=== PATIENT | male | born 1945 | race Caucasian/White ===

== ENCOUNTER 2020-05-24 18:06 | Inpatient (IN) | payer MEDICARE, OTHER, SELFPAY ==
[2020-05-24 18:07] VITALS: BP 126/83; PULSE 82; RESP 17; TEMP 35.8; O2SAT 94; BMI 31.1
[2020-05-24 18:14] VITALS: BP 131/89; PULSE 83; RESP 22
--- NOTE | 2020-05-24 18:21 | EKG12_ITS ---
Test Reason : CHEST PAIN Blood Pressure : / mmHG Vent. Rate : 074 BPM Atrial Rate : 074 BPM P-R Int : 192 ms QRS Dur : 110 ms QT Int : 426 ms P-R-T Axes : 036 008 083 degrees QTc Int : 472 ms Normal sinus rhythm ST & T wave abnormality, consider anterolateral ischemia Prolonged QT Abnormal ECG Confirmed by BLANCA HAYDEN, KENNEDI ([id number]), video effects editor NATALIIA CR ([id number]) on 05/27/2020 12:16:33 PM Referred By: LISA Confirmed By:KENNEDI RIOS MD
--- NOTE | 2020-05-24 18:29 | ED.RN ---
NO OLD EKGS IN MUES
[2020-05-24] MEDS: Aspirin 81 MG TAB.CHEW 324 MG PO (18:33)
--- NOTE | 2020-05-24 18:35 | RAD_ITS ---
STUDY: X-RAY CHEST REASON FOR EXAM: Male, 74 years old. chest pain TECHNIQUE: 1 view COMPARISON: None. FINDINGS: The lungs are clear and expanded. Mild elevation right diaphragm. Normal size heart. Normal mediastinum and yamel. Normal visualized pulmonary arteries. Normal visualized aortic arch and descending thoracic aorta. Normal visualized thoracic spine. Normal visualized ribs, clavicles, and shoulders. There is no demonstrated abnormality of the visualized soft tissue structures of the upper abdomen. RAD/Chest 1 View (Portable) IMPRESSION: Mild elevation right diaphragm. No acute cardiopulmonary findings. Electronically Signed: Courtney Thomas MD at 18:51 EST , Service support ,
[2020-05-24 18:40] LABS: Absolute Lymphocyte Count 4.43 X10^3/uL (0.83-4.51); Absolute Neutrophil Count 8.3 X10^3/uL (2.0-7.7); Basophil# 0.09 X10^3/uL; Basophil% 0.6 % (0-1); Eosinophil# 0.11 X10^3/uL; Eosinophils% 0.8 % (0-5); Hematocrit 45.8 % (40-54); Hemoglobin 15.2 g/dL (13.0-16.5); Lymphocyte # 4.43 X10^3/ul (4.0); Lymphocyte % 30.7 % (19-41); Mean Corp Hgb Conc 33.2 g/dL (32-36); Mean Corpuscular Hgb 29.6 pg (27.0-32.0); Mean Corpuscular Volume 89.1 fL (80-94); Mean Platelet Vol. 11.3 fl (6.2-12.0); Monocyte# 1.39 X10^3/uL; Monocyte% 9.6 % (0-10); NRBC Flagged by Analyzer 0 % (0-5); Neutrophil # 8.34 X10^3/uL (2.7-7.7); Neutrophil % 57.9 % (47-70); Platelet Count 236 K/mm3 (150-450); RBC Distribution Width CV 13.3 % (11.6-14.6); RBC Distribution Width SD 43.5 fl (35.1-43.9); Red Blood Count 5.14 M/mm3 (4.6-6.2); White Blood Count 14.4 K/mm3 (4.4-11.0)
[2020-05-24 19:07] LABS: Anion Gap 10 (5-15); BUN 15 mg/dL (7-18); BUN/Creat Ratio 9.4 RATIO (10-20); Calcium,Total 9.3 mg/dL (8.5-10.1); Chloride 100 mmol/L (98-107); Creatinine, Serum 1.59 mg/dL (0.70-1.30); EST Glomerular Filtration Rate 46 mL/min (>60); Est Glom Filt Rate - Afr Amer 55 mL/min (>60); Estimated Creatinine Clearance 48.11 ml/min; Glucose 150 mg/dL (74-106); Potassium 4.2 mmol/L (3.5-5.1); Sodium Level 136 mmol/L (136-145)
[2020-05-24 19:21] VITALS: BP 115/75; PULSE 67; RESP 22; O2SAT 94
--- NOTE | 2020-05-24 19:30 | ED.VISSUMM ---
- ER Visit Summary Date of Service: 05/24/20 Chief Complaint: Chest pain History of Present Illness: The patient is a 74 M who presents with chest pain that began yesterday afternoon. Patient states the pain has been waxing and waning. Patient states the pain is over the substernal area. Patient states the pain is worse with breathing. Patient admits to some shortness of breath and cough. Patient also admits to some diaphoresis. Patient states he does feel lightheaded at times. Patient states he had a brief episode of acid reflux yesterday. Patient denies any nausea or vomiting. Cardiac risk factors include hypertension, diabetes, hypercholesterolemia, and a family history of apparent with coronary artery disease at an early age. Patient denies any PE risk factors. Physical Examination: Vital signs are stable. Patient is afebrile. Patient is in no acute distress. Oral mucosa is pink and moist. Neck is supple. Trachea is midline. There is no JVD noted. Heart was regular rate and rhythm. Lungs are clear and equal bilaterally. Abdomen is soft. Bowel sounds are normal. There is no tenderness. There is no rebound or guarding noted. Skin is warm dry. Cranial nerves II through XII are intact. There are no focal motor or sensory deficits noted. Extremities are intact. There is no calf tenderness or edema. Test Results: EKG was obtained. On my interpretation, there is a normal sinus rhythm with a rate of 74. There are nonspecific ST-T wave changes in the lateral leads, 1, aVL, V3 through V6. There are no prior EKGs available for comparison. Portable 1 view chest x-ray was obtained. On my interpretation, lung jean are clear. There is normal cardiac silhouette. Bony thorax is normal. There is no acute process noted. Radiologist also interpreted the x-ray and agrees. CBC shows a mild leukocytosis of 14.4. Creatinine is 1.59. Glucose was 150. Troponin was indeterminate at 0.521. COVID-19 rapid antigen was obtained and is pending. Emergency Department Course and Treatment: Patient was given aspirin and nitroglycerin here. Patient feels better on reevaluation. Patient has a HEART score of 6. I recommended admission to the hospital. Patient states he has not had a stress test in many years. He is actually unsure if he ever had a stress test. Case was discussed with the hospitalist. She will admit the patient to her service. Patient understood and was agreeable with the plan. All questions were answered. Disposition: Admit to hospital Impression: 1. Chest pain 2. Elevated troponin This note was generated with [employer] dictation software. It may contain incorrect words, spelling, and punctuation that were not noted in review of the chart prior to signing ED Disposition - Plan for ED Patient: Disposition: Acute Care Hospital [facility] Diagnosis: Chest pain, Elevated troponin
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
[2020-05-24 19:59] VITALS: BP 134/78; PULSE 65; RESP 20; TEMP 36.7; O2SAT 94
--- NOTE | 2020-05-24 20:30 | EKG12_ITS ---
Test Reason : Blood Pressure : / mmHG Vent. Rate : 058 BPM Atrial Rate : 058 BPM P-R Int : 188 ms QRS Dur : 104 ms QT Int : 514 ms P-R-T Axes : 041 014 023 degrees QTc Int : [address] & T wave abnormality, consider anterolateral ischemia Prolonged QT Abnormal ECG When compared with ECG of 26-MAY-2020 04:41, MANUAL COMPARISON REQUIRED, DATA IS UNCONFIRMED Confirmed by JOHNNY HAYDEN, CALVIN ([id number]), editor producer NATALIIA CR ([id number]) on 05/28/2020 1:06:30 PM Referred By: BARBARA Confirmed By:CALVIN TURNER MD
[2020-05-24] MEDS: Enoxaparin 120 MG/0.8 ML Syringe 110 MG SC (20:31)
[2020-05-24 20:49] VITALS: BMI 30.3
--- NOTE | 2020-05-24 21:03 | ECHOCS_ITS ---
Reason For Study: CAD/ASHD Procedure This was a 2D Doppler, Color Flow transthoracic echocardiogram. The study was technically difficult. Contrast injection was performed. Exam performed portable in patient room. Left Ventricle Normal LV size. D shaped septum in systole and diastole. Segmental dysfunction with preserved ejection fraction (see wall motion). The estimated ejection fraction is 55 %. Diastolic function is indeterminate. Basal inferoseptal: Hypokinetic. Basal anteroseptal: Hypokinetic. Mid-Anterior : Hypokinetic. Mid-Lateral : Hypokinetic. Mid-inferoseptal : Hypokinetic. Mid-anteroseptal : Hypokinetic. Right Ventricle Mildly dilated right ventricle. A moderator band is seen in the right ventricle. Mild global right ventricular systolic dysfunction. Atria Normal left atrium. The right atrium is moderately enlarged. No doppler evidence for ASD. Mitral Valve There is no mitral annular calcification. Normal mitral valve. Trivial mitral valve insufficiency. Tricuspid Valve Normal tricuspid valve. Mild to moderate (1-2+) eccentric tricuspid valve insufficiency. Right ventricular systolic pressure estimated to be 59 mmHg. Aortic Valve Trisinus/trileaflet aortic valve. Normal aortic valve. Pulmonic Valve The pulmonic valve is not well visualized. Trivial pulmonic valve insufficiency. Great Vessels Borderline to mildly dilated aortic root. Pericardium/Pleural No pericardial effusion. Medication Diluted definity 2ml given slow IV push to enhance endocardial definition. MMode/2D Measurements & Calculations LVIDd: 4.3 cm IVSd: 1.2 cm Ao root diam: 3.9 cm LVIDs: 2.5 cm LVPWd: 1.2 cm RVDd: 5.5 cm FS: 42.0 % LAV(MOD-bp): 48.0 ml LVAd ap4: 31.5 cm2 SV(MOD-sp4): 63.2 ml LAV(MOD-bp) Indexed: 20.3 ml/m2 EDV(MOD-sp4): 103.9 ml LAV(MOD-sp2): 48.7 ml EDV(sp4-el): 105.6 ml LAV(MOD-sp4): 39.2 ml LVAs ap4: 17.7 cm2 ESV(MOD-sp4): 40.7 ml ESV(sp4-el): 40.3 ml EF(MOD-sp4): 60.8 % EF(sp4-el): 61.8 % SV(sp4-el): 65.3 ml LA A4 area: 16.9 cm2 LA dimension(2D): 3.0 cm RA A4 area: 23.5 cm2 Doppler Measurements & Calculations MV E max brown: 52.5 cm/sec Lat Peak E' Brown: 7.0 cm/sec Med Peak E' Brown: 4.3 cm/sec MV A max brown: 76.6 cm/sec E/E' lat: 7.5 E/E' med: 12.1 MV E/A: 0.68 Ao V2 max: 118.1 cm/sec LV V1 max: 106.8 cm/sec PA V2 max: 47.9 cm/sec Ao max P.6 mmHg LV V1 max P.6 mmHg Ao V2 mean: 77.1 cm/sec Ao mean P.7 mmHg Ao V2 VTI: 23.8 cm TR max brown: 372.6 cm/sec TR max P.5 mmHg Interpretation Summary The study was technically difficult. Contrast injection was performed. Segmental dysfunction with preserved ejection fraction (see wall motion). The estimated ejection fraction is 55 %. D shaped septum in systole and diastole. Mildly dilated right ventricle. Mild global right ventricular systolic dysfunction. A moderator band is seen in the right ventricle. The right atrium is moderately enlarged. Trivial mitral valve insufficiency. Mild to moderate (1-2+) eccentric tricuspid valve insufficiency. Trivial pulmonic valve insufficiency. Borderline to mildly dilated aortic root. Right ventricular systolic pressure estimated to be 59 mmHg c/w pulmonary hypertension. Diastolic function is indeterminate. Ordering Physician: Amie Cabrera Referring Physician: Abdullahi Mason Performed By: Kayce Vogel RDCS, RVT
[2020-05-24 21:11] VITALS: BP 145/98; PULSE 73; RESP 16; TEMP 36.4; O2SAT 94
[2020-05-24 21:17] VITALS: BMI 30.3
[2020-05-24] MEDS: 0.9% Normal Saline 1,000 ML 100 ML IV (21:51)
[2020-05-24] MEDS: Insulin Lispro 100 UNIT/ML INSULN.PEN SC (21:55)
[2020-05-24 22:01] LABS: Bedside Glucose 171 mg/dL (70-110)
[2020-05-24 22:23] VITALS: PULSE 66
[2020-05-24 22:25] LABS: Magnesium 1.9 mg/dL (1.6-2.6)
[2020-05-25] VITALS (31 sets, daily range): BP systolic 133–164; BP diastolic 71–92; PULSE 54–71; RESP 15–27; TEMP 36.4–36.7; O2SAT 92–97
[2020-05-25] MEDS: TICAGRELOR 90 MG TABLET 180 MG PO (02:48)
[2020-05-25] MEDS: 0.9% Normal Saline 1,000 ML 75 ML IV (02:49)
[2020-05-25] MEDS: 0.9% Saline Lock 10 ML Syringe IV ×2 (03:01→10:28)
--- NOTE | 2020-05-25 05:55 | EKG12_ITS ---
Test Reason : Blood Pressure : / mmHG Vent. Rate : 060 BPM Atrial Rate : 060 BPM P-R Int : 184 ms QRS Dur : 112 ms QT Int : 496 ms P-R-T Axes : 013 013 102 degrees QTc Int : 496 ms Normal sinus rhythm ST & T wave abnormality, consider anterolateral ischemia Prolonged QT Abnormal ECG When compared with ECG of 24-MAY-2020 21:09, MANUAL COMPARISON REQUIRED, DATA IS UNCONFIRMED Confirmed by JOHNNY HAYDEN, CALVIN ([id number]), content editor NATALIIA CR ([id number]) on 05/28/2020 1:09:56 PM Referred By: SANDRA Confirmed By:CALVIN TURNER MD
[2020-05-25] MEDS: Levothyroxine 175 MCG Tablet PO (06:14)
[2020-05-25] MEDS: Aspirin E.C. 81 MG Tablet PO (06:14)
[2020-05-25] MEDS: Losartan Potassium 100 MG Tablet PO (06:14)
[2020-05-25] MEDS: amLODIPine 10 MG Tablet PO (06:14)
[2020-05-25] MEDS: Atenolol 50 MG Tablet PO (06:14)
[2020-05-25 06:45] LABS: Bedside Glucose 139 mg/dL (70-110)
[2020-05-25 06:56] LABS: Absolute Lymphocyte Count 2.35 X10^3/uL (0.83-4.51); Absolute Neutrophil Count 8.3 X10^3/uL (2.0-7.7); Basophil# 0.06 X10^3/uL; Basophil% 0.5 % (0-1); Eosinophil# 0.12 X10^3/uL; Hematocrit 43.1 % (40-54); Hemoglobin 14.2 g/dL (13.0-16.5); Lymphocyte # 2.35 X10^3/ul (4.0); Lymphocyte % 19.6 % (19-41); Mean Corp Hgb Conc 32.9 g/dL (32-36); Mean Corpuscular Hgb 29.3 pg (27.0-32.0); Mean Corpuscular Volume 88.9 fL (80-94); Mean Platelet Vol. 10.9 fl (6.2-12.0); Monocyte# 1.07 X10^3/uL; Monocyte% 8.9 % (0-10); NRBC Flagged by Analyzer 0 % (0-5); Neutrophil # 8.31 X10^3/uL (2.7-7.7); Neutrophil % 69.5 % (47-70); Platelet Count 219 K/mm3 (150-450); RBC Distribution Width CV 13.4 % (11.6-14.6); RBC Distribution Width SD 43.7 fl (35.1-43.9); Red Blood Count 4.85 M/mm3 (4.6-6.2)
[2020-05-25 07:13] LABS: International Normalized Ratio 1.1; Prothrombin Time (Protime)PT. 13.8 SECONDS (11.7-14.9)
[2020-05-25 07:14] LABS: Partial Thromboplast Time 31.1 Seconds (24.1-36.2)
[2020-05-25 07:49] LABS: AST(SGOT) 22 U/L (15-37); Alanine Aminotransfer ALT/SGPT 21 U/L (16-61); Albumin, Serum 3.6 g/dL (3.2-5.0); Alkaline Phosphatase 93 U/L (45-117); Anion Gap 10 (5-15); BUN 14 mg/dL (7-18); Calcium,Total 8.8 mg/dL (8.5-10.1); Chloride 104 mmol/L (98-107); Cholesterol 124 mg/dL (200); Creatinine, Serum 1.17 mg/dL (0.70-1.30); EST Glomerular Filtration Rate 65 mL/min (>60); Est Glom Filt Rate - Afr Amer 78 mL/min (>60); Estimated Creatinine Clearance 65.38 ml/min; Globulin 3.7 g/dL (2.2-4.2); Glucose 137 mg/dL (74-106); High Density Lipoprotein 34 mg/dL; Potassium 3.1 mmol/L (3.5-5.1); Protein, Total 7.3 g/dL (6.4-8.2); Sodium Level 137 mmol/L (136-145); Triglycerides 207 mg/dL; Very Low Density Lipoprotein 41 mg/dL (5-40)
[2020-05-25 09:12] LABS: Hemoglobin A1c 6.8 % (3.8-5.6)
[2020-05-25] MEDS: Potassium Chloride 10mEq/100mL 10 MEQ/100 ML IV.SOLN. 100 MEQ IV BOLUS ×4 (09:20→12:32)
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
[2020-05-25] MEDS: TICAGRELOR 90 MG TABLET PO ×2 (10:39→22:01)
[2020-05-25] MEDS: Insulin Lispro 100 UNIT/ML INSULN.PEN SC (11:51)
--- NOTE | 2020-05-25 11:58 | PN_ITS ---
<Bernie Shannon ETHICS MANAGER - Last Filed: 05/25/20 12:02> Patient Problems: Active and Suspected Problems Chest pain (Acute) Elevated troponin (Acute) NSTEMI (non-ST elevated myocardial infarction) (Acute) Unstable angina (Acute) Subjective: Patient seen and examined. Denies active chest pain. Plan for heart cath later today per cardiology. Patient reports ongoing dyspnea with exertion. - Physical Exam Vitals/I&O's: Vital Signs Temp Pulse Resp BP Pulse Ox 98 F 57 L 16 136/91 H 96 05/25/20 11:50 05/25/20 11:50 05/25/20 11:50 05/25/20 11:50 05/25/20 11:50 Oxygen Delivery Method Room Air Weight: 235 lb 7.259 oz Body Mass Index (BMI) 30.3 Intake and Output for Last 24 Hours 05/23/20 05/24/20 05/25/20 23:59 23:59 23:59 Intake Total 306.67 / 306.67 730.42 / 730.42 Balance 306.67 / 306.67 730.42 / 730.42 General: Alert, Oriented x3, Cooperative HEENT: Atraumatic, PERRLA, EOMI, Normocephalic Neck: Supple, No JVD, Negative Carotid Bruits Lungs: Clear to auscultation, Normal air movement Cardiovascular: Regular rate, No murmurs Abdomen: Bowel Sounds Present, Soft, Non Tender, Non-Distended Extremities: No clubbing, No cyanosis, No edema, Capillary Refill Less than 3 Seconds Skin: No rashes, No breakdown Musculoskeletal: No Tenderness to Palpation of Joints or Extremities Neurological: Cranial nerves II-XII grossly intact, Neuro grossly intact Psych/Mental Status: Normal Affect, Appropriate Microbiology Past 72 Hours 05/24/20 18:50 Mucosa - Nasopharyngeal SARS-CoV-2 Antigen (Rapid) - Final Laboratory Results 05/24/20 18:30: WBC 14.4 H, RBC 5.14, Hgb 15.2, Hct 45.8, MCV 89.1, MCH 29.6, MCHC 33.2, RDW Std Deviation 43.5, RDW Coeff of Oliverio 13.3, Plt Count 236, MPV 11.3, Immature Gran % (Auto) 0.400, Neut % (Auto) 57.9, Lymph % (Auto) 30.7, [place] % (Auto) 9.6, Eos % (Auto) 0.8, Baso % (Auto) 0.6, Absolute Neuts (auto) 8.3 H, Absolute Lymphs (auto) 4.43, Nucleated RBC % 0 05/24/20 18:30: Sodium 136, Potassium 4.2, Chloride 100, Carbon Dioxide 26.0, Anion Gap 10, BUN 15, Creatinine 1.59 H, Estim Creat Clear Calc 48.11, Est GFR (MDRD) Af Amer 55 L, Est GFR (MDRD) Non-Af 46 L, BUN/Creatinine Ratio 9.4 L, Glucose 150 H, Calcium 9.3, Troponin I 0.521 H 05/24/20 21:44: Magnesium 1.9, Troponin I 0.593 H 05/24/20 21:50: POC Glucose 171 H 05/25/20 00:20: Troponin I 0.561 H 05/25/20 06:10: WBC 12.0 H, RBC 4.85, Hgb 14.2, Hct 43.1, MCV 88.9, MCH 29.3, MCHC 32.9, RDW Std Deviation 43.7, RDW Coeff of Oliverio 13.4, Plt Count 219, MPV 10.9, Immature Gran % (Auto) 0.500, Neut % (Auto) 69.5, Lymph % (Auto) 19.6, [place] % (Auto) 8.9, Eos % (Auto) 1.0, Baso % (Auto) 0.5, Absolute Neuts (auto) 8.3 H, Absolute Lymphs (auto) 2.35, Nucleated RBC % 0 05/25/20 06:10: PT 13.8, INR 1.1, APTT 31.1 05/25/20 06:10: Sodium 137, Potassium 3.1 L, Chloride 104, Carbon Dioxide 23.0, Anion Gap 10, BUN 14, Creatinine 1.17, Estim Creat Clear Calc 65.38, Est GFR (MDRD) Af Amer 78, Est GFR (MDRD) Non-Af 65, BUN/Creatinine Ratio 12.0, Glucose 137 H, Calcium 8.8, Total Bilirubin 1.20 H, AST 22, ALT 21, Alkaline Phosphatase 93, Total Protein 7.3, Albumin 3.6, Globulin 3.7, Albumin/Globulin Ratio 1.0, Triglycerides 207 H, Cholesterol 124, LDL Cholesterol 49, VLDL Cholesterol 41 H, HDL Cholesterol 34 L 05/25/20 06:10: Hemoglobin A1c 6.8 H 05/25/20 06:32: POC Glucose 139 H Current Medications Acetaminophen (Acetaminophen 325 Mg Tablet) 650 mg PO Q6H PRN PRN PRN Reason: Pain Score 1-10/Temp > 100.7 F Al Hydroxide/Mg Hydroxide (Mag Hydrox/Al Hydrox/Simeth 30 Ml Udc) 30 ml PO Q6H PRN PRN PRN Reason: Gastric Burning Amlodipine Besylate (Amlodipine 10 Mg Tablet) 10 mg PO DAILY [facility] Last Admin: 05/25/20 06:14 Dose: 10 mg Documented by: Aspirin (Aspirin E.C. 81 Mg Tablet) 81 mg PO DAILY@0800 [facility] Last Admin: 05/25/20 06:14 Dose: 81 mg Documented by: Atenolol (Atenolol 50 Mg Tablet) 50 mg PO DAILY [facility] Last Admin: 05/25/20 06:14 Dose: 50 mg Documented by: Atorvastatin Calcium (Atorvastatin Calcium 40 Mg Tablet) 40 mg PO QHS [facility] Enoxaparin Sodium (Enoxaparin 120 Mg/0.8 Ml Syringe) 110 mg SC Q12@0600,1800 [facility] Last Admin: 05/25/20 06:14 Dose: Not Given Documented by: Guaifenesin (Guaifenesin 10 Ml Udc (200mg/10ml)) 20 ml PO Q4H PRN PRN PRN Reason: COUGH Hydralazine HCl (Hydralazine 20 Mg/Ml Vial) 10 mg IV Q4H PRN PRN PRN Reason: SBP > 160 Hydrochlorothiazide (Hydrochlorothiazide 12.5mg) 12.5 mg PO DAILY [facility] Sodium Chloride () 250 mls @ 15 mls/hr IV .[id number] PRN PRN Reason: Saline Flush Sodium Chloride () 250 mls @ 15 mls/hr IV .[id number] PRN PRN Reason: Additional IVPB Infusion Sodium Chloride () 1,000 mls @ 75 mls/hr IV .[id number] [facility] Last Infusion: 05/25/20 06:00 Dose: 75 mls/hr Documented by: Potassium Chloride () 10 meq in 100 mls @ 100 mls/hr IV BOLUS Q1H [facility] Stop: 05/25/20 12:59 Last Admin: 05/25/20 11:32 Dose: 100 mls/hr Documented by: Sodium Chloride () 1,000 mls @ 15 mls/hr IV .Q48H [facility] Insulin Human Lispro (Insulin Lispro 100 Unit/Ml Insuln.Pen) 0 unit SC ACHS [facility]; Protocol Last Admin: 05/25/20 11:51 Dose: 1 u Documented by: Levothyroxine Sodium (Levothyroxine 175 Mcg Tablet) 175 mcg PO DAILY@0600 [facility] Last Admin: 05/25/20 06:14 Dose: 175 mcg Documented by: Losartan Potassium (Losartan Potassium 100 Mg Tablet) 100 mg PO DAILY [facility] Last Admin: 05/25/20 06:14 Dose: 100 mg Documented by: Magnesium Hydroxide (Magnesium Hydroxide 30 Ml Udc) 30 ml PO DAILY PRN PRN PRN Reason: Constipation Melatonin (Melatonin 3 Mg Tablet) 3 mg PO QHS PRN PRN PRN Reason: INSOMNIA Morphine Sulfate (Morphine 2 Mg/Ml Syringe) 2 mg IV Q3H PRN PRN PRN Reason: Pain Score 6-10 Ondansetron HCl (Ondansetron 4 Mg/2 Ml Vial) 4 mg IV Q8H PRN PRN PRN Reason: NAUSEA/VOMITING Oxycodone HCl (Oxycodone 5 Mg Tablet) 5 mg PO Q4H PRN PRN PRN Reason: Pain Score 4-5 Pantoprazole Sodium (Pantoprazole Sodium 40 Mg Tablet) 40 mg PO DAILY [facility] Prochlorperazine Edisylate (Prochlorperazine 10 Mg/2 Ml Vial) 5 mg IV Q4H PRN PRN PRN Reason: Breakthrough Nausea/Vomiting Psyllium Hydrophilic Mucilloid (Psyllium 1 Packet) 1 packet PO DAILY PRN PRN PRN Reason: Constipation Senna/Docusate Sodium (Senna/Docusate Sodium 1 Tablet) 2 tablet PO BID PRN PRN PRN Reason: Constipation Sodium Chloride (0.9% Saline Lock 10 Ml Syringe) 10 - 40 ml IV UD PRN PRN Reason: SALINE FLUSH Last Admin: 05/25/20 10:28 Dose: 10 ml Documented by: Throat Lozenges (Benzocaine/Menthol 1 Lozenge) 1 lozenge MUCOUS MEM Q2H PRN PRN PRN Reason: SORE THROAT Ticagrelor (Ticagrelor 90 Mg Tablet) 90 mg PO BID [facility] Last Admin: 05/25/20 10:39 Dose: 90 mg Documented by: Medical Necessity - Tobacco Use Smoking Status: Former smoker - Patient smoked starting in the service approximately 1 pack lasting him 1 week quitting approximately 50 years prior to current presentation. Tobacco Use: Non-smoker Assessment/Plan All Active Problems Chest pain (Acute) Elevated troponin (Acute) NSTEMI (non-ST elevated myocardial infarction) (Acute) Unstable angina (Acute) 1. NSTEMI-cardiology consulted. Plan for heart cath. Echocardiogram ordered. On therapeutic Lovenox. Continue aspirin, statin, beta-juan antonio. 2. Hypokalemia-replaced per protocol, trend BMP. 3. Hypertension-stable, continue amlodipine, atenolol, HCTZ, losartan. 4. Hyperlipidemia-continue statin. 5. Hypothyroidism-continue Synthroid regimen. 6. Suspected acute kidney injury on chronic kidney disease stage III-acute kidney injury resolved with IV fluids. Unclear baseline. Trend BMP. 7. Type 2 diabetes mellitus-oral regimen on hold. Accu-Cheks with sliding scale insulin. 8. Obesity-diet lifestyle modifications encouraged. DVT prophylaxis-Lovenox This patient was seen by FLIP Cha under the supervision of Dr. Mchugh. <Nasra Mchugh - Last Filed: 05/25/20 15:44> - Physical Exam Vitals/I&O's: Vital Signs Temp Pulse Resp BP Pulse Ox 98 F 57 L 16 136/91 H 96 05/25/20 11:50 05/25/20 11:50 05/25/20 11:50 05/25/20 11:50 05/25/20 11:50 Oxygen Delivery Method Room Air Weight: 235 lb 7.259 oz Body Mass Index (BMI) 30.3 Intake and Output for Last 24 Hours 05/23/20 05/24/20 05/25/20 23:59 23:59 23:59 Intake Total 306.67 / 306.67 830.42 / 830.42 Balance 306.67 / 306.67 830.42 / 830.42 Microbiology Past 72 Hours 05/24/20 18:50 Mucosa - Nasopharyngeal SARS-CoV-2 Antigen (Rapid) - Final Laboratory Results 05/24/20 18:30: WBC 14.4 H, RBC 5.14, Hgb 15.2, Hct 45.8, MCV 89.1, MCH 29.6, MCHC 33.2, RDW Std Deviation 43.5, RDW Coeff of Oliverio 13.3, Plt Count 236, MPV 11.3, Immature Gran % (Auto) 0.400, Neut % (Auto) 57.9, Lymph % (Auto) 30.7, [place] % (Auto) 9.6, Eos % (Auto) 0.8, Baso % (Auto) 0.6, Absolute Neuts (auto) 8.3 H, Absolute Lymphs (auto) 4.43, Nucleated RBC % 0 05/24/20 18:30: Sodium 136, Potassium 4.2, Chloride 100, Carbon Dioxide 26.0, Anion Gap 10, BUN 15, Creatinine 1.59 H, Estim Creat Clear Calc 48.11, Est GFR (MDRD) Af Amer 55 L, Est GFR (MDRD) Non-Af 46 L, BUN/Creatinine Ratio 9.4 L, Glucose 150 H, Calcium 9.3, Troponin I 0.521 H 05/24/20 21:44: Magnesium 1.9, Troponin I 0.593 H 05/24/20 21:50: POC Glucose 171 H 05/25/20 00:20: Troponin I 0.561 H 05/25/20 06:10: WBC 12.0 H, RBC 4.85, Hgb 14.2, Hct 43.1, MCV 88.9, MCH 29.3, MCHC 32.9, RDW Std Deviation 43.7, RDW Coeff of Oliverio 13.4, Plt Count 219, MPV 10.9, Immature Gran % (Auto) 0.500, Neut % (Auto) 69.5, Lymph % (Auto) 19.6, [place] % (Auto) 8.9, Eos % (Auto) 1.0, Baso % (Auto) 0.5, Absolute Neuts (auto) 8.3 H, Absolute Lymphs (auto) 2.35, Nucleated RBC % 0 05/25/20 06:10: PT 13.8, INR 1.1, APTT 31.1 05/25/20 06:10: Sodium 137, Potassium 3.1 L, Chloride 104, Carbon Dioxide 23.0, Anion Gap 10, BUN 14, Creatinine 1.17, Estim Creat Clear Calc 65.38, Est GFR (MDRD) Af Amer 78, Est GFR (MDRD) Non-Af 65, BUN/Creatinine Ratio 12.0, Glucose 137 H, Calcium 8.8, Total Bilirubin 1.20 H, AST 22, ALT 21, Alkaline Phosphatase 93, Total Protein 7.3, Albumin 3.6, Globulin 3.7, Albumin/Globulin Ratio 1.0, Triglycerides 207 H, Cholesterol 124, LDL Cholesterol 49, VLDL Cholesterol 41 H, HDL Cholesterol 34 L 05/25/20 06:10: Hemoglobin A1c 6.8 H 05/25/20 06:32: POC Glucose 139 H 05/25/20 11:50: POC Glucose 162 H 05/25/20 14:42: Specimen Type CUAUHTEMOC, VBG pH 7.45 H, VBG pO2 37, VBG HCO3 23, VBG Total CO2 24, VBG O2 Sat (Calc) 74 H, VBG Base Excess -1, POC Mix VBG pCO2 Pt Tmp 32.7 L 05/25/20 14:42: Specimen Type CUAUHTEMOC, VBG pH 7.44 H, VBG pO2 31, VBG HCO3 26, VBG Total CO2 27, VBG O2 Sat (Calc) 63, VBG Base Excess 2, POC Mix VBG pCO2 Pt Tmp 37.6 L 05/25/20 14:47: Specimen Type CU[place]HTEMOC, VBG pH 7.44 H, VBG pO2 29, VBG HCO3 24, VBG Total CO2 25, VBG O2 Sat (Calc) 58, VBG Base Excess 0, POC Mix VBG pCO2 Pt Tmp 35.4 L 05/25/20 14:48: Specimen Type ART, pH 7.54 H, Bicarbonate Actual 22.4, Total CO2 23, Base Excess 0, O2 Saturation 97, ABG pCO2 26.5 L, ABG pO2 74 L Current Medications Acetaminophen (Acetaminophen 325 Mg Tablet) 650 mg PO Q6H PRN PRN PRN Reason: Pain Score 1-10/Temp > 100.7 F Al Hydroxide/Mg Hydroxide (Mag Hydrox/Al Hydrox/Simeth 30 Ml Udc) 30 ml PO Q6H PRN PRN PRN Reason: Gastric Burning Amlodipine Besylate (Amlodipine 10 Mg Tablet) 10 mg PO DAILY [facility] Last Admin: 05/25/20 06:14 Dose: 10 mg Documented by: Aspirin (Aspirin E.C. 81 Mg Tablet) 81 mg PO DAILY@0800 [facility] Last Admin: 05/25/20 06:14 Dose: 81 mg Documented by: Atenolol (Atenolol 50 Mg Tablet) 50 mg PO DAILY [facility] Last Admin: 05/25/20 06:14 Dose: 50 mg Documented by: Atorvastatin Calcium (Atorvastatin Calcium 40 Mg Tablet) 40 mg PO QHS [facility] Enoxaparin Sodium (Enoxaparin 120 Mg/0.8 Ml Syringe) 110 mg SC Q12@0600,1800 [facility] Last Admin: 05/25/20 06:14 Dose: Not Given Documented by: Guaifenesin (Guaifenesin 10 Ml Udc (200mg/10ml)) 20 ml PO Q4H PRN PRN PRN Reason: COUGH Hydralazine HCl (Hydralazine 20 Mg/Ml Vial) 10 mg IV Q4H PRN PRN PRN Reason: SBP > 160 Hydrochlorothiazide (Hydrochlorothiazide 12.5mg) 12.5 mg PO DAILY [facility] Sodium Chloride () 250 mls @ 15 mls/hr IV .[id number] PRN PRN Reason: Saline Flush Sodium Chloride () 250 mls @ 15 mls/hr IV .[id number] PRN PRN Reason: Additional IVPB Infusion Sodium Chloride () 1,000 mls @ 75 mls/hr IV .[id number] [facility] Last Infusion: 05/25/20 06:00 Dose: 75 mls/hr Documented by: Sodium Chloride () 1,000 mls @ 15 mls/hr IV .Q48H [facility] Insulin Human Lispro (Insulin Lispro 100 Unit/Ml Insuln.Pen) 0 unit SC ACHS [facility]; Protocol Last Admin: 05/25/20 11:51 Dose: 1 u Documented by: Levothyroxine Sodium (Levothyroxine 175 Mcg Tablet) 175 mcg PO DAILY@0600 [facility] Last Admin: 05/25/20 06:14 Dose: 175 mcg Documented by: Losartan Potassium (Losartan Potassium 100 Mg Tablet) 100 mg PO DAILY [facility] Last Admin: 05/25/20 06:14 Dose: 100 mg Documented by: Magnesium Hydroxide (Magnesium Hydroxide 30 Ml Udc) 30 ml PO DAILY PRN PRN PRN Reason: Constipation Melatonin (Melatonin 3 Mg Tablet) 3 mg PO QHS PRN PRN PRN Reason: INSOMNIA Morphine Sulfate (Morphine 2 Mg/Ml Syringe) 2 mg IV Q3H PRN PRN PRN Reason: Pain Score 6-10 Ondansetron HCl (Ondansetron 4 Mg/2 Ml Vial) 4 mg IV Q8H PRN PRN PRN Reason: NAUSEA/VOMITING Oxycodone HCl (Oxycodone 5 Mg Tablet) 5 mg PO Q4H PRN PRN PRN Reason: Pain Score 4-5 Pantoprazole Sodium (Pantoprazole Sodium 40 Mg Tablet) 40 mg PO DAILY [facility] Prochlorperazine Edisylate (Prochlorperazine 10 Mg/2 Ml Vial) 5 mg IV Q4H PRN PRN PRN Reason: Breakthrough Nausea/Vomiting Psyllium Hydrophilic Mucilloid (Psyllium 1 Packet) 1 packet PO DAILY PRN PRN PRN Reason: Constipation Senna/Docusate Sodium (Senna/Docusate Sodium 1 Tablet) 2 tablet PO BID PRN PRN PRN Reason: Constipation Sodium Chloride (0.9% Saline Lock 10 Ml Syringe) 10 - 40 ml IV UD PRN PRN Reason: SALINE FLUSH Last Admin: 05/25/20 10:28 Dose: 10 ml Documented by: Throat Lozenges (Benzocaine/Menthol 1 Lozenge) 1 lozenge MUCOUS MEM Q2H PRN PRN PRN Reason: SORE THROAT Ticagrelor (Ticagrelor 90 Mg Tablet) 90 mg PO BID [facility] Last Admin: 05/25/20 10:39 Dose: 90 mg Documented by: Assessment/Plan Patient seen by Bernie Shannon NP-Nedra under my supervision Patient seen and examined. He was admitted with a complaint of chest pain and found to have non-STEMI. Cardiology was consulted. Patient still complains of some mild chest pressure today. He denies any lightheadedness or dizziness or palpitations. Review systems otherwise negative. He has never had stents before. He has remained hemodynamically stable. O/E: Vital Signs Temp Pulse Resp BP Pulse Ox 98 F 57 L 16 136/91 H 96 05/25/20 11:50 05/25/20 11:50 05/25/20 11:50 05/25/20 11:50 05/25/20 11:50 General: Alert, Oriented x3, Cooperative HEENT: Atraumatic, PERRLA, EOMI, Normocephalic Neck: Supple, No JVD, Negative Carotid Bruits Lungs: Clear to auscultation, Normal air movement Cardiovascular: Regular rate, No murmurs Abdomen: Bowel Sounds Present, Soft, Non Tender, Non-Distended Extremities: No clubbing, No cyanosis, No edema, Capillary Refill Less than 3 Seconds Skin: No rashes, No breakdown Musculoskeletal: No Tenderness to Palpation of Joints or Extremities Neurological: Cranial nerves II-XII grossly intact, Neuro grossly intact Psych/Mental Status: Normal Affect, Appropriate Plan is for cardiac cath today. 2D echo also ordered. To continue with aspirin and statin. Diabetes medications on hold. Insulin sliding scale. Accuchecks ACHS. Cardiology on board. Patient being hydrated with IV fluids for SAGRARIO on CKD stage III. 2D echo showed EF of 55% with indeterminate diastolic function and hypokinetic left ventricle. Rest as per FLIP Cha's notes which I have reviewed and endorsed. Inpatient E&M: 73656 Subs Hosp L2
[2020-05-25 12:06] LABS: Bedside Glucose 162 mg/dL (70-110)
--- NOTE | 2020-05-25 12:30 | CM.UR ---
RN CM Assessment Met face to face with patient at 11:12am. Introduced role of RN CM to patient.? Patient is alert, oriented and able?to participate in RN CM Assessment. ?Care providers, pharmacy, and demographics verified. No family/visitors at bedside. Presentation: chest pain Admit Dx: NSTEMI Re-Admit: No Barriers/Issues: none. PCP: Dr hussein Specialists: Dr. Wood, podiatry Preferred Pharmacy[facility] and [facility]. No co-pays via [facility]. Insurance: [employer] and [employer] supplement. Rx Benefit:? Via aarp supplement. LNOK: Daughter, Silva LW/HPOA: States he isn't sure. His spectrographic analyst has all his paperwork. He states he needs to update them because it has been 10 years. Living Arrangements:? Lives along in a 1 story house. states had walk-in shower put in. ADL?s: independent. States only had trouble getting in and out of tub. States some trouble cooking as well. Transportation: Drives self. DME: Grab bars, cane, walker. No preference for DME company. HHC: None SNF: None Goal: Home, denies any needs. DC PLAN: Home, No needs anticipated. Alerted patient that case management will remain available should any needs arise. Verb understanding. Eugene Parry RN, CCM.
[2020-05-25 14:46] LABS: Blood Gas Specimen Type VEN; VBG BASE EXCESS -1 mmol/L (-1.0-3.5); VBG BASE EXCESS 2 mmol/L (-1.0-3.5); VBG Bicarbonate 23 mmol/L (22-26); VBG Bicarbonate 26 mmol/L (22-26); VBG PO2 31 mmHg (25-40); VBG PO2 37 mmHg (25-40); VBG SO2 63 % (50-70); VBG SO2 74 % (50-70); VBG TCO2 24 mmol/L (23-33); VBG TCO2 27 mmol/L (23-33); VBG pCO2 32.7 mmHg (41-51); VBG pCO2 37.6 mmHg (41-51); VBG pH 7.44 (7.32-7.42); VBG pH 7.45 (7.32-7.42)
[2020-05-25 14:51] LABS: Blood Gas Specimen Type VEN; VBG BASE EXCESS 0 mmol/L (-1.0-3.5); VBG Bicarbonate 24 mmol/L (22-26); VBG PO2 29 mmHg (25-40); VBG SO2 58 % (50-70); VBG TCO2 25 mmol/L (23-33); VBG pCO2 35.4 mmHg (41-51); VBG pH 7.44 (7.32-7.42)
[2020-05-25 14:56] LABS: Base Excess 0 mmol/L (-2 to +2); Bicarbonate 22.4 mmol/L (22-26); Blood Gas Specimen Type ART; PO2 74 mmHG (75-100); SO2 97 % (95-99); Total Carbon Dioxide 23 mmol/L; pCO2 26.5 mmHg (35-45); pH 7.54 (7.35-7.45)
--- NOTE | 2020-05-25 15:44 | CL.D_ITS ---
Patient Name: NEETU CERDA Study Date: 05/25/2020 Performing: Michel Hernandez MD Ht: 74.01 inches 188 cm : 1945 Wt: 235.89 lbs 107 kg Age: 74 Gender: male BSA: 2.33 PROCEDURE(S) PERFORMED [id number]/LHC/COR/LV IN48-QDM W OR WO PTCA, SINGLE CORONARY ARTERY CLINICAL PROFILE AND INDICATIONS Indications: ACS <= 24 hrs, Suspected CAD Heart Failure: None Stress/Imaging Stress/Image Study Performed: No Angina Classification Anginal Classification w/in 2 Weeks: CCS III CAD Presentations: Non-STEMI. CONCLUSIONS Right heart pressures - moderately elevated The patient has pulmonary hypertension which is moderate. Intracardiac shunting: None Normal Left Ventricular End Diastolic Pressure Segmented LV systolic dysfunction- Mild LVEF: by LV gram 60 % [place] Multivessel CAD RECOMMENDATIONS Risk factor modification Medical therapy Referred for immediate PCI DESCRIPTION OF PROCEDURE The patient arrived to the procedure lab. The risks and benefits of the procedure as well as a full d escription of our services here and current unavailability of surgical backup were fully explained to the patient and/or their significant other prior to the catheterization. The Timeout was completed, verifying the correct patient and procedure. The patient's procedural site was prepped and draped in the usual fashion. Local anesthetic was given subcutaneously to right groin region with Lidocaine 2%. Using a modified Seldinger technique, arterial access was obtained via the right femoral artery, a 4 Fr sheath was inserted Venous access was obtained via the right femoral vein, a 7Fr sheath was insert ed. A 7Fr thermal dilution catheter was inserted and right heart pressures were recorded, it was then advanced to PA position for cardiac outputs. O2 saturations were then obtained. Thermal dilution car diac outputs were then recorded. Left Ventriculography was performed in SWARTZ projection using a 4 Fr. Pigtail catheter. LV to AO pullback pressures were then recorded. Simultaneous pressure s were then recorded. The Thermal dilution catheter was then removed. Left Coronary Artery selective angiography was performed in multiple views using a 4 Fr. JL5 catheter. Right Coronary Artery selecti ve angiography was then performed in multiple views using a 4 Fr. 3DRC catheter.Contrast was injected through the sheath and the Right Iliac and Femoral artery were assessed for possible closure device. The arterial sheath was sutured in place and capped. The venous sheath was then sutured inplace and c apped CORONARY ANGIOGRAPHY DOMINANCE: Right Dominant LEFT HEART ASSESSMENT Left Ventricular Ejection Fraction: by LV Gram 60 % Anterior Hypokinesis - Mild. Apical Hypokinesis - Mild Normal Left Ventricular End Diastolic Pressure LVEDP: 7 mmHg RIGHT HEART ASSESSMENT Thermal CO: 5.8 Thermal CI: 2.49 Trae CO: 7.29 Trae CI: 3.13 PW: 11 10 PA: 47/10 22 RV: 43/-3 3 RA: 3/2 0 PVR: 166 Aortic Valve Area: >3.50 Aortic Valve Index: 1.5 Aortic Valve Mean Gradient: 16.3 Mitral Valve Area: >3.50 Mitral Valve index: 1.5 Mitral Valve Mean Gradient: 7.6 Right Heart pressures - elevated Pulmonary Hypertension Moderate Intracardiac shunting: None (calculated Qp/Qs of 0.81: considered nonhemodynamically significant) LEFT MAIN: Angiographically normal LEFT ANTERIOR DESCENDING ARTERY: PROX LAD: diffuse: somewhat hazy: 50 - 75 % Stenosis MID LAD: 90 % Stenosis DIAGONAL 1: Ostial - 25 % Stenosis CIRCUMFLEX ARTERY: Mild luminal irregularities RIGHT CORONARY ARTERY: Mild luminal irregularities COMPLICATIONS No Complications PROCEDURE MEDICATIONS Versed 1 mg IV Oxygen: 2 L/min via nasal cannula Heparin 7000 unit(s) IV 05/25/2020 15:09:04 SUMMARY OF HEMODYNAMIC DATA Time AIR REST ECG 14:13:06 RA 3/2 (0) 14:42:12 RV 43/-3, 3 14:42:44 PA 47/10 (22) PA 14:44:02 PW 12/02 (10) PV 14:45:10 LV 144/-8, 9 14:50:36 PW 7/8 (6) 14:50:36 LV 140/-9, 7 14:50:42 PW 8/7 (4) 14:50:42 LV 149/-5, 11 14:52:48 PW 11/5 (5) 14:52:48 LV 150/-6, 9 14:52:54 PW 6/4 (5) 14:52:54 LV 158/-4, 11 14:53:11 LVp 156/-4, 7 14:53:16 AOp 134/66 (92) 14:53:21 PA 51/12 (24) 14:54:02 RV 51/0, 9 14:54:21 RA 7/4 (3) 14:54:33 AO 139/88 (107) SA 14:58:27 Valve Area (c P-P/ms Time AIR REST Mitral 3.50 7.6 mn/100 ms 14:52:48 Aortic 3.50 16.3 mn/122 ms22.0 pk/122 ms 14:53:16 Type SV CO (l/m) CI (l/m/ HR Time AIR REST Thermal 89.20 5.80 2.49 65 14:13:06 Trae 112.20 7.29 3.13 65 14:13:06 Label % O2 Pres/Loc Time AIR REST AO 96 PV 14:51:09 IVC 74 SV 14:51:14 SVC 63 14:51:21 PA 58 PA 14:51:24 Signed By Michel Hernandez MD On 05/25/2020 15:43:13 Michel Hernandez MD
--- NOTE | 2020-05-25 15:45 | EKG12_ITS ---
Test Reason : CP ADMIN Blood Pressure : / mmHG Vent. Rate : 067 BPM Atrial Rate : 067 BPM P-R Int : 198 ms QRS Dur : 112 ms QT Int : 472 ms P-R-T Axes : 040 015 066 degrees QTc Int : 498 ms Normal sinus rhythm ST & T wave abnormality, consider anterolateral ischemia Prolonged QT Abnormal ECG No previous ECGs available Confirmed by JOHNNY HAYDEN, CALVIN ([id number]), manuscript editor NATALIIA CR ([id number]) on 05/28/2020 1:10:54 PM Referred By: SANDRA Confirmed By:CALVIN TURNER MD
--- NOTE | 2020-05-25 15:51 | CL.I_ITS ---
Patient Name: NEETU CERDA Study Date: 05/25/2020 Performing: Joi Shah MD Ht: 74.01 inches 188 cm : 1945 Wt: 235.89 lbs 107 kg Age: 74 Gender: male BSA: 2.33 PROCEDURE(S) PERFORMED [id number] W OR WO PTCA, SINGLE CORONARY ARTERY CLINICAL PROFILE AND CO-MORBIDITIES Indications: ACS <= 24 hrs, Suspected CAD Heart Failure: None Stress/Imaging Stress/Image Study Performed: No Angina Classification Anginal Classification w/in 2 Weeks: CCS III CAD Presentations: Non-STEMI. CONCLUSIONS Successful JAQUAN to mid and distal LAD RECOMMENDATIONS DESCRIPTION OF PROCEDURE The patient arrived to the procedure lab. The risks and benefits of the procedure as well as a full d escription of our services here and current unavailability of surgical backup were fully explained to the patient and/or their significant other prior to the catheterization. The Timeout was completed, verifying the correct patient and procedure. The patient's procedural site was prepped and draped in the usual fashion. Local anesthetic was given subcutaneously to right groin region with Lidocaine 2% Using a modified Seldinger technique,arterial access was obtained via the right femoral artery, a 4Fr sheath was insertedVenous access was obtained via the right femoral vein, a 7Fr sheath was inserted. A 7Fr thermal dilution catheter was inserted and right heart pressures were recorded, it was then ad vanced to PA position for cardiac outputs. O2 saturations were then obtained. Thermal dilution cardia c outputs were then recorded. Left Ventriculography was performed in SWARTZ projection using a 4 Fr. Pigtail catheter. LV to AO pullback pressures were then recorded. Simultaneous pressures were then recorded. The Thermal dilution catheter was then removed. Left Coronary Artery selective angiog elizabeth was performed in multiple views using a 4 Fr. JL5 catheter. Right Coronary Artery selective ang iography was then performed in multiple views using a 4 Fr. 3DRC catheter.The images were reviewed an d options discussed. A decision was then made to proceed with an Intervention, IVUS or other adjunct procedure. Arterial sheath was exchanged for a 6 Fr Sheath. XB 4.0 Guide catheter was inserted and engaged i nto the LCA. BMW Guide wire was advanced to the LAD. 2.25 x 8 Synergy Drug Eluting stent was inserted . Drug Eluting stent was advanced across the lesion in the LAD, distal. Angiogram performed pre stent deployment. Angiogram performed post stent deployment. 2.25 x 8 NC Emerge Balloon catheter was inser joceline post stent. Angiogram performed post balloon dilatation. 3.0 x 12 Synergy Drug Eluting stent was inserted. Drug Eluting stent was advanced across the lesion in the LAD, mid. Angiogram performed post stent deployment. Contrast was injected through the sheath and the Right Iliac and Femoral artery we re assessed for possible closure device. The arterial sheath was sutured in place and capped. The ve nous sheath was then sutured inplace and capped INTERVENTION INFORMATION LESION SITE: LAD (Distal) Lesion Complexity: High/C, chronic total occlusion: No, lesion at bifurcation: No, thrombus present: No, lesion length: 7 mm, culprit lesion: Yes, Previously treated lesion: No Pre Stenosis: 90 % Pre intervention SUJATHA flow: 3 PROCEDURE: Drug Eluting Stent with post dilatation Post Stenosis: 0 % Post intervention SUJATHA flow: 3 Lesion Devices: Han .014 BMW [place] Straight 190cm Cardinal 6 Fr XB4.0 100cm Guide Catheter Shaan Sci Synergy MR JAQUAN 2.25x08 Shaan Sci NC EMERGE MR 2.25x08 BALLOON LESION SITE: LAD (Mid) Lesion Complexity: High/C, chronic total occlusion: No, lesion at bifurcation: No, thrombus present: No, lesion length: 11 mm, culprit lesion: Yes, Previously treated lesion: No Pre Stenosis: 70 % Pre intervention SUJATHA flow: 3 PROCEDURE: Drug Eluting Stent Post Stenosis: 0 % Post intervention SUJATHA flow: 3 Lesion Devices: Han .014 [employer] [place] Straight 190cm Cardinal 6 Fr XB4.0 100cm Guide Catheter Shaan Sci Synergy MR JAQUAN 3.00x12 COMPLICATIONS No Complications PROCEDURE MEDICATIONS Versed 1 mg IV Oxygen: 2 L/min via nasal cannula Heparin 7000 unit(s) IV 05/25/2020 15:09:04 SUMMARY OF HEMODYNAMIC DATA Time AIR REST ECG 14:13:06 RA 3/2 (0) 14:42:12 RV 43/-3, 3 14:42:44 PA 47/10 (22) PA 14:44:02 PW 17/11 (10) PV 14:45:10 LV 144/-8, 9 14:50:36 PW 7/8 (6) 14:50:36 LV 140/-9, 7 14:50:42 PW 8/7 (4) 14:50:42 LV 149/-5, 11 14:52:48 PW 11/5 (5) 14:52:48 LV 150/-6, 9 14:52:54 PW 6/4 (5) 14:52:54 LV 158/-4, 11 14:53:11 LVp 156/-4, 7 14:53:16 AOp 134/66 (92) 14:53:21 PA 51/12 (24) 14:54:02 RV 51/0, 9 14:54:21 RA 7/4 (3) 14:54:33 AO 139/88 (107) SA 14:58:27 Valve Area (c P-P/ms Time AIR REST Mitral 3.50 7.6 mn/100 ms 14:52:48 Aortic 3.50 16.3 mn/122 ms22.0 pk/122 ms 14:53:16 Type SV CO (l/m) CI (l/m/ HR Time AIR REST Thermal 89.20 5.80 2.49 65 14:13:06 Trae 112.20 7.29 3.13 65 14:13:06 Label % O2 Pres/Loc Time AIR REST AO 96 PV 14:51:09 IVC 74 SV 14:51:14 SVC 63 14:51:21 PA 58 PA 14:51:24 Signed By Joi Shah MD On 05/25/2020 15:49:59 Joi Shah MD
[2020-05-25] MEDS: 0.9% Normal Saline 1,000 ML 100 ML IV (18:00)
[2020-05-25 21:01] LABS: ACT Activated Clotting Time 131 sec (74-137)
[2020-05-25] MEDS: Atorvastatin Calcium 40 MG Tablet PO (22:00)
--- NOTE | 2020-05-25 23:58 | NURSING ---
Spoke with Pharmacist about patient's lovenox scheduling. Per Dr. Shah he wanted patient to receive Lovenox 4hr after the sheath was pulled and hemostatis was met. Patient's morning dose was held due to his cardiac cath procedure today. Pharmacist stated that as long as we give the dose at 0000 then just delay morning dose until 0800 and then continue normal schedule that is ordered.
[2020-05-26] VITALS (17 sets, daily range): BP systolic 119–168; BP diastolic 59–99; PULSE 54–69; RESP 14–24; TEMP 36.3–36.8; O2SAT 93–98
[2020-05-26] MEDS: Enoxaparin 120 MG/0.8 ML Syringe 110 MG SC (00:13)
[2020-05-26 00:46] LABS: Bedside Glucose 111 mg/dL (70-110)
[2020-05-26 03:16] LABS: Hematocrit 41.7 % (40-54); Hemoglobin 13.9 g/dL (13.0-16.5); Mean Corp Hgb Conc 33.3 g/dL (32-36); Mean Corpuscular Hgb 29.1 pg (27.0-32.0); Mean Corpuscular Volume 87.2 fL (80-94); Mean Platelet Vol. 10.6 fl (6.2-12.0); Platelet Count 246 K/mm3 (150-450); RBC Distribution Width CV 13.3 % (11.6-14.6); RBC Distribution Width SD 42.9 fl (35.1-43.9); Red Blood Count 4.78 M/mm3 (4.6-6.2); White Blood Count 13.1 K/mm3 (4.4-11.0)
[2020-05-26 03:48] LABS: AST(SGOT) 20 U/L (15-37); Alanine Aminotransfer ALT/SGPT 20 U/L (16-61); Albumin, Serum 3.5 g/dL (3.2-5.0); Alkaline Phosphatase 96 U/L (45-117); Anion Gap 11 (5-15); BUN 14 mg/dL (7-18); BUN/Creat Ratio 10.9 RATIO (10-20); Calcium,Total 8.5 mg/dL (8.5-10.1); Chloride 105 mmol/L (98-107); Creatinine, Serum 1.29 mg/dL (0.70-1.30); EST Glomerular Filtration Rate 58 mL/min (>60); Est Glom Filt Rate - Afr Amer 70 mL/min (>60); Globulin 3.4 g/dL (2.2-4.2); Glucose 222 mg/dL (74-106); Potassium 3.1 mmol/L (3.5-5.1); Protein, Total 6.9 g/dL (6.4-8.2); Sodium Level 139 mmol/L (136-145)
--- NOTE | 2020-05-26 04:00 | CT_ITS ---
STUDY: CTA CHEST REASON FOR EXAM: Male, 74 years old. Pulmonary HTN; R/O PE -- Do after PCI sheath out / cath site stable RADIATION DOSAGE (If Supplied By Facility): CTDIvol = ( 14.92 ) mGy, DLP = ( 560.65 ) mGycm TECHNIQUE: The examination was performed with the intravenous administration of IV 100mL Isovue-370. Post-processing of the angiographic images was performed, with multiplanar reformation, but without 3D reconstruction. Individualized dose optimization techniques were used for this CT. COMPARISON: None. FINDINGS: Normal enhancement of the main pulmonary artery and right and left pulmonary arteries. Normal enhancement of the bilateral peripheral pulmonary arteries. There is a saddle embolus in the main pulmonary artery extending into upper and lower lobe pulmonary arterial branches bilaterally. Additional separate pulmonary emboli are seen in the right middle lobe as well as more peripherally in the right lower lobe. There is dilatation of the right ventricle, consistent with right ventricular strain.. There is mild atherosclerotic calcification of the thoracic aorta and visualized great vessels. There is mild aneurysmal dilatation of the ascending thoracic aorta with diameter 4.2 cm. There is no demonstrated aortic dissection. Normal heart and pericardium. Normal mediastinum. Normal hilar regions. Normal visualized trachea and bronchi. The lungs are well expanded. As seen on series 2, axial image 167, there are 1.3 cm and 7 mm groundglass nodules in the right upper lobe. There are minimal fibrotic changes in the lungs. There are no demonstrated dense pulmonary consolidations. Normal pleura. Normal chest wall structures. There are bridging osteophytes at multiple contiguous levels of the spine, consistent with DISH (diffuse idiopathic skeletal hyperostosis). There is a calcified gallstone. There are calcified granulomas in the liver. CT/CTA Chest W/WO Contrast IMPRESSION: Saddle pulmonary embolus, with embolic involvement of bilateral upper, lower, and right middle lobes. There is associated right ventricular strain. Mild aneurysmal dilatation of the ascending thoracic aorta with diameter of 4.2 cm. No evidence for aortic dissection. 1.3 cm and 7 mm groundglass nodules in the right upper lobe. Suggest follow-up low-dose CT scan of the chest in one year to assess stability/Evolution. Gallstone. N.B. : The above information has been verbally conveyed by Dickson Chou MD to Ashley Le RN, on 05/26/2020 05:53:49 (ET). Electronically Signed: Dickson Chou MD at 5:58 EST , Service support ,
[2020-05-26] MEDS: 0.9% Normal Saline 1,000 ML 100 ML IV (04:05)
[2020-05-26] MEDS: Levothyroxine 175 MCG Tablet PO (06:39)
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
[2020-05-26 08:45] LABS: Bedside Glucose 143 mg/dL (70-110)
--- NOTE | 2020-05-26 10:00 | EKG12_ITS ---
Test Reason : S/P PCI Blood Pressure : / mmHG Vent. Rate : 057 BPM Atrial Rate : 057 BPM P-R Int : 190 ms QRS Dur : 110 ms QT Int : 538 ms P-R-T Axes : 015 003 070 degrees QTc Int : [address] & T wave abnormality, consider anterolateral ischemia Prolonged QT Abnormal ECG Confirmed by BLANCA HAYDEN, KENNEDI ([id number]), editor at large DONNELL GUERRERO ([id number]) on 05/30/2020 1:18:10 PM Referred By: TAWANNA RENEE Confirmed By:KENNEDI RIOS MD
--- NOTE | 2020-05-26 10:00 | PCM.PN.CARD ---
Subjectve: The patient is awake and alert. He appears to be resting comfortably at this time in no acute distress. Objective: Vital Signs Temp Pulse Resp BP Pulse Ox 98.3 F 62 17 130/76 H 95 05/26/20 04:00 05/26/20 07:00 05/26/20 07:00 05/26/20 07:00 05/26/20 07:49 Oxygen Delivery Method Room Air Weight: 233 lb 0.458 oz Body Mass Index (BMI) 30.3 Intake and Output for Last 24 Hours 05/24/20 05/25/20 05/26/20 23:59 23:59 23:59 Intake Total 306.67 / 306.67 1691.67 / 1811.67 1120 / 1120 Output Total 350 / 500 300 / 300 Balance 306.67 / 306.67 1341.67 / 1311.67 820 / 820 General: Awake, Alert, Oriented x 3, Cooperative, No Acute Distress HEENT: Atraumatic, Normocephalic, PERRL, EOMI, Sclera Non Icteric Neck: Supple, Good ROM, No JVD Lungs: Clear to auscultation Cardiovascular: Regular Rhythm, Normal S1, Normal S2 Vascular: Normal Femoral Pulses Abdomen: Bowel Sounds Present, Soft Extremities: No edema Neurological: No Focal Motor or Sensory Deficit Psych/Mental Status: Appropriate 05/25/20 14:42: VBG pH 7.45 H, VBG pO2 37, VBG HCO3 23, VBG O2 Sat (Calc) 74 H, VBG Base Excess -1 05/25/20 14:42: VBG pH 7.44 H, VBG pO2 31, VBG HCO3 26, VBG O2 Sat (Calc) 63, VBG Base Excess 2 05/25/20 14:47: VBG pH 7.44 H, VBG pO2 29, VBG HCO3 24, VBG O2 Sat (Calc) 58, VBG Base Excess 0 05/25/20 14:48: pH 7.54 H, Bicarbonate Actual 22.4, Base Excess 0, O2 Saturation 97, ABG pCO2 26.5 L, ABG pO2 74 L 05/26/20 03:00: WBC 13.1 H, RBC 4.78, Hgb 13.9, Hct 41.7, MCV 87.2, MCH 29.1, MCHC 33.3, Plt Count 246, MPV 10.6 05/26/20 03:00: Sodium 139, Potassium 3.1 L, Chloride 105, Carbon Dioxide 23.0, Anion Gap 11, BUN 14, Creatinine 1.29, Est GFR (MDRD) Af Amer 70, Est GFR (MDRD) Non-Af 58 L, BUN/Creatinine Ratio 10.9, Glucose 222 H, Calcium 8.5, Total Bilirubin 1.30 H Rhythm: Sinus rhythm EKG: Sinus rhythm; T wave abnormality: Consider myocardial ischemia-anterolateral ECHO: Interpretation Summary The study was technically difficult. Contrast injection was performed. Segmental dysfunction with preserved ejection fraction (see wall motion). The estimated ejection fraction is 55 %. D shaped septum in systole and diastole. Mildly dilated right ventricle. Mild global right ventricular systolic dysfunction. A moderator band is seen in the right ventricle. The right atrium is moderately enlarged. Trivial mitral valve insufficiency. Mild to moderate (1-2+) eccentric tricuspid valve insufficiency. Trivial pulmonic valve insufficiency. Borderline to mildly dilated aortic root. Right ventricular systolic pressure estimated to be 59 mmHg c/w pulmonary hypertension. Diastolic function is indeterminate. Cardiac Cath: CONCLUSIONS Right heart pressures - moderately elevated The patient has pulmonary hypertension which is moderate. Intracardiac shunting: None Normal Left Ventricular End Diastolic Pressure Segmented LV systolic dysfunction- Mild LVEF: by LV gram 60 % [place] Multivessel CAD RECOMMENDATIONS Risk factor modification Medical therapy Referred for immediate PCI DESCRIPTION OF PROCEDURE The patient arrived to the procedure lab. The risks and benefits of the procedure as well as a full description of our services here and current unavailability of surgical backup were fully explained to the patient and/or their significant other prior to the catheterization. The Timeout was completed, verifying the correct patient and procedure. The patient's procedural site was prepped and draped in the usual fashion. Local anesthetic was given subcutaneously to right groin region with Lidocaine 2%. Using a modified Seldinger technique, arterial access was obtained via the right femoral artery, a 4Fr sheath was inserted Venous access was obtained via the right femoral vein, a 7Fr sheath was inserted. A 7Fr thermal dilution catheter was inserted and right heart pressures were recorded, it was then advanced to PA position for cardiac outputs. O2 saturations were then obtained. Thermal dilution cardiac outputs were then recorded. Left Ventriculography was performed in SWARTZ projection using a 4 Fr. Pigtail catheter. LV to AO pullback pressures were then recorded. Simultaneous pressures were then recorded. The Thermal dilution catheter was then removed. Left Coronary Artery selective angiography was performed in multiple views using a 4 Fr. JL5 catheter. Right Coronary Artery selective angiography was then performed in multiple views using a 4 Fr. 3DRC catheter.Contrast was injected through the sheath and the Right Iliac and Femoral artery were assessed for possible closure device.The arterial sheath was sutured in place and capped. The venous sheath was then sutured inplace and capped CORONARY ANGIOGRAPHY DOMINANCE: Right Dominant LEFT HEART ASSESSMENT Left Ventricular Ejection Fraction: by LV Gram 60 % Anterior Hypokinesis - Mild. Apical Hypokinesis - Mild Normal Left Ventricular End Diastolic Pressure LVEDP: 7 mmHg RIGHT HEART ASSESSMENT Thermal CO: 5.8 Thermal CI: 2.49 Trae CO: 7.29 Trae CI: 3.13 PW: 17/11 10 PA: 47/10 22 RV: 43/-3 3 RA: 3/2 0 PVR: 166 Aortic Valve Area: >3.50 Aortic Valve Index: 1.5 Aortic Valve Mean Gradient: 16.3 Mitral Valve Area: >3.50 Mitral Valve index: 1.5 Mitral Valve Mean Gradient: 7.6 Right Heart pressures - elevated Pulmonary Hypertension Moderate Intracardiac shunting: None (calculated Qp/Qs of 0.81: considered nonhemodynamically significant) LEFT MAIN: Angiographically normal LEFT ANTERIOR DESCENDING ARTERY: PROX LAD: diffuse: somewhat hazy: 50 - 75 % Stenosis MID LAD: 90 % Stenosis DIAGONAL 1: Ostial - 25 % Stenosis CIRCUMFLEX ARTERY: Mild luminal irregularities RIGHT CORONARY ARTERY: Mild luminal irregularities PCI: CONCLUSIONS Successful JAQUAN to mid and distal LAD Chest CT Scan: FINDINGS: Normal enhancement of the main pulmonary artery and right and left pulmonary arteries. Normal enhancement of the bilateral peripheral pulmonary arteries. There is a saddle embolus in the main pulmonary artery extending into upper and lower lobe pulmonary arterial branches bilaterally. Additional separate pulmonary emboli are seen in the right middle lobe as well as more peripherally in the right lower lobe. There is dilatation of the right ventricle, consistent with right ventricular strain.. There is mild atherosclerotic calcification of the thoracic aorta and visualized great vessels. There is mild aneurysmal dilatation of the ascending thoracic aorta with diameter 4.2 cm. There is no demonstrated aortic dissection. Normal heart and pericardium. Normal mediastinum. Normal hilar regions. Normal visualized trachea and bronchi. The lungs are well expanded. As seen on series 2, axial image 167, there are 1.3 cm and 7 mm groundglass nodules in the right upper lobe. There are minimal fibrotic changes in the lungs. There are no demonstrated dense pulmonary consolidations. Normal pleura. Normal chest wall structures. There are bridging osteophytes at multiple contiguous levels of the spine, consistent with DISH (diffuse idiopathic skeletal hyperostosis). There is a calcified gallstone. There are calcified granulomas in the liver. 05/26/20 0558 Date cc: Dr. Abdullahi Mason III, MD; Dr. Michel Hernandez MD ~* Signed ADDENDUM by Dr. Dickson Chou MD on 05/26/[address]/CTA Chest W/WO Contrast IMPRESSION: Saddle pulmonary embolus, with embolic involvement of bilateral upper, lower, and right middle lobes. There is associated right ventricular strain. Mild aneurysmal dilatation of the ascending thoracic aorta with diameter of 4.2 cm. No evidence for aortic dissection. 1.3 cm and 7 mm groundglass nodules in the right upper lobe. Suggest follow-up low-dose CT scan of the chest in one year to assess stability/Evolution. Gallstone. N.B. : The above information has been verbally conveyed by Dickson Chou MD to Ashley Le RN, on 05/26/2020 05:53:49 (ET). Electronically Signed: Dickson Chou MD at 5:58 EST Medical Necessity - Tobacco Use Smoking Status: Former smoker - Patient smoked starting in the service approximately 1 pack lasting him 1 week quitting approximately 50 years prior to current presentation. Tobacco Use: Non-smoker Assessment/Plan 1. Non-ST segment elevation NC The patient presents with findings compatible with a non-ST segment elevation NC. The patient has undergone noninvasive and invasive evaluation. His invasive evaluation led to the diagnosis of underlying CAD with angiographically significant appearing disease in the LAD distribution. He subsequently underwent LAD PCI/JAQUAN. From a cardiac standpoint he will continue medical management. He will need continued outpatient cardiovascular follow-up. 2. Unstable angina pectoris The patient does present with symptoms compatible with unstable angina pectoris occurring recently. He has the additional cardiovascular objective findings as noted. He is continuing to being monitored. He has undergone evaluation with diagnostic cardiac catheterization as noted. He was found to have CAD. He was treated with LAD PCI/JAQUAN. Will continue medical therapy. 3. CAD Again he was found to have angiographically significant CAD in the LAD distribution. He underwent PCI/JAQUAN to the LAD in 2 different segments. He had what appeared to be good angiographic results. He will continue medical management and follow-up. 4. Hyperlipidemia He will continue lipid-lowering therapy. 5. Hypertension His blood pressure will be followed and his medicines will be adjusted accordingly. 6. Hypothyroidism He will continue evaluation care per his PCP. 7. Diabetes mellitus He will continue evaluation care per internal medicine. 8. Chronic renal sufficiency His renal function appears stable at this time. He will be followed as needed. 8. PE/pulmonary hypertension Based upon the patient's transthoracic echocardiogram there are concerns of elevated right ventricular systolic pressure compatible pulmonary hypertension as well as dilatation of the right atrium and right ventricle. Thus he has undergone cardiovascular evaluation. He was found to have, based upon his chest CT scan, saddle pulmonary emboli and pulmonary emboli in the upper lobes / lower lobes and right middle lobe - please see official report). He is being monitored. He is continuing medical therapy with anticoagulant therapy. He has been evaluated by Dr. Herrear of pulmonology and his input has been most appreciated. Comment: The patient's case has been discussed and reviewed with the patient and previously with Dr. Mchugh of the [facility] hospitalist team as well as Dr. Herrera pulmonary/critical care medicine. This note was generated using a voice recognition system and there may be incorrect words, spelling or punctuation that were not noted when reviewing the office note prior to saving.
--- NOTE | 2020-05-26 10:30 | PN_ITS ---
Patient Problems: Active and Suspected Problems Chest pain (Acute) Elevated troponin (Acute) NSTEMI (non-ST elevated myocardial infarction) (Acute) Unstable angina (Acute) Subjective: Patient seen and examined. He had no complaints this morning. Review of symptoms otherwise negative. Patient had cardiac cath yesterday with PCI and JAQUAN to the mid and distal LAD. The cath, he was noted to have elevated right sided heart pressures. CT of the chest was therefore ordered and showed a saddle embolus. He is now on aspirin, Plavix and therapeutic Lovenox. He has remained hemodynamically stable. Vitals/I&O's: Vital Signs Temp Pulse Resp BP Pulse Ox 98.3 F 62 17 130/76 H 95 05/26/20 04:00 05/26/20 07:00 05/26/20 07:00 05/26/20 07:00 05/26/20 07:49 Oxygen Delivery Method Room Air Weight: 233 lb 0.458 oz Body Mass Index (BMI) 30.3 Intake and Output for Last 24 Hours 05/24/20 05/25/20 05/26/20 23:59 23:59 23:59 Intake Total 306.67 / 306.67 1691.67 / 1811.67 1120 / 1120 Output Total 350 / 500 300 / 300 Balance 306.67 / 306.67 1341.67 / 1311.67 820 / 820 General: Alert, Oriented x3, Cooperative HEENT: Atraumatic, PERRLA, EOMI, Normocephalic Neck: Supple, No JVD, Negative Carotid Bruits Lungs: Clear to auscultation, Normal air movement Cardiovascular: Regular rate, No murmurs Abdomen: Bowel Sounds Present, Soft, Non Tender, Non-Distended Extremities: No clubbing, No cyanosis, No edema, Capillary Refill Less than 3 Seconds Skin: No rashes, No breakdown Musculoskeletal: No Tenderness to Palpation of Joints or Extremities Neurological: Cranial nerves II-XII grossly intact, Neuro grossly intact Psych/Mental Status: Normal Affect, Appropriate Microbiology Past 72 Hours 05/24/20 18:50 Mucosa - Nasopharyngeal SARS-CoV-2 Antigen (Rapid) - Final Laboratory Results 05/25/20 11:50: POC Glucose 162 H 05/25/20 14:42: Specimen Type CUAUHTEMOC, VBG pH 7.45 H, VBG pO2 37, VBG HCO3 23, VBG Total CO2 24, VBG O2 Sat (Calc) 74 H, VBG Base Excess -1, POC Mix VBG pCO2 Pt Tmp 32.7 L 05/25/20 14:42: Specimen Type CUAUHTEMOC, VBG pH 7.44 H, VBG pO2 31, VBG HCO3 26, VBG Total CO2 27, VBG O2 Sat (Calc) 63, VBG Base Excess 2, POC Mix VBG pCO2 Pt Tmp 37.6 L 05/25/20 14:47: Specimen Type CUAUHTEMOC, VBG pH 7.44 H, VBG pO2 29, VBG HCO3 24, VBG Total CO2 25, VBG O2 Sat (Calc) 58, VBG Base Excess 0, POC Mix VBG pCO2 Pt Tmp 35.4 L 05/25/20 14:48: Specimen Type ART, pH 7.54 H, Bicarbonate Actual 22.4, Total CO2 23, Base Excess 0, O2 Saturation 97, ABG pCO2 26.5 L, ABG pO2 74 L 05/25/20 18:25: Activated Clotting Time 131 05/25/20 21:56: POC Glucose 111 H 05/26/20 03:00: WBC 13.1 H, RBC 4.78, Hgb 13.9, Hct 41.7, MCV 87.2, MCH 29.1, MCHC 33.3, RDW Std Deviation 42.9, RDW Coeff of Oliverio 13.3, Plt Count 246, MPV 10.6 05/26/20 03:00: Sodium 139, Potassium 3.1 L, Chloride 105, Carbon Dioxide 23.0, Anion Gap 11, BUN 14, Creatinine 1.29, Estim Creat Clear Calc 59.30, Est GFR (MDRD) Af Amer 70, Est GFR (MDRD) Non-Af 58 L, BUN/Creatinine Ratio 10.9, Glucose 222 H, Calcium 8.5, Total Bilirubin 1.30 H, AST 20, ALT 20, Alkaline Phosphatase 96, Total Protein 6.9, Albumin 3.5, Globulin 3.4, Albumin/Globulin Ratio 1.0 05/26/20 08:39: POC Glucose 143 H Current Medications Acetaminophen (Acetaminophen 325 Mg Tablet) 650 mg PO Q6H PRN PRN PRN Reason: Pain Score 1-10/Temp > 100.7 F Al Hydroxide/Mg Hydroxide (Mag Hydrox/Al Hydrox/Simeth 30 Ml Udc) 30 ml PO Q6H PRN PRN PRN Reason: Gastric Burning Amlodipine Besylate (Amlodipine 10 Mg Tablet) 10 mg PO DAILY [facility] Last Admin: 05/25/20 06:14 Dose: 10 mg Documented by: Apixaban (Apixaban 5 Mg Tablet) 10 mg PO BID [facility] Aspirin (Aspirin E.C. 81 Mg Tablet) 81 mg PO DAILY@0800 [facility] Last Admin: 05/25/20 06:14 Dose: 81 mg Documented by: Atenolol (Atenolol 50 Mg Tablet) 50 mg PO DAILY [facility] Last Admin: 05/25/20 06:14 Dose: 50 mg Documented by: Atorvastatin Calcium (Atorvastatin Calcium 40 Mg Tablet) 40 mg PO QHS [facility] Last Admin: 05/25/20 22:00 Dose: 40 mg Documented by: Atropine Sulfate (Atropine Sulfate 1 Mg/10 Ml Syringe) 0.5 mg IV UD PRN PRN Reason: HR <50 bpm Guaifenesin (Guaifenesin 10 Ml Udc (200mg/10ml)) 20 ml PO Q4H PRN PRN PRN Reason: COUGH Heparin Sodium (Beef Lung) (Heparin Lock 500 Unit/5 Ml In 10 Ml Syringe) 500 unit IV UD PRN PRN Reason: HEPARIN FLUSH Hydralazine HCl (Hydralazine 20 Mg/Ml Vial) 10 mg IV Q4H PRN PRN PRN Reason: SBP > 160 Hydrochlorothiazide (Hydrochlorothiazide 12.5mg) 12.5 mg PO DAILY [facility] Last Admin: 05/25/20 17:05 Dose: Not Given Documented by: Sodium Chloride () 250 mls @ 15 mls/hr IV .[id number] PRN PRN Reason: Additional IVPB Infusion Insulin Human Lispro (Insulin Lispro 100 Unit/Ml Insuln.Pen) 0 unit SC ACHS [facility]; Protocol Last Admin: 05/25/20 22:01 Dose: Not Given Documented by: Labetalol HCl (Labetalol (Prefilled) 20 Mg/4 Ml) 5 mg IV X1 PRN PRN Reason: SBP >160 when pulling sheath Stop: 05/27/20 15:41 Levothyroxine Sodium (Levothyroxine 175 Mcg Tablet) 175 mcg PO DAILY@0600 [facility] Last Admin: 05/26/20 06:39 Dose: 175 mcg Documented by: Losartan Potassium (Losartan Potassium 100 Mg Tablet) 100 mg PO DAILY [facility] Last Admin: 05/25/20 06:14 Dose: 100 mg Documented by: Magnesium Hydroxide (Magnesium Hydroxide 30 Ml Udc) 30 ml PO DAILY PRN PRN PRN Reason: Constipation Melatonin (Melatonin 3 Mg Tablet) 3 mg PO QHS PRN PRN PRN Reason: INSOMNIA Morphine Sulfate (Morphine 2 Mg/Ml Syringe) 2 mg IV Q3H PRN PRN PRN Reason: Pain Score 6-10 Ondansetron HCl (Ondansetron 4 Mg/2 Ml Vial) 4 mg IV Q8H PRN PRN PRN Reason: NAUSEA/VOMITING Oxycodone HCl (Oxycodone 5 Mg Tablet) 5 mg PO Q4H PRN PRN PRN Reason: Pain Score 4-5 Pantoprazole Sodium (Pantoprazole Sodium 40 Mg Tablet) 40 mg PO DAILY [facility] Last Admin: 05/25/20 20:27 Dose: Not Given Documented by: Prochlorperazine Edisylate (Prochlorperazine 10 Mg/2 Ml Vial) 5 mg IV Q4H PRN PRN PRN Reason: Breakthrough Nausea/Vomiting Psyllium Hydrophilic Mucilloid (Psyllium 1 Packet) 1 packet PO DAILY PRN PRN PRN Reason: Constipation Senna/Docusate Sodium (Senna/Docusate Sodium 1 Tablet) 2 tablet PO BID PRN PRN PRN Reason: Constipation Sodium Chloride (0.9% Saline Lock 10 Ml Syringe) 10 - 40 ml IV UD PRN PRN Reason: SALINE FLUSH Last Admin: 05/25/20 10:28 Dose: 10 ml Documented by: Sodium Chloride (0.9% Normal Saline 500 Ml Iv.Soln.) 500 ml IV BOLUS PRN PRN Reason: VASO-VAGAL PROTOCOL Throat Lozenges (Benzocaine/Menthol 1 Lozenge) 1 lozenge MUCOUS MEM Q2H PRN PRN PRN Reason: SORE THROAT Ticagrelor (Ticagrelor 90 Mg Tablet) 90 mg PO BID [facility] Last Admin: 05/25/20 22:01 Dose: 90 mg Documented by: STROKE Vital Signs/Narrative: Vital Signs Pulse Resp BP Pulse Ox 05/26/20 07:49 95 05/26/20 07:00 62 17 130/76 H 97 Medical Necessity - Tobacco Use Smoking Status: Former smoker - Patient smoked starting in the service approximately 1 pack lasting him 1 week quitting approximately 50 years prior to current presentation. Tobacco Use: Non-smoker Assessment/Plan All Active Problems Chest pain (Acute) Elevated troponin (Acute) NSTEMI (non-ST elevated myocardial infarction) (Acute) Unstable angina (Acute) #Nonstemi * It is post cardiac cath with drug-eluting stent placement to the proximal and mid LAD. * On aspirin and Plavix as well as high intensity statin. * cardiology on board * 2D echo: normal LV size, with D shaped septum, and EF of 55%, with no ventricular hypokinesis. Diastolic function is indeterminate. Mildly dilated right ventricle with mild global right ventricular systolic function and moderately enlarged right atrium. RVSP was 59 mmHg and had mild to moderate eccentric tricuspid valve insufficiency. * Also on atenolol and losartan #Submassive bilateral PE with saddle embolus and RV strain * Account of the elevated right ventricular pressures, a CTA of the chest was ordered which showed bilateral PE with saddle embolus. * Patient was on therapeutic Lovenox and this will be switched to Eliquis 10 mg twice daily today. * Pulmonology on board. It is not clear whether etiology of this PE is. * He had a colonoscopy last year with removal of 3 polyps and he is not having any more colonoscopies. He also denies any prostatic symptoms. Will check PSA * On the CTA of the chest, there were 1.3 cm and 7 mm groundglass nodules in the right upper lobe. Pulmonology on board; Recommends follow up CT in 3 months time as patient is considered low risk. * to have repeat 2d echo in 3 months time * currently on room air. Will need ambulatory pulse ox prior to disharge * #Hypokalemia: Potassium is 3.1 today. Will replace per protocol. #Hypertension: On amlodipine, atenolol, hydrochlorothiazide and losartan #Hyperlipidemia: On statin #Hypothyroidism: On Synthroid #TIA: Creatinine was 1.59 but this is trended down to 1.29 with hydration. #Type 2 diabetes mellitus: * Continue insulin sliding scale. * Accuchecks AC at bedtime. * Will resume oral meds tomorrow as he will be 48 hours after he had a cardiac cath with dye administration. * #DVT prophylaxis: now on therapeutic eliquis for treatment of PE Disposition: transfer out of ICU today. For likely DC tomorrow. Inpatient E&M: [id number] Subs Hosp L2
[2020-05-26] MEDS: Aspirin E.C. 81 MG Tablet PO (10:54)
[2020-05-26] MEDS: Losartan Potassium 100 MG Tablet PO (10:55)
[2020-05-26] MEDS: APIXABAN 5 MG TABLET 10 MG PO ×2 (10:55→21:34)
[2020-05-26] MEDS: Pantoprazole Sodium 40 MG Tablet PO (10:55)
[2020-05-26] MEDS: 0.9% Saline Lock 10 ML Syringe IV (10:55)
[2020-05-26] MEDS: Atenolol 50 MG Tablet PO (10:55)
[2020-05-26] MEDS: hydroCHLOROthiazide 12.5mg 12.5 MG PO (10:55)
[2020-05-26] MEDS: amLODIPine 10 MG Tablet PO (10:55)
[2020-05-26] MEDS: TICAGRELOR 90 MG TABLET PO ×2 (10:55→21:35)
[2020-05-26] MEDS: Potassium Chloride Oral Tablet 20 MEQ 60 MEQ PO (11:08)
[2020-05-26 12:05] LABS: Bedside Glucose 253 mg/dL (70-110)
[2020-05-26] MEDS: Insulin Lispro 100 UNIT/ML INSULN.PEN SC ×3 (12:33→21:35)
--- NOTE | 2020-05-26 15:45 | EKG12_ITS ---
Test Reason : AM EKG Blood Pressure : / mmHG Vent. Rate : 061 BPM Atrial Rate : 061 BPM P-R Int : 182 ms QRS Dur : 110 ms QT Int : 504 ms P-R-T Axes : 011 005 118 degrees QTc Int : 507 ms Normal sinus rhythm ST & T wave abnormality, consider anterolateral ischemia Prolonged QT Abnormal ECG Confirmed by BLANCA HAYDEN, KENNEDI ([id number]), editor managing director DONNELL GUERRERO ([id number]) on 05/30/2020 1:16:20 PM Referred By: SANDRA Confirmed By:KENNEDI RIOS MD
[2020-05-26 16:41] LABS: Bedside Glucose 152 mg/dL (70-110)
[2020-05-26] MEDS: Atorvastatin Calcium 40 MG Tablet PO (21:35)
[2020-05-26 22:10] LABS: Bedside Glucose 221 mg/dL (70-110)
[2020-05-27 02:59] VITALS: PULSE 48
[2020-05-27 03:30] VITALS: BP 141/69; PULSE 92; RESP 18; TEMP 36.6; O2SAT 96
[2020-05-27 05:25] LABS: Absolute Lymphocyte Count 2.68 X10^3/uL (0.83-4.51); Absolute Neutrophil Count 6.5 X10^3/uL (2.0-7.7); Basophil% 0.9 % (0-1); Eosinophils% 2.8 % (0-5); Hematocrit 39.5 % (40-54); Hemoglobin 12.9 g/dL (13.0-16.5); Lymphocyte # 2.68 X10^3/ul (4.0); Mean Corp Hgb Conc 32.7 g/dL (32-36); Mean Corpuscular Hgb 29.2 pg (27.0-32.0); Mean Corpuscular Volume 89.4 fL (80-94); Mean Platelet Vol. 10.8 fl (6.2-12.0); Monocyte# 1.14 X10^3/uL; Monocyte% 10.6 % (0-10); NRBC Flagged by Analyzer 0 % (0-5); Neutrophil # 6.47 X10^3/uL (2.7-7.7); Neutrophil % 60.2 % (47-70); Platelet Count 208 K/mm3 (150-450); RBC Distribution Width CV 13.4 % (11.6-14.6); RBC Distribution Width SD 44.5 fl (35.1-43.9); Red Blood Count 4.42 M/mm3 (4.6-6.2); White Blood Count 10.7 K/mm3 (4.4-11.0)
[2020-05-27 05:43] LABS: Anion Gap 8 (5-15); BUN 19 mg/dL (7-18); BUN/Creat Ratio 14.3 RATIO (10-20); Calcium,Total 8.3 mg/dL (8.5-10.1); Chloride 108 mmol/L (98-107); Creatinine, Serum 1.33 mg/dL (0.70-1.30); EST Glomerular Filtration Rate 56 mL/min (>60); Est Glom Filt Rate - Afr Amer 68 mL/min (>60); Estimated Creatinine Clearance 57.51 ml/min; Glucose 136 mg/dL (74-106); Potassium 3.2 mmol/L (3.5-5.1); Sodium Level 138 mmol/L (136-145)
--- NOTE | 2020-05-27 05:55 | EKG12_ITS ---
Test Reason : AM EKG Blood Pressure : / mmHG Vent. Rate : 053 BPM Atrial Rate : 053 BPM P-R Int : 188 ms QRS Dur : 106 ms QT Int : 526 ms P-R-T Axes : 006 009 052 degrees QTc Int : [address] & T wave abnormality, consider anterolateral ischemia Prolonged QT Abnormal ECG When compared with ECG of 26-MAY-2020 15:27, MANUAL COMPARISON REQUIRED, DATA IS UNCONFIRMED Confirmed by JOHNNY HAYDEN, CALVIN ([id number]), editor map NATALIIA CR ([id number]) on 05/28/2020 1:04:30 PM Referred By: DR GONZALEZ Confirmed By:CALVIN TURNER MD
[2020-05-27] MEDS: Levothyroxine 175 MCG Tablet PO (06:29)
[2020-05-27] MEDS: Insulin Lispro 100 UNIT/ML INSULN.PEN SC ×2 (06:29→11:34)
[2020-05-27 06:40] LABS: Bedside Glucose 152 mg/dL (70-110)
[2020-05-27 06:55] VITALS: PULSE 54
[2020-05-27 07:20] VITALS: O2SAT 95
[2020-05-27] MEDS: Potassium Chloride Oral Tablet 20 MEQ 60 MEQ PO (08:39)
[2020-05-27] MEDS: hydroCHLOROthiazide 12.5mg 12.5 MG PO (08:40)
[2020-05-27] MEDS: Aspirin E.C. 81 MG Tablet PO (08:40)
[2020-05-27] MEDS: Losartan Potassium 100 MG Tablet PO (08:40)
[2020-05-27] MEDS: Pantoprazole Sodium 40 MG Tablet PO (08:41)
[2020-05-27] MEDS: Atenolol 50 MG Tablet PO (08:41)
[2020-05-27] MEDS: APIXABAN 5 MG TABLET 10 MG PO (08:41)
[2020-05-27] MEDS: amLODIPine 10 MG Tablet PO (08:41)
[2020-05-27] MEDS: TICAGRELOR 90 MG TABLET PO (08:42)
--- NOTE | 2020-05-27 09:05 | CRPHASE1_ITS ---
Patient Communication PHII Cardiac Rehab Discussed with Patient:: Yes Guide to Cardiac Rehab Given to Patient:: Yes Cardiac Rehab Facility Choice List Given to Patient:: Yes - pt chooses [facility] Choice Program [facility] CR PHII:: Communication Given to CR, Refer to [facility] Civil Engineering Intern:: Román Shah Refer Phase II Cardiac Rehab:: Yes Sessions:: 36 sessions - 3 days/wk, 12 weeks Cardiac Rehabilitation Info Cardiac Rehabilitation Program Information: Cardiac Rehabilitation is important for patients like you who are recovering from a heart problem. Cardiac rehabilitation programs are recognized as integral to the continued care of the patient with coronary heart disease. The cardiac rehabilitation program is designed to optimize a patient's physical, psychological, and social functioning. Health child care development specialist work in cardiac rehabilitation programs and assist you with getting the treatments you need to get stronger and healthier - like exercise, healthy eating habits, and medications. Cardiac rehabilitation has been show to help people with heart problems live longer and have better life enjoyment than people who do not go to cardiac rehabilitation. Please contact the Cardiac Rehabilitation Program at [facility] at in two weeks if you have not heard from them.
--- NOTE | 2020-05-27 09:06 | CRPH1.INSTRU ---
General Education CAD and cardiac anatomy and function:: Patient communicates acknowledgment Explanation of diagnoses and procedures:: Patient communicates acknowledgment Sign/Symptoms of CA:: Patient communicates acknowledgment Antiplatelet therapy: Patient communicates acknowledgment Proper use of NTG-SL: Not instructed Emergency procedures and activation of EMS: Patient communicates acknowledgment Compliance of all prescribed medications: Patient communicates acknowledgment Smoking Patient Nicotine/Smoking Risk Factors Are:: Non-smoker - reformed smoker Overweight/Obesity Patient Overweight/Obesity Risk Factors Are:: Obesity - > or = 30 Recommendations Include:: Weight loss of 5-10%, Reduced calorie diet, Exercise 5-7 times/week Overweight/Obesity:: Patient communicates acknowledgment Hypertension Hypertension:: Patient communicates acknowledgment Heart Disease Heart Disease Response Code:: Patient communicates acknowledgment Diabetes Patient Diabetes Risk Factors Are:: Elevated blood sugars Recommendations Include:: Maintain fasting blood sugars 70-110 md/dL, Maintain HgbA1c of 6% or less, Monitor blood sugar as prescribed, Diabetic dietary guidelines, Decrease/maintain body weight Diabetes:: Patient communicates acknowledgment Metabolic Syndrome Metabolic Syndrome Response Code:: Patient communicates acknowledgment Sedentary Sedentary Response Code:: Patient communicates acknowledgment Stress Stress Response Code:: Patient communicates acknowledgment
--- NOTE | 2020-05-27 09:08 | PCM.PN.CARD ---
Subjectve: The patient is awake and alert. He remains on room air. He has been up and ambulating. He states he is still short of breath with ambulation but not as much as he was upon arrival at the hospital. Objective: Vital Signs Temp Pulse Resp BP Pulse Ox 97.8 F 54 L 18 141/69 H 95 05/27/20 03:30 05/27/20 06:55 05/27/20 03:30 05/27/20 03:30 05/27/20 07:20 Oxygen Delivery Method Room Air Weight: 236 lb 1.841 oz Body Mass Index (BMI) 30.3 Intake and Output for Last 24 Hours 05/25/20 05/26/20 05/27/20 23:59 23:59 23:59 Intake Total 1691.67 / 1811.67 / Output Total 350 / 500 300 / 300 Balance 1341.67 / 1311.67 1681.67 / 168.67 General: Awake, Alert, Oriented x 3, Cooperative, No Acute Distress HEENT: Atraumatic, Normocephalic, PERRL, EOMI, Sclera Non Icteric Neck: Supple, Good ROM, No JVD Lungs: Clear to auscultation Cardiovascular: Regular Rhythm, Normal S1, Normal S2 Abdomen: Bowel Sounds Present, Soft Extremities: No edema Neurological: No Focal Motor or Sensory Deficit Psych/Mental Status: Appropriate 05/27/20 05:14: WBC 10.7, RBC 4.42 L, Hgb 12.9 L, Hct 39.5 L, MCV 89.4, MCH 29.2, MCHC 32.7, Plt Count 208, MPV 10.8, Immature Gran % (Auto) 0.500, Neut % (Auto) 60.2, Lymph % (Auto) 25.0, Bledsoe % (Auto) 10.6 H, Eos % (Auto) 2.8, Baso % (Auto) 0.9, Absolute Neuts (auto) 6.5, Nucleated RBC % 0 05/27/20 05:14: Sodium 138, Potassium 3.2 L, Chloride 108 H, Carbon Dioxide 22.0, Anion Gap 8, BUN 19 H, Creatinine 1.33 H, Est GFR (MDRD) Af Amer 68, Est GFR (MDRD) Non-Af 56 L, BUN/Creatinine Ratio 14.3, Glucose 136 H, Calcium 8.3 L Rhythm: EKG: ECHO: Stress Test: Cardiac Cath: PCI: CT Surgery: Holter monitor: EPS: PPM: CXR: Chest CT Scan: Medical Necessity - Tobacco Use Smoking Status: Former smoker - Patient smoked starting in the service approximately 1 pack lasting him 1 week quitting approximately 50 years prior to current presentation. Tobacco Use: Non-smoker Assessment/Plan 1. Non-ST segment elevation MO The patient presents with findings compatible with a non-ST segment elevation MO. The patient has undergone noninvasive and invasive evaluation. His invasive evaluation led to the diagnosis of underlying CAD with angiographically significant appearing disease in the LAD distribution. He subsequently underwent LAD PCI/JAQUAN. From a cardiac standpoint he will continue medical management. This includes his aspirin and antiplatelet therapy, nitrates as needed, beta-blockers, afterload reducing agents, and his lipid-lowering agents. He will need continued outpatient cardiovascular follow-up. 2. Unstable angina pectoris The patient does present with symptoms compatible with unstable angina pectoris occurring recently. He has the additional cardiovascular objective findings as noted. He is continuing to being monitored. He has undergone evaluation with diagnostic cardiac catheterization as noted. He was found to have CAD. He was treated with LAD PCI/JAQUAN. He will continue medical therapy. 3. CAD Again he was found to have angiographically significant CAD in the LAD distribution. He underwent PCI/JAQUAN to the LAD in 2 different segments. He had what appeared to be good angiographic results. He will continue medical management and follow-up. 4. Hyperlipidemia He will continue lipid-lowering therapy. 5. Hypertension His blood pressure will be followed and his medicines will be adjusted accordingly. 6. Hypothyroidism He will continue evaluation care per his PCP. 7. Diabetes mellitus He will continue evaluation care per internal medicine. 8. Chronic renal sufficiency His renal function appears stable at this time. He will be followed as needed. 8. PE/pulmonary hypertension Based upon the patient's transthoracic echocardiogram there are concerns of elevated right ventricular systolic pressure compatible pulmonary hypertension as well as dilatation of the right atrium and right ventricle. Thus he has undergone cardiovascular evaluation. He was found to have, based upon his chest CT scan, saddle pulmonary emboli and pulmonary emboli in the upper lobes / lower lobes and right middle lobe - please see official report). He is being monitored. He is continuing medical therapy with anticoagulant therapy. He has been evaluated by Dr. Herrera of pulmonology and his input has been most appreciated. Of note he has had issues with hypokalemia. At the moment it would be reasonable to discontinue his HCTZ therapy, supplement his potassium as deemed appropriate, and consider alternative medical management such as spironolactone or Aldactone, and monitor his BMP. Comment: The patient's case has been discussed and reviewed with the patient and previously with Dr. Swanson. This note was generated using a voice recognition system and there may be incorrect words, spelling or punctuation that were not noted when reviewing the office note prior to saving.
[2020-05-27 09:30] VITALS: BP 113/64; PULSE 57; RESP 16; TEMP 36.9; O2SAT 97
[2020-05-27] MEDS: Spironolactone 25 MG Tablet 12.5 MG PO (11:34)
[2020-05-27 11:43] VITALS: O2SAT 95; O2SAT 97
--- NOTE | 2020-05-27 11:45 | DCINST_ITS ---
- Discharge Diagnoses Current Active Problems: Current Active and Chronic Problems (Last Updated 05/27/20 @ 08:51 by Lanie Soriano) Chest pain (Acute) Elevated troponin (Acute) NSTEMI (non-ST elevated myocardial infarction) (Acute) Hypertension (Chronic) Hyperlipidemia (Chronic) Hypothyroidism (Chronic) Chronic kidney disease, stage III (moderate) (Chronic) Obesity (Chronic) Diabetes mellitus, type II (Chronic) Unstable angina (Acute) You will use the following diet at home:: Calorie/Carbohydrate Controlled (sp ecify 1200, 1400, etc) - 1800 chrissy., Cardiac Your food should be the consistency of: Regular Discharge Activity: Return to Normal Activity Weight Bearing Status: Weight bearing as tolerated Call your doctor if you observe: Fever of 101 or Higher, Shortness of breath, Dizziness, Fainting spells, Chest pain, Increased palpitations (irregular heartbeat), Uncontrolled pain Instructions: Pulmonary Embolism, Coronary Stents Allergies/Adverse Reactions: Allergies fosinopril Allergy (Verified 05/24/20 21:08) NEEDS FOLLOW-UP pt unaware of reaction Medications to take at Discharge Amlodipine [Norvasc] 10 mg PO DAILY 05/24/20 Atenolol [Tenormin] 50 mg PO DAILY 05/24/20 Atorvastatin Calcium [Lipitor] 40 mg PO DAILY 05/24/20 Glimepiride [Amaryl] 4 mg PO DAILY 05/24/20 Levothyroxine [Synthroid] 175 mcg PO DAILY 05/24/20 Losartan Potassium [Cozaar] 100 mg PO DAILY 05/24/20 Metformin HCl [Metformin HCl ER] 1,000 mg PO BID 05/24/20 Omeprazole 40 mg PO DAILY 05/24/20 Apixaban [Eliquis] 10 mg PO BID #90 tab 05/27/20 Aspirin E.C. [Ecotrin] 81 mg PO DAILY@0800 #90 tab 05/27/20 Spironolactone [Aldactone] 12.5 mg PO DAILY #30 tab 05/27/20 Ticagrelor [Brilinta] 90 mg PO BID #90 tab 05/27/20 The following prescriptions were given: Spironolactone [Aldactone] 12.5 mg PO DAILY #30 tab Transmission Status: Pending to [id number] Ticagrelor [Brilinta] 90 mg PO BID #90 tab Transmission Status: Pending to [id number] Aspirin E.C. [Ecotrin] 81 mg PO DAILY@0800 #90 tab Transmission Status: Pending to [facility]/pharmacy #[id number] Apixaban [Eliquis] 10 mg PO BID #90 tab Transmission Status: Pending to [facility]/pharmacy #[id number] Orders to be completed after discharge: Phase II, Outpatient Cardiac Rehab Location: None Selected Primary Care Physician: Abdullahi Mason III, MD [Primary Care Provider] - Please follow up with your Primary Care Physician in: 1 week. Test Results: Test results from this visit will be discussed in further detail at your follow- up appointment, if applicable. Please Follow Up With: Michel Hernandez MD When: 2-3 weeks.
--- NOTE | 2020-05-27 12:01 | DS.PCM_ITS ---
Discharge Date and Diagnosis - Problem List Patient Problems: Active and Suspected Problems (Last Updated 05/27/20 @ 08:51 by Lanie Soriano) NSTEMI (non-ST elevated myocardial infarction) (Acute) Date of Admission: 05/24/20 Date of Discharge: 05/27/20 - Primary Discharge Diagnosis Acute Problems: Active Problems (Last Updated 05/27/20 @ 08:51 by Lanie Soriano) #1 acute non-ST elevation NV, status post JAQUAN to mid and distal LAD x2. #2 bilateral upper, lower and right middle lobes pulmonary emboli/saddle pulmonary embolus. #3 hypokalemia. - Secondary Discharge Diagnosis Chronic Problems: Chronic Problems (Last Updated 05/27/20 @ 08:51 by Lanie Soriano) Presence of stent in coronary artery (Chronic ~05/25/20) Successful JAQUAN to mid and distal LAD per cardiac cath 05/25/20 Atherosclerotic heart disease of [place] coronary artery without angina pectoris (Chronic) Hypertension (Chronic) Hyperlipidemia (Chronic) Hypothyroidism (Chronic) Chronic kidney disease, stage III (moderate) (Chronic) Obesity (Chronic) Diabetes mellitus, type II (Chronic) Hospital Course and Treatment Imaging Results: Clinical Impression(s) from Imaging Studies Chest X-Ray 05/24/20 18:35 IMPRESSION: Mild elevation right diaphragm. No acute cardiopulmonary findings. Electronically Signed: Courtney Thomas MD at 18:51 EST , Service support , Chest CTA 05/26/20 04:00 IMPRESSION: Saddle pulmonary embolus, with embolic involvement of bilateral upper, lower, and right middle lobes. There is associated right ventricular strain. Mild aneurysmal dilatation of the ascending thoracic aorta with diameter of 4.2 cm. No evidence for aortic dissection. 1.3 cm and 7 mm groundglass nodules in the right upper lobe. Suggest follow-up low-dose CT scan of the chest in one year to assess stability/Evolution. Gallstone. N.B. : The above information has been verbally conveyed by Dickson Chou MD to Ashley Le RN, on 05/26/2020 05:53:49 (ET). Electronically Signed: Dickson Chou MD at 5:58 EST , Service support , ADDENDUM: 05/26/20 0605 IMPRESSION: Saddle pulmonary embolus, with embolic involvement of bilateral upper, lower, and right middle lobes. There is associated right ventricular strain. Mild aneurysmal dilatation of the ascending thoracic aorta with diameter of 4.2 cm. No evidence for aortic dissection. 1.3 cm and 7 mm groundglass nodules in the right upper lobe. Suggest follow-up low-dose CT scan of the chest in one year to assess stability/Evolution. Gallstone. N.B. : The above information has been verbally conveyed by Dickson Chou MD to Ashley Le RN, on 05/26/2020 05:53:49 (ET). Electronically Signed: Dickson Chou MD at 5:58 EST , Service support , Dr. Hernandez, cardiology. Dr. Herrera, pulmonology. Procedures: 2-D Echocardiogram, Cardiac catheterization, EKG Summary of Care Provided: Patient seen and examined on the day of discharge and appeared to be stable to be discharged home. He has no complaints. Ambulatory pulse ox was done and his pulse ox remained above 95% on room air with ambulation. Other vital signs were stable. The patient is a 74 year old M presented to the emergency room because of chest pain, found to have acute non-ST elevation NV. His EKG revealed no evidence of acute ischemic changes but troponin was borderline elevated. 2D echocardiogram done and showed ejection fraction of 55%, mildly dilated right ventricle, mild global right ventricular systolic dysfunction and RVSP of 59 consistent with pulmonary hypertension. Patient was started on aspirin, statins, beta-blockers and losartan. Cardiology consulted and patient underwent cardiac cat heterization, found to have mid and distal LAD lesions with successful JAQUAN. Patient was started on Brilinta. On cardiac catheterization, right ventricular systolic pressure was elevated which was confirmed with the 2D echocardiogram. CTA chest done and revealed saddle pulmonary embolus and bilateral upper and lower as well as right middle lobe multiple PEs. Patient was started on Lovenox therapeutic dose and then switched to Eliquis. Patient did very well afterwards. He had no more complaints of chest pain and he denied shortness of breath. His respiratory status remained stable and remained on room air. Ambulatory pulse ox was done and his pulse ox remained around 95% on room air with ambulation. He did not require home oxygen. After discussion with cardiology and pulmonology, decision was made to discharge patient home today. Patient discharged home in a stable condition, discharged on Eliquis 10 mg p.o. twice daily for 6 days more and then instructed to take 5 mg p.o. twice a day, discharged on aspirin, atenolol, Lipitor, Brilinta, losartan, HCTZ discontinued and started on Aldactone as per cardiology, continued on other home medications without changes, plan to follow-up with cardiology in 2 weeks, recommended follow-up with PCP in 1 week. Patient Problems: Active and Suspected Problems (Last Updated 05/27/20 @ 08:51 by Lanie Soriano) NSTEMI (non-ST elevated myocardial infarction) (Acute) - Physical Exam Vitals/I&O's: Vital Signs Temp Pulse Resp BP Pulse Ox 98.4 F 57 L 16 113/64 97 05/27/20 09:30 05/27/20 09:30 05/27/20 09:30 05/27/20 09:30 05/27/20 11:43 Oxygen Delivery Method Room Air Weight: 236 lb 1.841 oz Body Mass Index (BMI) 30.3 Intake and Output for Last 24 Hours 05/25/20 05/26/20 05/27/20 23:59 23:59 23:59 Intake Total 1691.67 / 1811.67 / Output Total 350 / 500 300 / 300 Balance 1341.67 / 1311.67 1681.67 / 1681.67 General: Alert, Oriented x3, Cooperative, No apparent distress HEENT: Atraumatic, PERRLA, EOMI, Normocephalic Oral: Moist Mucosa, No Gingival or Mucosal Lesions/ Ulcerations Neck: Supple, No JVD, Negative Carotid Bruits, Trachea Midline, Thyroid Normal Size and Texture Lungs: Clear to auscultation, No rhonchi, No wheeze, No rales, Diminished Cardiovascular: Regular rate, Regular Rhythm, Normal S1, Normal S2, PMI Normal Abdomen: Bowel Sounds Present, Soft, Non Tender, Non-Distended, No Hepato- splenomegaly Extremities: No clubbing, No cyanosis, No edema Skin: No rashes, No breakdown Lymphatic: No Cervical, Supraclavicular, or Inguinal Adenopathy Neurological: Cranial nerves II-XII grossly intact, Neuro grossly intact Psych/Mental Status: Normal Affect, Appropriate Microbiology Past 72 Hours 05/24/20 18:50 Mucosa - Nasopharyngeal SARS-CoV-2 Antigen (Rapid) - Final Laboratory Results 05/26/20 11:58: POC Glucose 253 H 05/26/20 16:03: POC Glucose 152 H 05/26/20 21:31: POC Glucose 221 H 05/27/20 05:14: WBC 10.7, RBC 4.42 L, Hgb 12.9 L, Hct 39.5 L, MCV 89.4, MCH 29.2, MCHC 32.7, RDW Std Deviation 44.5 H, RDW Coeff of Oliverio 13.4, Plt Count 208, MPV 10.8, Immature Gran % (Auto) 0.500, Neut % (Auto) 60.2, Lymph % (Auto) 25.0, Stanton % (Auto) 10.6 H, Eos % (Auto) 2.8, Baso % (Auto) 0.9, Absolute Neuts (auto) 6.5, Absolute Lymphs (auto) 2.68, Nucleated RBC % 0 05/27/20 05:14: Sodium 138, Potassium 3.2 L, Chloride 108 H, Carbon Dioxide 22.0, Anion Gap 8, BUN 19 H, Creatinine 1.33 H, Estim Creat Clear Calc 57.51, Est GFR (MDRD) Af Amer 68, Est GFR (MDRD) Non-Af 56 L, BUN/Creatinine Ratio 14.3, Glucose 136 H, Calcium 8.3 L 05/27/20 06:28: POC Glucose 152 H Current Medications Acetaminophen (Acetaminophen 325 Mg Tablet) 650 mg PO Q6H PRN PRN PRN Reason: Pain Score 1-10/Temp > 100.7 F Al Hydroxide/Mg Hydroxide (Mag Hydrox/Al Hydrox/Simeth 30 Ml Udc) 30 ml PO Q6H PRN PRN PRN Reason: Gastric Burning Amlodipine Besylate (Amlodipine 10 Mg Tablet) 10 mg PO DAILY DENNIS Last Admin: 05/27/20 08:41 Dose: 10 mg Documented by: Apixaban (Apixaban 5 Mg Tablet) 10 mg PO BID [facility] Last Admin: 05/27/20 08:41 Dose: 10 mg Documented by: Aspirin (Aspirin E.C. 81 Mg Tablet) 81 mg PO DAILY@0800 [facility] Last Admin: 05/27/20 08:40 Dose: 81 mg Documented by: Atenolol (Atenolol 50 Mg Tablet) 50 mg PO DAILY [facility] Last Admin: 05/27/20 08:41 Dose: 50 mg Documented by: Atorvastatin Calcium (Atorvastatin Calcium 40 Mg Tablet) 40 mg PO QHS [facility] Last Admin: 05/26/20 21:35 Dose: 40 mg Documented by: Atropine Sulfate (Atropine Sulfate 1 Mg/10 Ml Syringe) 0.5 mg IV UD PRN PRN Reason: HR <50 bpm Guaifenesin (Guaifenesin 10 Ml Udc (200mg/10ml)) 20 ml PO Q4H PRN PRN PRN Reason: COUGH Heparin Sodium (Beef Lung) (Heparin Lock 500 Unit/5 Ml In 10 Ml Syringe) 500 unit IV UD PRN PRN Reason: HEPARIN FLUSH Hydralazine HCl (Hydralazine 20 Mg/Ml Vial) 10 mg IV Q4H PRN PRN PRN Reason: SBP > 160 Sodium Chloride () 250 mls @ 15 mls/hr IV .[id number] PRN PRN Reason: Additional IVPB Infusion Insulin Human Lispro (Insulin Lispro 100 Unit/Ml Insuln.Pen) 0 unit SC ACHS [facility]; Protocol Last Admin: 05/27/20 11:34 Dose: 3 u Documented by: Labetalol HCl (Labetalol (Prefilled) 20 Mg/4 Ml) 5 mg IV X1 PRN PRN Reason: SBP >160 when pulling sheath Stop: 05/27/20 15:41 Levothyroxine Sodium (Levothyroxine 175 Mcg Tablet) 175 mcg PO DAILY@0600 [facility] Last Admin: 05/27/20 06:29 Dose: 175 mcg Documented by: Losartan Potassium (Losartan Potassium 100 Mg Tablet) 100 mg PO DAILY [facility] Last Admin: 05/27/20 08:40 Dose: 100 mg Documented by: Magnesium Hydroxide (Magnesium Hydroxide 30 Ml Udc) 30 ml PO DAILY PRN PRN PRN Reason: Constipation Melatonin (Melatonin 3 Mg Tablet) 3 mg PO QHS PRN PRN PRN Reason: INSOMNIA Morphine Sulfate (Morphine 2 Mg/Ml Syringe) 2 mg IV Q3H PRN PRN PRN Reason: Pain Score 6-10 Ondansetron HCl (Ondansetron 4 Mg/2 Ml Vial) 4 mg IV Q8H PRN PRN PRN Reason: NAUSEA/VOMITING Oxycodone HCl (Oxycodone 5 Mg Tablet) 5 mg PO Q4H PRN PRN PRN Reason: Pain Score 4-5 Pantoprazole Sodium (Pantoprazole Sodium 40 Mg Tablet) 40 mg PO DAILY [facility] Last Admin: 05/27/20 08:41 Dose: 40 mg Documented by: Prochlorperazine Edisylate (Prochlorperazine 10 Mg/2 Ml Vial) 5 mg IV Q4H PRN PRN PRN Reason: Breakthrough Nausea/Vomiting Psyllium Hydrophilic Mucilloid (Psyllium 1 Packet) 1 packet PO DAILY PRN PRN PRN Reason: Constipation Senna/Docusate Sodium (Senna/Docusate Sodium 1 Tablet) 2 tablet PO BID PRN PRN PRN Reason: Constipation Sodium Chloride (0.9% Saline Lock 10 Ml Syringe) 10 - 40 ml IV UD PRN PRN Reason: SALINE FLUSH Last Admin: 05/26/20 10:55 Dose: 10 ml Documented by: Sodium Chloride (0.9% Normal Saline 500 Ml Iv.Soln.) 500 ml IV BOLUS PRN PRN Reason: VASO-VAGAL PROTOCOL Spironolactone (Spironolactone 25 Mg Tablet) 12.5 mg PO DAILY [facility] Last Admin: 05/27/20 11:34 Dose: 12.5 mg Documented by: Throat Lozenges (Benzocaine/Menthol 1 Lozenge) 1 lozenge MUCOUS MEM Q2H PRN PRN PRN Reason: SORE THROAT Ticagrelor (Ticagrelor 90 Mg Tablet) 90 mg PO BID [facility] Last Admin: 05/27/20 08:42 Dose: 90 mg Documented by: Discharge Activity: Return to Normal Activity Weight Bearing Status: Weight bearing as tolerated Call your doctor if you observe: Fever of 101 or Higher, Shortness of breath, Dizziness, Fainting spells, Chest pain, Increased palpitations (irregular heartbeat), Uncontrolled pain Home Medications: Medications to take at Discharge Amlodipine [Norvasc] 10 mg PO DAILY 05/24/20 Atenolol [Tenormin] 50 mg PO DAILY 05/24/20 Atorvastatin Calcium [Lipitor] 40 mg PO DAILY 05/24/20 Glimepiride [Amaryl] 4 mg PO DAILY 05/24/20 Levothyroxine [Synthroid] 175 mcg PO DAILY 05/24/20 Losartan Potassium [Cozaar] 100 mg PO DAILY 05/24/20 Metformin HCl [Metformin HCl ER] 1,000 mg PO BID 05/24/20 Omeprazole 40 mg PO DAILY 05/24/20 Apixaban [Eliquis] 10 mg PO BID #90 tab 05/27/20 Aspirin E.C. [Ecotrin] 81 mg PO DAILY@0800 #90 tab 05/27/20 Spironolactone [Aldactone] 12.5 mg PO DAILY #30 tab 05/27/20 Ticagrelor [Brilinta] 90 mg PO BID #90 tab 05/27/20 Following Prescriptions Were Given to Patient: Spironolactone [Aldactone] 12.5 mg PO DAILY #30 tab Transmission Status: Received by [facility]/pharmacy #[id number] Ticagrelor [Brilinta] 90 mg PO BID #90 tab Transmission Status: Received by [facility]/pharmacy #[id number] Aspirin E.C. [Ecotrin] 81 mg PO DAILY@0800 #90 tab Transmission Status: Re[facility] by [id number] Apixaban [Eliquis] 10 mg PO BID #90 tab Transmission Status: Received by [facility]/pharmacy #[id number] Other Amb Orders: Phase II, Outpatient Cardiac Rehab Location: None Selected Primary Care Physician: Abdullahi Mason III, MD [Primary Care Provider] - Please follow up with your Primary Care Physician in: 1 week. Please Follow Up With: Michel Hernandez MD When: 2-3 weeks. Patient Instructions: Pulmonary Embolism, Coronary Stents Disposition: Home Minutes spent on discharge:: 33 Patient Condition:: Stable Medical Necessity - Tobacco Use Smoking Status: Former smoker - Patient smoked starting in the service approximately 1 pack lasting him 1 week quitting approximately 50 years prior to current presentation. Tobacco Use: Non-smoker Meaningful Use Info Meaningful Use Diagnoses (Choose all that apply): AMI - AMI/Post PCI/Angioplasty Aspirin given w/in 24hrs of arrival?: Yes ASA at discharge?: Yes Antiplatelet Therapy at Discharge:: Yes Statins at discharge?: Yes Kuldeep/ARB at discharge?: Yes Beta Cong at discharge?: Yes Done w/ Acute NV measure.: Yes Documented LVEF (%): 55 Inpatient E&M: 85251 Disch Hosp
[2020-05-27 12:36] LABS: Bedside Glucose 231 mg/dL (70-110)
--- NOTE | 2020-05-27 12:49 | CASEMGMT ---
Pt to be sent home on Brilinta and Eliquis and meds e-scribed previously to [facility]. Call to [facility] to obtain coverage/co-pay at this time and per tech, Brilinta co-pay is $47 and Eliquis is $94 for 45 days worth. This JANESSA SAMPSON to room with Brilinta and Eliquis 30 day free trial cards at this time, explanation done to pt/family, voice understanding. Pt/family voice no further questions/concerns/needs. Pt ready for d/c. Moise RIDDLE CM
--- NOTE | 2020-05-27 14:46 | PHA.DC.MC ---
Pharmacy Service has performed discharge medication reconciliation and counseling for this patient. The patient was counseled on the following discharge medications and changes in medications for homegoing were reviewed. 1. ALDACTONE 2. ELIQUIS 3. BRILINTA 4. ALDACTONE The Reason for Use, instructions for use, and potential side effects were reviewed for all new medications. The patient's questions regarding all of their medications were answered. The patient was able to verbally demonstrate an understanding of their discharge medications. Home Medications Amlodipine [Norvasc] 10 mg PO DAILY 05/24/20 Atenolol [Tenormin] 50 mg PO DAILY 05/24/20 Atorvastatin Calcium [Lipitor] 40 mg PO DAILY 05/24/20 Glimepiride [Amaryl] 4 mg PO DAILY 05/24/20 Levothyroxine [Synthroid] 175 mcg PO DAILY 05/24/20 Losartan Potassium [Cozaar] 100 mg PO DAILY 05/24/20 Metformin HCl [Metformin HCl ER] 1,000 mg PO BID 05/24/20 Omeprazole 40 mg PO DAILY 05/24/20 Apixaban [Eliquis] 10 mg PO BID #90 tab 05/27/20 Aspirin E.C. [Ecotrin] 81 mg PO DAILY@0800 #90 tab 05/27/20 Spironolactone [Aldactone] 12.5 mg PO DAILY #30 tab 05/27/20 Ticagrelor [Brilinta] 90 mg PO BID #90 tab 05/27/20 The patient's discharge medication list was reviewed for discrepancies and discrepancies were resolved.
== END 2020-05-27 13:19 | disposition home or self-care (01) | DRG 246 ==
LOC: ED 19:41 → PCU 20:29 → ICU 05-25 16:25 → PCU 05-26 12:47
PROVIDERS: Internal Medicine Cardiovascular Disease; Nurse Practitioner Family; Student in an Organized Health Care Education/Training Program; Admitting Provider Family Medicine; Emergency Provider Emergency Medicine; PCP Family Medicine; Visit Provider Hospitalist
DX: I21.4 Non-ST elevation (NSTEMI) myocardial infarction (principal); I26.92 Saddle embolus of pulmonary artery without acute cor pulmonale; I25.110 Atherosclerotic heart disease of native coronary artery with unstable angina pectoris; E87.6 Hypokalemia; Z20.822 Contact with and (suspected) exposure to COVID-19; E11.22 Type 2 diabetes mellitus with diabetic chronic kidney disease; I12.9 Hypertensive chronic kidney disease with stage 1 through stage 4 chronic kidney disease, or unspecified chronic kidney disease; N18.30 Chronic kidney disease, stage 3 unspecified; I27.20 Pulmonary hypertension, unspecified; E03.9 Hypothyroidism, unspecified; E78.5 Hyperlipidemia, unspecified; K21.9 Gastro-esophageal reflux disease without esophagitis; E66.09 Other obesity due to excess calories; Z68.30 Body mass index [BMI] 30.0-30.9, adult; Z79.4 Long term (current) use of insulin; Z79.890 Hormone replacement therapy; Z79.899 Other long term (current) drug therapy; Z87.891 Personal history of nicotine dependence
CPT/HCPCS: 36415; 71045; 71275; 80048; 80053; 80061; 82803; 82962; 83036; 83735; 84484; 85025; 85027; 85347; 85610; 85730; 87426; 92928; 93005; 93306; 93460; 99152; 99153; 99251; 99285; J7030; Q9957; Q9967; A4216; C1725; C1769; C1874; C1887; C1894; C8929; C9600; G0463

== ENCOUNTER → 2020-06-07 08:23 | Outpatient (CLI) | payer MEDICARE, OTHER, SELFPAY ==
[2020-05-24 20:49] VITALS: BMI 30.3
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
--- NOTE | 2020-06-07 08:33 | PCM.CR.ITP ---
Diagnosis - General Information Admitting Diagnosis: Z95.5 PCI with stent Personal Learning Style:: Audio/Visual Barriers to Learning: Vision Impairment Stage of change r/t lifestyle modifications:: Contemplation Gave educational material for:: Treating Heart Disease, Emotions & Heart Disease, Stress Management & Relaxation, Sleep Disorders & Heart Disease, How The Heart Works, What it means to have Heart Disease, How Coronary Artery Disease is Diagnosed, Heart Procedures, What Heart Medications Do, Risk Factors & Modifications, Living an Active Life, Nutrition - Education/Goals Cardiac Rehabilitation Goals: 1. Maintain the individual as the primary focus of care. 2. To improve the patient's quality of life. 3. Identification of cardiac risk factors and provide cardiac risk factor management. 4. Enhance the psychosocial status of the patient. 5. Reconditioning enough to allow the patient to resume customary activities. 6. Control symptoms of cardiac disease Personal Goals: Initial Assessment: Get back to work, or to resume activities faster, Improve knowledge of cardiac disease Scale for measuring improvement of personal goals: Enter appropriate number in Comments. 2 = Unchanged. 3 = Slightly Better. 4 = Moderate Improvement. 5 = Met my Goal - Diagnosis & Disease Process Outcomes/Goals: Pt IDs own risk factors & lifestyle modifications by Session 10, Verbalizes symptoms of angina & response by session 3., Pt independently manages, Other Additional Outcomes/Goals: Plan/Interventions: Assist Pt to ID & engage in lifestyle modification to reduce CVD risk, Instruct on individual risk factors, Review symptoms of angina & emergency actions, Review secondary diagnosis & identify educational needs., Other see comment 30 day Reassessments:: Not Met 30 day Reassessments:: Not Met 30 day Reassessments:: Not Met 30 day Reassessments:: Not Met Final Reassessments:: Not Met - Safety Referral to Physical Therapy: No Referral to [facility] Case Management: No Fall Risk Assessed:: Yes Assistive Devices:: None Exercise - Initial Assessment - Visit Date of Eval: 06/07/20 - initial eval Mets: Pre-: >5 METS for 30 minutes by discharge - Physician Prescribed Exercise Modalities: Treadmill, Biodyne, Rower, Airdyne, NuStep, SciFit Frequency: 3x/week for 12 weeks [36 sessions] Intensity: 60-80% of age predicted maximum heart rate reserve Current METSs:: 3 Target Heart Rate:: 96-124 Resting Blood Pressure: 130/62 EKG Type: Sinus luz with ST and T wave abnormality - Outcomes & Goals Goals:: Verbalizes understanding of THR, RPE & goal METS by session 6, Documents in home exercise log/reports 30 min aerobic 5 day/wk by DC, Demonstrates accurate pulse taking by DC, Other additional outcome/goals: see below - Intervention & Plan Exercise Program Goals: Instruct on personal THR & RPE, Instruct on MET level & personal MET goal, Show patient to take own pulse /validate performance until accurate, Instruct on home exercise, Other additional plan/int - Physical Activity Home Exercise Physical Activity - Home Exercise: Safe Exercise, Warm-up, Self-monitoring, Cool-Down, Home Exercise > 30 min Daily, Sitting Time <3 hours/daily - Outcomes & Goals Outcomes/Goals: Demonstrates correct Warm-up/exercise Cool-Down (S3) if = 2.5 METs, Verbalizes symptoms of exercise intolerance by Session 3 (S3), Demonstrate safe equipment use (S3) & follows exercise prescrition (6), Other: See below - Intervention & Plan Plan/Intervention: Instruct warm-up & cool-down if exercising at > 2 METs, Instruct on symptoms of exercise intolerance & actions to take, Instruct & monitor on saf, Assess intial functional capacity & safety risk, Other See below Nutrition - Initial Assessment - Program Goals Nutrition Program Goals: LDL <100 optimal. 100 - 129 Near optimal. 130 - 159 Borderline High. 160 - 189 High. Total Cholesterol <200 desirable. 200 - 239 Borderline High. >/= 240 High. HDL < 40 Low >/=60 High. Triglycerides <150 desirable. <199 optimal. VlDL 5 - 40. HgbA1C <7%. BMI <25 Patient has diagnosis of Hyperlipidemia (ICD E78)?: Yes - Visit Date of Assessment:: 06/07/20 - initial eval - Cholesterol/Lipids Outcomes/Goals: Pt IDs own risk factors & lifestyle modifications by Session 10, Verbalizes symptoms of angina & response by session 3., Pt independently manages, Other Additional Outcomes/Goals: Intervention/Plan: Advocate for lipid panel cholesterol medication if applicable, Instruct on personal lipid levels & lipid goals/NCEP guidelines, Instruct on cholesterol, Other additional plan/int - Diabetes (Other Core Measures) Diabetes Type: Diagnosis Type II ICD-10 E11 Insulin dependent injection/pump?: Yes Non-Insulin Dependent?: Yes Referral to Diabetic Clinic:: No Outcomes/Goals:: Able to state symptoms of, Able to state, Able to state, Other additional Intervention/Plan:: Instruct on, Refer to, Instruct on, Other - Weight Mgt (Other Care) Height: 6 ft 2 in Weight:: 107.048 kg BMI: 30.2 Outcomes/Goals: Pt sets, maintains & shows weight loss goal & trend during rehab, Other additional outcomes/goals Intervention/Plan: Instruct on ideal BMI & set weight loss goal w/patient, Assist pt to ID & incorporate diet changes for weight loss by S9, Refer to Structured Weight Loss program as appropriate, Encourage goal of using 250-300dcal per session for weight loss, Other additional plan/interventions - Healthy Eating Habits Will attend diet classes:: Yes Outcomes/Goals:: Consume diet rich in vegs,fruits,whole grain/high fiber,fish,lean meat, Limit sat/trans fats,cholesterol & added salts & sugars, Other additional outcome/goals: Intervention/Plan:: Assess current eating habits, Other Additional plan/interventions - Education Gave educational materials for:: Signs & symptoms of hypoglycemia, Signs & symptoms of hyperglycemia, Relate diabetes to coronary artery disease, Healthy eating Medical - Initial Assessment - Visit Date of Eval: 06/07/20 - initial eval - Medication Compliance Preventative Medication(s):: Aspirin, Statin/lipid, Beta juan antonio, Eliquis H/O mental health issues: depression, anxiety, or addiction?: No Doesn?t believe in the benefits of treatment?: No Believes medications are unnecessary or harmful?: No Has a concern about medication side effects?: No Expresses concern over the cost of medications?: No Outcomes/Goals: Verbalizes medications,desired effect & common side effects @ DC, Pt self-reports following medication regimen, Keeps card in wallet w/medications listed by DC, Other additional outcome/goals: Interventions/plans: Instruct on medication effects & side effects, Review medication list w/patient every two weeks, Instruct importance of taking meds as ordered & assist problem solving, Other additional - Tobacco Use Tobacco Use: Non-smoker - Hypertension Hypertension Diagnosis:: Hypertension ICD-10 I10 [employer] Hypertension Guidelines: [place] [employer] Hypertension Guidelines. Normal BP Less than 120/80. Elevated BP 120/80. Hypertension Stage 1: BP 130-139/80-89. Hypertesnion Stage 2: BP 140 or higher/90 or higher. Hypertension Crisis: BP higher than 180/120 Outcomes/Goals: Able to verbalize/achieve optimal blood pressure <130/80, Incorporates diet changes & exercise for blood pressure control by DC, Other additional outcomes/goals Interventions/plan: Instruct on optimal blood pressure, hypertension & medications, Instruct on effects of sodium, alcohol, stress, exercise &hypertension, Other additional plan/interventions - Tobacco Cessation Referral Smoking Cessation Referral:: No Individual Education/Counseling:: No Education Schedule Given:: Yes Psychosocial - Initial Assess - VIsit Date of Eval: 06/07/20 - initial eval History of previous Mental disease:: No - Target Goals Target Goals: Assess presence or absence of depression. Using a valid screening tool, maximizes coping skills. Positive support system - Psychosocial Test phq-9 Severity: Severity. 1-4 Minimal Depression. 5-9 Mild Depression. 10-14 Moderate Depression. 15-19 Moderately Sever Depression. 20-27 Severe Depression. Rule: - Outcomes/Goals: See list Psychosocial Outcomes/Goals:: ID's personal stressors & 2 strategies to manage stress by discharge, Other Additional outcome/goals: - Intervention/Plan: See List Interventions/Plan:: Assess stressors,coping strategies & signs of derpression on admission, Instruct/assist pt to develop coping & personal stress Mgt strategies, Refer to Behavioral Health if appropriate, Refer to Physician if appropriate, Instruct patient to recognize signs & symptoms of depression, Instruct patient to recog, Other additional plan/intervention Patient Health Questionnaire Initial Assessment 1. Little interest or pleasure in doing things: Several days 2. Feeling down, depressed, or hopeless: Not at all 3. Trouble falling or staying asleep, or sleeping too much: More than half the days 4. Feeling tired or having little energy: Nearly every day 5. Poor appetite or overeating: Not at all 6. Feeling bad about yourself -- or that you are a failure or have let yourself or your family down: Not at all 7. Trouble concentrating on things, such as reading the newspaper or watching television: Not at all 8. Moving or speaking so slowly that other people could have noticed. Or the opposite - being so fidgety or restless that you have been moving around a lot more than usual: Not at all 9. Thoughts that you would be better off , or of hurting yourself in some way: Not at all How difficult have these problems made it for you to do your work, take care of things at home, or get along with other people?: Not difficult at all Total Score: 6 LEO-Q SV Test - Statements CAD is a disease of the arteries in the heart: False Examples of risk factors for heart disease: I Don't Know Angina is chest pain or discomfort: True The benefits of resistance training include: True Eating more meat and dairy products: I Don't Know Anti-platelet medications such as aspirin are important: True The only effective way to manage stress: False An exercise warm-up slowly increases heart rate: True Prepared, processed foods usually have high sodium: True Depression is common after a heart attack: I Don't Know The statin medications lower cholesterol: I Don't Know To control blood pressure, lower the amount of sodium: True If someone gets chest discomfort during walking: False Transfats are partially hydrogenated vegetable oils: True Sleep apnea that is not treated increases the risk: I Don't Know To control cholesterol, one should become a vegetarian: False Someone knows if he/she is exercising at the right level: I Don't Know Diabetes cannot be prevented with exercise & health eating: False Stress is a large risk for heart attack: True A diet that can help lower blood pressure is rich in: True - Total Score Total Correct Responses: 14 Self-Efficacy Initial Assessment We would like to know how confident you are in doing certain activities. Please select your confidence level for:: Select your confidence level for the following using the scale 1-10 where 1 is not at all confident and 10 is totally confident. Your score is the average of all 6 responses. Fatigue: How confident are you that you can keep the fatigue caused by your disease from interfering with the things you want to do? Select Number: 5 Physical Discomfort or Pain: How confident are you that you can keep the physical discomfort or pain of your disease from interfering with the things you want to do? Select Number: 1 Emotional Distress: How confident are you that you can keep the emotional distress caused by your disease from interfering with the things you want to do? Select Number: 1 Other Symptoms or Health Problems: How confident are you that you can keep other symptoms or health problems from interfering with the things you want to do? Select Number: 1 Different Tasks and Activities: How confident are you that you can do the different tasks and activities needed to manage your health condition so as to reduce your need to see a doctor? Select Number: 1 Medication: How confident are you that you can do things other than just taking medication to reduce how much your illness affects your everyday life? Select Number: 1 Total Score:: 1 Nutrition Survey - Nutrition Survey Instructions Scoring Instructions: Scoring is as follows: Yes = 1 points. No = 0 point. Patient score that is >/=12 is considered to be at potential nutritional risk and could benefit from a referral to a registered dietitian. - Nutrition Survey Initial Have you lost >10 lbs over the past 2 months without trying?: No Are you following a special diet at home for diabetes, low fat, or low salt?: No Are you interested in meeting with a dietitian for help understanding your diet?: No Do you eat less than 3 meals a day?: Yes Do you eat fatty meats (mcdonnell, sausage, ribs, etc), fried foods, desserts, large amounts of salad dressings, margarine, butter, or cheese most days?: No Do you have food allergies? [Enter types in comment field]: No Do you eat in restaurants more than 3 times a week?: No Do you season food with salt, seasoning salt, or garlic salt?: No Do you used canned, boxed, frozen meals, or soups, seasoning packets?: Yes Total Score:: 2
[2020-06-07 09:44] VITALS: BP 130/62; BMI 30.2
[2020-06-07 09:45] VITALS: BP 130/62; PULSE 64; O2SAT 97; BMI 30.2
== END ==
PROVIDERS: PCP Family Medicine; Visit Provider Internal Medicine Cardiovascular Disease
DX: I25.10 Atherosclerotic heart disease of native coronary artery without angina pectoris (principal); Z95.5 Presence of coronary angioplasty implant and graft

== ENCOUNTER 2020-06-26 11:30 | Outpatient (RCR) | payer MEDICARE, OTHER, SELFPAY ==
[2020-06-07 09:44] VITALS: BMI 30.2
[2020-06-07 09:45] VITALS: BMI 30.2
== END 2020-06-26 23:59 ==
LOC: CR 11:30
PROVIDERS: PCP Family Medicine; Visit Provider Internal Medicine Cardiovascular Disease
DX: I25.10 Atherosclerotic heart disease of native coronary artery without angina pectoris (principal); Z95.5 Presence of coronary angioplasty implant and graft; E78.5 Hyperlipidemia, unspecified
CPT/HCPCS: 93798

== ENCOUNTER 2020-07-26 11:30 | Outpatient (RCR) | payer MEDICARE, OTHER, SELFPAY ==
[2020-06-07 09:44] VITALS: BMI 30.2
[2020-06-11 09:26] VITALS: BMI 30.4
--- NOTE | 2020-07-08 06:49 | PCM.CR.ITP ---
Exercise - 30-day Assessment - Visit Date of Eval: 07/08/20 Session #:: 12 - Physician Prescribed Exercise Modalities: Treadmill, Airdyne, NuStep Frequency: 3x/week for 12 weeks [36 sessions] Intensity: 60-80% of age predicted maximum heart rate reserve Target Heart Rate:: 4.5 increase from 3.0 Target RPE 12-16:: 96-124 Current RPE:: 11-13 Maximum Excercise HR:: 116 Resting Blood Pressure: 130/72 Maximum Exercise Blood Pressure: 140/70 EKG Type: NSR to sinus tach w/rare PACs and PVCs. - Outcomes & Goals Goals:: Verbalizes understanding of THR, RPE & goal METS by session 6, Documents in home exercise log/reports 30 min aerobic 5 day/wk by DC, Demonstrates accurate pulse taking by DC - Intervention & Plan Exercise Program Goals: Instruct on personal THR & RPE, Instruct on MET level & personal MET goal, Show patient to take own pulse /validate performance until accurate, Instruct on home exercise - 30-day Reassessments 30 day Reassessments:: Progressing - Physical Activity Home Exercise Physical Activity - Home Exercise: Safe Exercise, Warm-up, Self-monitoring, Cool-Down, Home Exercise > 30 min Daily, Sitting Time <3 hours/daily - Outcomes & Goals Outcomes/Goals: Demonstrates correct Warm-up/exercise Cool-Down (S3) if = 2.5 METs, Verbalizes symptoms of exercise intolerance by Session 3 (S3), Demonstrate safe equipment use (S3) & follows exercise prescrition (6) - Intervention & Plan Plan/Intervention: Instruct warm-up & cool-down if exercising at > 2 METs, Instruct on symptoms of exercise intolerance & actions to take, Instruct & monitor on saf, Assess intial functional capacity & safety risk - 30-day Reassessments 30 day Reassessments:: Progressing Nutrition - 30-Day Assessment - Program Goals Nutrition Program Goals: LDL <100 optimal. 100 - 129 Near optimal. 130 - 159 Borderline High. 160 - 189 High. Total Cholesterol <200 desirable. 200 - 239 Borderline High. >/= 240 High. HDL < 40 Low >/=60 High. Triglycerides <150 desirable. <199 optimal. VlDL 5 - 40. HgbA1C <7%. BMI <25 Patient has diagnosis of Hyperlipidemia (ICD E78)?: Yes - Visit Date of Assessment:: 07/08/20 Session #:: 12 - Cholesterol/Lipids Triglycerides (mg/dL): 207 - 05/25/20 Total Cholesterol (mg/dL): 124 LDL Cholesterol (mg/dL): 49 HDL Cholesterol (mg/dL): 34 Determine presence & major risk factors that modify LDL goal: Hypertension or hypertensive medication, Low HDL cholesterol <40 mg/dL*, Family history of premature CHD in Male < 55 years: female <65 yearsFa, Age men > 45 years; women >/= 55 years Outcomes/Goals: Pt IDs own risk factors & lifestyle modifications by Session 10, Verbalizes symptoms of angina & response by session 3., Pt independently manages Intervention/Plan: Instruct on personal lipid levels & lipid goals/NCEP guidelines, Instruct on cholesterol Referral to dietitian:: Yes - Medical Nutrition Therapy - Diabetes (Other Core Measures) Diabetes Type: Diagnosis Type II ICD-10 E11 Fasting blood glucose:: 136 - 05/27/2020 Hgb A1C (4.2 -6.3): 6.8 Insulin dependent injection/pump?: No Non-Insulin Dependent?: Yes Do you monitor your blood sugar at home?: No Referral to Diabetic Clinic:: Yes Outcomes/Goals:: Able to state symptoms of, Able to state, Able to state Intervention/Plan:: Instruct on, Refer to, Instruct on 30-day Reassessments:: Progressing - Weight Mgt (Other Care) Not Applicable: No Height: 6 ft 2 in Weight:: 239 lb 8 oz BMI: 30.7 Diagnosis Overweight/Obesity BMI> 30% ICD-10 E66: Yes Diagnosis High BMI/Morbid Obesity BMI> 35% ICD-10 Z68: No Outcomes/Goals: Pt sets, maintains & shows weight loss goal & trend during rehab Intervention/Plan: Instruct on ideal BMI & set weight loss goal w/patient, Assist pt to ID & incorporate diet changes for weight loss by S9, Refer to Structured Weight Loss program as appropriate, Encourage goal of using 250-300dcal per session for weight loss 30 day Reassessments:: Progressing - Healthy Eating Habits Will attend diet classes:: Yes Outcomes/Goals:: Consume diet rich in vegs,fruits,whole grain/high fiber,fish,lean meat, Limit sat/trans fats,cholesterol & added salts & sugars Intervention/Plan:: Assess current eating habits 30-day Reassessments:: Progressing - Education Gave educational materials for:: Signs & symptoms of hypoglycemia, Signs & symptoms of hyperglycemia, Relate diabetes to coronary artery disease, Healthy eating Medical- 30-Day Assessment - Visit Date of Eval: 07/08/20 Session #:: 12 - Medication Compliance Preventative Medication(s):: Aspirin, Ticagrelor/P2Y12 inhibitor, Statin/lipid, Beta juan antonio, Eliquis H/O mental health issues: depression, anxiety, or addiction?: No Doesn?t believe in the benefits of treatment?: No Believes medications are unnecessary or harmful?: No Has a concern about medication side effects?: No Expresses concern over the cost of medications?: No Outcomes/Goals: Verbalizes medications,desired effect & common side effects @ DC, Pt self-reports following medication regimen, Keeps card in wallet w/medications listed by DC Interventions/plans: Instruct on medication effects & side effects, Review medication list w/patient every two weeks, Instruct importance of taking meds as ordered & assist problem solving 30-day Reassessments:: Progressing - Tobacco Use Tobacco Use: Non-smoker - Hypertension Hypertension Diagnosis:: Hypertension ICD-10 I10 Resting Blood Pressure:: 130/72 - Still elevated on medication [place] [employer] Hypertension Guidelines: [place] [employer] Hypertension Guidelines. Normal BP Less than 120/80. Elevated BP 120/80. Hypertension Stage 1: BP 130-139/80-89. Hypertesnion Stage 2: BP 140 or higher/90 or higher. Hypertension Crisis: BP higher than 180/120 Peak Exercise Blood Pressure:: 140/70 Outcomes/Goals: Able to verbalize/achieve optimal blood pressure <130/80, Incorporates diet changes & exercise for blood pressure control by DC Interventions/plan: Instruct on optimal blood pressure, hypertension & medications, Instruct on effects of sodium, alcohol, stress, exercise &hypertension 30 day Reassessments:: Progressing - Tobacco Cessation Referral Smoking Cessation Referral:: No Individual Education/Counseling:: No Education Schedule Given:: Yes Psychosocial - 30-Day Assess - VIsit Date of Eval: 07/08/20 Session #:: 12 Not Applicable: Yes History of previous Mental disease:: No - Target Goals Target Goals: Assess presence or absence of depression. Using a valid screening tool, maximizes coping skills. Positive support system - Psychosocial Test Tool Used:: PHQ-9 Questionnaire phq-9 Severity: Severity. 1-4 Minimal Depression. 5-9 Mild Depression. 10-14 Moderate Depression. 15-19 Moderately Sever Depression. 20-27 Severe Depression. Rule: - Referral to Behavioral Health PS - Interventions: Yes Attend Stress Management Classes, No Referral to Behavioral Health if PHQ-9 score >9:, No Referral to [facility], No Referral to Physician if PHQ-9 if score is 5-9: - Outcomes/Goals: See list Psychosocial Outcomes/Goals:: ID's personal stressors & 2 strategies to manage stress by discharge - Intervention/Plan: See List Interventions/Plan:: Assess stressors,coping strategies & signs of derpression on admission, Instruct/assist pt to develop coping & personal stress Mgt strategies, Instruct patient to recognize signs & symptoms of depression, Instruct patient to recog - 30-day Reassessments: 30 day Reassessments:: Progressing Patient Health Questionnaire 30-Day Re-eval Assessment 1. Little interest or pleasure in doing things: Several days 2. Feeling down, depressed, or hopeless: Not at all 3. Trouble falling or staying asleep, or sleeping too much: More than half the days 4. Feeling tired or having little energy: More than half the days 5. Poor appetite or overeating: Not at all 6. Feeling bad about yourself -- or that you are a failure or have let yourself or your family down: Not at all 7. Trouble concentrating on things, such as reading the newspaper or watching television: Not at all 8. Moving or speaking so slowly that other people could have noticed. Or the opposite - being so fidgety or restless that you have been moving around a lot more than usual: Not at all 9. Thoughts that you would be better off , or of hurting yourself in some way: Not at all How difficult have these problems made it for you to do your work, take care of things at home, or get along with other people?: Not difficult at all Total Score: 5 Self-Efficacy 30-Day Re-eval Assessment We would like to know how confident you are in doing certain activities. Please select your confidence level for:: Select your confidence level for the following using the scale 1-10 where 1 is not at all confident and 10 is totally confident. Your score is the average of all 6 responses. Fatigue: How confident are you that you can keep the fatigue caused by your disease from interfering with the things you want to do? Select Number: 7 Physical Discomfort or Pain: How confident are you that you can keep the physical discomfort or pain of your disease from interfering with the things you want to do? Select Number: 5 Emotional Distress: How confident are you that you can keep the emotional distress caused by your disease from interfering with the things you want to do? Select Number: 5 Other Symptoms or Health Problems: How confident are you that you can keep other symptoms or health problems from interfering with the things you want to do? Select Number: 5 Different Tasks and Activities: How confident are you that you can do the different tasks and activities needed to manage your health condition so as to reduce your need to see a doctor? Select Number: 5 Medication: How confident are you that you can do things other than just taking medication to reduce how much your illness affects your everyday life? Select Number: 5 Total Score:: 5
[2020-07-08 06:57] VITALS: BP 130/72; BP 140/70; BMI 30.7
== END 2020-07-26 23:59 ==
LOC: CR 11:30
PROVIDERS: PCP Family Medicine; Visit Provider Internal Medicine Cardiovascular Disease
DX: I25.10 Atherosclerotic heart disease of native coronary artery without angina pectoris (principal); E78.5 Hyperlipidemia, unspecified; Z95.5 Presence of coronary angioplasty implant and graft
CPT/HCPCS: 93798

== ENCOUNTER 2020-08-23 11:30 | Outpatient (RCR) | payer MEDICARE, OTHER, SELFPAY ==
[2020-06-11 09:26] VITALS: BMI 30.4
[2020-07-08 06:57] VITALS: BMI 30.7
[2020-07-27 00:48] VITALS: BP 130/72; BP 140/70
--- NOTE | 2020-08-06 07:07 | CR.ITP_ITS ---
Diagnosis Exercise - 90-day Assessment - Visit Date of Eval: 08/06/20 Session #:: 25 - Physician Prescribed Exercise Modalities: Treadmill, NuStep Frequency: 3x/week for 12 weeks [36 sessions] Intensity: 60-80% of age predicted maximum heart rate reserve Current METSs:: 4.5 unchanged Target Heart Rate:: 96-124 Current RPE:: 11-13 Maximum Excercise HR:: 91 Resting Blood Pressure: 112/52 Maximum Exercise Blood Pressure: 136/64 EKG Type: NSR to sinus tach wrare PVCs and PACs - Outcomes & Goals Goals:: Verbalizes understanding of THR, RPE & goal METS by session 6, Documents in home exercise log/reports 30 min aerobic 5 day/wk by DC, Demonstrates accurate pulse taking by DC - Intervention & Plan Exercise Program Goals: Instruct on personal THR & RPE, Instruct on MET level & personal MET goal, Show patient to take own pulse /validate performance until accurate, Instruct on home exercise - 30-day Reassessments 30 day Reassessments:: Progressing - Physical Activity Home Exercise Physical Activity - Home Exercise: Safe Exercise, Warm-up, Self-monitoring, Cool-Down, Home Exercise > 30 min Daily, Sitting Time <3 hours/daily - Outcomes & Goals Outcomes/Goals: Demonstrates correct Warm-up/exercise Cool-Down (S3) if = 2.5 METs, Verbalizes symptoms of exercise intolerance by Session 3 (S3), Demonstrate safe equipment use (S3) & follows exercise prescrition (6) - Intervention & Plan Plan/Intervention: Instruct warm-up & cool-down if exercising at > 2 METs, Instruct on symptoms of exercise intolerance & actions to take, Instruct & monitor on saf, Assess intial functional capacity & safety risk - 30-day Reassessments 30 day Reassessments:: Progressing Nutrition - Initial Assessment Nutrition - 30-Day Assessment Nutrition - 60-Day Assessment Nutrition - 90-Day Assessment - Program Goals Nutrition Program Goals: LDL <100 optimal. 100 - 129 Near optimal. 130 - 159 Borderline High. 160 - 189 High. Total Cholesterol <200 desirable. 200 - 239 Borderline High. >/= 240 High. HDL < 40 Low >/=60 High. Triglycerides <150 desirable. <199 optimal. VlDL 5 - 40. HgbA1C <7%. BMI <25 Patient has diagnosis of Hyperlipidemia (ICD E78)?: Yes - Visit Date of Assessment:: 08/06/20 Session #:: 25 - Cholesterol/Lipids Triglycerides (mg/dL): 207 Total Cholesterol (mg/dL): 124 LDL Cholesterol (mg/dL): 49 HDL Cholesterol (mg/dL): 34 Determine presence & major risk factors that modify LDL goal: Hypertension or hypertensive medication, Low HDL cholesterol <40 mg/dL*, Family history of premature CHD in Male < 55 years: female <65 yearsFa, Age men > 45 years; women >/= 55 years Outcomes/Goals: Pt IDs own risk factors & lifestyle modifications by Session 10, Verbalizes symptoms of angina & response by session 3., Pt independently manages Intervention/Plan: Instruct on personal lipid levels & lipid goals/NCEP guidelines, Instruct on cholesterol Referral to dietitian:: Yes 30-day Reassessments:: Progressing - Diabetes (Other Core Measures) Diabetes Type: Diagnosis Type II ICD-10 E11 Fasting blood glucose:: 136 Hgb A1C (4.2 - 6.3): 6.8 Insulin dependent injection/pump?: Yes Non-Insulin Dependent?: Yes Do you monitor your blood sugar at home?: Yes Referral to Diabetic Clinic:: Yes Outcomes/Goals:: Able to state symptoms of, Able to state, Able to state Intervention/Plan:: Instruct on, Refer to, Instruct on 30-day Reassessments:: Progressing - Weight Mgt (Other Care) Not Applicable: No Height: 6 ft 2 in Weight:: 240 lb 8 oz BMI: 30.9 Diagnosis Overweight/Obesity BMI> 30% ICD-10 E66: Yes Diagnosis High BMI/Morbid Obesity BMI> 35% ICD-10 Z68: No Outcomes/Goals: Pt sets, maintains & shows weight loss goal & trend during rehab Intervention/Plan: Instruct on ideal BMI & set weight loss goal w/patient, Assist pt to ID & incorporate diet changes for weight loss by S9, Refer to Structured Weight Loss program as appropriate, Encourage goal of using 250- 300dcal per session for weight loss 30 day Reassessments:: Progressing - Healthy Eating Habits Will attend diet classes:: Yes Outcomes/Goals:: Consume diet rich in vegs,fruits,whole grain/high fiber,fish,lean meat, Limit sat/trans fats,cholesterol & added salts & sugars Intervention/Plan:: Assess current eating habits 30-day Reassessments:: Progressing - Education Gave educational materials for:: Signs & symptoms of hypoglycemia, Signs & symptoms of hyperglycemia, Relate diabetes to coronary artery disease, Healthy eating Nutrition - Final Assessment Medical - Initial Assessment Medical- 30-Day Assessment Medical- 60-Day Assessment Medical- 90-Day Assessment - Visit Date of Eval: 08/06/20 Session #:: 25 - Medication Compliance Preventative Medication(s):: Aspirin, Ticagrelor/P2Y12 inhibitor, Statin/lipid, Beta juan antonio, Eliquis H/O mental health issues: depression, anxiety, or addiction?: No Doesn?t believe in the benefits of treatment?: No Believes medications are unnecessary or harmful?: No Has a concern about medication side effects?: No Expresses concern over the cost of medications?: No Outcomes/Goals: Verbalizes medications,desired effect & common side effects @ DC, Pt self-reports following medication regimen, Keeps card in wallet w/medications listed by DC Interventions/plans: Instruct on medication effects & side effects, Review medication list w/patient every two weeks, Instruct importance of taking meds as ordered & assist problem solving 30-day Reassessments:: Progressing - Tobacco Use Tobacco Use: Non-smoker - Hypertension Hypertension Diagnosis:: Hypertension ICD-10 I10 Resting Blood Pressure:: 120/64 [place] [employer] Hypertension Guidelines: [place] [employer] Hypertension Guidelines. Normal BP Less than 120/80. Elevated BP 120/80. Hypertension Stage 1: BP 130-139/80-89. Hypertesnion Stage 2: BP 140 or higher/90 or higher. Hypertension Crisis: BP higher than 180/120 Peak Exercise Blood Pressure:: 132/64 Outcomes/Goals: Able to verbalize/achieve optimal blood pressure <130/80, Incorporates diet changes & exercise for blood pressure control by DC Interventions/plan: Instruct on optimal blood pressure, hypertension & medications, Instruct on effects of sodium, alcohol, stress, exercise &hypertension 30 day Reassessments:: Progressing - Tobacco Cessation Referral Smoking Cessation Referral:: No Individual Education/Counseling:: No Education Schedule Given:: Yes Medical - Final Assessment Psychosocial - Initial Assess Psychosocial - 30-Day Assess Psychosocial - 60-Day Assess Psychosocial - 90-Day Assess - VIsit Date of Eval: 08/06/20 Session #:: 25 Not Applicable: Yes History of previous Mental disease:: No - Psychosocial Test Tool Used:: PHQ-9 Questionnaire phq-9 Severity: Severity. 1-4 Minimal Depression. 5-9 Mild Depression. 10-14 Moderate Depression. 15-19 Moderately Sever Depression. 20-27 Severe Depression. Rule: - Referral to Behavioral Health PS - Interventions: Yes Attend Stress Management Classes, No Referral to [facility] if PHQ-9 score >9:, No Referral to [facility] Community [facility], No Referral to Physician if PHQ-9 if score is 5-9: - Outcomes/Goals: See list Psychosocial Outcomes/Goals:: ID's personal stressors & 2 strategies to manage stress by discharge - Intervention/Plan: See List Interventions/Plan:: Assess stressors,coping strategies & signs of derpression on admission, Instruct/assist pt to develop coping & personal stress Mgt strategies, Instruct patient to recognize signs & symptoms of depression, Instruct patient to recog - 30-day Reassessments: 30 day Reassessments:: Progressing Psychosocial - Final Assessmen Patient Health Questionnaire 90-Day Re-eval Assessment 1. Little interest or pleasure in doing things: Several days 2. Feeling down, depressed, or hopeless: Not at all 3. Trouble falling or staying asleep, or sleeping too much: Several days 4. Feeling tired or having little energy: Several days 5. Poor appetite or overeating: Not at all 6. Feeling bad about yourself -- or that you are a failure or have let yourself or your family down: Not at all 7. Trouble concentrating on things, such as reading the newspaper or watching television: Not at all 8. Moving or speaking so slowly that other people could have noticed. Or the opposite - being so fidgety or restless that you have been moving around a lot more than usual: Not at all 9. Thoughts that you would be better off , or of hurting yourself in some way: Not at all How difficult have these problems made it for you to do your work, take care of things at home, or get along with other people?: Not difficult at all Total Score: 3 Self-Efficacy 90-Day Re-eval Assessment We would like to know how confident you are in doing certain activities. Please select your confidence level for:: Select your confidence level for the following using the scale 1-10 where 1 is not at all confident and 10 is totally confident. Your score is the average of all 6 responses. Fatigue: How confident are you that you can keep the fatigue caused by your disease from interfering with the things you want to do? Select Number: 7 Physical Discomfort or Pain: How confident are you that you can keep the physical discomfort or pain of your disease from interfering with the things you want to do? Select Number: 8 Emotional Distress: How confident are you that you can keep the emotional distress caused by your disease from interfering with the things you want to do? Select Number: 9 Other Symptoms or Health Problems: How confident are you that you can keep other symptoms or health problems from interfering with the things you want to do? Select Number: 8 Different Tasks and Activities: How confident are you that you can do the different tasks and activities needed to manage your health condition so as to reduce your need to see a doctor? Select Number: 8 Medication: How confident are you that you can do things other than just taking medication to reduce how much your illness affects your everyday life? Select Number: 9 Total Score:: 8 Nutrition Survey
[2020-08-06 07:14] VITALS: BP 112/52; BP 120/64; BP 132/64; BMI 30.9
== END 2020-08-26 23:59 ==
LOC: CR 11:30
PROVIDERS: PCP Family Medicine; Visit Provider Internal Medicine Cardiovascular Disease
DX: I25.10 Atherosclerotic heart disease of native coronary artery without angina pectoris (principal); E78.5 Hyperlipidemia, unspecified; Z95.5 Presence of coronary angioplasty implant and graft; E03.9 Hypothyroidism, unspecified; E66.9 Obesity, unspecified; I12.9 Hypertensive chronic kidney disease with stage 1 through stage 4 chronic kidney disease, or unspecified chronic kidney disease; E11.22 Type 2 diabetes mellitus with diabetic chronic kidney disease; N18.30 Chronic kidney disease, stage 3 unspecified
CPT/HCPCS: 93798

== ENCOUNTER 2020-09-02 11:30 | Outpatient (RCR) | payer MEDICARE, OTHER, SELFPAY ==
[2020-06-11 09:26] VITALS: BMI 30.4
[2020-08-06 07:14] VITALS: BMI 30.9
[2020-08-27 00:31] VITALS: BP 112/52; BP 120/64; BP 132/64
== END 2020-09-25 23:59 ==
LOC: CR 11:30
PROVIDERS: PCP Family Medicine; Visit Provider Internal Medicine Cardiovascular Disease
DX: I25.10 Atherosclerotic heart disease of native coronary artery without angina pectoris (principal); E78.5 Hyperlipidemia, unspecified; Z95.5 Presence of coronary angioplasty implant and graft
CPT/HCPCS: 93798

== ENCOUNTER → 2020-10-24 08:16 | Outpatient (CLI) | payer MEDICARE, OTHER, SELFPAY ==
[2020-08-06 07:14] VITALS: BMI 30.9
[2020-09-20 13:34] VITALS: BMI 31.1
--- NOTE | 2020-10-24 08:18 | CT_ITS ---
STUDY: CT CHEST WITHOUT CONTRAST REASON FOR EXAM: Male, 75 years old. Follow-up for history of groundglass appearance in both lungs. RADIATION DOSAGE (If Supplied By Facility): CTDIvol = ( 17.01 ) mGy, DLP = ( 679.93 ) mGycm TECHNIQUE: Transaxial imaging was performed without the administration of intravenous contrast material. Multiplanar coronal and sagittal images were reformatted. Individualized dose optimization techniques were used for this CT. COMPARISON: Comparison is made with prior study dated 05/26/2020. FINDINGS: Stable small benign appearing bilateral axillary lymph nodes. The lungs are normal. There is no demonstrated pleural abnormality. There are calcifications of the coronary arteries. There are multiple small lymph nodes within the mediastinum, which are normal in size and morphology most compatible with reactive lymph hyperplasia. Normal hilar regions. Normal unenhanced pulmonary arteries. There is atherosclerotic calcification of the aortic arch with tortuosity and elongation of the aortic arch and descending thoracic aorta. Once again, there is aneurysmal dilatation of the root of the ascending thoracic aorta with a transverse dimension of 4.2 cm. There are multi-level degenerative changes of the thoracic spine. Scattered calcified hepatic granulomas. Gallstones. CT/Chest without Contrast IMPRESSION: The lungs are clear. Stable dilatation of the root of the ascending thoracic aorta with a transverse dimension of 4.2 cm. Electronically Signed: Jose C Raygoza MD at 10:15 EDT , Service support ,
== END ==
PROVIDERS: PCP Family Medicine; Referring Provider Nurse Practitioner Acute Care; Visit Provider Nurse Practitioner Acute Care
DX: I26.92 Saddle embolus of pulmonary artery without acute cor pulmonale (principal)
CPT/HCPCS: 71250; 93308; Q9957; C8924; J3490

== ENCOUNTER 2021-01-26 11:20 | Inpatient (IN) | payer MEDICARE, OTHER, SELFPAY ==
[2020-08-06 07:14] VITALS: BMI 30.9
[2021-01-26] VITALS (7 sets, daily range): BP systolic 117–147; BP diastolic 61–88; PULSE 71–101; RESP 16–20; TEMP 36.1–36.7; O2SAT 92–96; BMI 31.6; BMI 31.0
--- NOTE | 2021-01-26 11:42 | EKG12_ITS ---
Test Reason : Blood Pressure : / mmHG Vent. Rate : 064 BPM Atrial Rate : 064 BPM P-R Int : 196 ms QRS Dur : 096 ms QT Int : 424 ms P-R-T Axes : 043 000 084 degrees QTc Int : 437 ms Normal sinus rhythm Nonspecific T wave abnormality Abnormal ECG Confirmed by BLANCA HAYDEN, KENNEDI ([id number]), rewrite editor NATALIIA CR ([id number]) on 01/28/2021 9:42:01 AM Referred By: FANTASMA Confirmed By:KENNEDI RIOS MD
--- NOTE | 2021-01-26 11:42 | CT_ITS ---
ACR Level 3 findings have been noted. An addendum which confirms receipt of the report will follow. STUDY: CT ABDOMEN AND PELVIS WITH CONTRAST REASON FOR EXAM: Male, 75 years old. Abdominal pain RADIATION DOSAGE (If Supplied By Facility): CTDIvol = ( 16.74 ) mGy, DLP = ( 1154.18 ) mGycm TECHNIQUE: CT images were obtained from the dome of the diaphragm to the symphysis pubis without oral contrast. IV 100mL Isovue-370 was administered. Sagittal and coronal images were reconstructed. Individualized dose optimization techniques were used for this CT. COMPARISON: None. FINDINGS: The visualized lung bases are unremarkable. The visualized portions of the heart are within normal limits. Normal liver. Gallbladder contains large calcified stones.. Normal spleen. There is a 1 cm hypodense lesion in the mid body of the pancreas. There is a second more exophytic 6 mm hypodense lesion in the mid body. Pancreas is atrophic. Normal bilateral adrenal glands. Normal right kidney. Normal left kidney. There are small bilateral renal cysts not requiring further evaluation. There is prior midline ventral laparotomy. Stomach and proximal small bowel is distended with a transition point in the distal jejunum. Ileum is decompressed. There is small amount of residual gas and stool in the colon. Normal abdominal aorta. Normal inferior vena cava. Normal retroperitoneum. Normal urinary bladder. Normal abdominal wall. Normal osseous structures. Thecal sac is at least moderately stenotic due to disc endplate osteophyte at L2-L3. Foramina are stenotic at multiple levels. CT/Abdomen/Pelvis W IV Cont ONLY IMPRESSION: 1. Small bowel obstruction, transition point between the jejunum and ileum. Immediate surgical referral advised. 2. Small low risk pancreatic lesions. These can be reevaluated with follow-up pancreatic imaging in one year. Outpatient general surgery consultation advised. 3. L2-L3 moderate spondylotic thecal sac stenosis. Outpatient elective neurosurgical consultation advised. Electronically Signed: Alize Tran MD at 13:32 EDT Tel , Service support ,
--- NOTE | 2021-01-26 11:44 | ED.VIS.GI ---
HPI HPI - GI History of Present Illness Chief Complaint: Nausea/Vomiting Narrative Narrative: 75-year-old male presenting with abdominal distention. Patient states that he has had this chronically but worse since Wednesday. He admits to nausea and vomiting. He denies diarrhea. He states he has not had a bowel movement since Wednesday. He does admit to a history of bowel obstruction in the past. He is not had a fever, cough. He does feel short of breath sometimes but it is worse when he is lying down. He states he does have body aches but specifically he states the area behind his right shoulder hurts. He denies any injury that he knows of. Patient concerned this could be cardiac in nature as he has a history of [place]. 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 [facility] Medical History (Updated 01/26/21 @ 12:10 by Debi Rueda) Atherosclerotic heart disease of unga coronary artery without angina pectoris History of non-ST elevation myocardial infarction (NSTEMI) HLD (hyperlipidemia) HTN (hypertension) Hypothyroidism Presence of stent in coronary artery (~05/25/20) Home Medications amlodipine 10 mg PO DAILY 05/24/20 [History Last Taken 05/24/20] atenolol 50 mg PO DAILY 05/24/20 [History Last Taken 05/24/20] glimepiride 4 mg PO DAILY 05/24/20 [History Last Taken 05/24/20] levothyroxine 175 mcg PO DAILY 05/24/20 [History Last Taken 05/24/20] losartan 100 mg PO DAILY 05/24/20 [History Last Taken 05/24/20] metformin 1,000 mg PO BID 05/24/20 [History Last Taken 05/24/20] omeprazole 40 mg PO DAILY 05/24/20 [History Last Taken 05/23/20] apixaban 5 mg tablet 5 mg PO BID #180 tab 06/11/20 [Rx Last Taken Unknown] atorvastatin 40 mg tablet 20 mg PO DAILY tab 06/11/20 [History Last Taken Unknown] spironolactone 25 mg tablet 12.5 mg PO DAILY #45 tab 06/11/20 [Rx Last Taken Unknown] ticagrelor 90 mg tablet 90 mg PO BID #180 tab 06/11/20 [Rx Last Taken Unknown] Allergy/AdvReac Type Severity Reaction Status Date / Time fosinopril Allergy NEEDS Verified 01/26/21 11:23 FOLLOW-UP Surgical History Presence of coronary angioplasty implant and graft (~05/25/20) Social History Smoking Status: Never smoker ROS ROS ED Constitutional Constitutional ED: Reports other Details: Body aches ; Denies fever(s) ENT ENT ED: Denies rhinorrhea or sore throat Cardiovascular Cardiovascular: Denies chest pain or palpitations Respiratory/Chest Respiratory/Chest: Reports dyspnea; Denies cough or sputum Gastrointestinal Gastrointestinal: Reports abdominal pain, constipation, nausea and vomiting Genitourinary Genitourinary ED: Denies dysuria or hematuria Musculoskeletal Musculoskeletal: Reports other Details: Right posterior shoulder pain ; Denies arthralgias, back pain or neck pain Integumentary Denies abscess or rash Neurologic Neurologic: Denies headache(s) or paresthesias EXAM Physical Exam Const Vital Signs: 01/26/21 11:21 01/26/21 13:49 Temperature 96.9 F L Temperature Source Temporal Pulse Rate 71 87 Respiratory Rate 16 16 Blood Pressure 133/78 H 132/76 H Blood Pressure Mean 96 94 Pulse Ox 96 96 Oxygen Delivery Method Room Air Room Air Positive well nourished General Appearance ED: NAD; Negative for pallor HEENT Reports moist mucous membranes normocephalic and atraumatic Eyes PERRL and EOMs intact bilaterally Resp normal respiratory effort and clear to auscultation bilaterally Cardio regular rate and regular rhythm GI Inspection: abdominal distention Palpation: tender other (Diffusely) Extremity full ROM General Extremety ED: Negative for edema or tenderness General Extremity: Negative for edema Neuro Sensorium / Orientation: alert, oriented to person, oriented to place and oriented to time Skin General Skin Exam: Negative for jaundice or pallor Lesions: no lesions Rashes: no rashes MDM MDM MDM Narrative Medical decision making narrative: Patient presented with abdominal distention and nausea and vomiting over the last couple of days. He does also report he has some atypical right-sided posterior rib pain which is focal and reproducible. He is concerned because he has a cardiac history. He states that he is a little short of breath but this also may be due to his distended abdomen. Because of the concern I did obtain an EKG which shows a normal sinus rhythm ventricular rate of 64 bpm without sign of ischemic change. Chest x-ray on my interpretation shows no acute cardiopulmonary process. Patient does have a slight leukocytosis of 14.5 which is likely due to to his vomiting episodes, and his hemoglobin and hematocrit are stable. Platelets are normal. Creatinine is slightly elevated 1.71 and he was given IV fluids.Previous creatinine was 1.33 p in April. Troponin is negative at 17 I do not believe needs a second troponin. I did obtain a CT of the abdomen pelvis with IV contrast which does show a small bowel obstruction with a transition point between the jejunum and the ileum. I discussed the case with Dr. Rivas who recommended an NG tube and she admitted under her service. Patient's pain was controlled with morphine. He had no further nausea or vomiting. KUB was ordered and shows good placement of the NG tube. [facility] is [facility] condition. Impression: 1. Small bowel obstruction 2. Nausea/vomiting 3. Right posterior rib pain Lab Data Labs: Laboratory Results - last 24 hr 01/26/21 01/26/21 11:55 11:55 WBC 14.5 H RBC 4.58 L Hgb 13.8 Hct 40.6 MCV 88.6 MCH 30.1 MCHC 34.0 RDW Std Deviation 43.9 RDW Coeff of Oliverio 13.6 Plt Count 285 MPV 10.5 Immature Gran % (Auto) 0.300 Neut % (Auto) 78.3 H Lymph % (Auto) 10.9 L [place] % (Auto) 10.2 H Eos % (Auto) 0.1 Baso % (Auto) 0.2 Absolute Neuts (auto) 11.3 H Absolute Lymphs (auto) 1.57 Nucleated RBC % 0 Sodium 131 L Potassium 4.1 Chloride 95 L Carbon Dioxide 25.0 Anion Gap 11 BUN 26 H Creatinine 1.71 H Estim Creat Clear Calc 44.06 Est GFR (MDRD) Af Amer 51 L Est GFR (MDRD) Non-Af 42 L BUN/Creatinine Ratio 15.2 Glucose 176 H Calcium 9.0 Total Bilirubin 1.50 H AST 13 L ALT 21 Alkaline Phosphatase 82 Troponin I High Sens 17 Total Protein 7.6 Albumin 3.6 Globulin 4.0 Albumin/Globulin Ratio 0.9 Lipase 38 L Radiography Diagnostic Testing: Clinical Impression(s) from Imaging Studies Abdomen/Pelvis CT 01/26/21 11:42 IMPRESSION: 1. Small bowel obstruction, transition point between the jejunum and ileum. Immediate surgical referral advised. 2. Small low risk pancreatic lesions. These can be reevaluated with follow-up pancreatic imaging in one year. Outpatient general surgery consultation advised. 3. L2-L3 moderate spondylotic thecal sac stenosis. Outpatient elective neurosurgical consultation advised. Electronically Signed: Alize Tran MD at 13:32 EDT Tel , Service support , ADDENDUM: 01/26/21 1428 IMPRESSION: 1. Small bowel obstruction, transition point between the jejunum and ileum. Immediate surgical referral advised. 2. Small low risk pancreatic lesions. These can be reevaluated with follow-up pancreatic imaging in one year. Outpatient general surgery consultation advised. 3. L2-L3 moderate spondylotic thecal sac stenosis. Outpatient elective neurosurgical consultation advised. N.B. : Dr. Jorgensen [phone], , confirmed on 01/26/2021 14:21:16 (ET) that the healthcare facility has received the radiology report. Electronically Signed: Alize Tran MD at 13:32 EDT Tel , Service support , Chest X-Ray 01/26/21 12:27 IMPRESSION: No active pulmonary disease. Electronically Signed: Leo Toblert MD at 12:45 EDT Tel , Service support , Discharge Plan Disposition Disposition: Acute Care Hospital [facility] Discharge Date/Time: 01/26/21 15:10
[2021-01-26] MEDS: Ondansetron 4 MG/2 ML Vial IV (11:57)
[2021-01-26] MEDS: Morphine 4 MG/ML Syringe IV ×2 (11:57→12:39)
[2021-01-26 12:01] LABS: Absolute Lymphocyte Count 1.57 X10^3/uL (0.83-4.51); Absolute Neutrophil Count 11.3 X10^3/uL (2.0-7.7); Basophil# 0.03 X10^3/uL; Basophil% 0.2 % (0-1); Eosinophil# 0.01 X10^3/uL; Eosinophils% 0.1 % (0-5); Hematocrit 40.6 % (40-54); Hemoglobin 13.8 g/dL (13.0-16.5); Lymphocyte # 1.57 X10^3/ul (0.83-4.51); Lymphocyte % 10.9 % (19-41); Mean Corpuscular Hgb 30.1 pg (27.0-32.0); Mean Corpuscular Volume 88.6 fL (80-94); Mean Platelet Vol. 10.5 fl (6.2-12.0); Monocyte# 1.47 X10^3/uL; Monocyte% 10.2 % (0-10); NRBC Flagged by Analyzer 0 % (0-5); Neutrophil # 11.34 X10^3/uL (2.7-7.7); Neutrophil % 78.3 % (47-70); Platelet Count 285 K/mm3 (150-450); RBC Distribution Width CV 13.6 % (11.6-14.6); RBC Distribution Width SD 43.9 fl (35.1-43.9); Red Blood Count 4.58 M/mm3 (4.6-6.2); White Blood Count 14.5 K/mm3 (4.4-11.0)
[2021-01-26 12:19] LABS: ALB/GLOB Ratio 0.9 RATIO (0.9-2.4); AST(SGOT) 13 U/L (15-37); Alanine Aminotransfer ALT/SGPT 21 U/L (16-61); Albumin, Serum 3.6 g/dL (3.2-5.0); Alkaline Phosphatase 82 U/L (45-117); Anion Gap 11 (5-15); BUN 26 mg/dL (7-18); BUN/Creat Ratio 15.2 RATIO (10-20); Chloride 95 mmol/L (98-107); Creatinine, Serum 1.71 mg/dL (0.70-1.30); EST Glomerular Filtration Rate 42 mL/min (>60); Est Glom Filt Rate - Afr Amer 51 mL/min (>60); Estimated Creatinine Clearance 44.06 ml/min; Glucose 176 mg/dL (74-106); Lipase 38 U/L (73-393); Potassium 4.1 mmol/L (3.5-5.1); Protein, Total 7.6 g/dL (6.4-8.2); Sodium Level 131 mmol/L (136-145); Troponin-I HS 17 pg/mL (3.0-78.0)
--- NOTE | 2021-01-26 12:27 | RAD_ITS ---
STUDY: X-RAY CHEST REASON FOR EXAM: Male, 75 years old. Dyspnea TECHNIQUE: Single AP portable view of the chest. COMPARISON: 05/24/2020. FINDINGS: Mild elevation of the right hemidiaphragm. No focal infiltrate is seen. There is no demonstrated pleural abnormality. Normal size heart. Normal mediastinum and yamel. Normal visualized pulmonary arteries. There is atherosclerotic tortuosity of the aortic arch and descending thoracic aorta. Stable osseous structures. There is no demonstrated abnormality of the visualized soft tissue structures of the upper abdomen. RAD/Chest 1 View (Portable) IMPRESSION: No active pulmonary disease. Electronically Signed: Leo Tolbert MD at 12:45 EDT Tel , Service support ,
[2021-01-26] MEDS: 0.9% Normal Saline 1,000 ML 999 ML IV (12:32)
--- NOTE | 2021-01-26 14:01 | NURSING ---
MED SURG [facility]
[2021-01-26] MEDS: Oxymetazoline 0.05% 1 SPRAY SPRAY.BTL 2 SPRAY NASAL (14:43)
[2021-01-26] MEDS: Lidocaine 4% 5 ML Ampul 2 ML INHALATION (14:43)
--- NOTE | 2021-01-26 14:55 | RAD_ITS ---
EXAM: XR ABDOMEN, 1 VIEW : 1945 CLINICAL INDICATION: SBO -- KUB with both diaphragms for NG/OG Verification TECHNIQUE: Frontal supine view of the abdomen/pelvis. This report was created using [employer] report generation technology. COMPARISON: None. FINDINGS: LOWER THORAX: No acute pathology. GASTROINTESTINAL TRACT: Unremarkable. Non-obstructive. No bowel or stomach distention. ORGANS: Unremarkable as visualized. No organomegaly. No abnormal calcifications. BONES/JOINTS: No acute pathology. SOFT TISSUES: No acute pathology. TUBES, LINES AND DEVICES: Nasogastric tube is in place with the distal tip in the stomach. RAD/Abdomen Single View (Portable) IMPRESSION: Nasogastric tube with the distal tip in the proximal stomach. at 1537 Reported and signed by: Anmol Fernandez MD Electronically Signed: Anmol Fernandez MD at 15:36 EDT Tel , Service support ,
[2021-01-26 15:15] LABS: Magnesium 2.1 mg/dL (1.6-2.6)
[2021-01-26] MEDS: Lactated Ringers 1,000 ML 125 ML IV (15:23)
--- NOTE | 2021-01-26 15:49 | PN.HOSP_ITS ---
Documented by User: Shady PARR 01/26/21 16:47 Subjective Subjective Patient is a 75-year-old male lying in bed, alert and orient x3. Patient sitting in bed with NG tube placed today, is tremulous and reports to chest discomfort. Patient attributes this to being cold, however his daughter reports that he has never acted like this when cold before. Objective Data Objective Data Vital Signs: Vital Signs Temp Pulse Resp BP Pulse Ox 97.7 F L 101 H 20 H 147/88 H 92 01/26/21 15:35 01/26/21 15:35 01/26/21 15:35 01/26/21 15:35 01/26/21 15:35 Oxygen Flow Rate (L/min) 4 Oxygen Delivery Method Nasal Cannula Weight: 242 lb 1.081 oz Body Mass Index (BMI) 31.0 Intake & Output: Intake and Output for Last 24 Hours 01/24/21 01/25/21 01/26/21 23:59 23:59 23:59 Output Total 900 / 900 Balance -900 / -900 Lab / Micro Data Result Diagrams: 01/26/21 11:55 01/26/21 11:55 Labs: Laboratory Results - last 24 hr 01/26/21 11:55: Sodium 131 L, Potassium 4.1, Chloride 95 L, Carbon Dioxide 25.0, Anion Gap 11, BUN 26 H, Creatinine 1.71 H, Estim Creat Clear Calc 44.06, Est GFR (MDRD) Af Amer 51 L, Est GFR (MDRD) Non-Af 42 L, BUN/Creatinine Ratio 15.2, Glucose 176 H, Calcium 9.0, Total Bilirubin 1.50 H, AST 13 L, ALT 21, Alkaline Phosphatase 82, Troponin I High Sens 17, Total Protein 7.6, Albumin 3.6, Globulin 4.0, Albumin/Globulin Ratio 0.9, Lipase 38 L 01/26/21 11:55: WBC 14.5 H, RBC 4.58 L, Hgb 13.8, Hct 40.6, MCV 88.6, MCH 30.1, MCHC 34.0, RDW Std Deviation 43.9, RDW Coeff of Oliverio 13.6, Plt Count 285, MPV 10.5, Immature Gran % (Auto) 0.300, Neut % (Auto) 78.3 H, Lymph % (Auto) 10.9 L, [place] % (Auto) 10.2 H, Eos % (Auto) 0.1, Baso % (Auto) 0.2, Absolute Neuts (auto) 11.3 H, Absolute Lymphs (auto) 1.57, Nucleated RBC % 0 01/26/21 11:55: Magnesium 2.1 Radiography Diagnostic Testing: Radiology Impression Abdomen/Pelvis CT 01/26/21 11:42 IMPRESSION: 1. Small bowel obstruction, transition point between the jejunum and ileum. Immediate surgical referral advised. 2. Small low risk pancreatic lesions. These can be reevaluated with follow-up pancreatic imaging in one year. Outpatient general surgery consultation advised. 3. L2-L3 moderate spondylotic thecal sac stenosis. Outpatient elective neurosurgical consultation advised. Electronically Signed: Alize Tran MD at 13:32 EDT Tel , Service support , ADDENDUM: 01/26/21 1428 IMPRESSION: 1. Small bowel obstruction, transition point between the jejunum and ileum. Immediate surgical referral advised. 2. Small low risk pancreatic lesions. These can be reevaluated with follow-up pancreatic imaging in one year. Outpatient general surgery consultation advised. 3. L2-L3 moderate spondylotic thecal sac stenosis. Outpatient elective neurosurgical consultation advised. N.B. : Dr. Jorgensen [phone], , confirmed on 01/26/2021 14:21:16 (ET) that the healthcare facility has received the radiology report. Electronically Signed: Alize Tran MD at 13:32 EDT Tel , Service support , Chest X-Ray 01/26/21 12:27 IMPRESSION: No active pulmonary disease. Electronically Signed: Leo Tolbert MD at 12:45 EDT Tel , Service support , KUB X-Ray 01/26/21 14:55 IMPRESSION: Nasogastric tube with the distal tip in the proximal stomach. at 1537 Reported and signed by: Anmol Fernandez MD Electronically Signed: Anmol Fernandez MD at 15:36 EDT Tel , Service support , Physical Exam Const alert and oriented x3 General Appearance: anxious HEENT head/scalp atraumatic and moist oral mucous membranes Head and Scalp: normocephalic Eyes PERRL, EOMs intact bilaterally and conjunctivae normal Neck no lymphadenopathy, supple and no JVD Resp normal respiratory effort, no retractions, no use of accessory muscles and clear to auscultation bilaterally Cardio regular rate, regular rhythm, no murmurs and no JVD GI normal to inspection, nondistended, normoactive bowel sounds, soft to palpation and non-tender Extremity normal to inspection, full ROM and no clubbing, cyanosis or edema Peripheral Pulses: Yes pulses 2+ throughout Skin no rashes or lesions noted, no wounds, skin turgor normal and no jaundice Neuro CN's II-XII intact bilaterally Psych affect normal Assessment & Plan Assessment/Plan (1) Hypertension: QUALIFIERS: Hypertension type: essential hypertension Qualified Code(s): I10 - Essential (primary) hypertension (2) Hyperlipidemia: QUALIFIERS: Hyperlipidemia type: unspecified Qualified Code(s): E78.5 - Hyperlipidemia, unspecified (3) Hypothyroidism: QUALIFIERS: Hypothyroidism type: unspecified Qualified Code(s): E03.9 - Hypothyroidism, unspecified (4) Small bowel obstruction: PLAN: Patient is a 75-year-old male who presents to the hospital medicine service on consult from general surgery, as he has been treated for small bowel obstruction. 1) shortness of breath Patient continues to complain of shortness of breath, and is currently satting 92% on 4 L via nasal cannula. Patient does not use oxygen at home. Given placement of NG tube, there is a concern for aspiration pneumonia. Empiric Zosyn initiated, repeat chest x-rays obtained, trend CBC in a.m. 2) HTN Home BP regimen on hold as patient is n.p.o., as needed hydralazine ordered. 3) DM2 Home diabetic regimen on hold as patient is n.p.o., Accu-Cheks with sliding scale insulin ordered. 4) CAD status post stent Successful stent placement to the mid and distal LAD in April 2020. Home medication regimen includes aspirin, atenolol, statin and ticagrelor. On my exam patient was tremulous and did report of some chest pain in the ED, which he voiced felt similar to prior RI. Show high-sensitivity opponent not elevated, continue to cycle troponins. 5) SBO Status post NG tube placement, management per Dr. Bryant. DVT prophylaxis - Lovenox, home Eliquis on hold due to n.p.o. status. Patient seen by Shady Nelson PA-C, under the supervision of Dr. Browne. Documented by User: Dr. Ginger Browne MD 01/26/21 21:45 Objective Data Lab / Micro Data Result Diagrams: 01/26/21 11:55 01/26/21 11:55 Charges/Coding Addendum Addendum: This patient was seen in conjunction with KESHAV Keller. I have independently interviewed and examined the patient and reviewed pertinent historical, laboratory, and other data. Please refer to KESHAV Keller's note for his patient's presentation, findings, and recommendations. I have reviewed and his note and concur with his documentation 75 y/o male with PMHx of CAD s/p stents, Hypertension, Type 2 DM, h/o of PE/DVT on Eliquis comes in with concern for abdominal cramps, nausea and vomiting ongoing for 3 days. Patient was brought to the ED and found to have small bowel obstruction. We are consulted for medical management. Patient has h/o abdominal surgery 50 years ago. He has never had a colonoscopy before. At the time of being seen, patient feels stable. He is on 4L of oxygen. No on oxygen at home. He is s/p NG tube that showed brown, probably feculent matter. Physical Exam: Gen: Looks in some discomfort, NG tube in situ, not pale, not jaundiced, obese CVS:HS I +II, regular, no murmurs RESP: Diminished at lung bases GI: BS present and normal, soft, nontender, no palpable organs EXT:No edema ASSESSMENT: 1. Acute small bowel obstruction 2. Hypoxia secondary to probable aspiration pneumonia 3. Type 2 DM 4. Hypertension 5. H/o PE 6. CAD s/p stents Plan: Continue with NPO status, NG tube per general surgery Hold Lisinopril, metformin and glimepiride IVF, repeat renal function in am Chest X-ray stat IV Zosyn empirically for probable aspiration pneumonia Hold Eliquis; switch to Lovenox SC BID Blood glucose checks with insulin sliding scale Check HGba1c, Mag level Visit Charges Inpatient E&M: 45299 Subs Hosp L3
[2021-01-26 15:59] LABS: Hemoglobin A1c 6.9 % (3.8-5.6)
[2021-01-26 16:20] LABS: Troponin-I HS 17 pg/mL (3.0-78.0)
--- NOTE | 2021-01-26 16:34 | RAD_ITS ---
EXAM: XR CHEST, 1 VIEW : 1945 CLINICAL INDICATION: Shortness of breath TECHNIQUE: Frontal view of the chest. This report was created using [employer] report generation technology. COMPARISON: 01/26/2021 at 1217 hrs. FINDINGS: LUNGS AND PLEURAL SPACES: There is bibasilar airspace disease which has increased from the reference exam. No pneumothorax. No effusion. HEART: Unremarkable. Cardiac silhouette not enlarged. MEDIASTINUM: Central airways and mediastinal contour are unremarkable. BONES/JOINTS: Unremarkable. SOFT TISSUES: Unremarkable. TUBES, LINES AND DEVICES: Nasogastric tube is been placed with the distal tip below the diaphragm. RAD/Chest 1 View (Portable) IMPRESSION: Interval development of bibasilar airspace disease which may represent bilateral lower lobe pneumonia. Nasogastric tube in good position. at 1803 Reported and signed by: Anmol Fernandez MD Electronically Signed: Anmol Fernandez MD at 18:02 EDT Tel , Service support ,
[2021-01-26] MEDS: 0.9% Saline Lock 10 ML Syringe IV (16:59)
[2021-01-26] MEDS: Famotidine 200 MG/20 ML MDV 20 MG in 0.9% Normal Saline (Pres. free 8 ML 300 MG IV ×2 (16:59→22:22)
[2021-01-26] MEDS: Enoxaparin 40 MG/0.4 ML Syringe SC (17:41)
[2021-01-26 17:56] LABS: Bedside Glucose 190 mg/dL (70-110)
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
[2021-01-27] VITALS (7 sets, daily range): BP systolic 91–120; BP diastolic 52–65; PULSE 60–74; RESP 16–20; TEMP 36.3–37; O2SAT 92–96
[2021-01-27] MEDS: Lactated Ringers 1,000 ML 125 ML IV ×3 (00:46→18:03)
[2021-01-27] MEDS: Morphine 4 MG/ML Syringe IV (00:50)
[2021-01-27 01:01] LABS: Bedside Glucose 213 mg/dL (70-110)
[2021-01-27 03:53] LABS: Mucous, Urine 0 SEEN /hpf (<or=2+); Squamous Epithelial Cells - UA 0 SEEN /hpf (0-5)
[2021-01-27 03:57] LABS: Color, Urine Yellow (Yellow); Glucose, Dipstick Normal (Normal); Ketone-Dipstick 5 mg/dl (Negative); Leukocyte Esterase-Dipstick 25 /ul (Negative); Nitrite-Dipstick Negative (Negative); Occult Blood-Urine 25 /ul (Negative); Protein-Dipstick 30 mg/dl (Negative); Urine Clarity Clear (Clear); Urine Urobilinogen 1 mg/dl (Normal)
[2021-01-27 04:07] LABS: Urine Bilirubin Dipstick 1 mg/dL (Negative)
--- NOTE | 2021-01-27 05:49 | PCM.PN.BLA ---
Progress Note Nurse reported that patient had a blood tinge sputum from NG tube. Review of records shows that earlier this year patient had a saddle PE and is on home Eliquis and then transitioned to Lovenox. Nurse will await H&H and if H&H is not significantly reduced okay to give Lovenox. Patient is on Pepcid every 12 hours. Check gastric occult blood.
--- NOTE | 2021-01-27 05:49 | NURSING ---
PT NG OUTPUT LOOKS LIKE BLOODY OUTPUT, DR AKBAR NOTIFIED AND WE WILL WAIT FOR THE RESULTS OF THE MORNING LABS BEFORE GIVING THE LOVENOX THIS AM.
[2021-01-27 06:45] LABS: Red Blood Cells-Urine 0-5 SEEN /hpf (0-5); White Blood Cells 0-5 SEEN /hpf (0-5)
[2021-01-27 06:46] LABS: Bacteria 3+ /hpf (None Seen); Hyaline Cast 0-5 SEEN /lpf (0-5)
[2021-01-27 06:48] LABS: Absolute Lymphocyte Count 1.85 X10^3/uL (0.83-4.51); Absolute Neutrophil Count 6.4 X10^3/uL (2.0-7.7); Basophil# 0.05 X10^3/uL; Basophil% 0.5 % (0-1); Eosinophil# 0.02 X10^3/uL; Eosinophils% 0.2 % (0-5); Hematocrit 37.6 % (40-54); Hemoglobin 12.6 g/dL (13.0-16.5); Lymphocyte # 1.85 X10^3/ul (0.83-4.51); Mean Corp Hgb Conc 33.5 g/dL (32-36); Mean Corpuscular Hgb 29.9 pg (27.0-32.0); Mean Corpuscular Volume 89.3 fL (80-94); Monocyte% 14.4 % (0-10); NRBC Flagged by Analyzer 0 % (0-5); Neutrophil % 65.6 % (47-70); POSITIVE MORPHOLOGY YES; Platelet Count 240 K/mm3 (150-450); RBC Distribution Width CV 14.1 % (11.6-14.6); RBC Distribution Width SD 45.8 fl (35.1-43.9); Red Blood Count 4.21 M/mm3 (4.6-6.2); White Blood Count 9.8 K/mm3 (4.4-11.0)
[2021-01-27 06:55] LABS: Bedside Glucose 173 mg/dL (70-110)
[2021-01-27 06:58] LABS: Anion Gap 7 (5-15); BUN 41 mg/dL (7-18); BUN/Creat Ratio 16.8 RATIO (10-20); Calcium,Total 8.5 mg/dL (8.5-10.1); Chloride 98 mmol/L (98-107); Creatinine, Serum 2.44 mg/dL (0.70-1.30); EST Glomerular Filtration Rate 28 mL/min (>60); Est Glom Filt Rate - Afr Amer 34 mL/min (>60); Estimated Creatinine Clearance 30.88 ml/min; Glucose 178 mg/dL (74-106); Potassium 4.2 mmol/L (3.5-5.1); Sodium Level 131 mmol/L (136-145)
--- NOTE | 2021-01-27 07:12 | PN.SURG_ITS ---
Subjective Subjective Patient complaint of increased abdominal pain, presently 7 out of 10, and I believe that he has a high pain tolerance Denies passing flatus Objective Data Objective Data Vital Signs: Vital Signs Temp Pulse Resp BP Pulse Ox 97.7 F L 68 16 107/62 94 01/27/21 01:01 01/27/21 01:01 01/27/21 01:01 01/27/21 01:01 01/27/21 01:01 Oxygen Flow Rate (L/min) 6 Oxygen Delivery Method Nasal Cannula Weight: 109.8 kg Body Mass Index (BMI) 31.0 Intake & Output: Intake and Output for Last 24 Hours 01/25/21 01/26/21 01/27/21 23:59 23:59 23:59 Intake Total 2069 / 2069 Output Total 1699 / 1999 800 / 800 Balance 370 / 70 -800 / -800 Lab / Micro Data Result Diagrams: 01/27/21 06:13 01/27/21 06:13 Labs: Laboratory Results - last 24 hr 01/26/21 11:55: Sodium 131 L, Potassium 4.1, Chloride 95 L, Carbon Dioxide 25.0, Anion Gap 11, BUN 26 H, Creatinine 1.71 H, Estim Creat Clear Calc 44.06, Est GFR (MDRD) Af Amer 51 L, Est GFR (MDRD) Non-Af 42 L, BUN/Creatinine Ratio 15.2, Glucose 176 H, Calcium 9.0, Total Bilirubin 1.50 H, AST 13 L, ALT 21, Alkaline Phosphatase 82, Troponin I High Sens 17, Total Protein 7.6, Albumin 3.6, Globulin 4.0, Albumin/Globulin Ratio 0.9, Lipase 38 L 01/26/21 11:55: WBC 14.5 H, RBC 4.58 L, Hgb 13.8, Hct 40.6, MCV 88.6, MCH 30.1, MCHC 34.0, RDW Std Deviation 43.9, RDW Coeff of Oliverio 13.6, Plt Count 285, MPV 10.5, Immature Gran % (Auto) 0.300, Neut % (Auto) 78.3 H, Lymph % (Auto) 10.9 L, [place] % (Auto) 10.2 H, Eos % (Auto) 0.1, Baso % (Auto) 0.2, Absolute Neuts (auto) 11.3 H, Absolute Lymphs (auto) 1.57, Nucleated RBC % 0 01/26/21 11:55: Magnesium 2.1 01/26/21 11:55: Hemoglobin A1c 6.9 H 01/26/21 15:54: Troponin I High Sens 17 01/26/21 17:50: POC Glucose 190 H 01/27/21 00:39: POC Glucose 213 H 01/27/21 03:43: Urine Color Yellow, Urine Clarity Clear, Urine pH 5.0, Ur Spe cific [place] 1.020, Urine Protein 30 H, Urine Glucose (UA) Normal, Urine Ketones 5 H, Urine Occult Blood 25 H, Urine Nitrite Negative, Urine Bilirubin 1 H, Urine Urobilinogen 1 H, Ur Leukocyte Esterase 25 H, Urine RBC 0-5 SEEN, Urine WBC 0-5 SEEN, Ur Squamous Epith Cells 0 SEEN, Urine Bacteria 3+, Hyaline Casts 0-5 SEEN, Urine Mucus 0 SEEN 01/27/21 06:13: Sodium 131 L, Potassium 4.2, Chloride 98, Carbon Dioxide 26.0, Anion Gap 7, BUN 41 H, Creatinine 2.44 H, Estim Creat Clear Calc 30.88, Est GFR (MDRD) Af Amer 34 L, Est GFR (MDRD) Non-Af 28 L, BUN/Creatinine Ratio 16.8, Glucose 178 H, Calcium 8.5 01/27/21 06:51: POC Glucose 173 H Micro: Microbiology 01/27/21 05:50 Gastric Fluid/Contents Gastric Occult Blood - Final Occult Blood Positive Radiography Diagnostic Testing: Radiology Impression Abdomen/Pelvis CT 01/26/21 11:42 IMPRESSION: 1. Small bowel obstruction, transition point between the jejunum and ileum. Immediate surgical referral advised. 2. Small low risk pancreatic lesions. These can be reevaluated with follow-up pancreatic imaging in one year. Outpatient general surgery consultation advised. 3. L2-L3 moderate spondylotic thecal sac stenosis. Outpatient elective neurosurgical consultation advised. Electronically Signed: Alize Tran MD at 13:32 EDT Tel , Service support , ADDENDUM: 01/26/21 2683 IMPRESSION: 1. Small bowel obstruction, transition point between the jejunum and ileum. Immediate surgical referral advised. 2. Small low risk pancreatic lesions. These can be reevaluated with follow-up pancreatic imaging in one year. Outpatient general surgery consultation advised. 3. L2-L3 moderate spondylotic thecal sac stenosis. Outpatient elective neurosurgical consultation advised. N.B. : Dr. Jorgensen [phone], , confirmed on 01/26/2021 14:21:16 (ET) that the healthcare facility has received the radiology report. Electronically Signed: Alize Tran MD at 13:32 EDT Tel , Service support , Chest X-Ray 01/26/21 12:27 IMPRESSION: No active pulmonary disease. Electronically Signed: Leo Tolbert MD at 12:45 EDT Tel , Service support , KUB X-Ray 01/26/21 14:55 IMPRESSION: Nasogastric tube with the distal tip in the proximal stomach. at 1537 Reported and signed by: Anmol Fernandez MD Electronically Signed: Anmol Fernandez MD at 15:36 EDT Tel , Service support , Chest X-Ray 01/26/21 16:34 IMPRESSION: Interval development of bibasilar airspace disease which may represent bilateral lower lobe pneumonia. Nasogastric tube in good position. at 1803 Reported and signed by: Anmol Fernandez MD Electronically Signed: Anmol Fernandez MD at 18:02 EDT Tel , Service support , Physical Exam Narrative abdomen is soft but with generalized tenderness NG output appears more fecalized and malodorous Assessment & Plan Assessment/Plan (1) Small bowel obstruction: PLAN: I believe that patient is not improving and requires surgery Moreover I am concerned about his rising serum creatinine, he is also anticoagulated due to recent PE and has cardiac stents in place Given all of the above, I have contacted Dr. Gipson at [facility] who has agree to accept patient in transfer Discussed with patient and his daughter, Silva Robin
[2021-01-27 07:15] LABS: Differential Indicated SCAN CRITERIA MET
[2021-01-27 07:40] LABS: Atypical Lymphocyte 1+ %
--- NOTE | 2021-01-27 08:36 | PCS.PANDOC ---
PANDEMIC DOCUMENTATION INITIATED: Date: 11/11/2020 Time: 190
[2021-01-27] MEDS: Famotidine 200 MG/20 ML MDV 20 MG in 0.9% Normal Saline (Pres. free 8 ML 300 MG IV ×2 (11:39→21:18)
[2021-01-27] MEDS: 0.9% Saline Lock 10 ML Syringe IV (11:41)
[2021-01-27 11:50] LABS: Bedside Glucose 147 mg/dL (70-110)
--- NOTE | 2021-01-27 12:09 | PCM.PN.HOSP ---
Documented by User: Shady PARR 01/27/21 12:15 Subjective Subjective Patient is a 75-year-old male who is comfortably resting in bed, alert and orient x3. Patient's tremors and anxiety have resolved from yesterday, and patient reports only having continued abdominal pain secondary to small bowel obstruction. Patient denies development of any new symptoms overnight. Patient does not appear to be in acute distress. Objective Data Objective Data Vital Signs: Vital Signs Temp Pulse Resp BP Pulse Ox 97.4 F L 62 16 94/65 95 01/27/21 08:25 01/27/21 08:25 01/27/21 08:25 01/27/21 08:25 01/27/21 09:47 Oxygen Flow Rate (L/min) 2 Oxygen Delivery Method Nasal Cannula Weight: 242 lb 1.081 oz Body Mass Index (BMI) 31.0 Intake & Output: Intake and Output for Last 24 Hours 01/25/21 01/26/21 01/27/21 23:59 23:59 23:59 Intake Total 2070 / 2070 1060 / 1060 Output Total 1700 / 2000 950 / 950 Balance 370 / 70 110 / 110 Lab / Micro Data Result Diagrams: 01/27/21 06:13 01/27/21 06:13 Labs: Laboratory Results - last 24 hr 01/26/21 11:55: Sodium 131 L, Potassium 4.1, Chloride 95 L, Carbon Dioxide 25.0, Anion Gap 11, BUN 26 H, Creatinine 1.71 H, Estim Creat Clear Calc 44.06, Est GFR (MDRD) Af Amer 51 L, Est GFR (MDRD) Non-Af 42 L, BUN/Creatinine Ratio 15.2, Glucose 176 H, Calcium 9.0, Total Bilirubin 1.50 H, AST 13 L, ALT 21, Alkaline Phosphatase 82, Troponin I High Sens 17, Total Protein 7.6, Albumin 3.6, Globulin 4.0, Albumin/Globulin Ratio 0.9, Lipase 38 L 01/26/21 11:55: Magnesium 2.1 01/26/21 11:55: Hemoglobin A1c 6.9 H 01/26/21 15:54: Troponin I High Sens 17 01/26/21 17:50: POC Glucose 190 H 01/27/21 00:39: POC Glucose 213 H 01/27/21 03:43: Urine Color Yellow, Urine Clarity Clear, Urine pH 5.0, Ur Specific [place] 1.020, Urine Protein 30 H, Urine Glucose (UA) Normal, Urine Ketones 5 H, Urine Occult Blood 25 H, Urine Nitrite Negative, Urine Bilirubin 1 H, Urine Urobilinogen 1 H, Ur Leukocyte Esterase 25 H, Urine RBC 0-5 SEEN, Urine WBC 0-5 SEEN, Ur Squamous Epith Cells 0 SEEN, Urine Bacteria 3+, Hyaline Casts 0-5 SEEN, Urine Mucus 0 SEEN 01/27/21 06:13: WBC 9.8, RBC 4.21 L, Hgb 12.6 L, Hct 37.6 L, MCV 89.3, MCH 29.9, MCHC 33.5, RDW Std Deviation 45.8 H, RDW Coeff of Oliverio 14.1, Plt Count 240, MPV 11.0, Immature Gran % (Auto) 0.300, Neut % (Auto) 65.6, Lymph % (Auto) 19.0, [place] % (Auto) 14.4 H, Eos % (Auto) 0.2, Baso % (Auto) 0.5, Absolute Neuts (auto) 6.4, Absolute Lymphs (auto) 1.85, Nucleated RBC % 0, Atypical Lymphocytes 1+ 01/27/21 06:13: Sodium 131 L, Potassium 4.2, Chloride 98, Carbon Dioxide 26.0, Anion Gap 7, BUN 41 H, Creatinine 2.44 H, Estim Creat Clear Calc 30.88, Est GFR (MDRD) Af Amer 34 L, Est GFR (MDRD) Non-Af 28 L, BUN/Creatinine Ratio 16.8, Glucose 178 H, Calcium 8.5 01/27/21 06:51: POC Glucose 173 H 01/27/21 11:38: POC Glucose 147 H Micro: Microbiology 01/27/21 05:50 Gastric Fluid/Contents Gastric Occult Blood - Final Occult Blood Positive Radiography Diagnostic Testing: Radiology Impression Abdomen/Pelvis CT 01/26/21 11:42 IMPRESSION: 1. Small bowel obstruction, transition point between the jejunum and ileum. Immediate surgical referral advised. 2. Small low risk pancreatic lesions. These can be reevaluated with follow-up pancreatic imaging in one year. Outpatient general surgery consultation advised. 3. L2-L3 moderate spondylotic thecal sac stenosis. Outpatient elective neurosurgical consultation advised. Electronically Signed: Alize Tran MD at 13:32 EDT Tel , Service support , ADDENDUM: 01/26/21 1428 IMPRESSION: 1. Small bowel obstruction, transition point between the jejunum and ileum. Immediate surgical referral advised. 2. Small low risk pancreatic lesions. These can be reevaluated with follow-up pancreatic imaging in one year. Outpatient general surgery consultation advised. 3. L2-L3 moderate spondylotic thecal sac stenosis. Outpatient elective neurosurgical consultation advised. N.B. : Dr. Jorgensen [phone], , confirmed on 01/26/2021 14:21:16 (ET) that the healthcare facility has received the radiology report. Electronically Signed: Alize Tran MD at 13:32 EDT Tel , Service support , Chest X-Ray 01/26/21 12:27 IMPRESSION: No active pulmonary disease. Electronically Signed: Leo Tolbert MD at 12:45 EDT Tel , Service support , KUB X-Ray 01/26/21 14:55 IMPRESSION: Nasogastric tube with the distal tip in the proximal stomach. at 1537 Reported and signed by: Anmol Fernandez MD Electronically Signed: Anmol Fernandez MD at 15:36 EDT Tel , Service support , Chest X-Ray 01/26/21 16:34 IMPRESSION: Interval development of bibasilar airspace disease which may represent bilateral lower lobe pneumonia. Nasogastric tube in good position. at 1803 Reported and signed by: Anmol Fernandez MD Electronically Signed: Anmol Fernandez MD at 18:02 EDT Tel , Service support , Physical Exam Const alert, oriented x3 and no apparent distress HEENT head/scalp atraumatic, moist oral mucous membranes and oropharynx normal Head and Scalp: normocephalic Eyes PERRL, EOMs intact bilaterally and conjunctivae normal Neck no lymphadenopathy, supple and no JVD Resp normal respiratory effort, no retractions and no use of accessory muscles Auscultation: diminished lung sounds Cardio regular rate, regular rhythm, no murmurs and no JVD GI normal to inspection, nondistended, normoactive bowel sounds, soft to palpation and non-tender Extremity normal to inspection, full ROM and no clubbing, cyanosis or edema Peripheral Pulses: Yes pulses 2+ throughout Skin no rashes or lesions noted, no wounds, skin turgor normal and no jaundice Neuro CN's II-XII intact bilaterally Psych affect normal Assessment & Plan Assessment/Plan (1) Small bowel obstruction: PLAN: Patient is a 75-year-old male who presents to the hospital medicine service on consult from general surgery, as he has being treated for small bowel obstruction. Patient is currently awaiting transfer to [facility] for tertiary level of care. 1) shortness of breath Shortness of breath appears stable at this time, patient is satting at 94% on 2 L via nasal cannula. Patient's white count from yesterday has resolved, WBC is currently 9.8. Patient does not use oxygen at home. Given placement of NG tube, there is a concern for aspiration pneumonia. Empiric Zosyn initiated, repeat chest x-rays obtained, trend CBC in a.m. 2) HTN Home BP regimen on hold as patient is n.p.o., as needed hydralazine ordered. 3) DM2 Home diabetic regimen on hold as patient is n.p.o., Accu-Cheks with sliding scale insulin ordered. 4) CAD status post stent Successful stent placement to the mid and distal LAD in April 2020. Home medication regimen includes aspirin, atenolol, statin and ticagrelor. On my exam patient was tremulous and did report of some chest pain in the ED, which he voiced felt similar to prior GA. Show high-sensitivity opponent not elevated, continue to cycle troponins. 5) SBO Status post NG tube placement, management per Dr. Bryant. Awaiting transfer to [facility] as above. DVT prophylaxis - Lovenox, home Eliquis on hold due to n.p.o. status. Patient seen by Shady Nelson PA-C, under the supervision of Dr. Mchugh. Documented by User: Dr. Nasra Mchugh MD 01/27/21 15:30 Objective Data Lab / Micro Data Result Diagrams: 01/27/21 06:13 01/27/21 06:13 Charges/Coding Addendum Addendum: Patient seen by Shady Nelson PA-C under my supervision Patient seen and examined. He still did complain of some abdominal pain. He had no other complaints and review of systems otherwise negative. He has remained hemodynamically stable. O/E: Const alert, oriented x3 and no apparent distress HEENT head/scalp atraumatic, moist oral mucous membranes and oropharynx normal Head and Scalp: normocephalic Eyes PERRL, EOMs intact bilaterally and conjunctivae normal Neck no lymphadenopathy, supple and no JVD Resp normal respiratory effort, no retractions and no use of accessory muscles Auscultation: diminished lung sounds Cardio regular rate, regular rhythm, no murmurs and no JVD GI NG tube in situ, abdomen soft, minimal bowel tenderness, no guarding or rebound tenderness normal to inspection, full ROM and no clubbing, cyanosis or edema Peripheral Pulses: Yes pulses 2+ throughout Skin no rashes or lesions noted, no wounds, skin turgor normal and no jaundice Neuro CN's II-XII intact bilaterally Psych affect normal Patient is being managed for small bowel obstruction. Primary service General surgery has elected to transfer patient to [facility] for further evaluation. He saturated at 94% on 2 L of oxygen. WBC has trended down to 9.8. On IV Zosyn as treatment for aspiration pneumonia. Continue insulin sliding scale. Accu-Cheks every 6 hourly as patient is currently n.p.o. On aspirin, Brilinta and atenolol as well as statin. Plan is to transfer to [facility] today. Rest as per Shady Nelson PA-C's note which I reviewed and endorsed. Visit Charges Inpatient E&M: 81479 Subs Hosp L2
--- NOTE | 2021-01-27 14:55 | NURSING ---
This RN reviewed all SN charting
[2021-01-27 17:40] LABS: Bedside Glucose 90 mg/dL (70-110)
--- NOTE | 2021-01-27 19:23 | NURSING ---
0645 Called report to JANESSA Lee at [facility].
[2021-01-27 22:41] LABS: Bedside Glucose 81 mg/dL (70-110)
--- NOTE | 2021-01-27 23:19 | NURSING ---
Gave report to yasmin who was here to [facility] pt for transport to [facility].
== END 2021-01-27 23:30 | disposition short-term general hospital (02) | DRG 388 ==
LOC: ED 14:01 → PCU 14:05
PROVIDERS: Internal Medicine; Physician Assistant; Admitting Provider Surgery; Emergency Provider Student in an Organized Health Care Education/Training Program; PCP Family Medicine; Visit Provider Student in an Organized Health Care Education/Training Program
DX: K56.609 Unspecified intestinal obstruction, unspecified as to partial versus complete obstruction (principal); J69.0 Pneumonitis due to inhalation of food and vomit; R04.2 Hemoptysis; N17.9 Acute kidney failure, unspecified; I12.9 Hypertensive chronic kidney disease with stage 1 through stage 4 chronic kidney disease, or unspecified chronic kidney disease; E11.22 Type 2 diabetes mellitus with diabetic chronic kidney disease; N18.32 Chronic kidney disease, stage 3b; R09.02 Hypoxemia; I25.10 Atherosclerotic heart disease of native coronary artery without angina pectoris; E78.5 Hyperlipidemia, unspecified; E03.9 Hypothyroidism, unspecified; Z79.01 Long term (current) use of anticoagulants; Z79.02 Long term (current) use of antithrombotics/antiplatelets; Z79.84 Long term (current) use of oral hypoglycemic drugs; Z79.82 Long term (current) use of aspirin; Z79.899 Other long term (current) drug therapy; I25.2 Old myocardial infarction; Z86.711 Personal history of pulmonary embolism; Z95.5 Presence of coronary angioplasty implant and graft
CPT/HCPCS: 36415; 71045; 74018; 74177; 80048; 80053; 81001; 82271; 82962; 83036; 83690; 83735; 84484; 85025; 93005; 94640; 97802; 99285; J7030; J7120; Q9967; A4216; J2405; J3490

== ENCOUNTER 2021-05-06 09:50 | Outpatient (CLI) | payer MEDICARE, OTHER, SELFPAY ==
[2020-08-06 07:14] VITALS: BMI 30.9
--- NOTE | 2021-05-06 09:58 | ECHOCS_ITS ---
Reason For Study: cad/ashd Procedure This was a 2D Doppler, Color Flow transthoracic echocardiogram. The study was technically difficult. Due to body habitus. Contrast injection was performed. Exam performed in department. Left Ventricle Based upon the 2D echocardiographic and contrast images obtained there appears to be grossly normal left ventricular size, wall motion, and systolic function. The estimated ejection fraction is 55 %. No evidence for diastolic dysfunction. Right Ventricle Mildly dilated right ventricle. Normal systolic function. Atria Normal left atrium. Normal right atrium. No doppler evidence for ASD. Mitral Valve There is no mitral annular calcification. Normal mitral valve. Trivial mitral valve insufficiency. Tricuspid Valve Normal tricuspid valve. Trivial tricuspid valve insufficiency. Right ventricular systolic pressure estimated to be 29 mmHg. Aortic Valve The aortic valve is not well visualized. Pulmonic Valve The pulmonic valve is not well visualized. Great Vessels Borderline to mildly enlarged aortic root. Pericardium/Pleural No pericardial effusion. Medication 22 gauge I.V. with prn adaptor inserted into right arm. Diluted definity 2.0ml given slow IV push to enhance endocardial definition. MMode/2D Measurements & Calculations LVIDd: 5.5 cm IVSd: 1.0 cm Ao root diam: 3.9 cm LVIDs: 3.5 cm LVPWd: 1.00 cm RVDd: 3.5 cm FS: 36.4 % LAV(MOD-bp): 62.3 ml LVAd ap4: 34.9 cm2 LVAd ap2: 30.4 cm2 LAV(MOD-bp) Indexed: 26.7 ml/m2 LVLd ap4: 8.6 cm LVLd ap2: 8.0 cm LAV(MOD-sp2): 57.1 ml EDV(MOD-sp4): 117.3 ml EDV(MOD-sp2): 96.2 ml LAV(MOD-sp4): 57.1 ml EDV(sp4-el): 119.7 ml EDV(sp2-el): 98.4 ml LVAs ap4: 20.5 cm2 LVAs ap2: 18.4 cm2 LVLs ap4: 8.2 cm LVLs ap2: 7.4 cm ESV(MOD-sp4): 42.9 ml ESV(MOD-sp2): 38.0 ml ESV(sp4-el): 43.8 ml ESV(sp2-el): 38.8 ml EF(MOD-sp4): 63.4 % EF(MOD-sp2): 60.5 % EF(sp4-el): 63.4 % SV(MOD-sp4): 74.4 ml SV(MOD-sp2): 58.3 ml SV(sp4-el): 76.0 ml LA A4 area: 18.9 cm2 LA dimension(2D): 3.9 cm RA A4 area: 10.9 cm2 Time Measurements MV dec time: 0.27 sec Doppler Measurements & Calculations MV E max brown: 69.0 cm/sec Lat Peak E' Brown: 7.9 cm/sec Med Peak E' Brown: 6.3 cm/sec MV A max brown: 78.4 cm/sec E/E' lat: 8.8 E/E' med: 10.9 MV E/A: 0.88 Ao V2 max: 104.7 cm/sec LV V1 max: 85.4 cm/sec PA V2 max: 108.6 cm/sec Ao max P.4 mmHg LV V1 max P.9 mmHg TR max brown: 253.9 cm/sec TR max P.8 mmHg ECHO/Echo Complete W/ Contrast Interpretation Summary The study was technically difficult. Contrast injection was performed. Based upon the 2D echocardiographic and contrast images obtained there appears to be grossly normal left ventricular size, wall motion, and systolic function. The estimated ejection fraction is 55 %. Mildly dilated right ventricle. Trivial mitral valve insufficiency. Trivial tricuspid valve insufficiency. Borderline to mildly enlarged aortic root. Right ventricular systolic pressure estimated to be 29 mmHg. No evidence for diastolic dysfunction. Ordering Physician: Michel Hernandez Referring Physician: oMiz Choudhury Performed By: Natacha Smalls, RDCS, RVT
== END 2021-05-06 23:59 | disposition home or self-care (01) ==
PROVIDERS: PCP Family Medicine; Referring Provider Internal Medicine Cardiovascular Disease; Visit Provider Internal Medicine Cardiovascular Disease
DX: I25.10 Atherosclerotic heart disease of native coronary artery without angina pectoris (principal); I71.2 Thoracic aortic aneurysm, without rupture
CPT/HCPCS: 93306; Q9957; A4216; C8929

== ENCOUNTER → 2021-10-10 | Outpatient (CLI) | payer MEDICARE, OTHER, SELFPAY ==
[2020-08-06 07:14] VITALS: BMI 30.9
--- NOTE | 2021-10-10 07:57 | CT_ITS ---
STUDY: CTA CHEST REASON FOR EXAM: Male, 76 years old. Ascending aortic aneurysm follow-up. RADIATION DOSAGE (If Supplied By Facility): CTDIvol = ( 16.98 ) mGy, DLP = ( 853.89 ) mGycm TECHNIQUE: The examination was performed with the intravenous administration of IV 100mL Isovue-370. Post-processing of the angiographic images was performed, with multiplanar reformation and 3D reconstruction. Individualized dose optimization techniques were used for this CT. COMPARISON: Comparison is made with prior study dated 05/26/2020. FINDINGS: Stable small benign-appearing bilateral axillary lymph nodes. Normal enhancement of the main pulmonary artery and right and left pulmonary arteries. Normal enhancement of the bilateral peripheral pulmonary arteries. There is no demonstrated pulmonary embolism. There is aneurysmal dilatation of the ascending aorta. The transverse diameter of the ascending aorta measures 42 mm''s. This is unchanged. There is no demonstrated aortic dissection. There are calcifications of the coronary arteries. Mild cardiomegaly. There are visualized mediastinal lymph nodes, which are within normal size limits, and with normal morphology. Normal hilar regions. Normal visualized trachea and bronchi. The lungs are well expanded. Mild degree of increased linear markings at the lung bases suggestive ofscarring. Normal pleura. Normal chest wall structures. There are degenerative changes of thoracic spine. Multiple gallstones are seen within the gallbladder lumen. CT/CTA Chest W/WO Contrast IMPRESSION: Stable dilatation of the ascending thoracic aorta. Electronically Signed: Jose C Raygoza MD at 9:22 EDT ,
== END | disposition home or self-care (01) ==
LOC: CT 07:56
PROVIDERS: PCP Family Medicine; Referring Provider Nurse Practitioner Gerontology; Visit Provider Nurse Practitioner Gerontology
DX: I71.2 Thoracic aortic aneurysm, without rupture (principal)
CPT/HCPCS: 71275; Q9967

== ENCOUNTER 2022-03-10 07:07 | Emergency (ER) | payer MEDICARE, OTHER, SELFPAY ==
[2020-08-06 07:14] VITALS: BMI 30.9
[2022-03-10 07:08] VITALS: BP 168/84; PULSE 75; RESP 14; TEMP 36.4; O2SAT 98; BMI 33.3
--- NOTE | 2022-03-10 07:19 | CT_ITS ---
STUDY: CT ABDOMEN AND PELVIS WITHOUT CONTRAST REASON FOR EXAM: Male, 76 years old. Hematuria. Left lower quadrant pain. RADIATION DOSAGE (If Supplied By Facility): CTDIvol = ( 17.82 ) mGy, DLP = ( 1019.54 ) mGycm TECHNIQUE: Transaxial images were obtained from the dome of the diaphragm to the symphysis pubis without oral contrast, and without intravenous contrast. Sagittal and coronal images were reconstructed. Individualized dose optimization techniques were used for this CT. COMPARISON: Comparison is made with prior examination 01/26/2021. FINDINGS: Minimal linear atelectasis at the right lung base. Mild coronary artery calcification. Calcified hepatic granulomas. There are multiple gallstones. There are multiple benign calcified granulomata of the spleen. There is diffuse atrophy of the pancreas. Stable 1 cm hypodensity in the head of the pancreas. Normal bilateral adrenal glands. Normal right kidney. There is a 2.9 cm x 3.1 cm cyst in the posterior midportion of the left kidney. Normal visualized stomach. Normal small intestine. Normal colon. The appendix is visualized and appears normal. There is scattered atherosclerotic calcification of the abdominal aorta, without a demonstrated aneurysm. Normal inferior vena cava. There is borderline retroperitoneal lymphadenopathy with enlarged nodes no greater than 10mm in the short axis diameter. Mild degree of diffuse bladder wall thickening. There is enlargement of the prostate gland. The prostate measures 4.4 cm x 5.5 cm. Small bilateral inguinal hernias containing fat. There are diffuse degenerative changes of the visualized lumbar spine. CT/Abdomen/Pelvis without Cont IMPRESSION: Calcified hepatic and splenic granulomas. Gallstones. Pancreatic atrophy. Prostatic enlargement. Electronically Signed: Jose C Raygoza MD at 8:33 EST ,
--- NOTE | 2022-03-10 07:20 | EDS_ITS ---
HPI History of Present Illness Chief Complaint: Complaint Narrative Narrative: 76-year-old male past medical history of diabetes, coronary artery disease, on Eliquis as a blood thinner presents with hematuria that began early this morning. He states last evening before he went to bed he urinated and it was very yellow in color. He denies any dysuria or burning with urination. He urinated this morning at 4:00, approximately 3-1/2 hours ago, and stated it was bright red blood. He complains of some soreness in his left lower quadrant of his abdomen. No problems with diarrhea. He may have felt feverish this morning but no rigors. He urinated before he came to the emergency department and said that it was clear. No prior history of kidney stones. He presents for evaluation of his gross hematuria that happened this morning. He relates history of having renal insufficiency for metformin but states his numbers are back to normal. [facility] Medical History Ascending aortic aneurysm Atherosclerotic heart disease of [place] coronary artery without angina pectoris Essential hypertension History of non-ST elevation myocardial infarction (NSTEMI) HLD (hyperlipidemia) HTN (hypertension) Hypothyroidism Presence of stent in coronary artery (~05/25/20) Home Medications amlodipine 10 mg tablet 10 mg PO DAILY bp 05/24/20 [History Last Taken 05/24/20] atenolol 50 mg tablet 50 mg PO DAILY heart 05/24/20 [History Last Taken 05/24/20] levothyroxine 175 mcg tablet 175 mcg PO DAILY thyroid 05/24/20 [History Last Taken 05/24/20] losartan 100 mg tablet 100 mg PO DAILY bp 05/24/20 [History Last Taken 05/24/20] omeprazole 40 mg capsule,delayed release 40 mg PO DAILY gerd 05/24/20 [History Last Taken 05/23/20] aspirin 81 mg tablet,delayed release 81 mg PO DAILY heart 01/26/21 [History Last Taken Unknown] spironolactone 25 mg tablet 12.5 mg PO DAILY water pill 01/26/21 [History Last Taken Unknown] atorvastatin 40 mg tablet 40 mg PO DAILY cholesterol 09/30/21 [History Last Taken Unknown] apixaban 5 mg tablet (Eliquis) See Rx Instructions .Route .COMPLEX #180 TABLETS 08/18/22 [Rx Last Taken Unknown] pioglitazone 45 mg tablet 45 mg PO DAILY 11/13/21 [History Last Taken Unknown] Allergy/AdvReac Type Severity Reaction Status Date / Time fosinopril [From Monopril] AdvReac Unknown Unknown Verified 03/10/22 07:09 Surgical History Presence of coronary angioplasty implant and graft (~05/25/20) Social History Smoking Status: Never smoker ROS ROS ED ROS Narrative Constitutional: Subjective fever, no shaking rigors. HEENT: No sore throat. No neck pain. No loss of vision. No rhinorrhea. Cardiovascular: No chest pain. No palpitations. No pedal edema. Respiratory: No cough, no shortness of breath. Abdominal: Soreness in the left lower quadrant of abdominal pain. No nausea. No vomiting. No diarrhea. Genitourinary: No dysuria. 1 episode of gross hematuria. No testicular pain. Musculoskeletal: No myalgias. No arthralgias. Neurologic: No headaches. No dizziness. No lightheadedness. Skin: No rash. No change in color. Psychiatric: No depression. No anxiety. EXAM Physical Exam Narrative Exam Narrative: Afebrile. Vital signs noted. HEENT: Normocephalic. Atraumatic. PERRL, EOMI. Neck soft and supple. No point tenderness or step off. Cardiovascular: Regular rate and rhythm. No murmurs, rubs, or gallops appreciated. Respiratory: No tachypnea. Lungs clear to auscultation bilaterally. Gastrointestinal: Abdomen soft, minimal tenderness in left lower quadrant area with normoactive bowel sounds. No rebound or guarding. Neurological: Awake. Alert. Nonfocal, nonlateralizing. Skin: No rash. Normal color. No pallor. Musculoskeletal: No pedal edema. Full range of motion extremities. Const Vital Signs: 03/10/22 07:08 Temperature 97.6 F L Temperature Source Temporal Pulse Rate 75 Respiratory Rate 14 Blood Pressure 168/84 H Blood Pressure Mean 112 Pulse Ox 98 Oxygen Delivery Method Room Air MDM MDM MDM Narrative Medical decision making narrative: Kidney stone work-up was pursued. CBC, BMP, and urinalysis were obtained along with CT imaging. His bolus normal saline 1 L intravenously. CBC is grossly normal with a normal white count of 10.8, hemoglobin normal at 13.3 with hematocrit 42.5. Normal platelet count of 220. BMP shows chloride slightly elevated at 108. BUN elevated at 24 and a creatinine of 1.6, consistent with his chronic kidney disease. Urinalysis is negative for infection with 0 WBCs but there are greater than 100 RBCs. I do not feel antibiotics are indicated. CT of the flank shows a left renal cyst but no evidence of bladder mass, no reason for his left flank pain and reported gross hematuria. At this point in time, I feel he can be discharged safely home with follow-up to urology. I am unsure as to the cause of his reported gross hematuria, but may have been a broken blood vessel and the fact that he is on Eliquis, and additionally he does have that left renal cyst. Return instructions to the emergency department were reviewed. Disposition is discharged home in stable condition. Lab Data Attestation: I reviewed the patient's lab results. Labs: Laboratory Results - last 24 hr 03/10/22 03/10/22 03/10/22 07:29 07:30 07:30 WBC 10.8 RBC 4.66 Hgb 13.3 Hct 42.5 MCV 91.2 MCH 28.5 MCHC 31.3 L RDW Std Deviation 49.2 H RDW Coeff of Oliverio 14.7 H Plt Count 220 MPV 10.9 Immature Gran % (Auto) 0.300 Neut % (Auto) 61.0 Lymph % (Auto) 27.8 Riley % (Auto) 8.9 Eos % (Auto) 1.3 Baso % (Auto) 0.7 Absolute Neuts (auto) 6.6 Absolute Lymphs (auto) 3.01 Nucleated RBC % 0 Sodium 139 Potassium 4.0 Chloride 108 H Carbon Dioxide 24.0 Anion Gap 7 BUN 24 H Creatinine 1.63 H Estim Creat Clear Calc 45.53 Est GFR (MDRD) Af Amer 53 L Est GFR (MDRD) Non-Af 44 L BUN/Creatinine Ratio 14.7 Glucose 135 H Calcium 9.3 Urine Color Yellow Urine Clarity Sl. Cloudy Urine pH 6.0 Ur Specific [place] 1.010 Urine Protein Negative Urine Glucose (UA) Normal Urine Ketones Negative Urine Occult Blood 250 H Urine Nitrite Negative Urine Bilirubin Negative Urine Urobilinogen Normal Ur Leukocyte Esterase Negative Urine RBC > 100 SEEN Urine WBC 0 SEEN Ur Squamous Epith Cells 0-5 SEEN Urine Bacteria 0 SEEN Urine Mucus 0 SEEN Radiography Diagnostic Testing: Clinical Impression(s) from Imaging Studies Abdomen/Pelvis CT 03/10/22 07:19 IMPRESSION: Calcified hepatic and splenic granulomas. Gallstones. Pancreatic atrophy. Prostatic enlargement. Electronically Signed: Jose C Raygoza MD at 8:33 EST , Discharge Plan Triage Chief Complaint: Complaint ED Provider: Paul Johnson Dx/Rx/DC Orders Clinical Impression: Hematuria, Left flank pain Instructions: ED Flank Pain, Uncertain Cause, ED Hematuria Prescriptions: No Action atorvastatin 40 mg tablet 40 mg PO DAILY pioglitazone 45 mg tablet 45 mg PO DAILY Eliquis 5 mg tablet See Rx Instructions .ROUTE .COMPLEX Qty: 180 3RF Dose Instruction: TAKE 1 TABLET BY MOUTH TWICE DAILY Rx Instructions: TAKE 1 TABLET BY MOUTH TWICE DAILY levothyroxine 175 MCG tablet 175 mcg PO DAILY omeprazole 40 MG capsule,delayed release(DR/EC) 40 mg PO DAILY amlodipine 10 MG tablet 10 mg PO DAILY losartan 100 MG tablet 100 mg PO DAILY atenolol 50 MG tablet 50 mg PO DAILY aspirin [Aspir-81] 81 mg Tablet,Delayed Release (Dr/Ec) 81 mg PO DAILY spironolactone 25 mg tablet 12.5 mg PO DAILY Primary Care Provider: Salty Choudhury Referrals: Salty Choudhury MD [Primary Care Provider] - Rush Mora MD [Med Staff - Active Staff] - 1 Week Disposition Disposition: Home, Self Care
[2022-03-10 07:38] LABS: Absolute Lymphocyte Count 3.01 X10^3/uL (0.83-4.51); Absolute Neutrophil Count 6.6 X10^3/uL (2.0-7.7); Basophil# 0.08 X10^3/uL; Basophil% 0.7 % (0-1); Eosinophil# 0.14 X10^3/uL; Eosinophils% 1.3 % (0-5); Hematocrit 42.5 % (40-54); Hemoglobin 13.3 g/dL (13.0-16.5); Lymphocyte # 3.01 X10^3/ul (0.83-4.51); Lymphocyte % 27.8 % (19-41); Mean Corp Hgb Conc 31.3 g/dL (32-36); Mean Corpuscular Hgb 28.5 pg (27.0-32.0); Mean Corpuscular Volume 91.2 fL (80-94); Mean Platelet Vol. 10.9 fl (6.2-12.0); Monocyte# 0.97 X10^3/uL; Monocyte% 8.9 % (0-10); NRBC Flagged by Analyzer 0 % (0-5); Neutrophil # 6.61 X10^3/uL (2.7-7.7); Platelet Count 220 K/mm3 (150-450); RBC Distribution Width CV 14.7 % (11.6-14.6); RBC Distribution Width SD 49.2 fl (35.1-43.9); Red Blood Count 4.66 M/mm3 (4.6-6.2); White Blood Count 10.8 K/mm3 (4.4-11.0)
[2022-03-10] MEDS: 0.9% Normal Saline 1,000 ML 999 ML IV (07:39)
[2022-03-10 07:51] LABS: Anion Gap 7 (5-15); BUN 24 mg/dL (7-18); BUN/Creat Ratio 14.7 RATIO (10-20); Calcium,Total 9.3 mg/dL (8.5-10.1); Chloride 108 mmol/L (98-107); Creatinine, Serum 1.63 mg/dL (0.70-1.30); EST Glomerular Filtration Rate 44 mL/min (>60); Est Glom Filt Rate - Afr Amer 53 mL/min (>60); Estimated Creatinine Clearance 45.53 ml/min; Glucose 135 mg/dL (74-106); Sodium Level 139 mmol/L (136-145)
[2022-03-10 07:52] LABS: Bacteria 0 SEEN /hpf (None Seen); Mucous, Urine 0 SEEN /hpf (<or=2+); White Blood Cells 0 SEEN /hpf (0-5)
[2022-03-10 07:55] LABS: Color, Urine Yellow (Yellow); Glucose, Dipstick Normal (Normal); Ketone-Dipstick Negative (Negative); Leukocyte Esterase-Dipstick Negative /ul (Negative); Nitrite-Dipstick Negative (Negative); Occult Blood-Urine 250 /ul (Negative); Protein-Dipstick Negative (Negative); Urine Bilirubin Dipstick Negative (Negative); Urine Clarity Sl. Cloudy (Clear); Urine Urobilinogen Normal (Normal)
[2022-03-10 08:01] LABS: Red Blood Cells-Urine > 100 SEEN /hpf (0-5); Squamous Epithelial Cells - UA 0-5 SEEN /hpf (0-5)
[2022-03-10 09:27] VITALS: BP 137/65; PULSE 59; RESP 14; O2SAT 97
== END 2022-03-10 09:28 | disposition home or self-care (01) ==
PROVIDERS: Emergency Provider Emergency Medicine; PCP Family Medicine; Visit Provider Emergency Medicine
DX: R31.9 Hematuria, unspecified (principal); E11.9 Type 2 diabetes mellitus without complications; I25.10 Atherosclerotic heart disease of native coronary artery without angina pectoris; I10 Essential (primary) hypertension; N28.1 Cyst of kidney, acquired; E78.5 Hyperlipidemia, unspecified; Z79.01 Long term (current) use of anticoagulants; Z79.84 Long term (current) use of oral hypoglycemic drugs; R10.9 Unspecified abdominal pain
CPT/HCPCS: 74176; 80048; 81001; 85025; 96360; 99283; J7030; A4216

== ENCOUNTER → 2022-03-16 | Outpatient (CLI) | payer MEDICARE, OTHER, SELFPAY ==
[2020-08-06 07:14] VITALS: BMI 30.9
--- NOTE | 2022-03-16 | CYSPIN_PTH ---
PATIENT: NEETU CERDA LOC: LAB U#:[id number] AGE/SX: 76/M ROOM: RE03/16/[address]: FLIP Chacko : 1945 BED: DIS: 03/16/2022 SPEC #: [id number] RECD: 03/17/22 09:23 STATUS: FARHEEN REVlad #: [id number] VIVEK: 03/16/22 00:[address]: Velma Doll DEPT: CYTOLOGY RECD BY: Etelvina Lundy ENTERED: 03/17/22 09:24 SP TYPE: CYSPIN FL OTHR DR: MD Dr. Rush Bernstein MD Tissues: Urine Procedures: Pap Stain (control) Special Stain Group II Cytospin Fluid HEADER OPERATION: Not noted PRE-OP DIAGNOSIS: Gross hematuria TISSUE SUBMITTED: Urine for cytology DIAGNOSIS CYTOLOGY Urine for cytology (cytospin): Negative for malignant cells. AM:serjio 03/18/2022 CYTOLOGY STUDY Slides are reviewed. CYTOLOGY GROSS Received is 1 ml of dark yellow cloudy fluid labeled with the patient's name and and designated per the requisition as urine. Submitted for cytology preparation. / serjio 03/17/2022 TC:5 CPT: 93180
[2022-03-16 15:25] LABS: PSA,Total - Annual Screen 3.87 ng/mL (0.00-4.00)
[2022-03-16 16:32] LABS: Cytology, Body Fluid / CSF SEE PATHOLOGY REPORT
== END | disposition home or self-care (01) ==
PROVIDERS: PCP Family Medicine; Referring Provider Registered Nurse; Visit Provider Registered Nurse
DX: R31.0 Gross hematuria (principal); Z12.5 Encounter for screening for malignant neoplasm of prostate
CPT/HCPCS: 36415; 84153; 88108; 88313; G0103

== ENCOUNTER → 2022-03-19 | Outpatient (CLI) | payer MEDICARE, OTHER, SELFPAY ==
[2020-08-06 07:14] VITALS: BMI 30.9
[2022-03-19 09:32] LABS: AST(SGOT) 14 U/L (15-37); Alanine Aminotransfer ALT/SGPT 21 U/L (16-61); Albumin, Serum 3.6 g/dL (3.2-5.0); Alkaline Phosphatase 81 U/L (45-117); Bilirubin, Direct 0.17 mg/dL (0.00-0.30); Cholesterol 156 mg/dL (200); Globulin 3.8 g/dL (2.2-4.2); High Density Lipoprotein 38 mg/dL; Protein, Total 7.4 g/dL (6.4-8.2); Triglycerides 168 mg/dL; Very Low Density Lipoprotein 34 mg/dL (5-40)
== END | disposition home or self-care (01) ==
LOC: LAB 08:18
PROVIDERS: PCP Family Medicine; Referring Provider Nurse Practitioner Gerontology; Visit Provider Nurse Practitioner Gerontology
DX: E78.5 Hyperlipidemia, unspecified (principal)
CPT/HCPCS: 36415; 80061; 80076

== ENCOUNTER → 2022-04-21 | Outpatient (CLI) | payer MEDICARE, OTHER, SELFPAY ==
[2020-08-06 07:14] VITALS: BMI 30.9
== END | disposition home or self-care (01) ==
LOC: MFPLAB 10:46
PROVIDERS: PCP Family Medicine; Referring Provider Family Medicine; Visit Provider Family Medicine
DX: Z00.00 Encounter for general adult medical examination without abnormal findings (principal)

== ENCOUNTER → 2022-07-20 | Outpatient (CLI) | payer MEDICARE, OTHER, SELFPAY ==
[2020-08-06 07:14] VITALS: BMI 30.9
[2022-07-20 15:36] LABS: AST(SGOT) 17 U/L (15-37); Alanine Aminotransfer ALT/SGPT 22 U/L (16-61); Albumin, Serum 3.8 g/dL (3.2-5.0); Alkaline Phosphatase 81 U/L (45-117); Anion Gap 4 (5-15); BUN 21 mg/dL (7-18); BUN/Creat Ratio 14.1 RATIO (10-20); Calcium,Total 9.4 mg/dL (8.5-10.1); Chloride 105 mmol/L (98-107); Creatinine, Serum 1.49 mg/dL (0.70-1.30); EST Glomerular Filtration Rate 49 mL/min (>60); Est Glom Filt Rate - Afr Amer 59 mL/min (>60); Globulin 3.9 g/dL (2.2-4.2); Glucose 162 mg/dL (74-106); Protein, Total 7.7 g/dL (6.4-8.2); Sodium Level 135 mmol/L (136-145)
== END | disposition home or self-care (01) ==
LOC: MFPLAB 11:42
PROVIDERS: PCP Family Medicine; Visit Provider Family Medicine
DX: R63.5 Abnormal weight gain (principal); E11.29 Type 2 diabetes mellitus with other diabetic kidney complication
CPT/HCPCS: 36415; 80053; 84443

== ENCOUNTER → 2022-08-17 | Outpatient (CLI) | payer MEDICARE, OTHER, SELFPAY ==
[2020-08-06 07:14] VITALS: BMI 30.9
[2022-08-17 10:52] LABS: Hematocrit 42.3 % (40-54); Hemoglobin 13.8 g/dL (13.0-16.5); Mean Corp Hgb Conc 32.6 g/dL (32-36); Mean Corpuscular Hgb 31.5 pg (27.0-32.0); Mean Corpuscular Volume 96.6 fL (80-94); Mean Platelet Vol. 10.9 fl (6.2-12.0); Platelet Count 195 K/mm3 (150-450); RBC Distribution Width CV 14.2 % (11.6-14.6); RBC Distribution Width SD 50.7 fl (35.1-43.9); Red Blood Count 4.38 M/mm3 (4.6-6.2); White Blood Count 9.7 K/mm3 (4.4-11.0)
[2022-08-17 11:00] LABS: Protein:Creat Ratio 166 mg/g CRE (0-200)
[2022-08-17 11:12] LABS: Albumin, Serum 3.8 g/dL (3.2-5.0); BUN 20 mg/dL (7-18); BUN/Creat Ratio 15.2 RATIO (10-20); Calcium,Total 9.3 mg/dL (8.5-10.1); Chloride 105 mmol/L (98-107); Creatinine, Serum 1.32 mg/dL (0.70-1.30); EST Glomerular Filtration Rate 56 mL/min (>60); Est Glom Filt Rate - Afr Amer 68 mL/min (>60); Glucose 147 mg/dL (74-106); Phosphorus 2.1 mg/dL (2.5-4.9); Sodium Level 139 mmol/L (136-145)
[2022-08-17 11:17] LABS: Vitamin D,25 Hydroxy 28.7 ng/mL
[2022-08-17 11:47] LABS: PTHIN 77.4 pg/mL (18.4-80.1)
== END | disposition home or self-care (01) ==
LOC: LAB 08:26
PROVIDERS: PCP Family Medicine; Referring Provider Nurse Practitioner Adult Health; Visit Provider Nurse Practitioner Adult Health
DX: N18.32 Chronic kidney disease, stage 3b (principal)
CPT/HCPCS: 36415; 80069; 82306; 82570; 83970; 84156; 85027

== ENCOUNTER → 2022-09-02 | Outpatient (CLI) | payer MEDICARE, OTHER, SELFPAY ==
[2020-08-06 07:14] VITALS: BMI 30.9
[2022-09-02 09:37] LABS: T4 Free Direct 1.94 ng/dL (0.76-1.46); Thyroid Stim Hormone (TSH) 0.33 uIU/mL (0.358-3.74)
== END | disposition home or self-care (01) ==
LOC: LAB 08:05
PROVIDERS: PCP Family Medicine; Referring Provider Family Medicine; Visit Provider Family Medicine
DX: E03.9 Hypothyroidism, unspecified (principal)
CPT/HCPCS: 36415; 84439; 84443; 84481

== ENCOUNTER → 2022-10-27 | Outpatient (CLI) | payer MEDICARE, OTHER, SELFPAY ==
[2020-08-06 07:14] VITALS: BMI 30.9
[2022-10-27 10:43] LABS: AST(SGOT) 15 U/L (15-37); Alanine Aminotransfer ALT/SGPT 23 U/L (16-61); Albumin, Serum 3.6 g/dL (3.2-5.0); Alkaline Phosphatase 93 U/L (45-117); Anion Gap 3 (5-15); BUN 24 mg/dL (7-18); BUN/Creat Ratio 15.7 RATIO (10-20); Calcium,Total 8.9 mg/dL (8.5-10.1); Chloride 105 mmol/L (98-107); Creatinine, Serum 1.53 mg/dL (0.70-1.30); EST Glomerular Filtration Rate 47 mL/min (>60); Est Glom Filt Rate - Afr Amer 57 mL/min (>60); Free T3 2.2 pg/mL (2.18-3.98); Globulin 3.7 g/dL (2.2-4.2); Glucose 144 mg/dL (74-106); Potassium 4.2 mmol/L (3.5-5.1); Protein, Total 7.3 g/dL (6.4-8.2); Sodium Level 135 mmol/L (136-145); T4 Free Direct 1.37 ng/dL (0.76-1.46); Thyroid Stim Hormone (TSH) 0.36 uIU/mL (0.358-3.74)
[2022-10-27 10:46] LABS: Cholesterol 146 mg/dL (200); High Density Lipoprotein 34 mg/dL; Triglycerides 231 mg/dL; Very Low Density Lipoprotein 46 mg/dL (5-40)
== END | disposition home or self-care (01) ==
LOC: LAB 08:23
PROVIDERS: Nurse Practitioner Gerontology; PCP Family Medicine; Referring Provider Family Medicine; Visit Provider Family Medicine
DX: E11.29 Type 2 diabetes mellitus with other diabetic kidney complication (principal); E03.9 Hypothyroidism, unspecified
CPT/HCPCS: 36415; 80053; 80061; 82248; 84439; 84443; 84481

== ENCOUNTER → 2023-06-10 | Outpatient (CLI) | payer MEDICARE, OTHER, SELFPAY ==
[2020-08-06 07:14] VITALS: BMI 30.9
[2023-06-10 08:56] LABS: Absolute Lymphocyte Count 4.34 X10^3/uL (0.83-4.51); Absolute Neutrophil Count 8.8 X10^3/uL (2.0-7.7); Basophil# 0.11 X10^3/uL; Basophil% 0.7 % (0-1); Eosinophil# 0.34 X10^3/uL; Eosinophils% 2.3 % (0-5); Hematocrit 42.1 % (40-54); Hemoglobin 13.4 g/dL (13.0-16.5); Lymphocyte # 4.34 X10^3/ul (0.83-4.51); Lymphocyte % 29.4 % (19-41); Mean Corp Hgb Conc 31.8 g/dL (32-36); Mean Corpuscular Volume 91.1 fL (80-94); Mean Platelet Vol. 10.9 fl (6.2-12.0); Monocyte# 1.19 X10^3/uL; Monocyte% 8.1 % (0-10); NRBC Flagged by Analyzer 0 % (0-5); Neutrophil # 8.75 X10^3/uL (2.7-7.7); Neutrophil % 59.2 % (47-70); Platelet Count 228 K/mm3 (150-450); RBC Distribution Width SD 47.1 fl (35.1-43.9); Red Blood Count 4.62 M/mm3 (4.6-6.2); White Blood Count 14.8 K/mm3 (4.4-11.0)
[2023-06-10 09:59] LABS: ALB/GLOB Ratio 0.9 RATIO (0.9-2.4); AST(SGOT) 22 U/L (15-37); Alanine Aminotransfer ALT/SGPT 24 U/L (16-61); Albumin, Serum 3.5 g/dL (3.2-5.0); Alkaline Phosphatase 95 U/L (45-117); Anion Gap 9 (5-15); BUN 22 mg/dL (7-18); BUN/Creat Ratio 15.8 RATIO (10-20); Calcium,Total 8.9 mg/dL (8.5-10.1); Chloride 104 mmol/L (98-107); Cholesterol 142 mg/dL (200); Creatinine, Serum 1.39 mg/dL (0.70-1.30); EST Glomerular Filtration Rate 53 mL/min (>60); Est Glom Filt Rate - Afr Amer 64 mL/min (>60); Globulin 3.7 g/dL (2.2-4.2); Glucose 169 mg/dL (74-106); High Density Lipoprotein 40 mg/dL; Potassium 4.2 mmol/L (3.5-5.1); Protein, Total 7.2 g/dL (6.4-8.2); Sodium Level 136 mmol/L (136-145); Thyroid Stim Hormone (TSH) 0.74 uIU/mL (0.358-3.74); Triglycerides 178 mg/dL; Very Low Density Lipoprotein 36 mg/dL (5-40)
[2023-06-10 11:08] LABS: Microalbumin:Creatinine Ratio 4.3 mg/g CRE (<30 mg/g CRE)
[2023-06-10 14:14] LABS: Hemoglobin A1c 7.2 % (3.8-5.6)
== END | disposition home or self-care (01) ==
LOC: LAB 08:05
PROVIDERS: PCP Family Medicine; Referring Provider Family Medicine; Visit Provider Family Medicine
DX: I25.10 Atherosclerotic heart disease of native coronary artery without angina pectoris (principal); E11.29 Type 2 diabetes mellitus with other diabetic kidney complication; E78.5 Hyperlipidemia, unspecified; E03.9 Hypothyroidism, unspecified
CPT/HCPCS: 80053; 80061; 82043; 82248; 82570; 83036; 84443; 85025

== ENCOUNTER → 2023-07-13 | Outpatient (CLI) | payer MEDICARE, OTHER, SELFPAY ==
[2020-08-06 07:14] VITALS: BMI 30.9
--- NOTE | 2023-07-13 14:56 | CT_ITS ---
STUDY: CTA CHEST REASON FOR EXAM: Male, 77 years old. Follow up Thoracic aorta dilation -- hx pulmonary emboli RADIATION DOSAGE (If Supplied By Facility): CTDIvol = ( 13.96 ) mGy, DLP = ( 703.66 ) mGycm TECHNIQUE: The examination was performed with the intravenous administration of IV 100mL Isovue-370. Post-processing of the angiographic images was performed, with multiplanar reformation and 3D reconstruction. Individualized dose optimization techniques were used for this CT. COMPARISON: Comparison is made with prior examination dated October 10, 2021. FINDINGS: Stable small benign-appearing bilateral axillary lymph nodes. Normal enhancement of the main pulmonary artery and right and left pulmonary arteries. Normal enhancement of the bilateral peripheral pulmonary arteries. There is no demonstrated pulmonary embolism. There is aneurysmal dilatation of the ascending aorta. The transverse diameter of the ascending aorta measures 43 mm''s. This is essentially unchanged. There is no demonstrated aortic dissection. There are calcifications of the coronary arteries. Mild cardiomegaly. Normal mediastinum. Normal hilar regions. Normal visualized trachea and bronchi. The lungs are well expanded. Normal pulmonary parenchyma. Normal pleura. Normal chest wall structures. There are degenerative changes of thoracic spine. Multiple gallstones. Fatty infiltration of the liver. CT/CTA Chest W/WO Contrast IMPRESSION: Stable examination. Electronically Signed: Jose C Raygoza MD at 13:23 EDT ,
[2023-07-13 15:32] LABS: EGFR FINGERSTICK > 60.0000 mL/min (>60)
== END | disposition home or self-care (01) ==
LOC: CT 14:56
PROVIDERS: PCP Family Medicine; Referring Provider Internal Medicine Cardiovascular Disease; Visit Provider Internal Medicine Cardiovascular Disease
DX: I71.21 Aneurysm of the ascending aorta, without rupture (principal)
CPT/HCPCS: 71275; Q9967

== ENCOUNTER → 2024-03-31 | Outpatient (CLI) | payer MEDICARE, OTHER, SELFPAY ==
[2020-08-06 07:14] VITALS: BMI 30.9
[2024-03-31 08:57] LABS: Absolute Lymphocyte Count 4.86 X10^3/uL (0.83-4.51); Absolute Neutrophil Count 6.5 X10^3/uL (2.0-7.7); Basophil# 0.15 X10^3/uL; Basophil% 1.2 % (0-1); Eosinophil# 0.37 X10^3/uL; Eosinophils% 2.8 % (0-5); Hematocrit 43.8 % (40-54); Hemoglobin 14.4 g/dL (13.0-16.5); Lymphocyte # 4.86 X10^3/ul (0.83-4.51); Lymphocyte % 37.4 % (19-41); Mean Corp Hgb Conc 32.9 g/dL (32-36); Mean Corpuscular Hgb 30.3 pg (27.0-32.0); Mean Corpuscular Volume 92.2 fL (80-94); Mean Platelet Vol. 10.4 fl (6.2-12.0); Monocyte# 1.06 X10^3/uL; Monocyte% 8.2 % (0-10); NRBC Flagged by Analyzer 0 % (0-5); Platelet Count 241 K/mm3 (150-450); RBC Distribution Width CV 13.4 % (11.6-14.6); RBC Distribution Width SD 45.6 fl (35.1-43.9); Red Blood Count 4.75 M/mm3 (4.6-6.2)
[2024-03-31 09:30] LABS: AST(SGOT) 23 U/L (15-37); Alanine Aminotransfer ALT/SGPT 27 U/L (16-61); Albumin, Serum 3.6 g/dL (3.2-5.0); Alkaline Phosphatase 95 U/L (45-117); Anion Gap 7 (5-15); BUN 19 mg/dL (7-18); BUN/Creat Ratio 13.4 RATIO (10-20); Calcium,Total 8.9 mg/dL (8.5-10.1); Chloride 105 mmol/L (98-107); Creatinine, Serum 1.42 mg/dL (0.70-1.30); EST Glomerular Filtration Rate 51 mL/min (>60); Est Glom Filt Rate - Afr Amer 62 mL/min (>60); Globulin 3.7 g/dL (2.2-4.2); Glucose 151 mg/dL (74-106); PSA,Total - Annual Screen 3.34 ng/mL (0.00-4.00); Potassium 4.2 mmol/L (3.5-5.1); Protein, Total 7.3 g/dL (6.4-8.2); Sodium Level 136 mmol/L (136-145)
== END | disposition home or self-care (01) ==
LOC: LAB 08:39
PROVIDERS: PCP Family Medicine; Referring Provider Family Medicine; Visit Provider Family Medicine
DX: Z12.5 Encounter for screening for malignant neoplasm of prostate (principal); E11.29 Type 2 diabetes mellitus with other diabetic kidney complication; E66.811 Obesity, class 1
CPT/HCPCS: 36415; 80053; 84153; 84443; 85025; G0103

== ENCOUNTER → 2024-09-14 | Outpatient (CLI) | payer MEDICARE, OTHER, SELFPAY ==
[2020-08-06 07:14] VITALS: BMI 30.9
[2024-09-14 08:47] LABS: Absolute Lymphocyte Count 3.19 X10^3/uL (0.83-4.51); Absolute Neutrophil Count 5.5 X10^3/uL (2.0-7.7); Basophil# 0.09 X10^3/uL; Basophil% 0.9 % (0-1); Eosinophil# 0.23 X10^3/uL; Eosinophils% 2.4 % (0-5); Hematocrit 41.9 % (40-54); Hemoglobin 13.9 g/dL (13.0-16.5); Lymphocyte # 3.19 X10^3/ul (0.83-4.51); Lymphocyte % 32.6 % (19-41); Mean Corp Hgb Conc 33.2 g/dL (32-36); Mean Corpuscular Hgb 30.3 pg (27.0-32.0); Mean Corpuscular Volume 91.5 fL (80-94); Mean Platelet Vol. 10.9 fl (6.2-12.0); Monocyte# 0.79 X10^3/uL; Monocyte% 8.1 % (0-10); NRBC Flagged by Analyzer 0 % (0-5); Neutrophil # 5.45 X10^3/uL (2.7-7.7); Neutrophil % 55.7 % (47-70); Platelet Count 206 K/mm3 (150-450); RBC Distribution Width CV 13.4 % (11.6-14.6); RBC Distribution Width SD 45.4 fl (35.1-43.9); Red Blood Count 4.58 M/mm3 (4.6-6.2); White Blood Count 9.8 K/mm3 (4.4-11.0)
[2024-09-14 09:32] LABS: Hemoglobin A1c 7.7 % (<=5.6); Microalbumin,Random Urine < 12.0 mg/L (NO RANGE EST.); Microalbumin:Creatinine Ratio UNABLE TO CALCULATE mg/g CRE; Protein, Urine (Random) 14.2 mg/dL (0.0-12.0); Protein:Creat Ratio 67 mg/g CRE (0-200)
[2024-09-14 09:33] LABS: PTHIN 83 pg/mL (11-61)
[2024-09-14 09:48] LABS: ALB/GLOB Ratio 1.6 RATIO (0.9-2.4); AST(SGOT) 19 U/L (<=37); Alanine Aminotransfer ALT/SGPT 11 U/L (<=46); Albumin, Serum 4.1 g/dL (3.4-4.8); Alkaline Phosphatase 90 U/L (40-129); Anion Gap 11 (5-15); BUN 21 mg/dL (4-19); Bilirubin, Direct 0.25 mg/dL (0.00-0.30); Calcium,Total 8.7 mg/dL (7.6-11.0); Carbon Dioxide 22.4 mmol/L (21.0-32.0); Chloride 104 mmol/L (98-108); Creatinine, Serum 1.42 mg/dL (0.70-1.20); EST Glomerular Filtration Rate 51 (>60); Globulin 2.6 g/dL (2.2-4.2); Glucose 176 mg/dL (70-99); Phosphorus 2.4 mg/dL (2.7-4.5); Potassium 4.5 mmol/L (3.3-5.1); Protein, Total 6.7 g/dL (5.9-8.4); Sodium Level 138 mmol/L (133-145); Total Bilirubin 0.63 mg/dL (0.00-1.30)
[2024-09-14 09:49] LABS: Vitamin D,25 Hydroxy 26.4 ng/mL (30-100)
[2024-09-14 10:02] LABS: Cholesterol 126 mg/dL (<=200); High Density Lipoprotein 30 mg/dL; Low Density Lipoprotein Calc. 63 mg/dL; Triglycerides 166 mg/dL; Very Low Density Lipoprotein 33 mg/dL (5-40); cholesterol:hdl ratio screen 4.16
== END | disposition home or self-care (01) ==
PROVIDERS: Internal Medicine Cardiovascular Disease; PCP Family Medicine; Referring Provider Family Medicine; Visit Provider Family Medicine
DX: E11.22 Type 2 diabetes mellitus with diabetic chronic kidney disease (principal); N18.32 Chronic kidney disease, stage 3b
CPT/HCPCS: 36415; 80053; 80061; 82043; 82248; 82306; 82570; 83036; 83970; 84100; 84156; 85025

== ENCOUNTER → 2025-01-12 | Outpatient (CLI) | payer MEDICARE, OTHER, SELFPAY ==
[2020-08-06 07:14] VITALS: BMI 30.9
[2025-01-12 09:02] LABS: Hematocrit 44.3 % (40-54); Hemoglobin 14.2 g/dL (13.0-16.5); Immature Granulocytes Count 0.030 X10^3/uL (0.0-0.0); Mean Corp Hgb Conc 32.1 g/dL (32-36); Mean Corpuscular Volume 91.5 fL (80-94); Mean Platelet Vol. 11.1 fl (6.2-12.0); NRBC Flagged by Analyzer 0 % (0-5); Platelet Count 206 K/mm3 (150-450); RBC Distribution Width CV 13.4 % (11.6-14.6); RBC Distribution Width SD 45.2 fl (35.1-43.9); Red Blood Count 4.84 M/mm3 (4.6-6.2); White Blood Count 10.9 K/mm3 (4.4-11.0)
[2025-01-12 09:46] LABS: AST(SGOT) 19 U/L (<=37); Alanine Aminotransfer ALT/SGPT 12 U/L (<=46); Albumin, Serum 4.0 g/dL (3.4-4.8); Alkaline Phosphatase 91 U/L (40-129); Anion Gap 11 (5-15); BUN 21 mg/dL (4-19); BUN/Creat Ratio 17.9 RATIO (10-20); Calcium,Total 9.0 mg/dL (7.6-11.0); Carbon Dioxide 21.6 mmol/L (21.0-32.0); Chloride 106 mmol/L (98-108); Cholesterol 126 mg/dL (<=200); Globulin 2.7 g/dL (2.2-4.2); Glucose 116 mg/dL (70-99); Low Density Lipoprotein Calc. 60 mg/dL; Potassium 4.1 mmol/L (3.3-5.1); Triglycerides 161 mg/dL; Very Low Density Lipoprotein 32 mg/dL (5-40); cholesterol:hdl ratio screen 3.77
== END | disposition home or self-care (01) ==
LOC: LAB 08:17
PROVIDERS: PCP Family Medicine; Referring Provider Family Medicine; Visit Provider Family Medicine
DX: E11.22 Type 2 diabetes mellitus with diabetic chronic kidney disease (principal); N18.32 Chronic kidney disease, stage 3b
CPT/HCPCS: 36415; 80053; 80061; 83036; 85025

== ENCOUNTER 2025-03-26 00:54 | Emergency (ER) | payer MEDICARE, OTHER, SELFPAY ==
[2020-08-06 07:14] VITALS: BMI 30.9
[2025-03-26 00:56] VITALS: PULSE 76; RESP 19; TEMP 36.4; O2SAT 97; BMI 29.7
--- NOTE | 2025-03-26 01:15 | EKG12_ITS ---
Test Reason : CP Blood Pressure : */* mmHG Vent. Rate : 78 BPM Atrial Rate : 78 BPM P-R Int : 206 ms QRS Dur : 98 ms QT Int : 390 ms P-R-T Axes : 56 -16 76 degrees QTcB Int : 444 ms Normal sinus rhythm Possible Septal infarct , age undetermined Abnormal ECG Confirmed by Doug Leonardo ([id number]), features editor NATALIIA CR ([id number]) on 03/27/2025 6:18:07 AM Referred By: TR Confirmed By: Doug Leonardo
--- NOTE | 2025-03-26 01:15 | RAD_ITS ---
PROCEDURE: CHEST PA AND LATERAL 03/26/2025 REASON FOR EXAM: CHEST PAIN TECHNIQUE: Procedure Code: RADCXR Modality: DX Procedure: CHEST PA AND LATERAL COMPARISON: 01/26/2021. FINDINGS: Mild bilateral basilar atelectatic pulmonary changes. There is no demonstrated pleural abnormality. Enlarged cardiac silhouette. Normal mediastinum and yamel. Normal visualized pulmonary arteries. Atheromatous plaques of the visualized aortic arch and descending thoracic aorta. Diffuse spondylosis of the visualized thoracic spine. Normal visualized ribs, clavicles. Degenerative joint disease. There is no demonstrated abnormality of the visualized soft tissue structures of the upper abdomen. RAD/Chest PA and Lateral IMPRESSION: Mild bilateral basilar atelectatic pulmonary changes. Reading [facility]
[2025-03-26 01:22] LABS: Hematocrit 47.3 % (40-54); Hemoglobin 15.6 g/dL (13.0-16.5); Immature Granulocytes Count 0.040 X10^3/uL (0.0-0.0); Mean Corp Hgb Conc 33.0 g/dL (32-36); Mean Corpuscular Volume 89.6 fL (80-94); Mean Platelet Vol. 10.8 fl (6.2-12.0); NRBC Flagged by Analyzer 0 % (0-5); Platelet Count 225 K/mm3 (150-450); RBC Distribution Width CV 14.1 % (11.6-14.6); RBC Distribution Width SD 46.0 fl (35.1-43.9); Red Blood Count 5.28 M/mm3 (4.6-6.2); White Blood Count 12.3 K/mm3 (4.4-11.0)
[2025-03-26 01:47] LABS: Anion Gap 11 (7-18); BUN 16 mg/dL (4-19); BUN/Creat Ratio 13.2 RATIO (10-20); Calcium,Total 9.1 mg/dL (7.6-11.0); Carbon Dioxide 23.2 mmol/L (20.0-29.0); Chloride 105 mmol/L (96-106); Estimated Creatinine Clearance 63.96 ml/min (50-250); Glucose 188 mg/dL (70-99); Magnesium 2.3 mg/dL (1.5-2.2); Potassium 3.9 mmol/L (3.5-5.1); Troponin T High Sensitivity 18 ng/L (<=22)
--- OUTSIDE RECORDS SUMMARY | 2025-03-26 02:04 | XMS RPT_ITS | CCD ---
Author Organization [facility] Care Team Providers Care Drilling Fluids Specialist Name Role Phone Moiz Choudhury MD Primary Care Provider Dr. Salty Choudhury Primary Care Provider [phone] Dr. Salty Choudhury Referring Provider Rossana MASTER CONTROL ENGINEER, MASTER CONTROL ENGINEER-C Laura Attending Provider [phone] Moiz Choudhury MD Primary Care Provider Dr. Salty Choudhury Primary Care Provider [phone] Dr. Salty Choudhury Referring Provider [phone] Brando RAMOS, MASTER CONTROL ENGINEER-C Susan Attending Provider Adin HAYDEN, Javier Rao Primary Care Provider [phone] Adin HAYDEN, Javier Rao Primary Care Provider [phone] Javier Oakley Primary Care Provider [phone] Javier Oakley Referring Provider [phone] Dr. Jose Roberto Mendoza Attending Provider [phone] Javier Oakley MD Primary Care Provider [phone] Javier Oakley MD Primary Care Provider Dr. Javier Oakley MD Referring Provider [phone] Jose Roberto Mendoza MD Attending Provider Dr. Javier Oakley MD Attending Provider [phone] Norma HAYDEN, Dr. Alexis Other Provider Reji HAYDEN, Dr. Cid Other Provider [phone] HARRY WOOD Attending Unavailable HARRY WOOD Referring Unavailable JAVIER OAKLEY Primary Care Unavailable TESTRAKE, HARRY Attending Unavailable TESTRAKE, HARRY Referring Unavailable JAVIER OAKLEY A Primary Care Unavailable TESTRAKE, HARRY Attending Unavailable TESTRAKE, HARRY Referring Unavailable OAKLEY, JAVIER A Primary Care Unavailable TESTRAKE, HARRY Attending Unavailable TESTRAKE, HARRY Referring Unavailable OAKLEY, JAVIER A Primary Care Unavailable Oakley, Javier Referring Unavailable Oakley, Javier Primary Care Unavailable Oakley, Javier Attending Unavailable Oakley, Javier Referring Unavailable Oakley, Javier Primary Care Unavailable Jose Roberto Mendoza Attending Unavailable Oakley, Javier Referring Unavailable Oakley, Javier Primary Care Unavailable Reuben Green Consulting Unavailable Oakley, Javier Attending Unavailable Jose Roberto Mendoza Consulting Unavailable Oakley, Javier Primary Care Unavailable Oakley, Javier Attending Unavailable Oakley, Javier Referring Unavailable Allergies Allergy Classification Reported Allergen(s) Allergy Type Date of Onset Reaction(s) Facility (20 sources) MONIPRIL [Other] Propensity to adverse reactions 6 [facility] (12 sources) Fosinopril; Translations: [FOSINOPRIL] Drug Allergy 2 Other: See Comments [facility] (1 source) OTHER; Translations: [OTHER] Propensity to adverse reactions (disorder) 6 [facility] (1 source) Fosinopril Drug Allergy 5 [facility] Medications Current Medications Medication Drug Class(es) Dates Sig (Normalized) Sig (Original) amLODIPine 10 mg oral tablet (20 sources) Dihydropyridine Calcium Channel Cong Start: 03-03-2022 take 1 tablet by mouth once daily amLODIPine (NORVASC) 10 mg tablet Take 1 tablet by mouth once daily. 90 tablet 3 03/03/2022 Active Start: 05-24-2020 End: 08-06-2021 take 1 tablet by mouth once daily amLODIPine (NORVASC) 10 mg tablet Take 1 tablet by mouth once daily. 90 tablet 3 03/03/2022 Active Comment on above: Take 1 tablet by galdino th once daily. aspirin 81 mg delayed release oral tablet (20 sources) Platelet Aggregation Inhibitor, Nonsteroidal Anti-inflammatory Drug Start: 05-27-2020 aspirin, enteric coated (ASPIRIN, ENTERIC COATED) 81 mg EC tablet twice daily. 0 05/27/2020 Active Start: 05-27-2020 End: 09-10-2020 take 1 tablet by mouth once daily Aspirin (Aspir-81) 81 mg Tablet,Delayed Release (Dr/Ec) Active 81 mg PO DAILY January 26, 2021 12:00am Comment on above: twice daily. once daily. atenolol 25 mg oral tablet (20 sources) beta-Adrenergic Cong Start: 03-18-2022 take 1 tablet by mouth once daily Atenolol 25 mg tablet Active 25 mg PO DAILY March 18, 2022 3:05pm Start: 05-24-2020 End: 03-18-2022 take 1 tablet by mouth once daily atenolol (TENORMIN) 50 mg tablet Take 1 tablet by mouth once daily. 90 tablet 3 03/03/2022 Active Comment on above: Take 1 tablet by galdino th once daily. atorvastatin 40 mg oral tablet (20 sources) HMG-CoA Reductase Inhibitor Start: End: take 1 tablet by mouth once daily for hyperlipidemia atorvastatin (LIPITOR) 40 mg tablet Indications: NSTEMI (non-ST elevated myocardial infarction) (HCC) , Hyperlipidemia with target LDL less than 100 Take 1 tablet by mouth once daily. For cholesterol. 90 tablet 3 03/03/2022 Active Start: 06-11-2020 End: 09-30-2021 Atorvastatin 40 mg tablet Discontinued 20 mg PO DAILY June 11, 2020 10:01am September 30, 2021 2:51pm Start: 06-11-2020 End: 09-30-2021 take 20 mg by mouth once daily Atorvastatin Discontinu ed 20 MG PO DAILY June 11, 2020 10:01am September 30, 2021 2:51pm Start: 05-24-2020 End: 06-11-2020 take 1 tablet by mouth once daily Atorvastatin 40 MG tablet Discontinued 40 mg PO DAILY May 24, 2020 1:00am June 11, 2020 10:01am Comment on above: Take 1 tablet by galdino th once daily. For cholesterol. dapagliflozin 5 mg oral tablet (10 sources) Sodium-Glucose Cotransporter 2 Inhibitor Start: take 1 tablet by mouth once daily at breakfast dapagliflozin (FARXIGA) 5 mg tablet Indications: Type 2 diabetes mellitus without complication, without long-term current use of insulin ([facility]) Take 1 tablet by mouth daily with breakfast. 30 tablet 1 12/16/2021 Active Comment on above: Take 1 tablet by galdino th daily with breakfast. empagliflozin 25 mg oral tablet (1 source) Sodium-Glucose Cotransporter 2 Inhibitor take 1 tablet by mouth once daily at dinner empagliflozin (JARDIANCE) 25 mg tablet Take 25 mg by mouth daily with dinner. Active glipiZIDE 10 mg oral tablet (9 sources) Sulfonylurea Start: 025 take 1 tablet by mouth twice daily Glipizide 10 mg tablet Active 10 mg PO TWICE A DAY August 01, 2024 12:00am take 5 mg by mouth twice daily g lipiZIDE (GLUCOTROL) 10 mg tablet Take 5 mg by mouth two times a day. Active take 1 tablet by gladino th every twelve hours as needed glipiZIDE (GLUCOTROL) 5 mg tablet Take 5 mg by mouth twice daily as needed. Active Comment on above: Take 5 mg by mouth t wice daily as needed. levothyroxine sodium 0.175 mg oral tablet (20 sources) l-Thyroxine Start: 03-03-2022 levothyroxine (SYNTHROID) 175 mcg tablet Take on tablet six days a week on an empty stomach 90 tablet 3 03/03/2022 Active Start: 08-11-2021 levothyroxine (SYNTHROID) 175 mcg tablet Take on tablet six days a week on an empty stomach 0 08/11/2021 Active Start: 05-24-2020 End: 08-11-2021 take 1 tablet by mouth once daily Levothyroxine 175 MCG tablet Active 175 ug PO DAILY May 24, 2020 1:00am Comment on above: Take 1 tablet by galdino th once daily. Take on empty stomach. For thyroid. Take on tablet six d ays a week on an empty stomach liothyronine sodium 0.005 mg oral tablet (9 sources) l-Triiodothyronine Start: take 1 tablet by mouth two times weekly Liothyronine 5 mcg tablet Active ug PO TWICE A WEEK August 01, 2024 12:00am take 1 tablet by mouth once benjie y liothyronine (CYTOMEL) 5 mcg tablet Take 5 mcg by mouth once daily. Active Comment on above: Take 5 mcg by mouth once daily. losartan potassium 100 mg oral tablet (20 sources) Angiotensin 2 Receptor Cong Start: 03-03-2022 take 1 tablet by mouth once daily losartan (COZAAR) 100 mg tablet Take 1 tablet by mouth once daily. 90 tablet 3 03/03/2022 Active Start: 05-24-2020 End: 08-06-2021 take 1 tablet by mouth once daily losartan (COZAAR) 100 mg tablet Take 1 tablet by mouth once daily. 90 tablet 3 03/03/2022 Active Comment on above: Take 1 tablet by galdino th once daily. multivit,calc,min/FA/K 1/lycop (ONE DAILY MEN'S HE[facility] ORAL) (8 sources) take 1 tablet by mouth once daily multivit,calc,min/FA /K1/lycop (ONE DAILY MEN'[facility] HE[facility] ORAL) Take 1 tablet by mouth once daily. Active take 1 tablet by galdino th once daily multivit,calc,min/FA/K1/lycop (ONE DAILY [facility] ORAL) Take 1 tablet by mouth once daily. 0 Active Comment on above: Take 1 tablet by galdino th once daily. 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 90 capsule 3 03/03/2022 Active Comment on above: Take 1 capsule by [facility] once daily. pioglitazone 45 mg oral tablet (20 sources) Peroxisome Proliferator Receptor alpha Agonist, Peroxisome Proliferator Receptor gamma Agonist, Thiazolidinedione Start: 022 End: 023 take 1 tablet by mouth once daily pioglitazone (ACTOS) 45 mg tablet Take 1 tablet by mouth once daily. 90 tablet 3 03/03/2022 Active Start: 09-08-2021 End: 12-07-2021 take 1 tablet by mouth once daily pioglitazone (ACTOS) 30 mg tablet Take 1 tablet by mouth once daily. 30 tablet 2 09/08/2021 10/09/2021 Discontinued Start: 08-11-2021 End: 09-08-2021 take 1 tablet by mouth once daily pioglitazone (ACTOS) 15 mg tablet Take 1 tablet by mouth once daily. 30 tablet 11 08/11/2021 09/08/2021 Discontinued Comment on above: Take 1 tablet by galdino th once daily. rivaroxaban 2.5 mg oral tablet (4 sources) Factor Xa Inhibitor Start: 08-01-2024 take 1 tablet by mouth once daily Rivaroxaban (Xarelto) 2.5 mg tablet Active 2.5 mg PO daily August 01, 2024 12:00am take 1 tablet by mouth twice lilia ly rivaroxaban (XARELTO) 2.5 mg tablet Take 2.5 mg by mouth two times a day. Active Selenium (1 source) Start: 06-16-2023 take 200 ug by mouth once daily Selenium Active 200 MCG PO DAILY June 16, 2023 12:00am selenium 200 mcg cap (6 sources) take 1 capsule by mouth once daily selenium 200 mcg cap Take 200 mcg by mouth once daily. Active take 1 capsule by mouth once lilia ly selenium 200 mcg cap Take 200 mcg by mouth once daily. 0 Active Comment on above: Take 200 mcg by mout h once daily. Selenium 200 mcg capsule (1 source) Start: take 1 capsule by mouth once daily Selenium 200 mcg capsule Active 200 ug PO DAILY June 16, 2023 12:00am semaglutide (OZEMPIC SUBCUTANEOUS) (3 sources) inject 1 mg by subcutaneous injection every week semaglutide (OZEMPIC SUBCUTANEOUS) Inject 1 mg subcutaneously one time a week. Active Semaglutide (Ozempic) 2 mg/dose (8 mg/3 mL) pen injector (1 source) Start: Semaglutide (Ozempic) 2 mg/dose (8 mg/3 mL) pen injector Active 2 mg SC EVERY WEEK August 01, 2024 12:00am semaglutide (OZEMPIC) 2 mg/dose (8 mg/3 mL) pen injector (1 source) inject 2 mg by subcutaneous injection every week semaglutide (OZEMPIC) 2 mg/dose (8 mg/3 mL) pen injector Inject 2 mg subcutaneously one time a week. Active spironolactone 25 mg oral tablet (20 sources) Aldosterone Antagonist Start: 022 End: 023 take 0.5 tablet by mouth once daily spironolactone (ALDACTONE) 25 mg tablet Indications: NSTEMI (non-ST elevated myocardial infarction) (HCC) , Essential hypertension, benign Take 0.5 tablets by mouth once daily. 45 tablet 3 03/03/2022 Active Start: 05-27-2020 End: 01-26-2021 Spironolactone 25 mg tablet Active 12.5 mg PO DAILY January 26, 2021 3:56pm Start: 05-27-2020 End: 01-26-2021 take 12.5 mg by mouth once daily Spironolactone Discontinued 12.5 MG PO DAILY June 11, 2020 10:04am January 26, 2021 3:56pm Comment on above: Take 0.5 tablets by mouth once daily. Completed/Discontinued Medications Medication Drug Class(es) Dates Sig (Normalized) Sig (Original) apixaban 5 mg oral tablet (20 sources) Factor Xa Inhibitor Start: 06-11-2020 End: 08-01-2024 take 1 tablet by mouth twice daily Apixaban (Eliquis) 5 mg tablet Discontinued 0 .ROUTE .COMPLEX 180 June 13, 2021 8:27am November 13, 2021 8:01am TAKE 1 TABLET BY MOUTH TWICE DAILY Start: 05-27-2020 End: 06-11-2020 take 2 tablets by mouth twice daily, then take 1 tablet by mouth twice daily Apixaban 5 MG tablet Discontinued 10 mg PO TWICE A DAY May 27, 2020 1:00am June 11, 2020 10:05am Take 10 mg twice a day for 6 days then take 5 mg twice a day. Start: 05-27-2020 End: 06-11-2020 take 10 mg by mouth twice daily, then take 5 mg by mouth twice daily Apixaban Discontinued 10 MG PO TWICE A DAY May 27, 2020 1:00am June 11, 2020 10:05am Take 10 mg twice a day for 6 days then take 5 mg twice a day. Comment on above: Take 1 tablet by galdino th twice daily. Take 5 mg by mouth t wice daily. 0.5 ml dulaglutide 1.5 mg/ml auto-injector (11 sources) GLP-1 Receptor Agonist Start: 12-24-2022 End: 08-01-2024 Dulaglutide (Trulicity) 0.75 mg/0.5 mL pen injector Discontinued 0.75 mg SC EVERY WEEK December 24, 2022 12:00am August 01, 2024 10:27am inject 1.5 mg by sub cutaneous injection every week dulaglutide (TRULICITY) 0.75 mg/0.5 mL p en injector Inject 1.5 mg subcutaneously one time a week. Active inject 0.75 mg by delgado bcutaneous injection every week dulaglutide (TRULICITY) 0.75 mg/0.5 mL p en injector Inject 0.75 mg subcutaneously one time a week. 0 Active Comment on above: Inject 0.75 mg subcu taneously one time a week. Inject 1.5 mg subcut aneously one time a week. glimepiride 4 mg oral tablet (20 sources) Sulfonylurea Start: 03-18-20 End: 08-02-19 take 1 tablet by mouth twice daily Glimepiride 4 mg tablet Discontinued 4 mg PO TWICE A DAY March 18, 2022 1:00am August 01, 2024 10:26am Start: 06-06-2021 End: 09-26-2024 take 2 tablets by mouth once daily at breakfast glimepiride (AMARYL) 4 mg tablet Indications: Type 2 diabetes mellitus without complication, without long-term current use of insulin (HCC) Take 2 tablets by mouth daily with breakfast. 180 tablet 3 03/03/2022 09/26/2024 Discontinued (Dosage adjustment) Start: 03-31-2021 End: 09-30-2021 take 6 mg by mouth once daily Glimepiride 4 mg tablet Discontinued 6 mg PO DAILY March 31, 2021 2:48pm September 30, 2021 1:01pm Start: 03-31-2021 End: 09-30-2021 take 6 mg by mouth once daily Glimepiride Discontinued 6 MG PO DAILY March 31, 2021 2:48pm September 30, 2021 1:01pm Start: 05-24-2020 End: 03-31-2021 take 1 tablet by mouth once daily Glimepiride 4 MG tablet Discontinued 4 mg PO DAILY May 24, 2020 1:00am March 31, 2021 2:49pm Comment on above: Take 2 tablets by [facility] daily with breakfast. hydroCHLOROthiazide 12.5 mg oral tablet (10 sources) Thiazide Diuretic Start: 2020 End: 2020 take 1 capsule by mouth once daily Hydrochlorothiazide 12.5 MG capsule Discontinued 12.5 mg PO DAILY May 24, 2020 1:00am May 27, 2020 12:44pm linagliptin 5 mg oral tablet (6 sources) Dipeptidyl Peptidase 4 Inhibitor Start: 2021 End: 2021 take 1 tablet by mouth once daily linaGLIPtin (TRADJENTA) 5 mg tab Indications: Type 2 diabetes mellitus without complication, without long-term current use of insulin (HCC) Take 1 tablet by mouth once daily. 30 tablet 1 06/13/2021 06/13/2021 Discontinued Comment on above: Take 1 tablet by galdino th once daily. 24 hr metFORMIN hydrochloride 500 mg extended release oral tablet (10 sources) Biguanide Start: 2020 End: 2021 Metformin 500 MG tablet extended release 24 hr Discontinued 1000 mg PO TWICE A DAY May 24, 2020 1:00am March 31, 2021 2:49pm Start: 05-24-2020 End: 03-31-2021 take 1000 mg by mouth twice daily Metformin Discontinued 1000 MG PO TWICE A DAY May 24, 2020 1:00am March 31, 2021 2:49pm [facility] (3 sources) Start: 12-24-2022 End: 06-16-2023 [facility] Discon tinued PO December 24, 2022 12:00am June 16, 2023 9:29am Start: 12-24-2022 [facility] Active PO December 24, 2022 12:00am ticagrelor 90 mg oral tablet (20 sources) Start: 05-27-2020 End: 09-30-2021 take 1 tablet by mouth twice daily Ticagrelor (Brilinta) 90 mg tablet Discontinued 0 .ROUTE .COMPLEX 180 June 13, 2021 8:26am September 30, 2021 1:01pm TAKE 1 TABLET BY MOUTH TWICE DAILY Problems Active Problems Problem Classification Problem Date Documented Da te Episodic/Chronic Abdominal pain (10 sources) Left flank pain; Translations: [Unspecified abdominal pain] 03-18-2022 Episodic Acquired foot deformities (3 sources) Acquired hallux valgus; Translations: [Hallux valgus (acquired), unspecified foot] Chronic Acute myocardial infarction (20 sources) Myocardial infarction; Translations: [Non-ST elevation (NSTEMI) myocardial infarction] Onset: 06-06-2020 06-06-2020 Chronic Aortic; peripheral; and visceral artery aneurysms (15 sources) Aneurysm of ascending aorta; Translations: [Ascending aortic aneurysm] Chronic Comment on above: The patient 2021 CTA evaluation showed thoracic aorta of 42mm Cardiac dysrhythmias (12 sources) Bradycardia; Translations: [Bradycardia, unspecified] Episodic Chronic kidney disease (14 sources) Chronic kidney disease stage 3B ; Translations: [Stage 3b chronic kidney disease (HCC)] Chronic Coronary atherosclerosis and other heart disease (14 sources) Coronary arteriosclerosis; Translations: [Atherosclerotic heart disease of [place] coronary artery without angina pectoris] Onset: 08-01-2024 Chronic Comment on above: Status post stenting of the left anterior descending mid and distal segments in 2020. The patient is on secondary risk factor modification therapy patient will maintain on aspirin 81 mg daily long-term. 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] Onset: 09-11-2019 09-11-2019 Chronic Essential hypertension (20 sources) Benign essential hypertension; Translations: [Essential (primary) hypertension] 09-14-2005 Chronic Genitourinary symptoms and ill-defined conditions (10 sources) Blood in urine; Translations: [Hematuria, unspecified] 03-18-2022 Episodic Hyperplasia of prostate (20 sources) Benign prostatic hypertrophy with outflow obstruction; Translations: [Benign prostatic hyperplasia with lower urinary tract symptoms] Onset: 09-16-2007 08-28-2015 Chronic Mycoses (10 sources) Onychomycosis; Translations: [Tinea unguium] Onset: 01-02-2025 Episodic Other connective tissue disease (9 sources) Pain of toe of left foot; Translations: [Pain in left toe(s)] Episodic Other connective tissue disease (9 sources) Pain of toe of right foot; Translations: [Pain in right toe(s)] Episodic Other connective tissue disease (1 source) Pain in left toe(s); Translations: [Pain in toe of left foot] Onset: 01-02-2025 Episodic Other connective tissue disease (1 source) Pain in right toe(s); Translations: [Pain in toe of right foot] Onset: 01-02-2025 Episodic Other ear and sense organ disorders (1 source) Impacted cerumen of bilateral ears; Translations: [Impacted cerumen, bilateral] Episodic Other lower respiratory disease (10 sources) Other nonspecific abnormal finding of lung field; Translations: [Ground glass opacity present on imaging of lung] 09-20-2020 Episodic Other nutritional; endocrine; and metabolic disorders (20 sources) Obese class I; Translations: [Obesity, unspecified] Onset: 03-16-2017 03-16-2017 Chronic Other nutritional; endocrine; and metabolic disorders (10 sources) Obesity; Translations: [Obesity, unspecified] 05-24-2020 Chronic Other skin disorders (3 sources) Keratosis; Translations: [Epidermal thickening, unspecified] Episodic Other skin disorders (1 source) Epidermal thickening, unspecified; Translations: [Hyperkeratosis] Onset: 01-02-2025 Episodic Pulmonary heart disease (11 sources) Saddle embolus of pulmonary artery; Translations: [Saddle embolus of pulmonary artery without acute cor pulmonale] Chronic Thyroid disorders (20 sources) Hypothyroidism; Translations: [Hypothyroidism, unspecified] 03-27-2015 Chronic Past or Other Problems Problem Classification Problem Date Documented Da te Episodic/Chronic Acquired foot deformities (20 sources) Acquired bilateral pes planus; Translations: [Flat foot [pes planus] (acquired), right foot] Onset: 09-13-2017 09-13-2017 Episodic Coronary atherosclerosis and other heart disease (13 sources) Stented coronary artery; Translations: [Presence of coronary angioplasty implant and graft] Onset: 04-29-2020 Episodic Comment on above: Successful JAQUAN to mi d and distal LAD per cardiac cath 05/25/20 Intestinal obstruction without hernia (20 sources) Large bowel obstruction; Translations: [Unspecified intestinal obstruction, unspecified as to partial versus complete obstruction] Onset: 01-28-2021 01-28-2021 Episodic Other and unspecified benign neoplasm (20 sources) Tubular adenoma of colon; Translations: [Benign neoplasm of colon, unspecified] Onset: 09-11-2019 09-11-2019 Episodic Other gastrointestinal disorders (20 sources) Occult blood in stools; Translations: [Other fecal abnormalities] Onset: 03-13-2019 03-13-2019 Episodic Other screening for suspected conditions (not mental disorders or infectious disease) (20 sources) Patient encounter status; Translations: [Encounter for screening for malignant neoplasm of colon] Onset: 09-16-2007 09-16-2007 Episodic Other skin disorders (20 sources) Foot callus; Translations: [Corns and callosities] Onset: 09-13-2017 09-13-2017 Episodic Pulmonary heart disease (20 sources) Pulmonary embolism; Translations: [Other pulmonary embolism without acute cor pulmonale] Onset: 06-06-2020 06-06-2020 Episodic Results Test Name Value Interpretation Reference Range Facility CBC W/Diff, Automatedon 10- Absolute Lymph 3.60 X10 3/uL Normal 0.83-4.51 [facility] Comment on above: Performed By: #### L [id number], [id number], L100.0100 #### [facility] [address] [place], [address] Absolute Neut 6.0 X10 3/uL Normal 2.0-7.7 [facility] Comment on above: Performed By: #### L [id number], [id number], [id number] #### [facility] [address] [facility], [address] Basophils/100 WBC (Bld) 0.8 % Normal 0-1 [facility] Comment on above: Performed By: #### L [id number], [id number], [id number] #### [facility] [address] [facility], [address] Eosinophils/100 WBC (Bld) 1.9 % Normal 0-5 [facility] Comment on above: Performed By: #### L [id number], [id number], [id number] #### [facility] [address] [place], [address] Erythrocyte distribution width (RBC) [Ratio] 13.4 % Normal 11.6-14.6 [facility] Comment on above: Performed By: #### L [id number], [id number], [id number] #### [facility] [address] [place], [address] Hematocrit (Bld) [Volume fraction] 44.3 % Normal 40-54 [facility] Comment on above: Performed By: #### L [id number], [id number], [id number] #### [facility] [address] [place], [address] Hemoglobin (Bld) [Mass/Vol] 14.2 g/dL Normal 13.0-16.5 [facility] Comment on above: Performed By: #### L [id number], [id number], [id number] #### [facility] [address] [place], [address] IG% 0.300 Normal 0.0-0.9 [facility] Comment on above: Result Comment: IG% - Immature Granulocytes (promyelocytes, myelocytes and metamyelocytes) > 1% indicates that a LEFT SHIFT is Present. Performed By: #### L [id number], [id number], [id number] #### [facility] [address] [place], [address] Lymphocytes/100 WBC (Bld) 33.1 % Normal 19-41 [facility] Comment on above: Performed By: #### L [id number], [id number], [id number] #### [facility] [address] [place], [place], [address] MCH (RBC) [Entitic mass] 29.3 pg Normal 27.0-32.0 [facility] Comment on above: Performed By: #### L 501.9985, L500.4050, L100.0100 #### [facility] [address] [place], [address] MCHC (RBC) [Mass/Vol] 32.1 g/dL Normal 32-36 [facility] Comment on above: Performed By: #### L 501.9985, L500.4050, L100.0100 #### [facility] [address] [place], [address] MCV (RBC) [Entitic vol] 91.5 fL Normal 80-94 [facility] Comment on above: Performed By: #### L 501.9985, L500.4050, L100.0100 #### [facility] [address] [place], [address] Monocytes/100 WBC (Bld) 8.9 % Normal 0-10 [facility] Comment on above: Performed By: #### L 501.9985, L500.4050, L100.0100 #### [facility] [address] [place], [address] Neutrophils/100 WBC (Bld) 55.0 % Normal 47-70 [facility] Comment on above: Performed By: #### L 501.9985, L500.4050, L100.0100 #### [facility] [address] [place], [address] Nucleated RBC (Bld) [#/Vol] 0 10*3/uL Normal 0-5 [facility] Comment on above: Performed By: #### L 501.9985, L500.4050, L100.0100 #### [facility] [address] [place], [address] Platelet mean volume (Bld) [Entitic vol] 11.1 fL Normal 6.2-12.0 [facility] Comment on above: Performed By: #### L 501.9985, L500.4050, L100.0100 #### [facility] [address] [place], [address] Platelets (Bld) [#/Vol] 206 10*3/uL Normal 150-450 [facility] Comment on above: Performed By: #### L 501.9985, L500.4050, L100.0100 #### [facility] [address] [place], [address] RBC (Bld) [#/Vol] 4.84 10*6/uL Normal 4.6-6.2 [facility] Comment on above: Performed By: #### L 501.9985, L500.4050, L100.0100 #### [facility] [address] [place], [address] RDW SD 45.2 fl High 35.1-43.9 [facility] Comment on above: Performed By: #### L 501.9985, L500.4050, L100.0100 #### [facility] [address] [place], [address] WBC (Bld) [#/Vol] 10.9 10*3/uL Normal 4.4-11.0 [facility] Comment on above: Performed By: #### L 501.9985, L500.4050, L100.0100 #### [facility] [address] [place], [address] Comprehensive Metabolic Prof [place] 01-12-2025 Albumin [Mass/Vol] 4.0 g/dL Normal 3.4-4.8 [facility] Comment on above: Performed By: #### L 501.9985, L500.4050, L100.0100 #### [facility] [address] [place], [address] Albumin/Globulin [Mass ratio] 1.5 {ratio} Normal 0.9-2.4 [facility] Comment on above: Performed By: #### L 501.9985, L500.4050, L100.0100 #### [facility] [address] [place], [address] ALK PHOS 91 U/L Normal 40-129 [facility] Comment on above: Performed By: #### L 501.9985, L500.4050, L100.0100 #### [facility] [address] [place], [address] ALT [Catalytic activity/Vol] 12 U/L Normal <=46 [facility] Comment on above: Performed By: #### L 501.9985, L500.4050, L100.0100 #### [facility] [address] [place], [address] AST [Catalytic activity/Vol] 19 U/L Normal <=37 [facility] Comment on above: Performed By: #### L 501.9985, L500.4050, L100.0100 #### [facility] [address] [place], [address] Bilirubin [Mass/Vol] 0.80 mg/dL Normal 0.00-1.30 [place] Comment on above: Performed By: #### L 501.9985, L500.4050, L100.0100 #### [facility] [address] [place], [address] BUN/CRE 17.9 RATIO Normal 10-20 [facility] Comment on above: Performed By: #### L 501.9985, L500.4050, L100.0100 #### [facility] [address] [place], [address] Calcium [Mass/Vol] 9.0 mg/dL Normal 7.6-11.0 [facility] Comment on above: Performed By: #### L 501.9985, L500.4050, L100.0100 #### [facility] [address] [place], [address] Chloride [Moles/Vol] 106 mmol/L Normal 98-108 [place] Comment on above: Performed By: #### L 501.9985, L500.4050, L100.0100 #### [facility] [address] [place], [address] CO2 [Moles/Vol] 21.6 mmol/L Normal 21.0-32.0 [facility] Comment on above: Performed By: #### L 501.9985, L500.4050, L100.0100 #### [facility] [address] [place], [address] Creatinine [Mass/Vol] 1.19 mg/dL Normal 0.70-1.20 [facility] Comment on above: Performed By: #### L 501.9985, L500.4050, L100.0100 #### [facility] [address] [place], [address] GAP 11 Normal 5-15 [facility] Comment on above: Performed By: #### L 501.9985, L500.4050, L100.0100 #### [facility] [address] [place], [address] GFR/1.73 sq M.predicted among non-blacks MDRD (S/P/Bld) [Vol rate/Area] 63 mL/min/{1.73_m2} Normal >60 [facility] Comment on above: Result Comment: mL/m in/1.73m2 CKD-EPI Creatinine Equation (2020) Performed By: #### L 501.9985, L500.4050, L100.0100 #### [facility] [address] [place], [address] Globulin (S) [Mass/Vol] 2.7 g/dL Normal 2.2-4.2 [facility] Comment on above: Performed By: #### L 501.9985, L500.4050, L100.0100 #### [facility] [address] [place], [address] Glucose [Mass/Vol] 116 mg/dL High 70-99 [facility] Comment on above: Performed By: #### L 501.9985, L500.4050, L100.0100 #### [facility] [address] [place], [address] Potassium [Moles/Vol] 4.1 mmol/L Normal 3.3-5.1 [facility] Comment on above: Performed By: #### L 501.9985, L500.4050, L100.0100 #### [facility] [address] [place], [address] Sodium [Moles/Vol] 138 mmol/L Normal 133-145 [facility] Comment on above: Performed By: #### L 501.9985, L500.4050, L100.0100 #### [facility] [address] [place], [address] T PROT 6.7 g/dL Normal 5.9-8.4 [facility] Comment on above: Performed By: #### L 501.9985, L500.4050, L100.0100 #### [facility] [address] [place], [address] Urea nitrogen [Mass/Vol] 21 mg/dL High 4-19 [facility] Comment on above: Performed By: #### L 501.9985, L500.4050, L100.0100 #### [facility] [address] [place], [address] Hemoglobin A1con 01-12-2025 HbA1c (Bld) [Mass fraction] 7.0 % High <=5.6 [facility] Comment on above: Result Comment: Norm al < 5.7 % Prediabetic 5.7 - 6.4 % Diabetic >or= 6.5 % Please note range changes. Performed By: #### L 501.9985, L500.4050, L100.0100 #### [facility] [address] [place], [address] Lipid Profileon 01-12-2025 CHOL:HDL 3.77 Normal [facility] Comment on above: Performed By: #### L 501.9985, L500.4050, L100.0100 #### [facility] [address] [place], [address] Cholesterol [Mass/Vol] 126 mg/dL Normal <=200 [facility] Comment on above: Result Comment: Chol esterol level, Desirable <200 mg/dL Borderline high cholesterol 200-239 mg/dL High cholesterol >=240 mg/dL Recommendations of the NCEP Adult Treatment Panel for the following risk-cutoff thresholds for the [place] population. Performed By: #### L 501.9985, L500.4050, L100.0100 #### [facility] [address] [place], [address] Cholesterol in HDL [Mass/Vol] 33 mg/dL Low [facility] Comment on above: Result Comment: Angelita onal Cholesterol Education Program (NCEP) guidelines: <40 mg/dL: Low HDL-cholesterol (major risk factor for CHD) >= 60 mg/dL: High HDL-cholesterol (negative risk factor for CHD) HDL-cholesterol is affected by a number of factors, e.g. smoking, exercise, hormones, sex and age. Performed By: #### L 501.9985, L500.4050, L100.0100 #### [facility] [address] [place], [address] Cholesterol in LDL [Mass/Vol] 60 mg/dL Normal [facility] Comment on above: Result Comment: Bord ampuuc=456-850 mg/dL Higher Qrvf=459 mg/dL or greater Friedwald Equation for LDL-C Performed By: #### L 501.9985, L500.4050, L100.0100 #### [facility] [address] [place], [address] Cholesterol in VLDL [Mass/Vol] 32 mg/dL Normal 5-40 [facility] Comment on above: Performed By: #### L 501.9985, L500.4050, L100.0100 #### [facility] [address] [place], [address] Triglyceride [Mass/Vol] 161 mg/dL Normal [facility] Comment on above: Result Comment: The drugs N-Acetylcysteine and Metamizole may falsely depress this assay. Normal range: <150 mg/dL Borderline High: 150-199 mg/dL High: 200-499 mg/dL Very High: >500 mg/dL Performed By: #### L 501.9985, L500.4050, L100.0100 #### [facility] [address] [place], [address] Microalb:Creat Ratio,Random URon 01-12-2025 MALB:CREAT Normal <30 mg/g CRE [facility] Comment on above: Result Comment: DIDN T GIVE ENOUGH Performed By: #### L 501.9985, L500.4050, L100.0100 #### [facility] [address] [place], [address] MICROALBUMIN,UR Normal <20 mg/L [facility] Comment on above: Result Comment: DIDN T GIVE ENOUGH Performed By: #### L 501.9985, L500.4050, L100.0100 #### [facility] [address] [place], [address] UR CREAT Normal 39.00-259.00 [facility] Comment on above: Result Comment: DIDN T GIVE ENOUGH Performed By: #### L 501.9985, L500.4050, L100.0100 #### [facility] [place], [address] OVon 01-02-2025 CNOV Office Visit (PODIWS) NEETU GOMEZ ([id number]) 1945 M Date Time Provider Department 01/02/25 9:30 AM HARRY WOOD PODIWS During your visit today, we recorded the following information about you: Harry Wood 01/02/2025 9:32 AM Signed Diabetes Foot Care Instructions When you have diabetes, proper foot care is very important. Poor foot care may lead to amputation of a foot or leg. As a person with diabetes, you are more vulnerable to foot problems, because diabetes can damage your nerves and reduce blood flow to your feet. Here are some diabetes foot care tips to follow: Wash and Dry Your Feet Daily Use mild soaps Use warm water Pat your skin dry; do not rub. Thoroughly dry your feet. After washing, use lotion on your feet to prevent cracking. Do not put lotion between your toes. Examine Your Feet Each Day Check the tops and bottoms of your feet. Have someone else look at your feet if you cannot see them. Check for dry, cracked skin. Look for blisters, cuts, scratches, or other sores. Check for redness, increased warmth, or tenderness when touching any area of your feet. Check for ingrown toenails, corns, and calluses. If you get a blister or sore from your shoes, do not "pop" it. Apply a bandage and wear a different pair of shoes. Take Care of Your Toenails Cut toenails after bathing, when they are soft. Cut toenails straight across and smooth with a nail file. Avoid cutting into the corners of toes. Do not cut cuticles. If you have neuropathy (or decreased sensation in your feet) a splicing supervisor should always cut your toenails. Be Careful When Exercising Walk and exercise in comfortable shoes. Do not exercise when you have open sores on your feet. Protect Your Feet With Shoes and Socks Never go barefoot. Always protect your feet by wearing shoes or hard-soled slippers or footwear. Avoid shoes with high heels and pointed toes. Avoid shoes that expose your toes or heels (such as open-toed shoes or sandals). These types of shoes increase your risk for injury and potential infections. Try on new footwear with the type of socks you usually wear. Do not wear new shoes for more than an hour at a time. Change your socks daily. Look and feel inside your shoes before putting them on to make sure there are no foreign objects or rough areas. Avoid tight socks. Wear natural-fiber socks (cotton, wool, or a cotton-wool blend). Wear special shoes if your health care provider recommends them. Wear shoes/boots that will protect your feet from various weather conditions (cold, moisture, etc.). Make sure your shoes fit properly. If you have neuropathy (nerve damage), you may not notice that your shoes are too tight. Perform the footwear test described below. Footwear Test Use this simple test to see if your shoes fit correctly: Stand on a piece of paper. (Make sure you are standing and not sitting, because your foot changes shape when you stand.) Trace the outline of your foot. Trace the outline of your shoe. Compare the tracings: Is the shoe too narrow? Is your foot crammed into the shoe? The shoe should be at least 1/2 inch longer than your longest toe and as wide as your foot. Proper Shoe Choices The following types of shoes are best for people with diabetes Closed toes and heels Leather uppers without a seam inside At least 1/2 inch extra space at the end of your longest toe Inside of shoe should be soft with no rough areas Outer sole should be made of stiff material Shoes should be at least as wide as your feet Tips for Foot Care in Diabetes Don't wait to treat a minor foot problem if you have diabetes. Follow your health care provider's guidelines and first aid guidelines. Report foot injuries and infections to your health care provider immediately. Check water temperature with your elbow, not your foot. Do not use a heating pad on your feet. Do not cross your legs. Do not self-treat your corns, calluses, or other foot problems. Go to your health care provider or splicing supervisor to treat these conditions. Harry Wood 01/02/2025 10:37 AM Signed Last saw pcp: not in chart Subjective: Patient presents to clinic c/o painful toenails. They state that the nails are especially painful with shoe gear and pressure. Patient states that nails 1-5 b/l are painful. Patient admits to being diabetic. No other pedal complaints at this time. Patient states no change in medications or medical history since last visit. Objective: Patient presents to clinic ambulating in nike Vasc: DP and PT pulses are palpable bilateral. CFT is less than 5 seconds bilateral. Skin temperature is warm to cool proximal to distal bilateral. There is mild edema or varicosities noted. Neuro: Protective sensation is absent to the foot and toes when tested with the 5.07 SWM bilateral. Vibra (more content not included)... Normal [facility] CNOVon 09-26-2024 CNOV Office Visit (PODIWS) NEETU GOMEZ ([id number]) 1945 M Date Time Provider Department 09/26/24 9:00 AM HARRY WOOD PODIWS During your visit today, we recorded the following information about you: Zaria Oakley LPN 09/26/2024 9:11 AM Signed AMB ROOMING INTAKE FLOWSHEET DATA Risk Screening Do you have concerns about personal safety or safety in the home?: No Patient presents with: Left Foot - Established Patient, Follow Up, Diabetic Foot Care Right Foot - Established Patient, Follow Up, Diabetic Foot Care PJ Arrieta Matthew 09/26/2024 9:11 AM Signed Last saw pcp: 09/02/23 Subjective: Patient presents to clinic c/o painful toenails. They state that the nails are especially painful with shoe gear and pressure. Patient states that nails 1-5 b/l are painful. Patient admits to being diabetic. No other pedal complaints at this time. Patient states no change in medications or medical history since last visit. Objective: Patient presents to clinic ambulating in [facility] Vasc: DP and PT pulses are palpable bilateral. CFT is less than 5 seconds bilateral. Skin temperature is warm to cool proximal to distal bilateral. There is no edema or varicosities noted. Neuro: Protective sensation is decreased to the foot and toes when tested with the 5.07 SWM bilateral. Vibratory sensation is decreased at the hallux IPJ bilateral. The hallux is downgoing bilateral. Derm: Nails 1-5 b/l are painful discolored-yellow, thick, crumbly, dystrophic and with subungal debris. Skin is of normal turgor, texture and hair growth is decreased bilateral. There are callus to b/l hallux and b/l 1st metatarsal Ortho: Muscle strength is 5/5 for all pedal groups tested. Ankle joint DF is decreased with the knee extended with no pain or crepitus noted. 1st MPJ ROM is decreased bilateral. Bunion deformity is noted to b/l feet. Assessment: (B35.1) Onychomycosis (primary encounter diagnosis) (M79.675) Pain in toe of left foot (M79.674) Pain in toe of right foot (E08.42) 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 ([facility]) Hallux valgus (L85.9) Hyperkeratosis Plan: Patient was seen and evaluated. Nails 1-5 bilateral were debrided in length and thickness. Callus reduced to b/l feet with dremmel. Continue with wider shoes for bunion. Discussed diabetic shoes. Patient declined. Patient was instructed on the continued importance of diabetic foot care along with proper diet and keeping their blood sugar under control to prevent complications. I stressed the importance of avoiding barefoot walking, wearing good shoes and inspection of feet. Patient is to RTC in 3-4 months. Harry Wood DPM Referring Provider: HARRY WOOD [[id number]] Allergies As of Date: 09/26/2024 Noted Allergy Reaction MONOPRIL (FOSINOPRIL) 09/26/2024 14 - Other: See Comments Date Reviewed: 09/26/2024 Reviewed by: Zaria Oakley LPN - Fully Assessed Reason for Visit: Established Patient [175] Follow Up [171] Diabetic Foot Care [916] Established Patient [175] Follow Up [171] Diabetic Foot Care [916] Primary Visit Diagnosis:Onychomyco sis [B35.1] Other Visit Diagnoses:Pain in toe of left foot [M79.675] Pain in toe of right foot [M79.674] 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 (HCC) [E08.42] Hyperkeratosis [L85.9] Prescriptions as of 09/26/2024 - empagliflozin (JARDIANCE) 25 mg tablet Take 25 mg by mouth daily with dinner. - rivaroxaban (XARELTO) 2.5 mg tablet Take 2.5 mg by mouth two times a day. - semaglutide (OZEMPIC) 2 mg/dose (8 mg/3 mL) pen injector Inject 2 mg subcutaneously one time a week. - selenium 200 mcg cap Take 200 mcg by mouth once daily. - dulaglutide (TRULICITY) 0.75 mg/0.5 mL pen injector Inject 1.5 mg subcutaneously one time a week. - apixaban (ELIQUIS) 5 mg tab(s) Take 5 mg by mouth twice daily. - multivit,calc,min/FA /K1/lycop (ONE DAILY MEN'S HEALTH ORAL) Take 1 tablet by mouth once daily. - glipiZIDE (GLUCOTROL) 10 mg tablet Take 5 mg by mouth two times a day. - liothyronine (CYTOMEL) 5 mcg tablet Take 5 mcg by mouth once daily. - losartan (COZAAR) 100 mg tablet Take 1 tablet by mouth once daily. - omeprazole (PRILOSEC) 40 mg capsule Take 1 capsule by mouth once daily. - levothyroxine (SYNTHROID) 175 mcg tablet Take on tablet six days a week on an empty stomach - atenolol (TENORMIN) 50 mg tablet Take 1 tablet by mouth once daily. - amLODIPine (NORVASC) 10 mg tablet Take 1 tablet by mouth once daily. - pioglitazone (ACTOS) 45 mg tablet Take 1 tablet by mouth once daily. - atorvastatin (LIPITOR) 40 mg tablet Take 1 tablet by mouth once daily. For cholesterol. - spironolactone (ALDACTONE) 25 mg tablet Take 0.5 tablets by mouth once daily. - dapagliflozin (FARXIGA) 5 mg tablet (more content not included)... Normal [facility] Absolute lymphocyte countOrd ered By: Javier Oakley on 09-14-2024 Lymphocytes Auto (Unsp spec) [#/Vol] 3.19 10*3/uL 0.83-4.51 [facility] Absolute neutrophil countOrd ered By: Javier Oakley on 09-14-2024 Neutrophils (Bld) [#/Vol] 5.5 10*3/uL 2.0-7.7 [facility] Anion gap in Serum or Plasma Ordered By: Javier Oakley on 09-14-2024 Anion gap [Moles/Vol] 11 mmol/L 5- [facility] Automated lymphocyte count a s percentage of total leukocytesOrdered By: Javier Oakley on 09-14-2024 Lymphocytes/100 WBC Auto (Unsp spec) 32.6 % - [facility] BUN/creatinine ratioOrdered By: Javier Oakley on 09-14-2024 Urea nitrogen/Creatinine [Mass ratio] 15.0 mg/mg 01-15 [facility] Basophil percentageOrdered B y: Javier Oakley on 09-14-2024 Basophils/100 WBC (Bld) 0.9 % 0-1 [facility] Bilirubin directOrdered By: Javier Oakley on 09-14-2024 Bilirubin.direct [Mass/Vol] 0.25 mg/dL 0.00-0.30 [facility] Bilirubin, Directon 09-15-19 25 Bilirubin.direct [Mass/Vol] 0.25 mg/dL Normal 0.00-0.30 [facility] Comment on above: Order Comment: DR.SM MORENO ORDERED CMP,CBCD,A1C,MIACRE ORDERED LIVER, LIPID ORDERED RENAL,CBC,PTH,VITD,PROCRE Performed By: #### L 501.9985, L500.4050, L100.0100 #### [facility] [address] [place], [address] Bilirubin, totalOrdered By: Javier Oakley on 09-14-2024 Bilirubin [Mass/Vol] 0.63 mg/dL 0.00-1.30 [place] CBC W/Diff, Automatedon 08-27 Absolute Lymph 3.19 X10 3/uL Normal 0.83-4.51 [facility] Comment on above: Order Comment: DR.SM MORENO ORDERED CMP,CBCD,A1C,MIACRE ORDERED LIVER, LIPID ORDERED RENAL,CBC,PTH,VITD,PROCRE Performed By: #### L 501.9985, L500.4050, L100.0100 #### [facility] [address] [place], [address] Absolute Neut 5.5 X10 3/uL Normal 2.0-7.7 [facility] Comment on above: Order Comment: DR.SM MORENO ORDERED CMP,CBCD,A1C,MIACRE ORDERED LIVER, LIPID ORDERED RENAL,CBC,PTH,VITD,PROCRE Performed By: #### L 501.9985, L500.4050, L100.0100 #### [facility] [address] [place], [address] Basophils/100 WBC (Bld) 0.9 % Normal 0-1 [facility] Comment on above: Order Comment: DR.SM MORENO ORDERED CMP,CBCD,A1C,MIACRE ORDERED LIVER, LIPID ORDERED RENAL,CBC,PTH,VITD,PROCRE Performed By: #### L 501.9985, L500.4050, L100.0100 #### [facility] [address] [facility] [place], [address] Eosinophils/100 WBC (Bld) 2.4 % Normal 0-5 [facility] Comment on above: Order Comment: DR.SM MORENO ORDERED CMP,CBCD,A1C,MIACRE ORDERED LIVER, LIPID ORDERED RENAL,CBC,PTH,VITD,PROCRE Performed By: #### L 501.9985, L500.4050, L100.0100 #### [facility] [address] [place], [address] Erythrocyte distribution width (RBC) [Ratio] 13.4 % Normal 11.6-14.6 [facility] Comment on above: Order Comment: DR.SM MORENO ORDERED CMP,CBCD,A1C,MIACRE ORDERED LIVER, LIPID ORDERED RENAL,CBC,PTH,VITD,PROCRE Performed By: #### L 501.9985, L500.4050, L100.0100 #### [facility] [address] [facility], [address] Hematocrit (Bld) [Volume fraction] 41.9 % Normal 40-54 [facility] Comment on above: Order Comment: DR.SM MORENO ORDERED CMP,CBCD,A1C,MIACRE ORDERED LIVER, LIPID ORDERED RENAL,CBC,PTH,VITD,PROCRE Performed By: #### L 501.9985, L500.4050, L100.0100 #### [facility] [address] [place], [address] Hemoglobin (Bld) [Mass/Vol] 13.9 g/dL Normal 13.0-16.5 [facility] Comment on above: Order Comment: DR.SM MORENO ORDERED CMP,CBCD,A1C,MIACRE ORDERED LIVER, LIPID ORDERED RENAL,CBC,PTH,VITD,PROCRE Performed By: #### L 501.9985, L500.4050, L100.0100 #### [facility] [address] [facility], [address] IG% 0.300 Normal 0.0-0.9 [facility] Comment on above: Order Comment: DR.SM MORENO ORDERED CMP,CBCD,A1C,MIACRE ORDERED LIVER, LIPID ORDERED RENAL,CBC,PTH,VITD,PROCRE Result Comment: IG% - Immature Granulocytes (promyelocytes, myelocytes and metamyelocytes) > 1% indicates that a LEFT SHIFT is Present. Performed By: #### L 501.9985, L500.4050, L100.0100 #### [facility] [address] [place], [address] Lymphocytes/100 WBC (Bld) 32.6 % Normal 19-41 [facility] Comment on above: Order Comment: DR.SM MORENO ORDERED CMP,CBCD,A1C,MIACRE ORDERED LIVER, LIPID ORDERED RENAL,CBC,PTH,VITD,PROCRE Performed By: #### L 501.9985, L500.4050, L100.0100 #### [facility] [address] [facility] [place], [address] MCH (RBC) [Entitic mass] 30.3 pg Normal 27.0-32.0 [facility] Comment on above: Order Comment: DR.SM MORENO ORDERED CMP,CBCD,A1C,MIACRE ORDERED LIVER, LIPID ORDERED RENAL,CBC,PTH,VITD,PROCRE Performed By: #### L 501.9985, L500.4050, L100.0100 #### [facility] [address] [facility] [place], [address] MCHC (RBC) [Mass/Vol] 33.2 g/dL Normal 32-36 [facility] Comment on above: Order Comment: DR.SM MORENO ORDERED CMP,CBCD,A1C,MIACRE ORDERED LIVER, LIPID ORDERED RENAL,CBC,PTH,VITD,PROCRE Performed By: #### L 501.9985, L500.4050, L100.0100 #### [facility] [address] [facility], [address] MCV (RBC) [Entitic vol] 91.5 fL Normal 80-94 [facility] Comment on above: Order Comment: DR.SM MORENO ORDERED CMP,CBCD,A1C,MIACRE ORDERED LIVER, LIPID ORDERED RENAL,CBC,PTH,VITD,PROCRE Performed By: #### L 501.9985, L500.4050, L100.0100 #### [facility] [address] [place], [address] Monocytes/100 WBC (Bld) 8.1 % Normal 0-10 [facility] Comment on above: Order Comment: DR.SM MORENO ORDERED CMP,CBCD,A1C,MIACRE ORDERED LIVER, LIPID ORDERED RENAL,CBC,PTH,VITD,PROCRE Performed By: #### L 501.9985, L500.4050, L100.0100 #### [facility] [address] [facility], [address] Neutrophils/100 WBC (Bld) 55.7 % Normal 47-70 [facility] Comment on above: Order Comment: DR.SM MORENO ORDERED CMP,CBCD,A1C,MIACRE ORDERED LIVER, LIPID ORDERED RENAL,CBC,PTH,VITD,PROCRE Performed By: #### L 501.9985, L500.4050, L100.0100 #### [facility] [address] [facility], [address] Nucleated RBC (Bld) [#/Vol] 0 10*3/uL Normal 0-5 [facility] Comment on above: Order Comment: DR.SM MORENO ORDERED CMP,CBCD,A1C,MIACRE ORDERED LIVER, LIPID ORDERED RENAL,CBC,PTH,VITD,PROCRE Performed By: #### L 501.9985, L500.4050, L100.0100 #### [facility] [address] [facility], [address] Platelet mean volume (Bld) [Entitic vol] 10.9 fL Normal 6.2-12.0 [facility] Comment on above: Order Comment: DR.SM MORENO ORDERED CMP,CBCD,A1C,MIACRE ORDERED LIVER, LIPID ORDERED RENAL,CBC,PTH,VITD,PROCRE Performed By: #### L 501.9985, L500.4050, L100.0100 #### [facility] [address] [place], [address] Platelets (Bld) [#/Vol] 206 10*3/uL Normal 150-450 [facility] Comment on above: Order Comment: DR.SM MORENO ORDERED CMP,CBCD,A1C,MIACRE ORDERED LIVER, LIPID ORDERED RENAL,CBC,PTH,VITD,PROCRE Performed By: #### L 501.9985, L500.4050, L100.0100 #### [facility] [address] [place], [address] RBC (Bld) [#/Vol] 4.58 10*6/uL Low 4.6-6.2 [facility] Comment on above: Order Comment: DR.SM MORENO ORDERED CMP,CBCD,A1C,MIACRE ORDERED LIVER, LIPID ORDERED RENAL,CBC,PTH,VITD,PROCRE Performed By: #### L 501.9985, L500.4050, L100.0100 #### [facility] [address] [place], [address] RDW SD 45.4 fl High 35.1-43.9 [facility] Comment on above: Order Comment: DR.SM MORENO ORDERED CMP,CBCD,A1C,MIACRE ORDERED LIVER, LIPID ORDERED RENAL,CBC,PTH,VITD,PROCRE Performed By: #### L 501.9985, L500.4050, L100.0100 #### [facility] [address] [place], [address] WBC (Bld) [#/Vol] 9.8 10*3/uL Normal 4.4-11.0 [facility] Comment on above: Order Comment: DR.SM MORENO ORDERED CMP,CBCD,A1C,MIACRE ORDERED LIVER, LIPID ORDERED RENAL,CBC,PTH,VITD,PROCRE Performed By: #### L 501.9985, L500.4050, L100.0100 #### [facility] [address] [place], [address] Calculated very low density lipoprotein (VLDL) cholesterol measurementOrdered By: Jose Roberto Mendoza on 09-14-2024 Calculated very low density lipoprotein (VLDL) cholesterol measurement 33 mg/dL 5-40 [facility] Carbon dioxide, total [Moles /volume] in Central venous bloodOrdered By: Javier Oakley on 09-14-2024 CO2 [Moles/Vol] 22.4 mmol/L 21.0-32.0 [facility] Chloride assayOrdered By: Dangelo Oakley on 09-14-2024 Chloride [Moles/Vol] 104 mmol/L 98-108 [facility] Prof ilon 09-14-2024 Albumin [Mass/Vol] 4.1 g/dL Normal 3.4-4.8 [facility] Comment on above: Order Comment: DR.SM MORENO ORDERED CMP,CBCD,A1C,MIACRE ORDERED LIVER, LIPID ORDERED RENAL,CBC,PTH,VITD,PROCRE Performed By: #### L 501.9985, L500.4050, L100.0100 #### [facility] [address] [facility], [address] Albumin/Globulin [Mass ratio] 1.6 {ratio} Normal 0.9-2.4 [facility] Comment on above: Order Comment: DR.SM MORENO ORDERED CMP,CBCD,A1C,MIACRE ORDERED LIVER, LIPID ORDERED RENAL,CBC,PTH,VITD,PROCRE Performed By: #### L 501.9985, L500.4050, L100.0100 #### [facility] [address] [place], [address] ALK PHOS 90 U/L Normal 40-129 [facility] Comment on above: Order Comment: DR.SM MORENO ORDERED CMP,CBCD,A1C,MIACRE ORDERED LIVER, LIPID ORDERED RENAL,CBC,PTH,VITD,PROCRE Performed By: #### L 501.9985, L500.4050, L100.0100 #### [facility] [address] [place], [address] ALT [Catalytic activity/Vol] 11 U/L Normal <=46 [facility] Comment on above: Order Comment: DR.SM MORENO ORDERED CMP,CBCD,A1C,MIACRE ORDERED LIVER, LIPID ORDERED RENAL,CBC,PTH,VITD,PROCRE Performed By: #### L 501.9985, L500.4050, L100.0100 #### [facility] [address] [place], [address] AST [Catalytic activity/Vol] 19 U/L Normal <=37 [facility] Comment on above: Order Comment: DR.SM MORENO ORDERED CMP,CBCD,A1C,MIACRE ORDERED LIVER, LIPID ORDERED RENAL,CBC,PTH,VITD,PROCRE Performed By: #### L 501.9985, L500.4050, L100.0100 #### [facility] [address] [place], [address] Bilirubin [Mass/Vol] 0.63 mg/dL Normal 0.00-1.30 [facility] Comment on above: Order Comment: DR.SM MORENO ORDERED CMP,CBCD,A1C,MIACRE ORDERED LIVER, LIPID ORDERED RENAL,CBC,PTH,VITD,PROCRE Performed By: #### L 501.9985, L500.4050, L100.0100 #### [facility] [address] [place], [address] BUN/CRE 15.0 RATIO Normal 10-20 [facility] Comment on above: Order Comment: DR.SM MORENO ORDERED CMP,CBCD,A1C,MIACRE ORDERED LIVER, LIPID ORDERED RENAL,CBC,PTH,VITD,PROCRE Performed By: #### L 501.9985, L500.4050, L100.0100 #### [facility] [address] [place], [address] Calcium [Mass/Vol] 8.7 mg/dL Normal 7.6-11.0 [facility] Comment on above: Order Comment: DR.SM MORENO ORDERED CMP,CBCD,A1C,MIACRE ORDERED LIVER, LIPID ORDERED RENAL,CBC,PTH,VITD,PROCRE Performed By: #### L 501.9985, L500.4050, L100.0100 #### [facility] [address] [place], [address] Chloride [Moles/Vol] 104 mmol/L Normal 98-108 [facility] Comment on above: Order Comment: DR.SM MORENO ORDERED CMP,CBCD,A1C,MIACRE ORDERED LIVER, LIPID ORDERED RENAL,CBC,PTH,VITD,PROCRE Performed By: #### L 501.9985, L500.4050, L100.0100 #### [facility] [address] [place], [address] CO2 [Moles/Vol] 22.4 mmol/L Normal 21.0-32.0 [facility] Comment on above: Order Comment: DR.SM MORENO ORDERED CMP,CBCD,A1C,MIACRE ORDERED LIVER, LIPID ORDERED RENAL,CBC,PTH,VITD,PROCRE Performed By: #### L 501.9985, L500.4050, L100.0100 #### [facility] [address] [place], [address] Creatinine [Mass/Vol] 1.42 mg/dL High 0.70-1.20 [facility] Comment on above: Order Comment: DR.SM MORENO ORDERED CMP,CBCD,A1C,MIACRE ORDERED LIVER, LIPID ORDERED RENAL,CBC,PTH,VITD,PROCRE Performed By: #### L 501.9985, L500.4050, L100.0100 #### [facility] [address] [place], [address] GAP 11 Normal 5-15 [facility] Comment on above: Order Comment: DR.SM MORENO ORDERED CMP,CBCD,A1C,MIACRE ORDERED LIVER, LIPID ORDERED RENAL,CBC,PTH,VITD,PROCRE Performed By: #### L 501.9985, L500.4050, L100.0100 #### [facility] [address] [place], [address] GFR/1.73 sq M.predicted among non-blacks MDRD (S/P/Bld) [Vol rate/Area] 51 mL/min/{1.73_m2} Low >60 [facility] Comment on above: Order Comment: DR.SM MORENO ORDERED CMP,CBCD,A1C,MIACRE ORDERED LIVER, LIPID ORDERED RENAL,CBC,PTH,VITD,PROCRE Result Comment: mL/m in/1.73m2 CKD-EPI Creatinine Equation (2020) Performed By: #### L 501.9985, L500.4050, L100.0100 #### [facility] [address] [place], [address] Globulin (S) [Mass/Vol] 2.6 g/dL Normal 2.2-4.2 [facility] Comment on above: Order Comment: DR.SM MORENO ORDERED CMP,CBCD,A1C,MIACRE ORDERED LIVER, LIPID ORDERED RENAL,CBC,PTH,VITD,PROCRE Performed By: #### L 501.9985, L500.4050, L100.0100 #### [facility] [address] [place], [address] Glucose [Mass/Vol] 176 mg/dL High 70-99 [facility] Comment on above: Order Comment: DR.SM MORENO ORDERED CMP,CBCD,A1C,MIACRE ORDERED LIVER, LIPID ORDERED RENAL,CBC,PTH,VITD,PROCRE Performed By: #### L 501.9985, L500.4050, L100.0100 #### [facility] [address] [place], [address] Potassium [Moles/Vol] 4.5 mmol/L Normal 3.3-5.1 [facility] Comment on above: Order Comment: DR.SM MORENO ORDERED CMP,CBCD,A1C,MIACRE ORDERED LIVER, LIPID ORDERED RENAL,CBC,PTH,VITD,PROCRE Performed By: #### L 501.9985, L500.4050, L100.0100 #### [facility] [address] [place], [address] Sodium [Moles/Vol] 138 mmol/L Normal 133-145 [facility] Comment on above: Order Comment: DR.SM MORENO ORDERED CMP,CBCD,A1C,MIACRE ORDERED LIVER, LIPID ORDERED RENAL,CBC,PTH,VITD,PROCRE Performed By: #### L 501.9985, L500.4050, L100.0100 #### [facility] [address] [place], [address] T PROT 6.7 g/dL Normal 5.9-8.4 [facility] Comment on above: Order Comment: DR.SM MORENO ORDERED CMP,CBCD,A1C,MIACRE ORDERED LIVER, LIPID ORDERED RENAL,CBC,PTH,VITD,PROCRE Performed By: #### L 501.9985, L500.4050, L100.0100 #### [facility] [address] [place], [address] Urea nitrogen [Mass/Vol] 21 mg/dL High 4-19 [facility] Comment on above: Order Comment: DR.SM MORENO ORDERED CMP,CBCD,A1C,MIACRE ORDERED LIVER, LIPID ORDERED RENAL,CBC,PTH,VITD,PROCRE Performed By: #### L 501.9985, L500.4050, L100.0100 #### [facility] [address] [place], [address] Eosinophil percentageOrdered By: Javier Oakley on 09-14-2024 Eosinophils/100 WBC (Bld) 2.4 % 0-5 [facility] Erythrocyte distribution wid th ratioOrdered By: Javier Oakley on 09-14-2024 Erythrocyte distribution width (RBC) [Ratio] 13.4 % 11.6-14.6 [facility] Erythrocyte distribution wid th standard deviationOrdered By: Javier Oakley on 09-14-2024 Erythrocyte distribution width (RBC) [Ratio] 45.4 fl High 35.1-43.9 [facility] Glomerular filtration rate ( GFR) estimation/1.73 sq m using serum, plasma, or whole bOrdered By: Javier Oakley on 09-14-2024 GFR/1.73 sq M.predicted among non-blacks MDRD (S/P/Bld) [Vol rate/Area] 51 mL/min/{1.73_m2} Low >60 [facility] Comment on above: mL/min/1.73m2 CKD-EP I Creatinine Equation (2020) Hematocrit Auto (Bld) [Volum e fraction]Ordered By: Javier Oakley on 09-14-2024 Hematocrit (Bld) [Volume fraction] 41.9 % 40-54 [facility] Hemoglobin A1con 09-14-2024 HbA1c (Bld) [Mass fraction] 7.7 % High <=5.6 [facility] Comment on above: Order Comment: DR.SM MORENO ORDERED CMP,CBCD,A1C,MIACRE ORDERED LIVER, LIPID ORDERED RENAL,CBC,PTH,VITD,PROCRE Result Comment: Norm al < 5.7 % Prediabetic 5.7 - 6.4 % Diabetic >or= 6.5 % Please note range changes. Performed By: #### L 501.9985, L500.4050, L100.0100 #### [facility] [address] [place], [address] Hemoglobin A1c percentageOrd ered By: Javier Oakley on 09-14-2024 HbA1c (Bld) [Mass fraction] 7.7 % High <5.7 [facility] Comment on above: Normal < 5.7 % Predi abetic 5.7 - 6.4 % Diabetic >or= 6.5 % Please note range changes. Hemoglobin measurementOrdere d By: Javier Oakley on 09-14-2024 Hemoglobin (Bld) [Mass/Vol] 13.9 g/dL 13.0-16.5 [facility] Immature granulocytes/100 WB C Auto (Bld)Ordered By: Javier Oakley on 09-14-2024 Immature granulocytes/100 WBC (Bld) 0.300 % 0.0-0.9 [facility] Comment on above: IG% - Immature Granu locytes (promyelocytes, myelocytes and metamyelocytes) > 1% indicates that a LEFT SHIFT is Present. LDL calc ser/plasOrdered By: Jose Roberto Mendoza on 09-14-2024 Cholesterol in LDL [Mass/Vol] 63 mg/dL [facility] Comment on above: Rredwojqnf=520-377 m g/dL & Higher Rktn=025 mg/dL or greater Laboratory - Chemistry and C hemistry - challengeOrdered By: Javier Oakley on 09-14-2024 AST [Catalytic activity/Vol] 19 U/L <38 [facility] Lipid Profileon 09-14-2024 CHOL:HDL 4.16 Normal [facility] Comment on above: Order Comment: DR.SM MORENO ORDERED CMP,CBCD,A1C,MIACRE ORDERED LIVER, LIPID ORDERED RENAL,CBC,PTH,VITD,PROCRE Performed By: #### L 501.9912, L500.4050, L100.0100 #### [facility] [address] [facility] [place], [place], [id number] Cholesterol [Mass/Vol] 126 mg/dL Normal <=200 [facility] Comment on above: Order Comment: DR.SM MORENO ORDERED CMP,CBCD,A1C,MIACRE ORDERED LIVER, LIPID ORDERED RENAL,CBC,PTH,VITD,PROCRE Result Comment: Chol esterol level, Desirable <200 mg/dL Borderline high cholesterol 200-239 mg/dL High cholesterol >=240 mg/dL Recommendations of the NCEP Adult Treatment Panel for the following risk-cutoff thresholds for the [place] population. Performed By: #### L 501.9985, L500.4050, L100.0100 #### [facility] [address] [place], [address] Cholesterol in HDL [Mass/Vol] 30 mg/dL Low [facility] Comment on above: Order Comment: DR.SM MORENO ORDERED CMP,CBCD,A1C,MIACRE ORDERED LIVER, LIPID ORDERED RENAL,CBC,PTH,VITD,PROCRE Result Comment: [place] onal Cholesterol Education Program (NCEP) guidelines: <40 mg/dL: Low HDL-cholesterol (major risk factor for CHD) >= 60 mg/dL: High HDL-cholesterol (negative risk factor for CHD) HDL-cholesterol is affected by a number of factors, e.g. smoking, exercise, hormones, sex and age. Performed By: #### L 501.9985, L500.4050, L100.0100 #### [facility] [address] [place], [address] Cholesterol in LDL [Mass/Vol] 63 mg/dL Normal [facility] Comment on above: Order Comment: DR.SM MORENO ORDERED CMP,CBCD,A1C,MIACRE ORDERED LIVER, LIPID ORDERED RENAL,CBC,PTH,VITD,PROCRE Result Comment: Bord wfetca=733-444 mg/dL Higher Evwt=398 mg/dL or greater Performed By: #### L 501.9985, L500.4050, L100.0100 #### [facility] [address] [place], [address] Cholesterol in VLDL [Mass/Vol] 33 mg/dL Normal 5-40 [facility] Comment on above: Order Comment: DR.SM MORENO ORDERED CMP,CBCD,A1C,MIACRE ORDERED LIVER, LIPID ORDERED RENAL,CBC,PTH,VITD,PROCRE Performed By: #### L 501.9985, L500.4050, L100.0100 #### [facility] [address] [place], [place], [address] Triglyceride [Mass/Vol] 166 mg/dL Normal [facility] Comment on above: Order Comment: DR.SM MORENO ORDERED CMP,CBCD,A1C,MIACRE ORDERED LIVER, LIPID ORDERED RENAL,CBC,PTH,VITD,PROCRE Result Comment: The drugs N-Acetylcysteine and Metamizole may falsely depress this assay. Normal range: <150 mg/dL Borderline High: 150-199 mg/dL High: 200-499 mg/dL Very High: >500 mg/dL Performed By: #### L 501.9985, L500.4050, L100.0100 #### [facility] [address] [place], [place], [id number] MCV (mean corpuscular volume ) determinationOrdered By: Javier Oakley on 09-14-2024 MCV (RBC) [Entitic vol] 91.5 fL 80-94 [facility] Mean corpuscular hemoglobin (MCH) determinationOrdered By: Javier Oakley on 09-14-2024 MCH (RBC) [Entitic mass] 30.3 pg 27.0-32.0 [facility] Mean corpuscular hemoglobin concentration (MCHC) determinationOrdered By: Javier Oakley on 09-14-2024 MCHC (RBC) [Mass/Vol] 33.2 g/dL 32-36 [facility] Mean platelet volume determi nationOrdered By: Javier Oakley on 09-14-2024 Platelet mean volume (Bld) [Entitic vol] 10.9 fL 6.2-12.0 [facility] Microalb:Creat Ratio,Random URon 09-14-2024 MALB:CREAT UNABLE TO CALCULATE Normal [facility] Comment on above: Order Comment: DR.SM MORENO ORDERED CMP,CBCD,A1C,MIACRE ORDERED LIVER, LIPID ORDERED RENAL,CBC,PTH,VITD,PROCRE Performed By: #### L 509.1000, L506.1001, L501.4700, L501.2300, L501.0900, L502.0250 #### [facility] [address] [place], [address] MICROALBUMIN,UR < 12.0 Normal NO RANGE EST. [facility] Comment on above: Order Comment: DR.SM MORENO ORDERED CMP,CBCD,A1C,MIACRE ORDERED LIVER, LIPID ORDERED RENAL,CBC,PTH,VITD,PROCRE Performed By: #### L 509.1000, L506.1001, L501.4700, L501.2300, L501.0900, L502.0250 #### [facility] [address] [place], [address] Microalbumin/creat ratio urO rdered By: Javier Oakley on 09-14-2024 Urine microalbumin/creatinine ratio measurement UNABLE TO CALCULATE mg/g CRE [facility] Monocyte percentageOrdered B y: Javier Oakley on 09-14-2024 Monocytes/100 WBC (Bld) 8.1 % 0-10 [facility] Neutrophil percentageOrdered By: Javier Oakley on 09-14-2024 Neutrophils/100 WBC (Bld) 55.7 % 47-70 [facility] Nucleated red blood cell per centageOrdered By: Javier Oakley on 09-14-2024 Nucleated RBC/100 WBC (Bld) [Ratio] 0 % 0-5 [facility] PTHINon 09-14-2024 PTH 83 pg/mL High 11-61 [facility] Comment on above: Order Comment: DR.SM MORENO ORDERED CMP,CBCD,A1C,MIACRE ORDERED LIVER, LIPID ORDERED RENAL,CBC,PTH,VITD,PROCRE Performed By: #### L 509.1000, L506.1001, L501.4700, L501.2300, L501.0900, L502.0250 #### [facility] [address] [place], [address] Phosphoruson 09-14-2024 Phosphate [Mass/Vol] 2.4 mg/dL Low 2.7-4.5 [facility] Comment on above: Order Comment: DR.SM MORENO ORDERED CMP,CBCD,A1C,MIACRE ORDERED LIVER, LIPID ORDERED RENAL,CBC,PTH,VITD,PROCRE Performed By: #### L 501.9985, L500.4050, L100.0100 #### [facility] [address] [place], [address] Platelet countOrdered By: Dangelo Oakley on 09-14-2024 Platelets (Bld) [#/Vol] 206 10*3/uL 150-450 [facility] Potassium measurement (mass/ volume)Ordered By: Javier Oakley on 09-14-2024 Potassium (Unsp spec) [Mass/Vol] 4.5 mmol/L 3.3-5.1 [facility] Protein+Creatinine Ratio,Uri neon 09-14-2024 PROT:CRE RATIO 67 mg/g CRE Normal 0-200 [facility] Comment on above: Order Comment: DR.SM MORENO ORDERED CMP,CBCD,A1C,MIACRE ORDERED LIVER, LIPID ORDERED RENAL,CBC,PTH,VITD,PROCRE Performed By: #### L 501.9985, L500.4050, L100.0100 #### [facility] [address] [place], [address] Protein (U) [Mass/Vol] 14.2 mg/dL High 0.0-12.0 [facility] Comment on above: Order Comment: DR.SM MORENO ORDERED CMP,CBCD,A1C,MIACRE ORDERED LIVER, LIPID ORDERED RENAL,CBC,PTH,VITD,PROCRE Performed By: #### L 501.9985, L500.4050, L100.0100 #### [facility] [address] [place], [address] UR CREAT 213.00 mg/dL Normal 39.00-259.00 [facility] Comment on above: Order Comment: DR.SM MORENO ORDERED CMP,CBCD,A1C,MIACRE ORDERED LIVER, LIPID ORDERED RENAL,CBC,PTH,VITD,PROCRE Performed By: #### L 501.9985, L500.4050, L100.0100 #### [facility] [address] [place], [address] RBC Auto (Bld) [#/Vol]Ordere d By: Javier Oakley on 09-14-2024 RBC (Bld) [#/Vol] 4.58 10*6/uL Low 4.6-6.2 [facility] Random urine creatinine mitch urement (mass/volume)Ordered By: Javier Oakley on 09-14-2024 Creatinine Unsp time (U) [Mass/Vol] 213.00 mg/dL 39.00-259.00 [facility] Screening total cholesterol/ high density lipoprotein (HDL) cholesterol ratioOrdered By: Jose Roberto Mendoza on 09-14-2024 Cholesterol.total/Choles terol in HDL [Mass ratio] 4.16 {ratio} [facility] Serum creatinine measurement (mass/volume)Ordered By: Javier Oakley on 09-14-2024 Creatinine [Mass/Vol] 1.42 mg/dL High 0.70-1.20 [facility] Serum globulin measurementOr dered By: Javier Oakley on 09-14-2024 Globulin (S) [Mass/Vol] 2.6 g/dL 2.2-4.2 [facility] Serum glucose measurement (m ass/volume)Ordered By: Javier Oakley on 09-14-2024 Glucose [Mass/Vol] 176 mg/dL High 70-99 [facility] Serum or plasma alanine baer otransferase (ALT) measurementOrdered By: Javier Oakley on 09-14-2024 ALT [Catalytic activity/Vol] 11 U/L <47 [facility] Serum or plasma albumin mitch urement (mass/volume)Ordered By: Javier Oakley on 09-14-2024 Albumin [Mass/Vol] 4.1 g/dL 3.4-4.8 [facility] Serum or plasma albumin/glob ulin mass ratioOrdered By: Javier Oakley on 09-14-2024 Albumin/Globulin [Mass ratio] 1.6 {ratio} 0.9-2.4 [facility] Serum or plasma alkaline ezekiel sphatase measurementOrdered By: Javier Oakley on 09-14-2024 ALP [Catalytic activity/Vol] 90 U/L 40-129 [facility] Serum or plasma calcium mitch urement (mass/volume)Ordered By: Javier Oakley on 09-14-2024 Calcium [Mass/Vol] 8.7 mg/dL 7.6-11.0 [facility] Serum or plasma cholesterol in HDL measurement (mass/volume)Ordered By: Jose Roberto Mendoza on 09-14-2024 Cholesterol in HDL [Mass/Vol] 30 mg/dL Low >40 [facility] Comment on above: National Cholesterol Education Program (NCEP) guidelines:<40 mg/dL: Low HDL-cholesterol (major risk factor for CHD)>= 60 mg/dL: High HDL-cholesterol (negative risk factor for CHD)HDL-cholesterol is affected by a number of factors, e.g. smoking, exercise, hormones, sex and age. Serum or plasma cholesterol measurement (mass/volume)Ordered By: Jose Roberto Mendoza on 09-14-2024 Cholesterol [Mass/Vol] 126 mg/dL <201 [facility] Comment on above: Cholesterol level, D esirable <200 mg/dLBorderline high cholesterol 200-239 mg/dLHigh cholesterol >=240 mg/dLRecommendations of the NCEP Adult Treatment Panel for the following risk-cutoff thresholds for the [place] population. Serum or plasma urea nitroge n measurement (mass/volume)Ordered By: Javier Oakley on 09-14-2024 Urea nitrogen [Mass/Vol] 21 mg/dL High -19 [facility] Sodium levelOrdered By: Javier Oakley on 09-14-2024 Sodium [Moles/Vol] 138 mmol/L 133-145 [facility] Total proteinOrdered By: Radha Oakley on 09-14-2024 Protein [Mass/Vol] 6.7 g/dL 5.9-8.4 [facility] Triglycerides measurementOrd ered By: Jose Roberto Mendoza on 09-14-2024 Triglyceride [Mass/Vol] 166 mg/dL <199 [facility] Comment on above: The drugs N-Acetylcy steine and Metamizole may falsely depress this assay. Normal range: <150 mg/dLBorderline High: 150-199 mg/dLHigh: 200-499 mg/dLVery High: >500 mg/dL Urine albumin measurement wi th detection limit of 20 mg/L or less (mass/volume)Ordered By: Javier Oakley on 09-14-2024 Albumin DL <= 20 mg/L (U) [Mass/Vol] < 12.0 mg/L NO RANGE EST. [facility] Urine protein measurement (m ass/volume)Ordered By: Javier Oakley on 09-14-2024 Protein (U) [Mass/Vol] 14.2 mg/dL High 0.0-12.0 [facility] Urine protein/creatinine mas s ratioOrdered By: Javier Oakley on 09-14-2024 Protein/Creatinine (U) [Mass ratio] 67 mg/g CRE 0-200 [facility] Vitamin D,25 Hydroxyon 09-14 Vitamin D 25-OH 26.4 ng/mL Low 30-100 [facility] Comment on above: Order Comment: DR.SM MORENO ORDERED CMP,CBCD,A1C,MIACRE ORDERED LIVER, LIPID ORDERED RENAL,CBC,PTH,VITD,PROCRE Result Comment: Jaylyn min D Status Deficiency: <20 ng/mL (50nmol/L) Insufficiency: 20-30 ng/mL (50-75 nmol/L) Sufficiency: 30-100 ng/mL (75-250 nmol/L) Toxicity: >100 ng/mL (>250 nmol/L) Performed By: #### L 501.9985, L500.4050, L100.0100 #### [facility] [address] [place], [address] White blood cell (WBC) count Ordered By: Javier Oakley on 09-14-2024 WBC (Bld) [#/Vol] 9.8 10*3/uL 4.4-11.0 [facility] Cardiology Visit Reporton Cardiology Visit Report [facility] [address] [place] [address] OFFICE VISIT Date of Service: 08/01/24 MR#: [id number] Acct: [id number] Name: NEETU GOMEZ Rep #: [id number] : 1945 Provider: Dr. Jose Roberto lopez MD Age/Sex: 78/M Location: [facility] Status: Signed HPI HPI History of Present Illness Details: Patient is a very pleasant 78-year-old white male that comes today for monitoring of his coronary artery disease. The patient has a history of coronary disease status post stenting back in April 2020 to the mid and distal LAD. Ejection fraction was 60% at that time. The patient denies any recurrence of his anginal symptoms which was a profound total body weakness. He actually thought he had come down with COVID. Patient's secondary risk factors are being addressed his hyperlipidemia is treated his hypertension is well-controlled he does have some mild chronic kidney disease hypothyroidism and diabetes. The patient also carries a history of a thoracic ascending aortic dilatation of 4.3 cm. This was evaluated July 13, 2023 with CTA which showed no change in the ascending aorta and no evidence of recurrent pulmonary emboli. He was switched from Eliquis to Xarelto at that time due to financial constraints. It was unknown the etiology of his pulmonary emboli which were discovered coincidentally at the time of his non-STEMI at the time of his cath in 2020. Patient reports he is doing very well in his home environment denies any change in his exercise tolerance denies any lower extremity edema or significant shortness of breath. 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 Required: No Accompanied by: Self Is patient in pain?: No Allergies fosinopril (From Monopril) Adverse Reaction (Unknown, Verified 08/01/24 10:22) Unknown Medications ???Medication ???Instructions ???Recorded ???Confirmed ???Type amlodipine 10 mg tablet 10 mg PO DAILY bp 05/24/20 5 History levothyroxine 175 mcg tablet 175 mcg PO DAILY thyroid 05/24/20 08/01/24 History losartan 100 mg tablet 100 mg PO DAILY bp 05/24/20 History omeprazole 40 mg capsule,delayed 40 mg PO DAILY gerd 05/24/2008/01 History release aspirin 81 mg tablet,delayed 81 mg PO DAILY heart 01/26/2109/20 History release spironolactone 25 mg tablet 12.5 mg PO DAILY water pill 08/01/24 History atorvastatin 40 mg tablet 40 mg PO DAILY cholesterol 2 08/01/24 History atenolol 25 mg tablet 25 mg PO DAILY heart #30 tabs 02/2708/01/24 Rx selenium 200 mcg capsule 200 mcg PO DAILY 06/16/23 08/01/24 History glipizide 10 mg tablet 10 mg PO BID 08/01/24 08/01/24 His tory liothyronine 5 mcg tablet mcg PO 2XW 08/01/24 08/01/24 Histo ry multivitamin 1 tab PO QDAY 08/01/24 08/01/24 Hi story rivaroxaban 2.5 mg tablet (Xarelto) 2.5 mg PO QDAY 08/01/24 5 History semaglutide 2 mg/dose (8 mg/3 mL) 2 mg subcut QWEEK 08/01/24 History subcutaneous pen injector (Ozempic) Ejection fraction %: 60 Have you fallen in the past year?: No PFSH Medical History Ascending aortic aneurysm Essential hypertension Hypothyroidism HLD (hyperlipidemia) HTN (hypertension) History of non-ST elevation myocardial infarction (NSTEMI) Presence of stent in coronary artery ( 05/25/20) Atherosclerotic heart disease of [place] coronary artery without angina pectoris Surgical History Presence of coronary angioplasty implant and graft ( 05/25/20) Social History Smoking Status: Never smoker ROS Const Const: Negative for fatigue or weakness ENT ENT: Positive for dizziness; Negative for balance problems Cardio Chest Pain: Yes (one episode) Palpitations: No Edema: None Muscle aches with walking: None Resp Respiratory: Negative for SOB with activity, SOB at rest or SOB orthopnea SOB lying down GI GI: Negative nausea, vomiting or heartburn Musc Musc: Negative for muscle weakness or balance problems Neuro Neuro: Positive for dizziness; Negative for lightheadedness, near syncope, syncope or weakness Endo Endo: Negative for fatigue Cardiology Exam Const Appearance: cooperative, healthy appearing, comfortable, no acute distress and well developed Head Head: normal to inspection Eyes General: appearance no (more content not included)... Normal [facility] CNOVon 06-26-2024 CNOV Office Visit (PODIWS) NEETU GOMEZ ([id number]) 1945 M Date Time Provider Department 06/26/24 9:30 AM [facility] PODIWS During your visit today, we recorded the following information about you: Zaria Oakley LPN 06/26/2024 9:48 AM Signed AMB ROOMING INTAKE FLOWSHEET DATA Pain Pain Level: 5 Pain Location: Other: See Comment (bilateral feet) Description: Burning, Tingling Frequency: Continuous Intervention/Comfort measure: Reposition, Relaxation Patient presents with: Left Foot - Established Patient, Follow Up, Diabetic Foot Care Right Foot - Established Patient, Follow Up, Diabetic Foot Care PJ Arrieta Matthew 06/26/2024 9:48 AM Signed Last saw pcp: Not in chart Subjective: Patient presents to clinic c/o painful toenails. They state that the nails are especially painful with shoe gear and pressure. Patient complains of neuropathy. Patient admits to being diabetic. No other pedal complaints at this time. Patient states no change in medications or medical history since last visit. Objective: Patient presents to clinic ambulating in nike tennis shoes Vasc: DP and PT pulses are palpable bilateral. CFT is less than 5 seconds bilateral. Skin temperature is warm to cool proximal to distal bilateral. There is mild edema or varicosities noted. Neuro: Protective sensation is decreased to the foot and toes when tested with the 5.07 SWM bilateral. Vibratory sensation is absent at the hallux IPJ bilateral. The hallux is downgoing bilateral. Derm: Nails 1-5 left and 1,3,5 right are painful, discolored-yellow, thick, crumbly, dystrophic and with subungal debris. Skin is of normal turgor, texture and hair growth is present bilateral. There are callus to b/l 1st metatarsal. No underlying ulceration. Ortho: Muscle strength is 5/5 for all pedal groups tested. Ankle joint DF is decreased with the knee extended with no pain or crepitus noted. 1st MPJ ROM is decreased bilateral. Hallux valgus deformity is present to b/l feet. Assessment: (B35.1) Onychomycosis (primary encounter diagnosis) (M79.675) Pain in toe of left foot (M79.674) Pain in toe of right foot (E11.42) Diabetic polyneuropathy associated with type 2 diabetes mellitus (HCC) Hallux valgus callus Plan: Patient was seen and evaluated. Nails 1-5 left and 1,3,5 right were debrided in length and thickness. Callus reduced with dremmel. Discussed bunions of b/l feet. Discussed how these may lead to rubbing on 2nd toe. Already using toe spacer. Discussed bunion surgery. Patient is not interested. He will continue with padding. Discussed diabetic shoes. He has elected to continue with current shoes Patient was instructed on the continued importance of diabetic foot care along with proper diet and keeping their blood sugar under control to prevent complications. I stressed the importance of avoiding barefoot walking, wearing good shoes and inspection of feet. I discussed how this patient suffers from neuropathy and that it is important that she monitor for any open wounds. If she develops any issues, she is to contact our office immediately and we will have them seen. Patient is to RTC in 3-4 months. CHANTELLE Santacruz Matthew 06/26/2024 9:32 AM Signed Diabetes Foot Care Instructions When you have diabetes, proper foot care is very important. Poor foot care may lead to amputation of a foot or leg. As a person with diabetes, you are more vulnerable to foot problems, because diabetes can damage your nerves and reduce blood flow to your feet. Here are some diabetes foot care tips to follow: Wash and Dry Your Feet Daily Use mild soaps Use warm water Pat your skin dry; do not rub. Thoroughly dry your feet. After washing, use lotion on your feet to prevent cracking. Do not put lotion between your toes. Examine Your Feet Each Day Check the tops and bottoms of your feet. Have someone else look at your feet if you cannot see them. Check for dry, cracked skin. Look for blisters, cuts, scratches, or other sores. Check for redness, increased warmth, or tenderness when touching any area of your feet. Check for ingrown toenails, corns, and calluses. If you get a blister or sore from your shoes, do not "pop" it. Apply a bandage and wear a different pair of shoes. Take Care of Your Toenails Cut toenails after bathing, when they are soft. Cut toenails straight across and smooth with a nail file. Avoid cutting into the corners of toes. Do not cut cuticles. If you have neuropathy (or decreased sensation in your feet) a splicing supervisor should always cut your toenails. Be Careful When Exercising Walk and exercise in comfortable shoes. Do not exercise when you have open sores on your feet. Protect Your Feet With Shoes and Socks Never go barefoot. Always protect your feet by wearing shoes or hard-s (more content not included)... Normal [facility] CBC W/Diff, Automatedon 01-0 Absolute Lymph 4.86 X10 3/uL High 0.83-4.51 [facility] Comment on above: Order Comment: Order Date: 01/04/24 Order Info: 0184-1 - CBCD Performed By: #### L 100.0100, L500.4050, L501.9520, L501.9910 #### [facility] [address] [place], [place], [address] Absolute Neut 6.5 X10 3/uL Normal 2.0-7.7 [facility] Comment on above: Order Comment: Order Date: 01/04/24 Order Info: 0184-1 - CBCD Performed By: #### L 100.0100, L500.4050, L501.9520, L501.9910 #### [facility] [address] [place], [address] Basophils/100 WBC (Bld) 1.2 % High 0-1 [facility] Comment on above: Order Comment: Order Date: 01/04/24 Order Info: 0184-1 - CBCD Performed By: #### L 100.0100, L500.4050, L501.9520, L501.9910 #### [facility] [address] [place], [address] Eosinophils/100 WBC (Bld) 2.8 % Normal 0-5 [facility] Comment on above: Order Comment: Order Date: 01/04/24 Order Info: 0184-1 - CBCD Performed By: #### L 100.0100, L500.4050, L501.9520, L501.9910 #### [facility] [address] [place], [address] Erythrocyte distribution width (RBC) [Ratio] 13.4 % Normal 11.6-14.6 [facility] Comment on above: Order Comment: Order Date: 01/04/24 Order Info: 0184-1 - CBCD Performed By: #### L 100.0100, L500.4050, L501.9520, L501.9910 #### [facility] [address] [place], [address] Hematocrit (Bld) [Volume fraction] 43.8 % Normal 40-54 [facility] Comment on above: Order Comment: Order Date: 01/04/24 Order Info: 0184-1 - CBCD Performed By: #### L 100.0100, L500.4050, L501.9520, L501.9910 #### [facility] [address] [place], [address] Hemoglobin (Bld) [Mass/Vol] 14.4 g/dL Normal 13.0-16.5 [facility] Comment on above: Order Comment: Order Date: 01/04/24 Order Info: 0184-1 - CBCD Performed By: #### L 100.0100, L500.4050, L501.9520, L501.9910 #### [facility] [address] [place], [address] IG% 0.400 Normal 0.0-0.9 [facility] Comment on above: Order Comment: Order Date: 01/04/24 Order Info: 0184- - CBCD Result Comment: IG% - Immature Granulocytes (promyelocytes, myelocytes and metamyelocytes) > 1% indicates that a LEFT SHIFT is Present. Performed By: #### L 100.0100, L500.4050, L501.9520, L501.9910 #### [facility] [address] [place], [address] Lymphocytes/100 WBC (Bld) 37.4 % Normal 19-41 [facility] Comment on above: Order Comment: Order Date: 01/04/24 Order Info: 0184 - CBCD Performed By: #### L 100.0100, L500.4050, L501.9520, L501.9910 #### [facility] [address] [place], [address] MCH (RBC) [Entitic mass] 30.3 pg Normal 27.0-32.0 [facility] Comment on above: Order Comment: Order Date: 01/04/24 Order Info: 0184- - CBCD Performed By: #### L 100.0100, L500.4050, L501.9520, L501.9910 #### [facility] [address] [place], [address] MCHC (RBC) [Mass/Vol] 32.9 g/dL Normal 32-36 [facility] Comment on above: Order Comment: Order Date: 01/04/24 Order Info: 0184-1 - CBCD Performed By: #### L 100.0100, L500.4050, L501.9520, L501.9910 #### [facility] [address] [place], [address] MCV (RBC) [Entitic vol] 92.2 fL Normal 80-94 [facility] Comment on above: Order Comment: Order Date: 01/04/24 Order Info: 0184-1 - CBCD Performed By: #### L 100.0100, L500.4050, L501.9520, L501.9910 #### [facility] [address] [place], [address] Monocytes/100 WBC (Bld) 8.2 % Normal 0-10 [facility] Comment on above: Order Comment: Order Date: 01/04/24 Order Info: 018-1 - CBCD Performed By: #### L 100.0100, L500.4050, L501.9520, L501.9910 #### [facility] [address] [place], [address] Neutrophils/100 WBC (Bld) 50.0 % Normal 47-70 [facility] Comment on above: Order Comment: Order Date: 01/04/24 Order Info: 0184-1 - CBCD Performed By: #### L 100.0100, L500.4050, L501.9520, L501.9910 #### [facility] [address] [place], [address] Nucleated RBC (Bld) [#/Vol] 0 10*3/uL Normal 0-5 [facility] Comment on above: Order Comment: Order Date: 01/04/24 Order Info: 0184-1 - CBCD Performed By: #### L 100.0100, L500.4050, L501.9520, L501.9910 #### [facility] [address] [place], [address] Platelet mean volume (Bld) [Entitic vol] 10.4 fL Normal 6.2-12.0 [facility] Comment on above: Order Comment: Order Date: 01/04/24 Order Info: 0184-1 - CBCD Performed By: #### L 100.0100, L500.4050, L501.9520, L501.9910 #### [facility] [address] [place], [address] Platelets (Bld) [#/Vol] 241 10*3/uL Normal 150-450 [facility] Comment on above: Order Comment: Order Date: 01/04/24 Order Info: 0184-1 - CBCD Performed By: #### L 100.0100, L500.4050, L501.9520, L501.9910 #### [facility] [address] [place], [address] RBC (Bld) [#/Vol] 4.75 10*6/uL Normal 4.6-6.2 [facility] Comment on above: Order Comment: Order Date: 01/04/24 Order Info: 0184-1 - CBCD Performed By: #### L 100.0100, L500.4050, L501.9520, L501.9910 #### [facility] [address] [place], [address] RDW SD 45.6 fl High 35.1-43.9 [facility] Comment on above: Order Comment: Order Date: 01/04/24 Order Info: 0184-1 - CBCD Performed By: #### L 100.0100, L500.4050, L501.9520, L501.9910 #### [facility] [address] [place], [address] WBC (Bld) [#/Vol] 13.0 10*3/uL High 4.4-11.0 [facility] Comment on above: Order Comment: Order Date: 01/04/24 Order Info: 0184-1 - CBCD Performed By: #### L 100.0100, L500.4050, L501.9520, L501.9910 #### [facility] [address] [place], [address] Comprehensive Metabolic Prof ilon 03-31-2024 Albumin [Mass/Vol] 3.6 g/dL Normal 3.2-5.0 [facility] Comment on above: Order Comment: Order Date: 01/04/24 Order Info: 86- - CMP Order Info: 3015-05 - TSH Order Info: 2856-03 - PSA Performed By: #### L 100.0100, L500.4050, L501.9520, L501.9910 #### [facility] [address] [place], [address] Albumin/Globulin [Mass ratio] 1.0 {ratio} Normal 0.9-2.4 [facility] Comment on above: Order Comment: Order Date: 01/04/24 Order Info: 785-03 - CMP Order Info: 3015-05 - TSH Order Info: 2856-03 - PSA Performed By: #### L 100.0100, L500.4050, L501.9520, L501.9910 #### [facility] [address] [place], [address] ALK P 95 U/L Normal 45-117 [facility] Comment on above: Order Comment: Order Date: 01/04/24 Order Info: 785-03 - CMP Order Info: 3015-05 - TSH Order Info: 2856-03 - PSA Performed By: #### L 100.0100, L500.4050, L501.9520, L501.9910 #### [facility] [address] [place], [address] ALT [Catalytic activity/Vol] 27 U/L Normal 16-61 [facility] Comment on above: Order Comment: Order Date: 01/04/24 Order Info: 0786- - CMP Order Info: 3015-05 - TSH Order Info: 2856-03 - PSA Performed By: #### L 100.0100, L500.4050, L501.9520, L501.9910 #### [facility] [address] [place], [address] AST [Catalytic activity/Vol] 23 U/L Normal 15-37 [facility] Comment on above: Order Comment: Order Date: 01/04/24 Order Info: 785- - CMP Order Info: 3015-05 - TSH Order Info: 2856-03 - PSA Performed By: #### L 100.0100, L500.4050, L501.9520, L501.9910 #### [facility] [address] [place], [address] Bilirubin [Mass/Vol] 0.90 mg/dL Normal 0.20-1.00 [place] Comment on above: Order Comment: Order Date: 01/04/24 Order Info: 785-03 - CMP Order Info: 3015-05 - TSH Order Info: 2856-03 - PSA Result Comment: For patients on eltrombopag therapy, use of Dimension [place] TBIL is not recommended. Performed By: #### L 100.0100, L500.4050, L501.9520, L501.9910 #### [facility] [address] [place], [address] BUN/CRE 13.4 RATIO Normal 10-20 [facility] Comment on above: Order Comment: Order Date: 01/04/24 Order Info: 785-03 - CMP Order Info: 3015-05 - TSH Order Info: 2856-03 - PSA Performed By: #### L 100.0100, L500.4050, L501.9520, L501.9910 #### [facility] [address] [place], [address] CA,Total 8.9 mg/dL Normal 8.5-10.1 [facility] Comment on above: Order Comment: Order Date: 01/04/24 Order Info: 785-03 - CMP Order Info: 3015-05 - TSH Order Info: 2856-03 - PSA Performed By: #### L 100.0100, L500.4050, L501.9520, L501.9910 #### [facility] [address] [place], [address] Chloride [Moles/Vol] 105 mmol/L Normal 98-107 [place] Comment on above: Order Comment: Order Date: 01/04/24 Order Info: 785- - CMP Order Info: 3015-05 - TSH Order Info: 2856-03 - PSA Performed By: #### L 100.0100, L500.4050, L501.9520, L501.9910 #### [facility] [address] [place], [address] CO2 [Moles/Vol] 24.0 mmol/L Normal 21.0-32.0 [facility] Comment on above: Order Comment: Order Date: 01/04/24 Order Info: 785-03 - CMP Order Info: 3015-05 - TSH Order Info: 2856-03 - PSA Performed By: #### L 100.0100, L500.4050, L501.9520, L501.9910 #### [facility] [address] [place], [address] Creatinine [Mass/Vol] 1.42 mg/dL High 0.70-1.30 [facility] Comment on above: Order Comment: Order Date: 01/04/24 Order Info: 785-03 - CMP Order Info: 3015-05 - TSH Order Info: 2856-03 - PSA Result Comment: The validity of the calculated GFR GFRAA in patients over 70 years has not been determined. Clinical correlation is essential. Performed By: #### L 100.0100, L500.4050, L501.9520, L501.9910 #### [facility] [address] [place], [address] EST GFR - AA 62 mL/min Normal >60 [facility] Comment on above: Order Comment: Order Date: 01/04/24 Order Info: 785-03 - CMP Order Info: 3015-05 - TSH Order Info: 2856-03 - PSA Result Comment: Afri can English GFR Calc Performed By: #### L 100.0100, L500.4050, L501.9520, L501.9910 #### [facility] [address] [place], [address] GAP 7 Normal 5-15 [facility] Comment on above: Order Comment: Order Date: 01/04/24 Order Info: 0786-1 - CMP Order Info: 3 - TSH Order Info: 2856-1 - PSA Performed By: #### L 100.0100, L500.4050, L501.9520, L501.9910 #### [facility] [address] [place], [address] GFR/1.73 sq M.predicted among non-blacks MDRD (S/P/Bld) [Vol rate/Area] 51 mL/min/{1.73_m2} Low >60 [facility] Comment on above: Order Comment: Order Date: 01/04/24 Order Info: 07 - CMP Order Info: 3015-05 - TSH Order Info: 2856-1 - PSA Result Comment: Non- GFR Calc Performed By: #### L 100.0100, L500.4050, L501.9520, L501.9910 #### [facility] [address] [place], [address] Globulin (S) [Mass/Vol] 3.7 g/dL Normal 2.2-4.2 [facility] Comment on above: Order Comment: Order Date: 01/04/24 Order Info: [id number] - CMP Order Info: 3 - TSH Order Info: [id number] - PSA Performed By: #### L 100.0100, L500.4050, L501.9520, L501.9910 #### [facility] [address] [place], [address] Glucose [Mass/Vol] 151 mg/dL High 74-106 [facility] Comment on above: Order Comment: Order Date: 01/04/24 Order Info: 07 - CMP Order Info: [id number] - TSH Order Info: [id number] - PSA Result Comment: Fast ing Glucose result greater than or equal to 126 mg/dL suggests DIABETES MELLITUS per A.D.A. criteria. Performed By: #### L 100.0100, L500.4050, [id number], L501.9910 #### [facility] [address] [place], [address] Potassium [Moles/Vol] 4.2 mmol/L Normal 3.5-5.1 [facility] Comment on above: Order Comment: Order Date: 01/04/24 Order Info: [id number] - CMP Order Info: [id number] - TSH Order Info: [id number] - PSA Performed By: #### L 100.0100, L500.4050, [id number], [id number] #### [facility] [address] [place], [address] Sodium [Moles/Vol] 136 mmol/L Normal 136-145 [facility] Comment on above: Order Comment: Order Date: 01/04/24 Order Info: [id number] - CMP Order Info: [id number] - TSH Order Info: [id number] - PSA Performed By: #### L 100.0100, L500.4050, [id number], [id number] #### [facility] [address] [place], [address] T PROT 7.3 g/dL Normal 6.4-8.2 [facility] Comment on above: Order Comment: Order Date: 01/04/24 Order Info: [id number] - CMP Order Info: [id number] - TSH Order Info: [id number] - PSA Performed By: #### L 100.0100, [id number], [id number], L501.9910 #### [facility] [address] [place], [address] Urea nitrogen [Mass/Vol] 19 mg/dL High 7-18 [facility] Comment on above: Order Comment: Order Date: 01/04/24 Order Info: [id number] - CMP Order Info: 3 - TSH Order Info: [id number] - PSA Performed By: #### L 100.0100, [id number], [id number], L501.9910 #### [facility] [address] [place], [place], [address] PSA,Total - Annual Screenon 03-31-2024 PSA,TOT SCREEN 3.34 ng/mL Normal 0.00-4.00 [facility] Comment on above: Order Comment: Order Date: 01/04/24 Order Info: [id number] - CMP Order Info: [id number] - TSH Order Info: [id number] - PSA Result Comment: This test was performed using the TPSA assay method for the [employer] chemistry system. Values obtained with different assay methods cannot be used interchangably. When changing PSA assays in the course of monitoring a patient, additional sequential testing should be carried out to confirm baseline values. Performed By: #### L 100.0100, L500.4050, [id number], [id number] #### [facility] [address] [place], [address] Thyroid Stim Hormone (TSH)on 03-31-2024 TSH 1.100 uIU/mL Normal 0.358-3.740 [facility] Comment on above: Order Comment: Order Date: 01/04/24 Order Info: [id number] - CMP Order Info: 3 - TSH Order Info: [id number] - PSA Performed By: #### L 100.0100, L500.4050, [id number], [id number] #### [facility] [address] [place], [address] CNOVon 03-27-2024 CNOV Office Visit (PODIWS) NEETU GOMEZ ([id number]) 1945 M Date Time Provider Department 03/27/24 8:30 AM NEILROSY BUCKLEYABA KUO During your visit today, we recorded the following information about you: Salvadorkaylee Harry 03/27/2024 8:59 AM Signed Diabetes Foot Care Instructions When you have diabetes, proper foot care is very important. Poor foot care may lead to amputation of a foot or leg. As a person with diabetes, you are more vulnerable to foot problems, because diabetes can damage your nerves and reduce blood flow to your feet. Here are some diabetes foot care tips to follow: Wash and Dry Your Feet Daily Use mild soaps Use warm water Pat your skin dry; do not rub. Thoroughly dry your feet. After washing, use lotion on your feet to prevent cracking. Do not put lotion between your toes. Examine Your Feet Each Day Check the tops and bottoms of your feet. Have someone else look at your feet if you cannot see them. Check for dry, cracked skin. Look for blisters, cuts, scratches, or other sores. Check for redness, increased warmth, or tenderness when touching any area of your feet. Check for ingrown toenails, corns, and calluses. If you get a blister or sore from your shoes, do not "pop" it. Apply a bandage and wear a different pair of shoes. Take Care of Your Toenails Cut toenails after bathing, when they are soft. Cut toenails straight across and smooth with a nail file. Avoid cutting into the corners of toes. Do not cut cuticles. If you have neuropathy (or decreased sensation in your feet) a splicing supervisor should always cut your toenails. Be Careful When Exercising Walk and exercise in comfortable shoes. Do not exercise when you have open sores on your feet. Protect Your Feet With Shoes and Socks Never go barefoot. Always protect your feet by wearing shoes or hard-soled slippers or footwear. Avoid shoes with high heels and pointed toes. Avoid shoes that expose your toes or heels (such as open-toed shoes or sandals). These types of shoes increase your risk for injury and potential infections. Try on new footwear with the type of socks you usually wear. Do not wear new shoes for more than an hour at a time. Change your socks daily. Look and feel inside your shoes before putting them on to make sure there are no foreign objects or rough areas. Avoid tight socks. Wear natural-fiber socks (cotton, wool, or a cotton-wool blend). Wear special shoes if your health care provider recommends them. Wear shoes/boots that will protect your feet from various weather conditions (cold, moisture, etc.). Make sure your shoes fit properly. If you have neuropathy (nerve damage), you may not notice that your shoes are too tight. Perform the footwear test described below. Footwear Test Use this simple test to see if your shoes fit correctly: Stand on a piece of paper. (Make sure you are standing and not sitting, because your foot changes shape when you stand.) Trace the outline of your foot. Trace the outline of your shoe. Compare the tracings: Is the shoe too narrow? Is your foot crammed into the shoe? The shoe should be at least 1/2 inch longer than your longest toe and as wide as your foot. Proper Shoe Choices The following types of shoes are best for people with diabetes Closed toes and heels Leather uppers without a seam inside At least 1/2 inch extra space at the end of your longest toe Inside of shoe should be soft with no rough areas Outer sole should be made of stiff material Shoes should be at least as wide as your feet Tips for Foot Care in Diabetes Don't wait to treat a minor foot problem if you have diabetes. Follow your health care provider's guidelines and first aid guidelines. Report foot injuries and infections to your health care provider immediately. Check water temperature with your elbow, not your foot. Do not use a heating pad on your feet. Do not cross your legs. Do not self-treat your corns, calluses, or other foot problems. Go to your health care provider or splicing supervisor to treat these conditions. Harry Wood 04/29/2024 9:38 PM Addendum Last saw pcp: 12/03/2023 Subjective: Patient presents to clinic c/o painful toenails. They state that the nails are especially painful with shoe gear and pressure. . Patient admits to being diabetic. No other pedal complaints at this time. Patient states no change in medications or medical history since last visit. Objective: Patient presents to clinic ambulating in [facility] Vasc: DP and PT pulses are palpable bilateral. CFT is less than 5 seconds bilateral. Skin temperature is warm to cool proximal to distal bilateral. There is mild edema or varicosities noted. Neuro: Protective sensation is absent to the foot and toes when tested with the 5.07 SWM bilateral. Vibratory sensation is absent at the hallux IPJ b (more content not included)... Normal [facility] Basophil percentageOrdered B y: Jose Roberto Mendoza on 07-13-2023 Creatinine [Mass/Vol] 1.0 mg/dL 0.70-1.30 [facility] No Panel InformationOrdered By: Jose Roberto Mendoza on 07-13-2023 Bedside Estimated GFR (eGFR) > 60.0000 mL/min >60 [facility] Absolute lymphocyte countOrd ered By: Javier Oakley on 06-10-2023 Lymphocytes Auto (Unsp spec) [#/Vol] 4.34 10*3/uL 0.83-4.51 [facility] Automated lymphocyte count a s percentage of total leukocytesOrdered By: Javier Oakley on 06-10-2023 Lymphocytes/100 WBC Auto (Unsp spec) 29.4 % 19-41 [facility] Basophil percentageOrdered B y: Javier Oakley on 06-10-2023 Basophils/100 WBC (Bld) 0.7 % 0-1 [facility] Bilirubin [Mass/Vol] 0.70 mg/dL 0.20-1.00 [place] Comment on above: For patients on eltr ombopag therapy, use of Dimension [place] TBIL is not recommended. Chloride [Moles/Vol] 104 mmol/L 98-107 [place] Cholesterol [Mass/Vol] 142 mg/dL <200 [facility] Comment on above: <200 mg/dL Desirable 200-240 mg/dL Borderline >240 mg/dL High Risk Eosinophils/100 WBC (Bld) 2.3 % 0-5 [facility] Glucose [Mass/Vol] 169 mg/dL 74-106 [facility] Comment on above: Fasting Glucose resu lt greater than or equal to 126 mg/dL suggests DIABETES MELLITUS per A.D.A. criteria. Hemoglobin (Bld) [Mass/Vol] 13.4 g/dL 13.0-16.5 [facility] Monocytes/100 WBC (Bld) 8.1 % 0-10 [facility] Neutrophils (Bld) [#/Vol] 8.8 10*3/uL 2.0-7.7 [facility] Neutrophils/100 WBC (Bld) 59.2 % 47-70 [facility] Potassium [Moles/Vol] 4.2 mmol/L 3.5-5.1 [facility] Protein [Mass/Vol] 7.2 g/dL 6.4-8.2 [facility] Sodium [Moles/Vol] 136 mmol/L 136-145 [facility] Triglyceride [Mass/Vol] 178 mg/dL <199 [facility] Comment on above: The drugs N-Acetylcy steine and Metamizole may falsely depress this assay.Serum Triglycerides Reference Interval Normal <150 mg/dL Borderline high 150 - 199 mg/dL High 200 - 499 mg/dL Very High > or = 500 mg/dL WBC (Bld) [#/Vol] 14.8 10*3/uL 4.4-11.0 [facility] Determination of erythrocyte mean corpuscular volume (MCV)Ordered By: Javier Oakley on 06-10-2023 MCV (RBC) [Entitic vol] 91.1 fL 80-94 [facility] Direct bilirubinOrdered By: Javier Oakley on 06-10-2023 Bilirubin.direct [Mass/Vol] 0.20 mg/dL 0.00-0.30 [facility] Erythrocyte distribution wid th ratioOrdered By: Javier Oakley on 06-10-2023 Erythrocyte distribution width (RBC) [Ratio] 14.0 % 11.6-14.6 [facility] Erythrocyte distribution wid th standard deviationOrdered By: Javier Oakley on 06-10-2023 Erythrocyte distribution width (RBC) [Entitic vol] 47.1 fL 35.1-43.9 [facility] Hematocrit Auto (Bld) [Volum e fraction]Ordered By: Javier Oakley on 06-10-2023 Hematocrit (Bld) [Volume fraction] 42.1 % 40-54 [facility] Immature granulocytes/100 WB C Auto (Bld)Ordered By: Javier Oakley on 06-10-2023 Immature granulocytes/100 WBC (Bld) 0.300 % 0.0-0.9 [facility] Comment on above: IG% - Immature Granu locytes (promyelocytes, myelocytes and metamyelocytes) > 1% indicates that a LEFT SHIFT is Present. Laboratory - Chemistry and C hemistry - challengeOrdered By: Javier Oakley on 06-10-2023 Albumin/Globulin [Mass ratio] 0.9 {ratio} 0.9-2.4 [facility] ALP [Catalytic activity/Vol] 95 U/L 45-117 [facility] ALT [Catalytic activity/Vol] 24 U/L 16-61 [facility] Cholesterol in HDL [Mass/Vol] 40 mg/dL >40 [facility] Comment on above: The drugs N-Acetylcy steine and Metamizole may falsely depress this assay. Reference Range HDL <40 mg/dL Low HDL Cholesterol HDL >or= 60 mg/dL High HDL Cholesterol Cholesterol in LDL [Mass/Vol] 66 mg/dL 0-130 [facility] CO2 [Moles/Vol] 23.0 mmol/L 21.0-32.0 [facility] Globulin (S) [Mass/Vol] 3.7 g/dL 2.2-4.2 [facility] Urea nitrogen/Creatinine [Mass ratio] 15.8 mg/mg 10-20 [facility] Laboratory - Hematology and Cell countsOrdered By: Javier Oakley on 06-10-2023 MCH (RBC) [Entitic mass] 29.0 pg 27.0-32.0 [facility] MCHC (RBC) [Mass/Vol] 31.8 g/dL 32-36 [facility] Nucleated RBC/100 WBC (Bld) [Ratio] 0 % 0-5 [facility] Platelet mean volume (Bld) [Entitic vol] 10.9 fL 6.2-12.0 [facility] Platelets (Bld) [#/Vol] 228 10*3/uL 150-450 [facility] No Panel InformationOrdered By: Javier Oakley on 06-10-2023 Estimated GFR (MDRD) Amer 64 mL/min >60 [facility] Comment on above: GFR Calc Estimated GFR (MDRD) Non-Af Amer 53 mL/min >60 [facility] Comment on above: Non- GFR Calc Urine Microalbumin/Creatinine Ratio 4.3 mg/g CRE <30 [facility] VLDL Cholesterol 36 mg/dL 5-40 [facility] RBC Auto (Bld) [#/Vol]Ordere d By: Javier Oakley on 06-10-2023 RBC (Bld) [#/Vol] 4.62 10*6/uL 4.6-6.2 [facility] Serum or plasma calcium mitch urement (mass/volume)Ordered By: Javier Oakley on 06-10-2023 Calcium [Mass/Vol] 8.9 mg/dL 8.5-10.1 [facility] Serum or plasma creatinine m easurement (mass/volume)Ordered By: Javier Oakley on 06-10-2023 Creatinine [Mass/Vol] 1.39 mg/dL 0.70-1.30 [facility] Comment on above: The validity of the calculated GFR & GFRAA in patients over 70 years has not been determined. Clinical correlation is essential. Serum or plasma thyroid stim ulating hormone (TSH) measurement (units/volume)Ordered By: Javier Oakley on 06-10-2023 TSH Qn 0.74 uIU/mL 0.358-3.74 [facility] Serum or plasma urea nitroge n measurement (mass/volume)Ordered By: Javier Oakley on 06-10-2023 Urea nitrogen [Mass/Vol] 22 mg/dL 7-18 [facility] Thin prep Papanicolaou smear with manual screeningOrdered By: Javier Oakley on 06-10-2023 Thin prep Papanicolaou smear with manual screening 3.5 g/dL 3.2-5.0 [facility] Thin prep Papanicolaou smear with manual screening 22 U/L 15-37 [facility] Thin prep Papanicolaou smear with manual screening 9 5-15 [facility] Thin prep Papanicolaou smear with manual screening 5.0 mg/L NO RANGE EST. [facility] Urine creatinine measurement (mass/volume)Ordered By: Javier Oakley on 06-10-2023 Creatinine (U) [Mass/Vol] 117.00 mg/dL NO RANGE EST. [facility] Whole blood hemoglobin A1c/t otal hemoglobin ratio (mass fraction)Ordered By: Javier Oakley on 06-10-2023 HbA1c (Bld) [Mass fraction] 7.2 % 3.8-5.6 [facility] Comment on above: Normal < 5.7 % Predi abetic 5.7 - 6.4 % Diabetic >or= 6.5 % Please note range changes. Basophil percentageOrdered B y: Javier Oakley on 10-27-2022 Bilirubin [Mass/Vol] 0.70 mg/dL 0.20-1.00 [place] Comment on above: For patients on eltr ombopag therapy, use of Dimension [place] TBIL is not recommended. Chloride [Moles/Vol] 105 mmol/L 98-107 [place] Glucose [Mass/Vol] 144 mg/dL 74-106 [facility] Comment on above: Fasting Glucose resu lt greater than or equal to 126 mg/dL suggests DIABETES MELLITUS per A.D.A. criteria. Potassium [Moles/Vol] 4.2 mmol/L 3.5-5.1 [facility] Protein [Mass/Vol] 7.3 g/dL 6.4-8.2 [facility] Sodium [Moles/Vol] 135 mmol/L 136-145 [facility] Basophil percentageOrdered B y: Susan Michaels on 10-27-2022 Cholesterol [Mass/Vol] 146 mg/dL <200 [facility] Comment on above: <200 mg/dL Desirable 200-240 mg/dL Borderline >240 mg/dL High Risk Triglyceride [Mass/Vol] 231 mg/dL <199 [facility] Comment on above: The drugs N-Acetylcy steine and Metamizole may falsely depress this assay.Serum Triglycerides Reference Interval Normal <150 mg/dL Borderline high 150 - 199 mg/dL High 200 - 499 mg/dL Very High > or = 500 mg/dL Direct bilirubinOrdered By: Susan Michaels on 10-27-2022 Bilirubin.direct [Mass/Vol] 0.20 mg/dL 0.00-0.30 [facility] Laboratory - Chemistry and C hemistry - challengeOrdered By: Javier Oakley on 10-27-2022 ALP [Catalytic activity/Vol] 93 U/L 45-117 [facility] ALT [Catalytic activity/Vol] 23 U/L 16-61 [facility] CO2 [Moles/Vol] 27.0 mmol/L 21.0-32.0 [facility] Free T4 [Mass/Vol] 1.37 ng/dL 0.76-1.46 [facility] Globulin (S) [Mass/Vol] 3.7 g/dL 2.2-4.2 [facility] Urea nitrogen/Creatinine [Mass ratio] 15.7 mg/mg 10-20 [facility] No Panel InformationOrdered By: Javier Oakley on 10-27-2022 Estimated GFR (MDRD) Amer 57 mL/min >60 [facility] Comment on above: GFR Calc Estimated GFR (MDRD) Non-Af Amer 47 mL/min >60 [facility] Comment on above: Non- GFR Calc Free Triiodothyronine (T3) pg/dL 2.2 pg/mL 2.18-3.98 [facility] Thyroid Stimulating Hormone (TSH) 0.36 uIU/mL 0.358-3.74 [facility] Serum or plasma albumin mitch urement (mass/volume)Ordered By: Javier Oakley on 10-27-2022 Albumin [Mass/Vol] 3.6 g/dL 3.2-5.0 [facility] Serum or plasma albumin/glob ulin mass ratioOrdered By: Javier Oakley on 10-27-2022 Albumin/Globulin [Mass ratio] 1.0 {ratio} 0.9-2.4 [facility] Serum or plasma calcium mitch urement (mass/volume)Ordered By: Javier Oakley on 10-27-2022 Calcium [Mass/Vol] 8.9 mg/dL 8.5-10.1 [facility] Serum or plasma cholesterol in HDL measurement (mass/volume)Ordered By: Susan Michaels on 10-27-2022 Cholesterol in HDL [Mass/Vol] 34 mg/dL >40 [facility] Comment on above: The drugs N-Acetylcy steine and Metamizole may falsely depress this assay. Reference Range HDL <40 mg/dL Low HDL Cholesterol HDL >or= 60 mg/dL High HDL Cholesterol Serum or plasma cholesterol in VLDL measurement (mass/volume)Ordered By: Susan Michaels on 10-27-2022 Cholesterol in VLDL [Mass/Vol] 46 mg/dL 5-40 [facility] Serum or plasma creatinine m easurement (mass/volume)Ordered By: Javier Oakley on 10-27-2022 Creatinine [Mass/Vol] 1.53 mg/dL 0.70-1.30 [facility] Comment on above: The validity of the calculated GFR & GFRAA in patients over 70 years has not been determined. Clinical correlation is essential. Serum or plasma low density lipoprotein (LDL) cholesterol measurement (mass/volume)Ordered By: Susan Michaels on 10-27-2022 Cholesterol in LDL [Mass/Vol] 66 mg/dL 0-130 [facility] Serum or plasma urea nitroge n measurement (mass/volume)Ordered By: Javier Oakley on 10-27-2022 Urea nitrogen [Mass/Vol] 24 mg/dL 7-18 [facility] Thin prep Papanicolaou smear with manual screeningOrdered By: Javier Oakley on 10-27-2022 Thin prep Papanicolaou smear with manual screening 15 U/L 15-37 [facility] Thin prep Papanicolaou smear with manual screening 3 5-15 [facility] Laboratory - Chemistry and C hemistry - challengeOrdered By: Javier Oakley on 09-02-2022 Free T4 [Mass/Vol] 1.94 ng/dL 0.76-1.46 [facility] No Panel InformationOrdered By: Javier Oakley on 09-02-2022 Free Triiodothyronine (T3) pg/dL 2.0 pg/mL 2.18-3.98 [facility] Thyroid Stimulating Hormone (TSH) 0.33 uIU/mL 0.358-3.74 [facility] Basophil percentageOrdered B y: Yamel Raman on 08-17-2022 Basophil percentage 2.1 mg/dL 2.5-4.9 [facility] Chloride [Moles/Vol] 105 mmol/L 98-107 [place] Glucose [Mass/Vol] 147 mg/dL 74-106 [facility] Comment on above: Fasting Glucose resu lt greater than or equal to 126 mg/dL suggests DIABETES MELLITUS per A.D.A. criteria. Potassium [Moles/Vol] 4.0 mmol/L 3.5-5.1 [facility] Sodium [Moles/Vol] 139 mmol/L 136-145 [facility] WBC (Bld) [#/Vol] 9.7 10*3/uL 4.4-11.0 [facility] Blood erythrocytes count (nu mber/volume)Ordered By: Yamel Raman on 08-17-2022 RBC (Bld) [#/Vol] 4.38 10*6/uL 4.6-6.2 [facility] Blood hemoglobin measurement (mass/volume)Ordered By: Yamel Raman on 08-17-2022 Hemoglobin (Bld) [Mass/Vol] 13.8 g/dL 13.0-16.5 [facility] Blood platelet mean volumeOr dered By: Yamel Raman on 08-17-2022 Platelet mean volume (Bld) [Entitic vol] 10.9 fL 6.2-12.0 [facility] Determination of erythrocyte mean corpuscular volume (MCV)Ordered By: Yamel Raman on 08-17-2022 MCV (RBC) [Entitic vol] 96.6 fL 80-94 [facility] Hematocrit Auto (Bld) [Volum e fraction]Ordered By: Yamel Raman on 08-17-2022 Hematocrit (Bld) [Volume fraction] 42.3 % 40-54 [facility] Laboratory - Chemistry and C hemistry - challengeOrdered By: Yamel Raman on 08-17-2022 CO2 [Moles/Vol] 24.0 mmol/L 21.0-32.0 [facility] Urea nitrogen/Creatinine [Mass ratio] 15.2 mg/mg 10-20 [facility] Laboratory - Hematology and Cell countsOrdered By: Yamle Raman on 08-17-2022 Erythrocyte distribution width (RBC) [Entitic vol] 50.7 fL 35.1-43.9 [facility] Erythrocyte distribution width (RBC) [Ratio] 14.2 % 11.6-14.6 [facility] MCH (RBC) [Entitic mass] 31.5 pg 27.0-32.0 [facility] ([facility]) [Mass/Vol]Or dered By: Yamel Raman on 08-17-2022 MCHC (RBC) [Mass/Vol] 32.6 g/dL 32-36 [facility] No Panel InformationOrdered By: Yamel Raman on 08-17-2022 Estimated GFR (MDRD) Amer 68 mL/min >60 [facility] Comment on above: GFR Calc Estimated GFR (MDRD) Non-Af Amer 56 mL/min >60 [facility] Comment on above: Non- GFR Calc Parathyroid Hormone (Intact) 77.4 pg/mL 18.4-80.1 [facility] Vitamin D 25-Hydroxy 28.7 ng/mL [place] Comment on above: Vitamin D 25(OH) Sta tus Range Deficiency <20 ng/mL (50nmol/L) Insufficiency 20 - 30 ng/mL (50 - 75 nmol/L) Sufficiency 30 - 100 ng/mL (75 - 250 nmol/L) Toxicity >100 ng/mL (>250 nmol/L) Platelets bldOrdered By: Wilfrido Raman on 08-17-2022 Platelets (Bld) [#/Vol] 195 10*3/uL 150-450 [facility] Serum or plasma albumin mitch urement (mass/volume)Ordered By: Yamel Raman on 08-17-2022 Albumin [Mass/Vol] 3.8 g/dL 3.2-5.0 [facility] Serum or plasma calcium mitch urement (mass/volume)Ordered By: Yamel Raman on 08-17-2022 Calcium [Mass/Vol] 9.3 mg/dL 8.5-10.1 [facility] Serum or plasma creatinine m easurement (mass/volume)Ordered By: Yamel Raman on 08-17-2022 Creatinine [Mass/Vol] 1.32 mg/dL 0.70-1.30 [facility] Comment on above: The validity of the calculated GFR & GFRAA in patients over 70 years has not been determined. Clinical correlation is essential. Serum or plasma urea nitroge n measurement (mass/volume)Ordered By: Yamel Raman on 08-17-2022 Urea nitrogen [Mass/Vol] 20 mg/dL 7-18 [facility] Urine creatinine measurement (mass/volume)Ordered By: Yamel Raman on 08-17-2022 Creatinine (U) [Mass/Vol] 90.10 mg/dL NO RANGE EST. [facility] Urine protein measurement (m ass/volume)Ordered By: Neon Danisha on 08-17-2022 Protein (U) [Mass/Vol] 15.0 mg/dL 0.0-11.8 [facility] Urine protein/creatinine mas s ratioOrdered By: [facility] 08-17-2022 Protein/Creatinine (U) [Mass ratio] 166 mg/g CRE 0-200 [facility] Basophil percentageOrdered B y: Dr. Oakley on 07-20-2022 Bilirubin [Mass/Vol] 0.80 mg/dL 0.20-1.00 [place] Comment on above: For patients on eltr ombopag therapy, use of Dimension [place] TBIL is not recommended. Chloride [Moles/Vol] 105 mmol/L 98-107 [place] Glucose [Mass/Vol] 162 mg/dL 74-106 [facility] Comment on above: Fasting Glucose resu lt greater than or equal to 126 mg/dL suggests DIABETES MELLITUS per A.D.A. criteria. Potassium [Moles/Vol] 4.0 mmol/L 3.5-5.1 [facility] Protein [Mass/Vol] 7.7 g/dL 6.4-8.2 [facility] Sodium [Moles/Vol] 135 mmol/L 136-145 [facility] Laboratory - Chemistry and C hemistry - challengeOrdered By: Dr. Oakley on 07-20-2022 ALP [Catalytic activity/Vol] 81 U/L 45-117 [facility] ALT [Catalytic activity/Vol] 22 U/L 16-61 [facility] CO2 [Moles/Vol] 26.0 mmol/L 21.0-32.0 [facility] Globulin (S) [Mass/Vol] 3.9 g/dL 2.2-4.2 [facility] Urea nitrogen/Creatinine [Mass ratio] 14.1 mg/mg 10-20 [facility] No Panel InformationOrdered By: Dr. Oakley on 07-20-2022 Estimated GFR (MDRD) Amer 59 mL/min >60 [facility] Comment on above: GFR Calc Estimated GFR (MDRD) Non-Af Amer 49 mL/min >60 [facility] Comment on above: Non- GFR Calc Thyroid Stimulating Hormone (TSH) 19.70 uIU/mL 0.358-3.74 [facility] Serum or plasma albumin mitch urement (mass/volume)Ordered By: Dr. Oakley on 07-20-2022 Albumin [Mass/Vol] 3.8 g/dL 3.2-5.0 [facility] Serum or plasma albumin/glob ulin mass ratioOrdered By: Dr. Oakley on 07-20-2022 Albumin/Globulin [Mass ratio] 1.0 {ratio} 0.9-2.4 [facility] Serum or plasma calcium mitch urement (mass/volume)Ordered By: Dr. Oakley on 07-20-2022 Calcium [Mass/Vol] 9.4 mg/dL 8.5-10.1 [facility] Serum or plasma creatinine m easurement (mass/volume)Ordered By: Dr. Oakley on 07-20-2022 Creatinine [Mass/Vol] 1.49 mg/dL 0.70-1.30 [facility] Comment on above: The validity of the calculated GFR & GFRAA in patients over 70 years has not been determined. Clinical correlation is essential. Serum or plasma urea nitroge n measurement (mass/volume)Ordered By: Dr. Oakley on 07-20-2022 Urea nitrogen [Mass/Vol] 21 mg/dL 7-18 [facility] Thin prep Papanicolaou smear with manual screeningOrdered By: Dr. Oakley on 07-20-2022 Thin prep Papanicolaou smear with manual screening 17 U/L 15-37 [facility] Thin prep Papanicolaou smear with manual screening 4 5-15 [facility] Basophil percentageOrdered B y: Dr. Oakley on 04-21-2022 Bilirubin [Mass/Vol] 0.70 mg/dL 0.20-1.00 [place] Comment on above: For patients on eltr ombopag therapy, use of Dimension [place] TBIL is not recommended. Chloride [Moles/Vol] 102 mmol/L 98-107 [place] Glucose [Mass/Vol] 106 mg/dL 74-106 [facility] Comment on above: Fasting Glucose resu lt from 100 to 125 mg/dL suggests IMPAIRED HOMEOSTASIS per A.D.A. criteria. Potassium [Moles/Vol] 3.6 mmol/L 3.5-5.1 [facility] Protein [Mass/Vol] 7.6 g/dL 6.4-8.2 [facility] Sodium [Moles/Vol] 134 mmol/L 136-145 [facility] - Chemistry and C hemistry - challengeOrdered By: Dr. Oakley on 04-21-2022 ALP [Catalytic activity/Vol] 86 U/L 45-117 [facility] ALT [Catalytic activity/Vol] 24 U/L 16-61 [facility] CO2 [Moles/Vol] 23.0 mmol/L 21.0-32.0 [facility] Globulin (S) [Mass/Vol] 4.4 g/dL 2.2-4.2 [facility] Urea nitrogen/Creatinine [Mass ratio] 15.3 mg/mg 10-20 [facility] No Panel InformationOrdered By: Dr. Oakley on 04-21-2022 Estimated Creatinine Clearance Calc 39.06 ml/min [facility] Estimated GFR (MDRD) Amer 45 mL/min >60 [facility] Comment on above: GFR Calc Estimated GFR (MDRD) Non-Af Amer 37 mL/min >60 [facility] Comment on above: Non- GFR Calc Thyroid Stimulating Hormone (TSH) 0.90 uIU/mL 0.358-3.74 [facility] Urine Microalbumin/Creatinine Ratio 14.8 mg/g CRE <30 [facility] Serum or plasma albumin mitch urement (mass/volume)Ordered By: Dr. Oakley on 04-21-2022 Albumin [Mass/Vol] 3.2 g/dL 3.2-5.0 [facility] Serum or plasma albumin/glob ulin mass ratioOrdered By: Dr. Oakley on 04-21-2022 Albumin/Globulin [Mass ratio] 0.7 {ratio} 0.9-2.4 [facility] Serum or plasma calcium mitch urement (mass/volume)Ordered By: Dr. Oakley on 04-21-2022 Calcium [Mass/Vol] 9.0 mg/dL 8.5-10.1 [facility] Serum or plasma creatinine m easurement (mass/volume)Ordered By: Dr. Oakley on 04-21-2022 Creatinine [Mass/Vol] 1.90 mg/dL 0.70-1.30 [facility] Comment on above: The validity of the calculated GFR & GFRAA in patients over 70 years has not been determined. Clinical correlation is essential. Serum or plasma urea nitroge n measurement (mass/volume)Ordered By: Dr. Oakley on 04-21-2022 Urea nitrogen [Mass/Vol] 29 mg/dL 7-18 [facility] Thin prep Papanicolaou smear with manual screeningOrdered By: Dr. Oakley on 04-21-2022 Thin prep Papanicolaou smear with manual screening 16 U/L 15-37 [facility] Thin prep Papanicolaou smear with manual screening 9 5-15 [facility] Thin prep Papanicolaou smear with manual screening 31.0 mg/L NO RANGE EST. [facility] Urine creatinine measurement (mass/volume)Ordered By: Dr. Oakley on 04-21-2022 Creatinine (U) [Mass/Vol] 209.00 mg/dL NO RANGE EST. [facility] Whole blood hemoglobin A1c/t otal hemoglobin ratio (mass fraction)Ordered By: Dr. Oakley on 04-21-2022 HbA1c (Bld) [Mass fraction] 7.2 % 3.8-5.6 [facility] Comment on above: Normal < 5.7 % Predi abetic 5.7 - 6.4 % Diabetic >or= 6.5 % Please note range changes. Basophil percentageOrdered B y: Susan Michaels on 03-19-2022 Bilirubin [Mass/Vol] 0.60 mg/dL 0.20-1.00 [place] Comment on above: For patients on eltr ombopag therapy, use of Dimension [place] TBIL is not recommended. Cholesterol [Mass/Vol] 156 mg/dL <200 [facility] Comment on above: <200 mg/dL Desirable 200-240 mg/dL Borderline >240 mg/dL High Risk Protein [Mass/Vol] 7.4 g/dL 6.4-8.2 [facility] Triglyceride [Mass/Vol] 168 mg/dL <199 [facility] Comment on above: The drugs N-Acetylcy steine and Metamizole may falsely depress this assay.Serum Triglycerides Reference Interval Normal <150 mg/dL Borderline high 150 - 199 mg/dL High 200 - 499 mg/dL Very High > or = 500 mg/dL Direct bilirubinOrdered By: Susan Michaels on 03-19-2022 Bilirubin.direct [Mass/Vol] 0.17 mg/dL 0.00-0.30 [facility] Laboratory - Chemistry and C hemistry - challengeOrdered By: Susan Michaels on 03-19-2022 ALP [Catalytic activity/Vol] 81 U/L 45-117 [facility] ALT [Catalytic activity/Vol] 21 U/L 16-61 [facility] Globulin (S) [Mass/Vol] 3.8 g/dL 2.2-4.2 [facility] Serum or plasma albumin mitch urement (mass/volume)Ordered By: Susan Michaels on 03-19-2022 Albumin [Mass/Vol] 3.6 g/dL 3.2-5.0 [facility] Serum or plasma cholesterol in HDL measurement (mass/volume)Ordered By: Susan Michaels on 03-19-2022 Cholesterol in HDL [Mass/Vol] 38 mg/dL >40 [facility] Comment on above: The drugs N-Acetylcy steine and Metamizole may falsely depress this assay. Reference Range HDL <40 mg/dL Low HDL Cholesterol HDL >or= 60 mg/dL High HDL Cholesterol Serum or plasma cholesterol in VLDL measurement (mass/volume)Ordered By: Susan Michaels on 03-19-2022 Cholesterol in VLDL [Mass/Vol] 34 mg/dL 5-40 [facility] Serum or plasma low density lipoprotein (LDL) cholesterol measurement (mass/volume)Ordered By: Susan Michaels on 03-19-2022 Cholesterol in LDL [Mass/Vol] 84 mg/dL 0-130 [facility] Thin prep Papanicolaou smear with manual screeningOrdered By: Susan Michaels on 03-19-2022 Thin prep Papanicolaou smear with manual screening 14 U/L 15-37 [facility] Cytology report of Body flui d Cyto stainOrdered By: RICHARD Doll on 03-16-2022 Cytology report Cyto stain Doc (Body fld) SEE PATHOLOGY REPORT [facility] Comment on above: Specimen submitted t o Anatomical Pathology Department for testing. No Panel InformationOrdered By: RICHARD Jcaksonbassam on 03-16-2022 Prostate Specific Antigen Screen 3.87 ng/mL 0.00-4.00 [facility] Comment on above: This test was perfor med using the TPSA assay method [facility] the[facility]. Values obtained with differentassay methods cannot be used interchangably.When changing PSA assays in the course of monitoring apatient, additional sequential testing should be carriedout to confirm baseline values. Absolute lymphocyte countOrd ered By: Dr. Johnson on 03-10-2022 Lymphocytes Auto (Unsp spec) [#/Vol] 3.01 10*3/uL 0.83-4.51 [facility] Basophil percentageOrdered B y: Dr. Johnson on 03-10-2022 Basophils/100 WBC (Bld) 0.7 % 0-1 [facility] Chloride [Moles/Vol] 108 mmol/L 98-107 [place] Eosinophils/100 WBC (Bld) 1.3 % 0-5 [facility] Glucose [Mass/Vol] 135 mg/dL 74-106 [facility] Comment on above: Fasting Glucose resu lt greater than or equal to 126 mg/dL suggests DIABETES MELLITUS per A.D.A. criteria. Neutrophils (Bld) [#/Vol] 6.6 10*3/uL 2.0-7.7 [facility] Neutrophils/100 WBC (Bld) 61.0 % 47-70 [facility] Potassium [Moles/Vol] 4.0 mmol/L 3.5-5.1 [facility] Comment on above: Slight Hemolysis, Re sult may be falsely increased. Sodium [Moles/Vol] 139 mmol/L 136-145 [facility] WBC (Bld) [#/Vol] 10.8 10*3/uL 4.4-11.0 [facility] Basophil percentage 0 SEEN /hpf 0-5 [place] Bilirubin Test strip Ql (U)O rdered By: Dr. Johnson on 03-10-2022 Bilirubin Ql (U) Negative Negative [facility] Blood erythrocytes count (nu mber/volume)Ordered By: Dr. Johnson on 03-10-2022 RBC (Bld) [#/Vol] 4.66 10*6/uL 4.6-6.2 [facility] Blood hemoglobin measurement (mass/volume)Ordered By: Dr. Johnson on 03-10-2022 Hemoglobin (Bld) [Mass/Vol] 13.3 g/dL 13.0-16.5 [facility] Blood lymphocytes/100 leukoc ytesOrdered By: Dr. Johnson on 03-10-2022 Lymphocytes/100 WBC (Bld) 27.8 % 19-41 [facility] Blood monocytes/100 leukocyt esOrdered By: Dr. Johnson on 03-10-2022 Monocytes/100 WBC (Bld) 8.9 % 0-10 [facility] Blood platelet mean volumeOr dered By: Dr. Johnson on 03-10-2022 Platelet mean volume (Bld) [Entitic vol] 10.9 fL 6.2-12.0 [facility] Determination of erythrocyte mean corpuscular volume (MCV)Ordered By: Dr. Johnson on 03-10-2022 MCV (RBC) [Entitic vol] 91.2 fL 80-94 [facility] Hematocrit Auto (Bld) [Volum e fraction]Ordered By: Dr. Johnson on 03-10-2022 Hematocrit (Bld) [Volume fraction] 42.5 % 40-54 [facility] Ketones Test strip Ql (U)Ord ered By: Dr. Johnson on 03-10-2022 Ketones Ql (U) Negative Negative [facility] Laboratory - Chemistry and C hemistry - challengeOrdered By: Dr. Johnson on 03-10-2022 CO2 [Moles/Vol] 24.0 mmol/L 21.0-32.0 [facility] Urea nitrogen/Creatinine [Mass ratio] 14.7 mg/mg 10-20 [facility] Laboratory - Hematology and Cell countsOrdered By: Dr. Johnson on 03-10-2022 Erythrocyte distribution width (RBC) [Entitic vol] 49.2 fL 35.1-43.9 [facility] Erythrocyte distribution width (RBC) [Ratio] 14.7 % 11.6-14.6 [facility] Immature granulocytes/100 WBC (Bld) 0.300 % 0.0-0.9 [facility] Comment on above: IG% - Immature Granu locytes (promyelocytes, myelocytes and metamyelocytes) > 1% indicates that a LEFT SHIFT is Present. MCH (RBC) [Entitic mass] 28.5 pg 27.0-32.0 [facility] Nucleated RBC/100 WBC (Bld) [Ratio] 0 % 0-5 [facility] MCHC Auto (RBC) [Mass/Vol]Or dered By: Dr. Johnson on 03-10-2022 MCHC (RBC) [Mass/Vol] 31.3 g/dL 32-36 [facility] Mucus LM Ql (Urine sed)Order ed By: Dr. Johnson on 03-10-2022 Mucus Ql (Urine sed) 0 SEEN /hpf [facility] Nitrite Test strip Ql (U)Ord ered By: Dr. Johnson on 03-10-2022 Nitrite Ql (U) Negative Negative [facility] No Panel InformationOrdered By: Dr. Johnson on 03-10-2022 Estimated Creatinine Clearance Calc 45.53 ml/min [facility] Estimated GFR (MDRD) Amer 53 mL/min >60 [facility] Comment on above: GFR Calc Estimated GFR (MDRD) Non-Af Amer 44 mL/min >60 [facility] Comment on above: Non- GFR Calc Platelets bldOrdered By: Dr. Johnson on 03-10-2022 Platelets (Bld) [#/Vol] 220 10*3/uL 150-450 [facility] Protein Test strip Ql (U)Ord ered By: Dr. Johnson on 03-10-2022 Protein Ql (U) Negative Negative [facility] Serum or plasma calcium mitch urement (mass/volume)Ordered By: Dr. Johnson on 03-10-2022 Calcium [Mass/Vol] 9.3 mg/dL 8.5-10.1 [facility] Serum or plasma creatinine m easurement (mass/volume)Ordered By: Dr. Johnson on 03-10-2022 Creatinine [Mass/Vol] 1.63 mg/dL 0.70-1.30 [facility] Comment on above: The validity of the calculated GFR & GFRAA in patients over 70 years has not been determined. Clinical correlation is essential. Serum or plasma urea nitroge n measurement (mass/volume)Ordered By: Dr. Johnson on 03-10-2022 Urea nitrogen [Mass/Vol] 24 mg/dL 7-18 [facility] Squamous epithelial cells de tection in urine sediment by light microscopyOrdered By: Dr. Johnson on 03-10-2022 Epithelial cells.squamous LM Ql (Urine sed) 0-5 SEEN /hpf 0-5 [facility] Thin prep Papanicolaou smear with manual screeningOrdered By: Dr. Johnson on 03-10-2022 Thin prep Papanicolaou smear with manual screening 7 5-15 [facility] Urine blood detectionOrdered By: Dr. Johnson on 03-10-2022 RBC Ql (U) 250 /ul Negative [facility] RBC Ql (U) > 100 SEEN /hpf 0-5 [facility] Urine clarityOrdered By: Dr. Johnson on 03-10-2022 Clarity (U) Sl. Cloudy Clear [facility] Urine color determinationOrd ered By: Dr. Johnson on 03-10-2022 Color (U) Yellow Yellow [facility] Urine glucose detectionOrder ed By: Dr. Johnson on 03-10-2022 Glucose Ql (U) Normal mg/dl Normal [facility] Urine leukocyte esterase det ection by dipstickOrdered By: Dr. Johnson on 03-10-2022 Leukocyte esterase Test strip Ql (U) Negative Negative [facility] Urine pHOrdered By: Dr. Loni schulte on 03-10-2022 pH (U) 6.0 [pH] 5.0 - 8.0 [facility] Urine sediment bacteria coun t by microscopy (number/high power field)Ordered By: Dr. Johnson on 03-10-2022 Bacteria LM.HPF (Urine sed) [#/Area] 0 /[HPF] None Seen [facility] Urine specific gravity measu rementOrdered By: Dr. Johnson on 03-10-2022 Specific gravity (U) [Rel density] 1.010 1.002-1.030 [facility] Urobilinogen Auto test strip Ql (U)Ordered By: Dr. Johnson on 03-10-2022 Urobilinogen Ql (U) Normal mg/dl Normal [facility] TSH BLDon 08-08-2021 TSH Qn 1.170 m[IU]/L 0.270 - 4.200 mIU/L [facility] Basic metabolic 2000 panelon 01-31-2021 Anion gap [Moles/Vol] 12 mmol/L Normal 9-18 [facility] Comment on above: Order Comment: Speci men Type: BLOOD SPECIMEN Performed By: #### 3 4528-0, 09225-8 #### [facility] CLIA [id number] [address] [place] Calcium [Mass/Vol] 8.2 mg/dL Low 8.5-10.2 [facility] Comment on above: Order Comment: Speci men Type: BLOOD SPECIMEN Performed By: #### 3 4528-0, 77577-6 #### [facility] CLIA [id number] [address] [place] [address] [place] Chloride [Moles/Vol] 102 mmol/L Normal 97-105 [facility] Comment on above: Order Comment: Speci men Type: BLOOD SPECIMEN Performed By: #### 3 4528-0, 75050-4 #### [facility] CLIA [id number] [address] [place] [address] [place] CO2 [Moles/Vol] 20 mmol/L Low 22-30 [facility] Comment on above: Order Comment: Speci men Type: BLOOD SPECIMEN Performed By: #### 3 4528-0, 45456-6 #### [facility] CLIA [id number] [address] [place] [address] [place] Creatinine [Mass/Vol] 1.37 mg/dL High 0.73-1.22 [facility] Comment on above: Order Comment: Speci men Type: BLOOD SPECIMEN Performed By: #### 3 4528-0, 47516-9 #### [facility] CLIA [id number] [address] [place] [address] [place] GFR/1.73 sq M.predicted MDRD (S/P/Bld) [Vol rate/Area] mL/min/{1.73_m2} Normal [facility] Comment on above: Order Comment: Speci men Type: BLOOD SPECIMEN Result Comment: 51 eGFR (Estimated GFR) Units of measure: mL/min/1.73 meters squared eGFR is derived from the reexpressed MDRD Study equation using the following parameters: serum creatinine, age, gender and race. The creatinine assay has been calibrated to be traceable to IDMS. An eGFR <60 mL/min/1.73m2 for >3 months is consistent with chronic kidney disease. Refer to KDOQI guidelines for clinical interpretation. In patients with unstable renal function, e.g. those with acute kidney injury, the eGFR may not accurately reflect actual GFR. Performed By: #### 3 4528-0, 24470-6 #### [facility] CLIA [id number] [address] [place] [address] [place] Glucose [Mass/Vol] 107 mg/dL High 74-99 [facility] Comment on above: Order Comment: Speci men Type: BLOOD SPECIMEN Result Comment: The [place] Diabetes Association (ADA) provides guidance for cutoff values for fasting glucose and random glucose. The ADA defines fasting as no caloric intake for at least 8 hours. Fasting plasma glucose results between 100 to 125 mg/dL indicate increased risk for diabetes (prediabetes). Fasting plasma glucose results greater than or equal to 126 mg/dL meet the criteria for diagnosis of diabetes. In the absence of unequivocal hyperglycemia, results should be confirmed by repeat testing. In a patient with classic symptoms of hyperglycemia or hyperglycemic crisis, random plasma glucose results greater than or equal to 200 mg/dL meet the criteria for diagnosis of diabetes. Reference: Standards of Medical Care in Diabetes 2016, [place] Diabetes Association. Diabetes Care. 2016.39(Suppl 1). Performed By: #### 3 4528-0, 67773-3 #### [facility] CLIA [id number] [address] [place] [address] [place] Potassium [Moles/Vol] 3.4 mmol/L Low 3.7-5.1 [facility] Comment on above: Order Comment: Speci men Type: BLOOD SPECIMEN Performed By: #### 3 4528-0, 00236-9 #### [facility] CLIA [id number] [address] Sodium [Moles/Vol] 134 mmol/L Low 136-144 [facility] Comment on above: Order Comment: Speci men Type: BLOOD SPECIMEN Performed By: #### 3 4528-0, 63561-6 #### [facility] CLIA [id number] [address] Urea nitrogen [Mass/Vol] 12 mg/dL Normal 9-24 [facility] Comment on above: Order Comment: Speci men Type: BLOOD SPECIMEN Performed By: #### 3 4528-0, 05087-6 #### [facility] CLIA [id number] [address] CBC panel Auto (Bld)on 01-31 Erythrocyte distribution width (RBC) [Ratio] 13.8 % Normal 11.5-15.0 [facility] Comment on above: Order Comment: Speci men Type: BLOOD SPECIMEN Performed By: #### 5 8410-2 #### [facility] CLIA [id number] [address] Hematocrit (Bld) [Volume fraction] 29.9 % Low 39.0-51.0 [facility] Comment on above: Order Comment: Speci men Type: BLOOD SPECIMEN Performed By: #### 5 8410-2 #### [facility] CLIA [id number] [address] Hemoglobin (Bld) [Mass/Vol] 9.9 g/dL Low 13.0-17.0 [facility] Comment on above: Order Comment: Speci men Type: BLOOD SPECIMEN Performed By: #### 5 8410-2 #### [facility] CLIA [id number] [address] MCH (RBC) [Entitic mass] 30.1 pg Normal 26.0-34.0 [facility] Comment on above: Order Comment: Speci men Type: BLOOD SPECIMEN Performed By: #### 5 8410-2 #### [facility] CLIA [id number] [address] MCHC (RBC) [Mass/Vol] 33.1 g/dL Normal 30.5-36.0 [facility] Comment on above: Order Comment: Speci men Type: BLOOD SPECIMEN Performed By: #### 5 8410-2 #### [facility] CLIA [id number] [address] MCV (RBC) [Entitic vol] 90.9 fL Normal 80.0-100.0 [facility] Comment on above: Order Comment: Speci men Type: BLOOD SPECIMEN Performed By: #### 5 8410-2 #### [facility] CLIA [id number] [address] Nucleated RBC (Bld) [#/Vol] 10*3/uL Normal <0.01 [facility] Comment on above: Order Comment: Speci men Type: BLOOD SPECIMEN Performed By: #### 5 8410-2 #### [facility] CLIA [id number] [address] Platelet mean volume (Bld) [Entitic vol] 10.1 fL Normal 9.0-12.7 [facility] Comment on above: Order Comment: Speci men Type: BLOOD SPECIMEN Performed By: #### 5 8410-2 #### [facility] CLIA [id number] [address] Platelets (Bld) [#/Vol] 238 10*3/uL Normal 150-400 [facility] Comment on above: Order Comment: Speci men Type: BLOOD SPECIMEN Performed By: #### 5 8410-2 #### [facility] CLIA [id number] [address] RBC (Bld) [#/Vol] 3.29 10*6/uL Low 4.20-6.00 [facility] Comment on above: Order Comment: Speci men Type: BLOOD SPECIMEN Performed By: #### 5 8410-2 #### [facility] CLIA [id number] [address] [facility] WBC (Bld) [#/Vol] 12.17 10*3/uL High 3.70-11.00 [facility] Comment on above: Order Comment: Speci men Type: BLOOD SPECIMEN Performed By: #### 5 8410-2 #### [facility] CLIA [id number] [address] CNDSon 01-31-2021 [facility] HNO ID: [id number] Author: Sean Bean DO Service: General Surgery Author Type: Resident Type: Discharge Summary Filed: 01/31/2021 6:55 AM Note Text: Attestation signed by Lauro Sharma MD at 02/14/2021 10:17 AM Attending Attestation The patient will be discharged today. I spent less than 30 minutes coordinating the discharge. Lauro Sharma MD DISCHARGE SUMMARY PATIENT NAME: Neetu Gomez Code Status: Not on file Highest Readmission Risk Score: 13 The 30 day readmissions risk score is derived from an internally validated risk model which evaluates patient level characteristics, utilization history, medication orders and lab results up until the day of discharge. Patients with a score of 40 or above are considered highest risk for readmission. Specific patient level drivers will be listed at the bottom of the summary. Admission Information Admission Information ADMIT DATE: 01/28/2021 DISCHARGE DATE: 01/31/21 [employer]: My Main Hospital Doctor: Moiz Tamez MD Primary Care Provider: Moiz Choudhury MD My Medical Team Members: Treatment Team: Attending Provider: Moiz Tamez MD MY CONDITION AT DISCHARGE: Stable REASON I WAS IN THE HOSPITAL: Small Bowel Obstruction PHYSICAL EXAM: GENERAL: No distress, Alert, pleasant, seated in chair NEURO: AANDOx3, CN II-XII grossly intact HEENT: normocephalic, atraumatic NECK: trachea midline no JVD LUNGS: Unlabored breathing, equal chest rise bilaterally CARDIAC: Regular rate, warm and well perfused distal extremities ABDOMEN: Soft, obese, mild distension, well healed surgical incisions from prior laparotomy. Nontender, no rebound guarding masses organomegaly or peritoneal signs. EXTREMITIES: FREITAS, No deformities, No edema SKIN: Skin color, texture, turgor normal, No rashes or lesions SUMMARY OF WHAT HAPPENED WHILE I WAS IN THE HOSPITAL: Mr. Gomez was admitted to and outside facility on 01/24 due to nausea, vomiting concerning for small bowel obstruction. At that time an NG was placed. On 01/26, CT of the AP demonstrated small bowel obstruction with transition point between jejunum and ileum. He was transferred to [facility] on 01/28 due to unresolved symptoms after conservative management. On 01/28 gastrograffin study demonstrated contrast in colon. On 01/29 his NG was removed and he was tolerating a diet. By his discharge date he was tolerating PO intake, ambulating, passing flautus and having bowel movements. He will be discharge home in stable condition. OTHER PROBLEMS/DIAGNOSIS: Active Problems: Large bowel obstruction (HCC) Resolved Problems: * No resolved hospital problems. * OPERATIONS PERFORMED WHILE IN THE HOSPITAL: See above IMPORTANT TEST/PROCEDURES: Gastrograffin, CT AP TEST RESULTS NOT AVAILABLE AT THIS TIME: No pending results Discharge Disposition Discharge Disposition: Home With Self Care Activity When You Leave the Hospital Resume pre-hospital activity Diet Instructions Regular Follow Up Appointments Follow-Up Appointment Patient can call his doctor near home in [place] and follow-up there since he lives far from [place] With: His surgeon near home When: In 1 week Patient/Parents to call for appointment?: Yes Treatment Team: Attending Provider: Moiz Tamez MD Transitions of Care Critical Issues: NEW BASELINE FOR PATIENT: Stable LABS AND PROCEDURES PENDING AT DISCHARGE: No pending results. FOLLOW-UP APPOINTMENTS ALREADY SCHEDULED WITH A [facility] PROVIDER: Future Appointments Date Time Provider Department Center 02/06/2021 2:00 PM Harry Blancas ALLERGIES Allergen Reactions - Monipril [Other] DISCHARGE MEDICATION: Current Discharge Medication List CONTINUE these medications which have NOT CHANGED ondansetron orally disintegrating (ZOFRAN ODT) 4 mg Take 4 mg by mouth every 6 hours as needed for nausea/vomiting. Qty: 15 tablet Refills: 0 Associated Diagnoses:Gastroente ritis amLODIPine (NORVASC) 10 mg Take 10 mg by mouth once daily. Qty: 90 tablet Refills: 1 atenolol (TENORMIN) 50 mg Take 50 mg by mouth once daily. Qty: 90 tablet Refills: 1 atorvastatin (LIPITOR) 20 mg Take 20 mg by mouth once daily. For cholesterol. Qty: 90 tablet Refills: 1 metFORMIN (GLUCOPHAGE) 500 mg Take 500 mg by mouth twice daily with meals. . Qty: 360 tablet Refills: 1 losartan (COZAAR) 100 mg Take 100 mg by mouth once daily. Qty: 90 tablet Refills: 1 glimepiride (AMARYL) 4 mg Take 4 mg by mouth daily with breakfast. Qty: 90 tablet Refills: 1 Associated Diagnoses:Type 2 diabetes mellitus without complication, without long-term current use of insulin (HCC) levothyroxine (SYNTHROID) 175 mcg Take 175 mcg by m (more content not included)... Normal [facility] Basic metabolic 2000 panelon 01-30-2021 Anion gap [Moles/Vol] 11 mmol/L Normal 9-18 [facility] Comment on above: Order Comment: Speci men Type: BLOOD SPECIMEN Performed By: #### 3 4528-0, 75189-6 #### [facility] CLIA [id number] [address] [place] [address] [place] Calcium [Mass/Vol] 8.2 mg/dL Low 8.5-10.2 [facility] Comment on above: Order Comment: Speci men Type: BLOOD SPECIMEN Performed By: #### 3 4528-0, 18474-2 #### [facility] CLIA [id number] [address] Chloride [Moles/Vol] 100 mmol/L Normal 97-105 [facility] Comment on above: Order Comment: Speci men Type: BLOOD SPECIMEN Performed By: #### 3 4528-0, 02714-4 #### [facility] CLIA [id number] [address] CO2 [Moles/Vol] 21 mmol/L Low 22-30 [facility] Comment on above: Order Comment: Speci men Type: BLOOD SPECIMEN Performed By: #### 3 4528-0, 35854-6 #### [facility] CLIA [id number] [address] Creatinine [Mass/Vol] 1.15 mg/dL Normal 0.73-1.22 [facility] Comment on above: Order Comment: Speci men Type: BLOOD SPECIMEN Performed By: #### 3 4528-0, 48299-1 #### [facility] CLIA [id number] [address] GFR/1.73 sq M.predicted MDRD (S/P/Bld) [Vol rate/Area] mL/min/{1.73_m2} Normal [facility] Comment on above: Order Comment: Speci men Type: BLOOD SPECIMEN Result Comment: >60 eGFR (Estimated GFR) Units of measure: mL/min/1.73 meters squared eGFR is derived from the reexpressed MDRD Study equation using the following parameters: serum creatinine, age, gender and race. The creatinine assay has been calibrated to be traceable to IDMS. An eGFR <60 mL/min/1.73m2 for >3 months is consistent with chronic kidney disease. Refer to KDOQI guidelines for clinical interpretation. In patients with unstable renal function, e.g. those with acute kidney injury, the eGFR may not accurately reflect actual GFR. Performed By: #### 3 4528-0, 75852-2 #### [facility] CLIA [id number] [address] [place] Glucose [Mass/Vol] 135 mg/dL High 74-99 [facility] Comment on above: Order Comment: Speci men Type: BLOOD SPECIMEN Result Comment: The English Diabetes Association (ADA) provides guidance for cutoff values for fasting glucose and random glucose. The ADA defines fasting as no caloric intake for at least 8 hours. Fasting plasma glucose results between 100 to 125 mg/dL indicate increased risk for diabetes (prediabetes). Fasting plasma glucose results greater than or equal to 126 mg/dL meet the criteria for diagnosis of diabetes. In the absence of unequivocal hyperglycemia, results should be confirmed by repeat testing. In a patient with classic symptoms of hyperglycemia or hyperglycemic crisis, random plasma glucose results greater than or equal to 200 mg/dL meet the criteria for diagnosis of diabetes. Reference: Standards of Medical Care in Diabetes 2016, English Diabetes Association. Diabetes Care. 2016.39(Suppl 1). Performed By: #### 3 4528-0, 55694-0 #### [facility] CLIA [id number] [address] [place] [facility] Potassium [Moles/Vol] Normal [facility] Comment on above: Order Comment: Speci men Type: BLOOD SPECIMEN Result Comment: Unab le to assay due to interference from hemolysis. Suggest reorder as clinically indicated. Performed By: #### 3 4528-0, 92291-4 #### [facility] CLIA [id number] [address] [place] Sodium [Moles/Vol] 132 mmol/L Low 136-144 [facility] Comment on above: Order Comment: Speci men Type: BLOOD SPECIMEN Performed By: #### 3 4528-0, 76735-6 #### [facility] CLIA [id number] [address] OF [facility] Urea nitrogen [Mass/Vol] 12 mg/dL Normal 9-24 [facility] Comment on above: Order Comment: Speci men Type: BLOOD SPECIMEN Performed By: #### 3 4528-0, 68791-9 #### [facility] CLIA [id number] [address] CBC panel Auto (Bld)on 01-30 Erythrocyte distribution width (RBC) [Ratio] 13.9 % Normal 11.5-15.0 [facility] Comment on above: Order Comment: Speci men Type: BLOOD SPECIMEN Performed By: #### 5 8410-2 #### [facility] CLIA [id number] [address] Hematocrit (Bld) [Volume fraction] 31.2 % Low 39.0-51.0 [facility] Comment on above: Order Comment: Speci men Type: BLOOD SPECIMEN Performed By: #### 5 8410-2 #### [facility] CLIA [id number] [address] Hemoglobin (Bld) [Mass/Vol] 10.2 g/dL Low 13.0-17.0 [facility] Comment on above: Order Comment: Speci men Type: BLOOD SPECIMEN Performed By: #### 5 8410-2 #### [facility] CLIA [id number] [address] MCH (RBC) [Entitic mass] 29.8 pg Normal 26.0-34.0 [facility] Comment on above: Order Comment: Speci men Type: BLOOD SPECIMEN Performed By: #### 5 8410-2 #### [facility] CLIA [id number] [address] MCHC (RBC) [Mass/Vol] 32.7 g/dL Normal 30.5-36.0 [facility] Comment on above: Order Comment: Speci men Type: BLOOD SPECIMEN Performed By: #### 5 8410-2 #### [facility] CLIA [id number] [address] MCV (RBC) [Entitic vol] 91.2 fL Normal 80.0-100.0 [facility] Comment on above: Order Comment: Speci men Type: BLOOD SPECIMEN Performed By: #### 5 8410-2 #### [facility] CLIA [id number] [address] Nucleated RBC (Bld) [#/Vol] 10*3/uL Normal <0.01 [facility] Comment on above: Order Comment: Speci men Type: BLOOD SPECIMEN Performed By: #### 5 8410-2 #### [facility] CLIA [id number] [address] Platelet mean volume (Bld) [Entitic vol] 11.3 fL Normal 9.0-12.7 [facility] Comment on above: Order Comment: Speci men Type: BLOOD SPECIMEN Performed By: #### 5 8410-2 #### [facility] CLIA [id number] [address] Platelets (Bld) [#/Vol] 238 10*3/uL Normal 150-400 [facility] Comment on above: Order Comment: Speci men Type: BLOOD SPECIMEN Performed By: #### 5 8410-2 #### [facility] CLIA [id number] [address] RBC (Bld) [#/Vol] 3.42 10*6/uL Low 4.20-6.00 [facility] Comment on above: Order Comment: Speci men Type: BLOOD SPECIMEN Performed By: #### 5 8410-2 #### [facility] CLIA [id number] [address] WBC (Bld) [#/Vol] 13.55 10*3/uL High 3.70-11.00 [facility] Comment on above: Order Comment: Speci men Type: BLOOD SPECIMEN Performed By: #### 5 8410-2 #### [facility] CLIA [id number] [address] aPTT PPPon 01-30-2021 aPTT Coag (PPP) [Time] 62.9 s High 23.0-32.4 [facility] Comment on above: Order Comment: Speci men Type: BLOOD SPECIMEN Performed By: #### 3 4528-0, 74909-7 #### [facility] CLIA [id number] [address] aPTT Coag (PPP) [Time] 74.2 s High 23.0-32.4 [facility] Comment on above: Order Comment: Speci men Type: BLOOD SPECIMEN Performed By: #### 3 4528-0, 59566-1 #### [facility] CLIA [id number] [address] OF [facility] Basic metabolic 2000 panelon 01-29-2021 Anion gap [Moles/Vol] 15 mmol/L Normal 9-18 [facility] Comment on above: Order Comment: Speci men Type: BLOOD SPECIMEN Performed By: #### 2 4321-2 #### [facility] CLIA [id number] [address] [place] [facility] Calcium [Mass/Vol] 8.5 mg/dL Normal 8.5-10.2 [facility] Comment on above: Order Comment: Speci men Type: BLOOD SPECIMEN Performed By: #### 2 4321-2 #### [facility] CLIA [id number] [address] [place] Chloride [Moles/Vol] 100 mmol/L Normal 97-105 [facility] Comment on above: Order Comment: Speci men Type: BLOOD SPECIMEN Performed By: #### 2 4321-2 #### [facility] CLIA [id number] [address] [place] CO2 [Moles/Vol] 20 mmol/L Low 22-30 [facility] Comment on above: Order Comment: Speci men Type: BLOOD SPECIMEN Performed By: #### 2 4321-2 #### [facility] CLIA [id number] [address] [place] Creatinine [Mass/Vol] 1.28 mg/dL High 0.73-1.22 [facility] Comment on above: Order Comment: Lucien cazares Type: BLOOD SPECIMEN Performed By: #### 2 4321-2 #### [facility] CLIA [id number] [address] [place] [address] [place] GFR/1.73 sq M.predicted MDRD (S/P/Bld) [Vol rate/Area] mL/min/{1.73_m2} Normal [facility] Comment on above: Order Comment: Speci men Type: BLOOD SPECIMEN Result Comment: 55 eGFR (Estimated GFR) Units of measure: mL/min/1.73 meters squared eGFR is derived from the reexpressed MDRD Study equation using the following parameters: serum creatinine, age, gender and race. The creatinine assay has been calibrated to be traceable to IDMS. An eGFR <60 mL/min/1.73m2 for >3 months is consistent with chronic kidney disease. Refer to KDOQI guidelines for clinical interpretation. In patients with unstable renal function, e.g. those with acute kidney injury, the eGFR may not accurately reflect actual GFR. Performed By: #### 2 4321-2 #### [facility] CLIA [id number] [address] [place] [address] [place] Glucose [Mass/Vol] 122 mg/dL High 74-99 [facility] Comment on above: Order Comment: [facility] Type: BLOOD SPECIMEN Result Comment: The English Diabetes Association (ADA) provides guidance for cutoff values for fasting glucose and random glucose. The ADA defines fasting as no caloric intake for at least 8 hours. Fasting plasma glucose results between 100 to 125 mg/dL indicate increased risk for diabetes (prediabetes). Fasting plasma glucose results greater than or equal to 126 mg/dL meet the criteria for diagnosis of diabetes. In the absence of unequivocal hyperglycemia, results should be confirmed by repeat testing. In a patient with classic symptoms of hyperglycemia or hyperglycemic crisis, random plasma glucose results greater than or equal to 200 mg/dL meet the criteria for diagnosis of diabetes. Reference: Standards of Medical Care in Diabetes 2016, English Diabetes Association. Diabetes Care. 2016.39(Suppl 1). Performed By: #### 2 4321-2 #### [facility] CLIA [id number] [address] [place] [address] Potassium [Moles/Vol] 3.8 mmol/L Normal 3.7-5.1 [facility] Comment on above: Order Comment: Speci men Type: BLOOD SPECIMEN Performed By: #### 2 4321-2 #### [facility] CLIA [id number] [address] Sodium [Moles/Vol] 135 mmol/L Low 136-144 [facility] Comment on above: Order Comment: Speci men Type: BLOOD SPECIMEN Performed By: #### 2 4321-2 #### [facility] CLIA [id number] [address] Urea nitrogen [Mass/Vol] 18 mg/dL Normal 9-24 [facility] Comment on above: Order Comment: Speci men Type: BLOOD SPECIMEN Performed By: #### 2 4321-2 #### [facility] CLIA [id number] [address] CASE MANAGEMon 01-29-2021 CASE MANAGEM HNO ID: [id number] Author: Martha Matute RN Service: ? Author Type: Registered Nurse Type: Care Mgt Progress Note Filed: 01/29/2021 3:15 PM Note Text: CARE MANAGEMENT PROGRESS NOTE SERVICE DATE: 01/29/2021 SERVICE TIME: 3:15 PM LOS: 1 day This patient has been screened for Care Management Transitional Planning Services. At this time, it does not appear this patient will require transition planning services. Should this change, and the patient require transition planning services during this admission, please call [phone]. Martha Matute RN January 29, 2021 3:15 PM SIGNATURE: Martha Matute RN PATIENT NAME: Neetu Gomez DATE: January 29, 2021 TIME: 3:15 PM PAGER/CONTACT #: [phone] Normal [facility] CBC panel Auto (Bld)on 01-29 Erythrocyte distribution width (RBC) [Ratio] 13.8 % Normal 11.5-15.0 [facility] Comment on above: Order Comment: Speci men Type: BLOOD SPECIMEN Performed By: #### 5 8410-2 #### [facility] CLIA [id number] [address] Hematocrit (Bld) [Volume fraction] 31.8 % Low 39.0-51.0 [facility] Comment on above: Order Comment: Speci men Type: BLOOD SPECIMEN Performed By: #### 5 8410-2 #### [facility] CLIA [id number] [address] Hemoglobin (Bld) [Mass/Vol] 10.4 g/dL Low 13.0-17.0 [facility] Comment on above: Order Comment: Speci men Type: BLOOD SPECIMEN Performed By: #### 5 8410-2 #### [facility] CLIA [id number] [address] MCH (RBC) [Entitic mass] 30.1 pg Normal 26.0-34.0 [facility] Comment on above: Order Comment: Speci men Type: BLOOD SPECIMEN Performed By: #### 5 8410-2 #### [facility] CLIA [id number] [address] MCHC (RBC) [Mass/Vol] 32.7 g/dL Normal 30.5-36.0 [facility] Comment on above: Order Comment: Speci men Type: BLOOD SPECIMEN Performed By: #### 5 8410-2 #### [facility] CLIA [id number] [address] MCV (RBC) [Entitic vol] 91.9 fL Normal 80.0-100.0 [facility] Comment on above: Order Comment: Speci men Type: BLOOD SPECIMEN Performed By: #### 5 8410-2 #### [facility] CLIA [id number] [address] Nucleated RBC (Bld) [#/Vol] 10*3/uL Normal <0.01 [facility] Comment on above: Order Comment: Speci men Type: BLOOD SPECIMEN Performed By: #### 5 8410-2 #### [facility] CLIA [id number] [address] Platelet mean volume (Bld) [Entitic vol] 11.1 fL Normal 9.0-12.7 [facility] Comment on above: Order Comment: Speci men Type: BLOOD SPECIMEN Performed By: #### 5 8410-2 #### [facility] CLIA [id number] [address] Platelets (Bld) [#/Vol] 240 10*3/uL Normal 150-400 [facility] Comment on above: Order Comment: Speci men Type: BLOOD SPECIMEN Performed By: #### 5 8410-2 #### [facility] CLIA [id number] [address] RBC (Bld) [#/Vol] 3.46 10*6/uL Low 4.20-6.00 [facility] Comment on above: Order Comment: Speci men Type: BLOOD SPECIMEN Performed By: #### 5 8410-2 #### [facility] CLIA [id number] [address] WBC (Bld) [#/Vol] 12.96 10*3/uL High 3.70-11.00 [facility] Comment on above: Order Comment: Speci men Type: BLOOD SPECIMEN Performed By: #### 5 8410-2 #### [facility] CLIA [id number] [address] NURSING PROGon 01-29-2021 NURSING PROG HNO ID: [id number] Author: Ilda Robertson RN Service: ? Author Type: Registered Nurse Type: Nursing Progress Note Filed: 01/29/2021 9:56 AM Note Text: Surgery paged with results from PTT, spoke with Dr. Sierra. New order to resume heparin at previous rate, no bolus. Will redraw PTT 6 hours after start of heparin gtt. Okay to d/c NG at this time, and start on clear liquids per orders. Normal [facility] NURSING PROG HNO ID: [id number] Author: Cassie Matt RN Service: ? Author Type: Registered Nurse Type: Nursing Progress Note Filed: 01/29/2021 5:26 AM Note Text: Notified Dr. Sierra with surgery pt is bleeding from both nostrils and coughing blood. Dr. Sierra stated not to call rapid he will be up to evaluate the patient. Normal [facility] NURSING PROG HNO ID: [id number] Author: Cassie Matt RN Service: ? Author Type: Registered Nurse Type: Nursing Progress Note Filed: 01/29/2021 5:49 AM Note Text: Dr. Sierra at bedside. Verbal order to hold heprin at this time. Dr. Sierra will reevaluate during morning rounds. [facility] NURSING PROG HNO ID: [id number] Author: Donna Maddox RN Service: ? Author Type: Registered Nurse Type: Nursing Progress Note Filed: 01/29/2021 5:09 AM Note Text: Dr. Sierra with surgery notified that pt currently has a nosebleed that is not stopping. Cassie RIDDLE currently at bedside. Dr. Sierra will be rounding shortly. Normal [facility] aPTT PPPon 01-29-2021 aPTT Coag (PPP) [Time] 73.6 s High 23.0-32.4 [facility] Comment on above: Order Comment: Speci men Type: BLOOD SPECIMEN Performed By: #### 3 4528-0, 67943-3 #### [facility] CLIA [id number] [address] aPTT Coag (PPP) [Time] 28.7 s Normal 23.0-32.4 [facility] Comment on above: Order Comment: Speci men Type: BLOOD SPECIMEN Performed By: #### 3 4528-0, 91866-5 #### [facility] CLIA [id number] [address] ALLIED HEALTHon 01-28-2021 ALLIED HEALTH HNO ID: [id number] Author: RT Tayo(R) Service: Radiology Author Type: Technologist Type: Allied Health Filed: 01/28/2021 2:15 PM Note Text: Radiology Service Progress Note PATIENT NAME: Neetu Gomez DATE OF SERVICE: January 28, 2021 TIME: 2:15 PM PATIENT IDENTITY VERIFICATION COMPLETED USING TWO (2) IDENTIFIERS: Name and Date of confirmed by patient verbally and Name and Date of confirmed by identification band. FALL SCREENING: Has the patient had 2 falls in the last year or 1 fall with injury or currently using an Ambulatory Assistive Device (Walker, Cane, Wheelchair, Crutches, etc.)? Inpatient: Screened on floor PATIENT GENDER DATA: Male PATIENT RELEVANT IMPLANT DATA REVIEWED: Not Applicable RADIOLOGY DEPARTMENT: General X-ray: Exam(s) Completed: Abdomen X-Ray: Abdomen PERIPHERAL IV DATA: Not applicable SIGNED BY: RT Tayo(R) January 28, 2021 2:15 PM Normal [facility] ALLIED [facility] HNO ID: [id number] Author: RT Tianna(R) Service: Radiology Author Type: Technologist Type: Allied Health Filed: 01/28/2021 1:44 AM Note Text: Radiology Service Progress Note PATIENT NAME: Neetu Gomez DATE OF SERVICE: January 28, 2021 TIME: 1:41 AM PATIENT IDENTITY VERIFICATION COMPLETED USING TWO (2) IDENTIFIERS: Name and Date of confirmed by patient verbally and Name and Date of confirmed by identification band. FALL SCREENING: Has the patient had 2 falls in the last year or 1 fall with injury or currently using an Ambulatory Assistive Device (Walker, Cane, Wheelchair, Crutches, etc.)? Inpatient: Screened on floor PATIENT GENDER DATA: Male PATIENT RELEVANT IMPLANT DATA REVIEWED: Not Applicable RADIOLOGY DEPARTMENT: General X-ray: Exam(s) Completed: Abdomen X-Ray: Abdomen PERIPHERAL IV DATA: Not applicable SIGNED BY: RT Tianna(R) January 28, 2021 1:41 AM Normal [facility] Basic metabolic 2000 panelon 01-28-2021 Anion gap [Moles/Vol] 11 mmol/L Normal 9-18 [facility] Comment on above: Order Comment: Speci men Type: BLOOD SPECIMEN Performed By: #### 3 4528-0, 88757-0 #### [facility] CLIA [id number] [address] [place] Calcium [Mass/Vol] 8.4 mg/dL Low 8.5-10.2 [facility] Comment on above: Order Comment: Speci men Type: BLOOD SPECIMEN Performed By: #### 3 4528-0, 81525-9 #### [facility] CLIA [id number] [address] [place] Chloride [Moles/Vol] 99 mmol/L Normal 97-105 [facility] Comment on above: Order Comment: Speci men Type: BLOOD SPECIMEN Performed By: #### 3 4528-0, 55800-7 #### [facility] CLIA [id number] [address] CO2 [Moles/Vol] 24 mmol/L Normal 22-30 [facility] Comment on above: Order Comment: Speci men Type: BLOOD SPECIMEN Performed By: #### 3 4528-0, 21281-5 #### [facility] CLIA [id number] [address] STATES OF [facility] Creatinine [Mass/Vol] 1.64 mg/dL High 0.73-1.22 [facility] Comment on above: Order Comment: Speci men Type: BLOOD SPECIMEN Performed By: #### 3 4528-0, 32620-4 #### [facility] CLIA [id number] [address] [place] GFR/1.73 sq M.predicted MDRD (S/P/Bld) [Vol rate/Area] 50 mL/min/{1.73_m2} Normal [facility] Comment on above: Order Comment: Speci men Type: BLOOD SPECIMEN Result Comment: 41 eGFR (Estimated GFR) Units of measure: mL/min/1.73 meters squared eGFR is derived from the reexpressed MDRD Study equation using the following parameters: serum creatinine, age, gender and race. The creatinine assay has been calibrated to be traceable to IDMS. An eGFR <60 mL/min/1.73m2 for >3 months is consistent with chronic kidney disease. Refer to KDOQI guidelines for clinical interpretation. In patients with unstable renal function, e.g. those with acute kidney injury, the eGFR may not accurately reflect actual GFR. Performed By: #### 3 4528-0, 12977-8 #### [facility] CLIA [id number] 1 [place] [address] [place] Glucose [Mass/Vol] 93 mg/dL Normal 74-99 [facility] Comment on above: Order Comment: Speci men Type: BLOOD SPECIMEN Result Comment: The [place] Diabetes Association (ADA) provides guidance for cutoff values for fasting glucose and random glucose. The ADA defines fasting as no caloric intake for at least 8 hours. Fasting plasma glucose results between 100 to 125 mg/dL indicate increased risk for diabetes (prediabetes). Fasting plasma glucose results greater than or equal to 126 mg/dL meet the criteria for diagnosis of diabetes. In the absence of unequivocal hyperglycemia, results should be confirmed by repeat testing. In a patient with classic symptoms of hyperglycemia or hyperglycemic crisis, random plasma glucose results greater than or equal to 200 mg/dL meet the criteria for diagnosis of diabetes. Reference: Standards of Medical Care in Diabetes 2016, [place] Diabetes Association. Diabetes Care. 2016.39(Suppl 1). Performed By: #### 3 4528-0, 83852-5 #### [facility] CLIA [id number] 1 [place] [address] [place] Potassium [Moles/Vol] Normal [facility] Comment on above: Order Comment: Speci men Type: BLOOD SPECIMEN Result Comment: Unab le to assay due to interference from hemolysis. Suggest reorder as clinically indicated. Performed By: #### 3 4528-0, 42443-0 #### [facility] CLIA [id number] [address] [place] Sodium [Moles/Vol] 134 mmol/L Low 136-144 [facility] Comment on above: Order Comment: Speci men Type: BLOOD SPECIMEN Performed By: #### 3 4528-0, 74140-7 #### [facility] CLIA [id number] [address] Urea nitrogen [Mass/Vol] 32 mg/dL High 9-24 [facility] Comment on above: Order Comment: Speci men Type: BLOOD SPECIMEN Performed By: #### 3 4528-0, 18880-9 #### [facility] CLIA [id number] [address] CBC panel Auto (Bld)on 01-28 Erythrocyte distribution width (RBC) [Ratio] 13.8 % Normal 11.5-15.0 [facility] Comment on above: Order Comment: Speci men Type: BLOOD SPECIMEN Performed By: #### 5 8410-2 #### [facility] CLIA [id number] [address] Hematocrit (Bld) [Volume fraction] 33.4 % Low 39.0-51.0 [facility] Comment on above: Order Comment: Speci men Type: BLOOD SPECIMEN Performed By: #### 5 8410-2 #### [facility] CLIA [id number] [address] Hemoglobin (Bld) [Mass/Vol] 10.9 g/dL Low 13.0-17.0 [facility] Comment on above: Order Comment: Speci men Type: BLOOD SPECIMEN Performed By: #### 5 8410-2 #### [facility] CLIA [id number] [address] MCH (RBC) [Entitic mass] 29.9 pg Normal 26.0-34.0 [facility] Comment on above: Order Comment: Speci men Type: BLOOD SPECIMEN Performed By: #### 5 8410-2 #### [facility] CLIA [id number] [address] MCHC (RBC) [Mass/Vol] 32.6 g/dL Normal 30.5-36.0 [facility] Comment on above: Order Comment: Speci men Type: BLOOD SPECIMEN Performed By: #### 5 8410-2 #### [facility] CLIA [id number] [address] MCV (RBC) [Entitic vol] 91.5 fL Normal 80.0-100.0 [facility] Comment on above: Order Comment: Speci men Type: BLOOD SPECIMEN Performed By: #### 5 8410-2 #### [facility] CLIA [id number] [address] Nucleated RBC (Bld) [#/Vol] 10*3/uL Normal <0.01 [facility] Comment on above: Order Comment: Speci men Type: BLOOD SPECIMEN Performed By: #### 5 8410-2 #### [facility] CLIA [id number] [address] Platelet mean volume (Bld) [Entitic vol] 11.0 fL Normal 9.0-12.7 [facility] Comment on above: Order Comment: Speci men Type: BLOOD SPECIMEN Performed By: #### 5 8410-2 #### [facility] CLIA [id number] [address] Platelets (Bld) [#/Vol] 208 10*3/uL Normal 150-400 [facility] Comment on above: Order Comment: Speci men Type: BLOOD SPECIMEN Performed By: #### 5 8410-2 #### [facility] CLIA [id number] [address] RBC (Bld) [#/Vol] 3.65 10*6/uL Low 4.20-6.00 [facility] Comment on above: Order Comment: Speci men Type: BLOOD SPECIMEN Performed By: #### 5 8410-2 #### [facility] CLIA [id number] [address] WBC (Bld) [#/Vol] 9.16 10*3/uL Normal 3.70-11.00 [facility] Comment on above: Order Comment: Speci men Type: BLOOD SPECIMEN Performed By: #### 5 8410-2 #### [id number] [address] STATES OF [facility] HISTORY PHYSICALon HISTORY PHYSICAL HNO ID: [id number] Author: Shelton Soria MD Service: General Surgery Author Type: Resident Type: HANDP Filed: 01/28/2021 2:05 AM Note Text: Attestation signed by Lauro Sharma MD at 02/14/2021 10:18 AM (Updated) Attending Note I discussed with resident. The patient was not examined by the attending. I reviewed the resident's note. I agree with the resident's assessment and plan unless otherwise noted. Signature: Lauro Sharma MD HISTORY AND PHYSICAL EXAM: EGS SERVICE SERVICE DATE: 01/28/2021 SERVICE TIME: 1:00 AM Subjective CHIEF COMPLAINT: Small bowel obstruction HPI: 75 year old male presents as a direct admit transfer from [facility]. Patient arrived to [place] on 01/24 for symptoms of nausea and vomiting. Patient was subsequently worked up and found to have a small bowel obstruction. The patient had an NG tube placed and has been NPO since Wednesday. He has yet to have a BM. Continues to have N/V. 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 1967 Vaping Use - Vaping Use: Never used Substance Use Topics - Alcohol use: No - Drug use: No ondansetron orally disintegrating (ZOFRAN ODT) 4 mg disintegrating tablet, Take 1 tablet by mouth every 6 hours as needed for nausea/vomiting for up to 5 days., Disp: 15 tablet, Rfl: 0 amLODIPine (NORVASC) 10 mg tablet, Take 1 tablet by mouth once daily., Disp: 90 tablet, Rfl: 1 atenolol (TENORMIN) 50 mg tablet, Take 1 tablet by mouth once daily., Disp: 90 tablet, Rfl: 1 atorvastatin (LIPITOR) 20 mg tablet, Take 1 tablet by mouth once daily. For cholesterol., Disp: 90 tablet, Rfl: 1 metFORMIN (GLUCOPHAGE) 500 mg tablet, Take 1 tablet by mouth twice daily with meals. ., Disp: 360 tablet, Rfl: 1 losartan (COZAAR) 100 mg tablet, Take 1 tablet by mouth once daily., Disp: 90 tablet, Rfl: 1 glimepiride (AMARYL) 4 mg tablet, Take 1 tablet by mouth daily with breakfast., Disp: 90 tablet, Rfl: 1 levothyroxine (SYNTHROID) 175 mcg tablet, Take 1 tablet by mouth once daily. Take on empty stomach. For thyroid., Disp: 90 tablet, Rfl: 1 omeprazole (PRILOSEC) 40 mg capsule, Take 1 capsule by mouth once daily., Disp: 90 capsule, Rfl: 1 ELIQUIS 5 mg tab(s), TAKE 2 TABLET BY MOUTH TWICE A DAY FOR 6 DAYS THEN TAKE 5 MG TWICE A DAY., Disp: , Rfl: aspirin, enteric coated (ASPIRIN, ENTERIC COATED) 81 mg EC tablet, twice daily. , Disp: , Rfl: spironolactone (ALDACTONE) 25 mg tablet, Take 12.5 mg by mouth once daily., Disp: , Rfl: ticagrelor (BRILINTA) 90 mg tablet, TWICE A DAY, Disp: , Rfl: Hydrochlorothiazide 12.5 mg capsule, Take 1 capsule by mouth once daily., Disp: 90 capsule, Rfl: 3 ALLERGIES Allergen Reactions - Monipril [Other] COMPLETE REVIEW OF SYSTEMS: REVIEW OF SYSTEMS: CONSTITUTIONAL: No fevers, chills HEENT: Denies frequent or severe heaches, nasal congestion/sinus symptoms, problematic allergy problems. EYES: No vision changes CARDIOVASCULAR: No chest pain. PULM: No Shortness of Breath. GI: No Nausea, Vomiting, or abdominal pain : No pain with urination or gross hematuria. NEURO: No weakness or numbness of concern. MUSC-SKEL: No new joint pain, swelling, or erythema. Objective PHYSICAL EXAM: Physical Exam Performed: Exam: GENERAL: No distress, Alert NEURO: AANDOx3, CN II-XII grossly intact HEENT: normocephalic, atraumatic LUNGS: Unlabored breathing CARDIAC: Regular rate and rhythm as above ABDOMEN: Soft, non-tender, non-distended EXTREMITIES: FREITAS, No deformities, No edema SKIN: Skin color, texture, turgor normal, No rashes or lesions BP 131/68 Pulse 73 Temp (Src) 97.7 (Oral) Resp 19 Ht 6' 2" (1.88m) Wt 245 lb 9.5 oz (111.4kg) SpO2 95% BMI 31.52 kg/(m2). O2 Therapy: Nasal Cannula, Liters: 6 DATA: (more content not included)... Normal [facility] Lactate (Bld) [Moles/Vol]on 01-28-2021 Lactate [Moles/Vol] 1.2 mmol/L Normal 0.5-2.2 [facility] Comment on above: Order Comment: Speci men Type: BLOOD SPECIMEN Performed By: #### 3 2693-4 #### [facility] CLIA [id number] [address] OF [facility] NURSING PROGon 01-28-2021 NURSING PROG HNO ID: [id number] Author: Adam David RN Service: ? Author Type: Registered Nurse Type: Nursing Progress Note Filed: 01/28/2021 5:56 AM Note Text: Spoke with Dr. Soria regarding gastrografin administration alongside NG placement. Obtained verbal order to leave the NG placement where it is and mix 100cc gastrogapfin with 50cc of NS and push through NG. Normal [facility] PT panel Coag (PPP)on 2020 INR Coag (PPP) [Relative time] 1.0 {INR} Normal 0.9-1.3 [facility] Comment on above: Order Comment: Speci men Type: BLOOD SPECIMEN Result Comment: Jaylyn min K Antagonist (VKA) Therapeutic Range: INR 2 to 3 (Target INR of 2.5) Note: For patients treated with VKA drugs, such as warfarin, the [employer] 2012 Guideline recommends a therapeutic INR range of 2 to 3 (target INR of 2.5). This recommendation includes high-risk patients with antiphospholipid syndrome with previous arterial or venous thromboembolism, current-generation mechanical or bioprosthetic aortic heart valve replacement. Note: Patients with mechanical aortic valve replacement and additional risk factors for thromboembolic events (atrial fibrillation, previous thromboembolism, LV dysfunction, hypercoagulable conditions) or an older generation mechanical AVR (i.e., ball in-Cage) or any mechanical MVR should have a INR therapeutic range of 2.5 to 3.5 (target INR of 3). Karyn GH, et al. Chest 2012, 141:7S-47S Constantino RA, et al. [facility] 2017, 70: 252-289 Performed By: #### 3 4528-0, 40971-0 #### [facility] CLIA [id number] [address] PT Coag (PPP) [Time] 11.4 s Normal 9.7-13.0 [facility] Comment on above: Order Comment: Speci men Type: BLOOD SPECIMEN Performed By: #### 3 4528-0, 10243-7 #### [facility] CLIA [id number] [address] [place] SARS-CoV-2 RNA Resp Ql TOMMY+p genna 01-28-2021 SARS-CoV-2 (COVID-19) RNA TOMMY+probe Ql (Resp) COVID 19 RESULT: SARS-CoV-2 (Agent of COVID-19) Not Detected by PCR. This test has been authorized by FDA under an Emergency Use Authorization (EUA). Normal [facility] Comment on above: Performed By: #### 5 8410-2 #### [facility] CLIA [id number] [address] XR ABDOMEN 1V SUPINEon 01-28 XR ABDOMEN 1V SUPINE * * *Final Report* * * DATE OF EXAM: Jan 28 2021 2:18PM [id number] - XR ABDOMEN 1V SUPINE / PROCEDURE REASON: Nausea, vomiting * * * * Physician Interpretation * * * * EXAM TITLE: XR ABDOMEN 1V SUPINE DATE: 01/28/2021 COMPARISON: Study performed earlier today CLINICAL INDICATION/HISTORY: Abdominal pain, nausea and vomiting TECHNIQUE: Portable KUB obtained 12 hours after ingestion of Gastrografin. FINDINGS: Ingested oral contrast is present throughout the colon. Persistent dilated small bowel loops within the lower abdomen and proximal pelvis, measuring up to approximately 4.6 cm. The distal portion of an enteric tube resides within the mid gastric body. Cholelithiasis. IMPRESSION: Although there is persistent small bowel dilatation of up to approximately 4.6 cm, the ingested oral contrast is noted throughout the colon. Findings are suggestive of a partial small bowel obstruction. Registered Pharmacist: [facility] Transcribe Date/Time: Jan 28 2021 3:57P Dictated by : LUCIEN ROMERO MD This examination was interpreted and the report reviewed and electronically signed by: LUCIEN ROMERO MD on Jan 28 2021 3:59PM EST [id number] Normal [facility] XR ABDOMEN 1V SUPINE * * *Final Report* * * DATE OF EXAM: Jan 28 2021 1:40AM [id number] - XR ABDOMEN 1V SUPINE / PROCEDURE REASON: Evaluate tube, line or lead position * * * * Physician Interpretation * * * * EXAMINATION: XR ABDOMEN 1V SUPINE CLINICAL HISTORY: Evaluate tube, line or lead position Technique: XR ABDOMEN 1V SUPINE -- NOT APPLICABLE with 1 views on 2 images Comparison: 01/26/2021 RESULT: The enteric tube side-port is near the gastroesophageal junction, consider advancing by 5 cm. IMPRESSION: Consider advancing enteric tube by 5 cm. Registered Pharmacist: FERNANDO Transcribe Date/Time: Jan 28 2021 3:01A Dictated by : BREANNA DANIEL MD This examination was interpreted and the report reviewed and electronically signed by: BREANNA DANIEL MD on Jan 28 2021 3:01AM EST [id number] Normal [facility] aPTT PPPon 01-28-2021 aPTT Coag (PPP) [Time] 51.3 s High 23.0-32.4 [facility] Comment on above: Order Comment: Speci men Type: BLOOD SPECIMEN Performed By: #### 1 4979-9 #### [facility] CLIA [id number] [address] aPTT Coag (PPP) [Time] 28.4 s Normal 23.0-32.4 [facility] Comment on above: Order Comment: Speci men Type: BLOOD SPECIMEN Performed By: #### 3 4528-0, 64913-4 #### [facility] CLIA [id number] [address] Vital Signs Date Time Vital Sign Value Performing Clinician Faci lity 08-01-2024 10:22040 Body height 187.[address] Javier Oakley MD Work Phone: [facility] 08-01-2024 10:22-0400 Body mass index (BMI) [Ratio] 30.9 kg/m2 Dr. Javier Oakley MD Work Phone: [facility] 08-01-2024 10:22040 Body weight 109.[address] Javier Oakley MD Work Phone: [facility] 08-01-2024 10:220400 Diastolic blood pressure 69 mm[Hg] Dr. Javier Oakley MD Work Phone: [facility] 08-01-2024 10:22-0400 Heart rate 68 /min Dr. Javier Oakley MD Work Phone: [facility] 08-01-2024 10:22-0400 Respiratory rate 18 /min Dr. Javier Oakley MD Work Phone: [facility] 08-01-2024 10:22-0400 SaO2% (BldA) [Mass fraction] 96 % Dr. Javier Oakley MD Work Phone: [facility] 08-01-2024 10:22-0400 Systolic blood pressure 114 mm[Hg] Dr. Javier Oakley MD Work Phone: [facility] 06-16-2023 09:27-0400 Body height 187.[address] Javier Oakley Work Phone: [facility] 06-16-2023 09:27-0400 Body mass index (BMI) [Ratio] 31.7 kg/m2 Dr. Javier Oakley Work Phone: [facility] 06-16-2023 09:27-0400 Body weight 112.[address] Javier Oakley Work Phone: [facility] 06-16-2023 09:27-0400 Diastolic blood pressure 65 mm[Hg] Dr. Javier Oakley Work Phone: [facility] 06-16-2023 09:27-0400 Heart rate 65 /min Dr. Javier Oakley Work Phone: [facility] 06-16-2023 09:27-0400 Respiratory rate 18 /min Dr. Javier Oakley Work Phone: [facility] 06-16-2023 09:27-0400 Systolic blood pressure 110 mm[Hg] Dr. Javier Oakley Work Phone: [facility] 03-18-2022 13:29-0500 Body height 187.[address] Salty Choudhury Work Phone: [facility] 03-18-2022 13:29-0500 Body mass index (BMI) [Ratio] 33.3 kg/m2 Dr. Salty Choudhury Work Phone: 6(637)023-080475 [place] [address] 03-18-2022 13:29-0500 Body weight 117.[address] Salty Choudhury Work Phone: 2(180)374-998194 [place] [address] 03-18-2022 13:29-0500 Diastolic blood pressure 68 mm[Hg] Dr. Salty Choudhury Work Phone: 3(503)646-696494 [place] [address] 03-18-2022 13:29-0500 Heart rate 50 /min Dr. Salty Choudhury Work Phone: 6(120)639-745294 [place] [address] 03-18-2022 13:29-0500 Respiratory rate 20 /min Dr. Salty Choudhury Work Phone: 4(064)977-118994 [place] [address] 03-18-2022 13:29-0500 SaO2% (BldA) [Mass fraction] 98 % Dr. Salty Choudhury Work Phone: 8(722)375-450094 [place] [address] 03-18-2022 13:29-0500 Systolic blood pressure 133 mm[Hg] Dr. Salty Choudhury Work Phone: 9(544)221-434894 [place] [address] 03-10-2022 09:27-0500 Diastolic blood pressure 65 mm[Hg] Dr. Salty Choudhury Work Phone: 9(345)217-632794 [place] [address] 03-10-2022 09:27-0500 Heart rate 59 /min Dr. Salty Choudhury Work Phone: 7(408)176-105094 [place] [address] 03-10-2022 09:27-0500 Respiratory rate 14 /min Dr. Salty Choudhury Work Phone: 2(096)261-827294 [place] [address] 03-10-2022 09:27-0500 SaO2% (BldA) [Mass fraction] 97 % Dr. Salty Choudhury Work Phone: 3(097)028-334894 [place] [address] 03-10-2022 09:27-0500 Systolic blood pressure 137 mm[Hg] Dr. Salty Choudhury Work Phone: 0(827)532-244794 [place] [address] 03-10-2022 07:08-0500 Body height 187.[address] Salty Choudhury Work Phone: [facility] Work Phone: 03-10-2022 07:08-0500 Body mass index (BMI) [Ratio] 33.3 kg/m2 Dr. Salty Choudhury Work Phone: [facility] 03-10-2022 07:08-0500 Body temperature 97.6 [degF] Dr. Salty Choudhury Work Phone: [facility] 03-10-2022 07:08-0500 Body weight 117.[address] Salty Choudhury Work Phone: [facility] 12-16-2021 09:28-0400 Body weight 117.21 kg Roselia Podlogar ADAPTED PH[employer]ICAL EDUCATION SPECIALIST.[employer] Work Phone: [facility] 12-16-2021 09:28-0400 Diastolic blood pressure 74 mm[Hg] Roselia Podlogar ADAPTED PHYSICAL EDUCATION SPECIALIST.[employer] LASTER Work Phone: [facility] 12-16-2021 09:28-0400 Heart rate 61 /min Roselia Podlogar ADAPTED PHYSICAL EDUCATION SPECIALIST.[employer] LASTER Work Phone: [facility] 12-16-2021 09:28-0400 Respiratory rate 16 /min Roselia Podlogar ADAPTED PHYSICAL EDUCATION SPECIALIST.[employer] LASTER Work Phone: [facility] 12-16-2021 09:28-0400 SaO2% (BldA) [Mass fraction] 96 % Roselia Podlogar ADAPTED PHYSICAL EDUCATION SPECIALIST.[employer] LASTER Work Phone: [facility] 12-16-2021 09:28-0400 Systolic blood pressure 130 mm[Hg] Roselia Podlogar ADAPTED PHYSICAL EDUCATION SPECIALIST.[employer] LASTER Work Phone: [facility] 11-13-2021 07:38-0400 Body mass index (BMI) [Ratio] 33 kg/m2 Dr. Salty Choudhury Work Phone: [facility] Work Phone: 11-13-2021 07:38-0400 Body temperature 97.6 [degF] Dr. Salty Choudhury Work Phone: [facility] Work Phone: 11-13-2021 07:38-0400 Body weight 116.[address] Salty Choudhury Work Phone: [facility] Work Phone: 11-13-2021 07:38-0400 Diastolic blood pressure 70 mm[Hg] Dr. Salty Choudhury Work Phone: [facility] Work Phone: 11-13-2021 07:38-0400 Heart rate 71 /min Dr. Salty Choudhury Work Phone: [facility] Work Phone: 11-13-2021 07:38-0400 Respiratory rate 17 /min Dr. Salty Choudhury Work Phone: [facility] Work Phone: 11-13-2021 07:38-0400 SaO2% (BldA) [Mass fraction] 95 % Dr. Salty Choudhury Work Phone: [facility] Work Phone: 11-13-2021 07:38-0400 Systolic blood pressure 159 mm[Hg] Dr. Salty Choudhury Work Phone: [facility] Work Phone: 10-09-2021 09:05-0400 Body weight 115.67 kg Moiz Choudhury MD Work Phone: [facility] 10-09-2021 09:05-0400 Diastolic blood pressure 64 mm[Hg] Moiz Choudhury MD Work Phone: [facility] 10-09-2021 09:05-0400 Heart rate 61 /min Moiz Choudhury MD Work Phone: [facility] 10-09-2021 09:05-0400 Respiratory rate 16 /min Moiz Choudhury MD Work Phone: [facility] 10-09-2021 09:05-0400 SaO2% (BldA) [Mass fraction] 98 % Moiz Choudhury MD Work Phone: [facility] 10-09-2021 09:05-0400 Systolic blood pressure 118 mm[Hg] Moiz Choudhury MD Work Phone: [facility] 09-08-2021 09:22-0400 Body weight 115.67 kg Moiz Choudhury MD Work Phone: [facility] 09-08-2021 09:22-0400 Diastolic blood pressure 68 mm[Hg] Moiz Choudhury MD Work Phone: [facility] 09-08-2021 09:22-0400 Heart rate 59 /min Moiz Choudhury MD Work Phone: [facility] 09-08-2021 09:22-0400 Respiratory rate 18 /min Moiz Choudhury MD Work Phone: [facility] 09-08-2021 09:22-0400 SaO2% (BldA) [Mass fraction] 93 % Moiz Choudhury MD Work Phone: [facility] 09-08-2021 09:22-0400 Systolic blood pressure 130 mm[Hg] Moiz Choudhury MD Work Phone: [facility] Encounters Encounter Date Encounter Type Care Provider Facility Start: 01-12-2025 End: 01-12-2025 ambulatory Javier Oakley Facility:[facility] Start: 01-02-2025 End: 01-02-2025 ambulatory HARRY WOOD Facility:[facility] [facility] Start: 09-26-2024 End: 09-26-2024 Patient encounter procedure Harry Wood Work Phone: Podiatry Comment on above: Onychomycosis (Prima ry Dx); Pain in toe of left foot; Pain in toe of right foot; 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 (HCC); Hyperkeratosis Start: 09-26-2024 End: 09-26-2024 ambulatory HARRY WOOD Facility:[facility] Start: 09-14-2024 End: 09-14-[address] Javier Oakley MD Work Phone: [facility] Work Phone: Start: 09-14-2024 End: 09-14-[address] Javier Oakley MD -Laboratory Work Phone: Start: 09-14-2024 End: 09-14-2024 ambulatory Javier Oakley Facility:[facility] Start: 08-01-2024 End: 08-01-[address] Jose Roberto Mendoza MD -[facility] Work Phone: Start: 08-01-2024 End: 08-01-2024 ambulatory Javier Oakley Facility[place] Start: 06-26-2024 End: 06-26-2024 ambulatory HARRY WOOD Facility:[facility] Start: 06-26-2024 End: 06-26-2024 Patient encounter procedure Harry Wood Work Phone: Podiatry Comment on above: Onychomycosis (Prima ry Dx); Pain in toe of left foot; Pain in toe of right foot; Diabetic polyneuropathy associated with type 2 diabetes mellitus ([facility]) Start: 03-31-2024 End: 03-31-2024 ambulatory Javier Oakley Facility:[facility] Start: 03-27-2024 End: 03-27-2024 ambulatory HARRY WOOD Facility:[facility] Start: 03-27-2024 End: 03-27-2024 Patient encounter procedure Harry Wood Work Phone: Podiatry Comment on above: Onychomycosis (Prima ry Dx); Pain in toe of left foot; Pain in toe of right foot; 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 ([facility]) Start: 12-27-2023 End: 12-27-2023 Patient encounter procedure Harry Wood Work Phone: Podiatry Comment on above: Onychomycosis (Prima ry Dx); Pain in toe of left foot; Pain in toe of right foot; 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 (HCC) Start: 09-21-2023 End: 09-21-2023 Patient encounter procedure Harry Wood Work Phone: Podiatry Comment on above: Onychomycosis (Prima ry Dx); Pain in toe of left foot; Pain in toe of right foot; 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 (HCC); Callus of foot; Hammer toe of right foot Start: 07-13-2023 End: 07-13-[address] Javier Oakley Work Phone: [facility] Work Phone: Start: 07-13-2023 End: 07-13-[address] Javier Oakley Work Phone: [facility] Work Phone: Start: 06-17-2023 End: 06-17-2023 Patient encounter procedure Harry Wood Work Phone: Podiatry Comment on above: Onychomycosis (Prima ry Dx); Pain in toe of left foot; Pain in toe of right foot; 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 ([facility]); Hyperkeratosis; Hammer toe of right foot Start: 06-16-2023 End: 06-16-[address] Javier Oakley Work Phone: [facility] Work Phone: Start: 06-10-2023 End: 06-10-2023 ambulatory [facility] Work Phone: Start: 06-10-2023 End: 06-10-2023 Patient encounter procedure [facility]-Laboratory Work Phone: Start: 12-21-2022 End: 12-21-2022 Patient encounter procedure Harry Wood Work Phone: Podiatry Comment on above: Onychomycosis (Prima ry Dx); Pain in toe of left foot; Pain in toe of right foot; 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 (HCC) Start: 10-27-2022 End: 10-27-2022 ambulatory [facility] Work Phone: Start: 10-27-2022 End: 10-27-2022 [facility] Start: 09-15-2022 End: 09-15-2022 Patient encounter procedure Harry Wood Work Phone: Podiatry Comment on above: Onychomycosis (Prima ry Dx); Pain in toe of left foot; Pain in toe of right foot; 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 ([facility]); Other acute pulmonary embolism without acute cor pulmonale ([facility]) Start: 09-02-2022 End: 09-02-2022 Patient encounter procedure [facility] Work Phone: Start: 08-17-2022 End: 08-17-2022 ambulatory [facility] Work Phone: Start: 08-17-2022 End: 08-17-2022 Patient encounter procedure [facility] Start: 07-20-2022 End: 07-20-2022 ambulatory [facility] Work Phone: Start: 07-20-2022 End: 07-20-2022 Patient encounter procedure [facility] Start: 04-21-2022 End: 04-21-[address] Salty Choudhury Work Phone: [facility] Work Phone: Start: 04-21-2022 End: 04-21-[address] Salty Choudhury Work Phone: [facility] Start: 03-19-2022 End: 03-19-[address] Salty Choudhury Work Phone: [facility] Work Phone: Start: 03-19-2022 End: 03-19-[address] Salty Choudhury Work Phone: [facility]-Laboratory Start: 03-18-2022 ambulatory Anna Marie Stein RN Work Phone: [employer] Comment on above: cdm (enrollment) Start: 03-18-2022 End: 03-18-[address] Salty Choudhury Work Phone: [facility] Start: 03-16-2022 End: 03-16-[address] Salty Choudhury Work Phone: [facility] Work Phone: Start: 03-16-2022 End: 03-16-[address] Salty Choudhury Work Phone: [facility]-Laboratory Start: 03-10-2022 End: 03-10-2022 Emergency department patient visit Dr. Salty Choudhury Work Phone: [facility]-Emergency Department Start: 12-16-2021 End: 12-16-2021 Patient encounter procedure Roselia Messina APRN.CNP Work Phone: [facility] Comment on above: Type 2 diabetes alpesh itus without complication, without long- term current use of insulin (HCC) (Primary Dx); Bilateral impacted cerumen; Essential hypertension, benign; Hyperlipidemia with target LDL less than 100; Stage 3b chronic kidney disease (HCC); Coronary artery disease involving [place] heart without angina pectoris, unspecified vessel or lesion type Start: 12-05-2021 End: 12-05-2021 Patient encounter procedure Harry Wood Work Phone: Podiatry Comment on above: Onychomycosis (Prima ry Dx); Pain in toe of left foot; Pain in toe of right foot; 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 (HCC); Acquired hallux valgus, unspecified laterality; Hyperkeratosis Start: 11-13-2021 End: 11-13-[address] Salty Choudhury Work Phone: [facility] [place] Start: 10-23-2021 Refill Moiz Choudhury MD Work Phone: [facility] [place] Comment on above: Refill Request (SEE RX NOTES) Start: 10-20-2021 ambulatory Lorri jackson RN Work Phone: [employer] Comment on above: ACM DYLAN RN ( [facility]/ [facility]) Start: 10-15-2021 ambulatory Nury Mcdonough [facility] Comment on above: Medication Update (A CO CKD Outreach declined) Start: 10-10-2021 Telephone encounter Salty Choudhury MD Work Phone: [facility] [place] Comment on above: result faxed to outs darlyn Start: 10-09-2021 End: 10-09-2021 Patient encounter procedure Moiz Choudhury MD Work Phone: Family [facility] [place] Comment on above: Type 2 diabetes alpesh itus without complication, without long- term current use of insulin (HCC) (Primary Dx); Essential hypertension, benign Start: 09-25-2021 ambulatory Lorri jackson RN Work Phone: [employer] Comment on above: ACM DYLAN RN ( [facility]) Start: 09-08-2021 End: 09-08-2021 Patient encounter procedure Moiz Choudhury MD Work Phone: Family [facility] [place] Comment on above: Type 2 diabetes alpesh itus without complication, without long- term current use of insulin (HCC) (Primary Dx); Stage 3b chronic kidney disease (HCC); Essential hypertension, benign; Hyperlipidemia with target LDL less than 100; Hypothyroidism, unspecified type Start: 08-11-2021 Telephone encounter Roselia cummings APRN.CNP Work Phone: Family [facility] [place] Comment on above: Results; Returning P atient's Call Start: 08-06-2021 Refill Moiz Choudhury MD Work Phone: Family [facility] [place] Comment on above: Refill Request blood sugar averages Start: 07-03-2021 ambulatory Claudio Blackmon RN [facility] Comment on above: Community Monitoring Outreach (CKD CDM Enrollment) Start: 07-01-2021 ambulatory Claudio Blackmon RN [facility] Comment on above: Community Monitoring Outreach (CKD CDM Enrollment ) Start: 06-13-2021 Telephone encounter Roselia Wiliam cummings APRN.BED LASTER Work Phone: [facility] [place] Comment on above: Results Start: 03-07-2021 Telephone encounter Roseliacoco cummings APRN.BED LASTER Work Phone: [facility] [place] Comment on above: error Procedures Date Procedure Procedure Detail Performing Clinician Start: 09-14-[address] Javier Oakley MD Work Phone: Start: 09-14-2024 Serum inorganic phos phate measurement Dr. Javier Oakley MD Work Phone: Start: 09-14-2024 Vitamin D, 25-hydrox y measurement Dr. Javier Oakley MD Work Phone: Comment on above: Vitamin D StatusDefi ciency: <20 ng/mL (50nmol/L)Insufficiency: 20-30 ng/mL (50-75 nmol/L)Sufficiency: 30-100 ng/mL (75-250 nmol/L)Toxicity: >100 ng/mL (>250 nmol/L) Start: 07-13-2023 CT angiography of ch est with contrast Dr. Javier Oakley Work Phone: Start: 03-10-2022 CT of abdomen and pe lvis without contrast Dr. Salty Choudhury Work Phone: Start: 06-06-2020 Adult depression scr eening assessment Claudio Blackmon RN Start: 05-19-2019 Colonoscopy Claudio soto RN Plan of Treatment Date Care Activity Detail Author Start: 03-27-2025 Diabetic foot examination Diabetic F oot Exam [facility] Start: 01-02-2025 End: 01-02-2025 Patient encounter procedure 01/02/2025 9:30 AM EDT Office Visit Podiatry [address] [place] [address] Harry Wood [address] [place] [address] 3 month follow up nail care Podiatry Comment on above: 3 month follow up na mo care Start: 11-27-2024 Influenza vaccination Influenza Vacc ine (#1) [facility] Start: 09-26-2024 End: 09-26-2024 Patient encounter procedure 09/26/2024 9:00 AM EDT Office Visit Podiatry [address] [place], [place] [id number] Harry Wood [address] [facility] [address] [place], [place] [id number] 3 month follow up nail care Podiatry Comment on above: 3 month follow up [facility] care Start: 06-26-2024 End: 06-26-2024 Patient encounter procedure 06/26/2024 9:30 AM EDT Office Visit Podiatry [address] [place], [place] [phone] Harry Wood [address] [address] 3 month follow up nail care Podiatry Comment on above: 3 month follow up [facility] care Start: 05-18-2024 Urine microalbumin profile DTaP,Tdap,Td Vaccine (4 - Td or Tdap) [facility] Start: 03-29-2024 Advance Directive Discussion Advance Directive Discussion [facility] Start: 03-27-2024 End: 03-27-2024 Patient encounter procedure 03/27/2024 8:30 AM EST Office Visit Podiatry [address] [place], [place] [phone] Harry Wood [address] [place], [place] [phone] 3 month follow up nail care Podiatry Comment on above: 3 month follow up [facility] care Start: 03-16-2024 Diabetic foot examination Diabetic F oot Exam [facility] Start: 12-27-2023 End: 12-27-2023 Patient encounter procedure 12/27/2023 9:00 AM EDT Office Visit Podiatry [address] [place] [phone] Harry Wood [address] [place] [address] 3 month follow up - nail care Podiatry Comment on above: 3 month follow up - nail care Start: 11-28-2023 Covid-19 Vaccine ( season) Covid-19 Vaccine ( season) [facility] Start: 11-28-2023 Influenza vaccination [facility] Start: 03-29-2023 Advance Directive Discussion Advance Directive Discussion [facility] Start: 03-29-2023 Behavioral Health Screening Behavioral Health Screening [facility] Start: 03-29-2023 Depression Assessment Depression Ass essment [facility] Start: 12-16-2022 ANNUAL PCP TEAM FOOD MIXER PIETRO DISEASE VISIT ANNUAL PCP TEAM CHRONIC DISEASE VISIT [facility] Start: 12-16-2022 Complete blood count Hemoglobin/Pablo tocrit [facility] Start: 12-16-2022 Creatinine measurement Serum Creatin ine [facility] Start: 12-16-2022 HEMOGLOBIN/HEMATOCRIT HEMOGLOBIN/HEM ATOCRIT [facility] Start: 12-16-2022 SERUM CREATININE SERUM CREATININE [facility] Start: 12-09-2022 Hepatitis B screening URINE AL BUMIN:CREATININE RATIO [facility] Start: 12-09-2022 SERUM CREATININE SERUM CREATININE [facility] Start: 11-27-2022 Covid-19 Vaccine ( season) Covid-19 Vaccine () [facility] Start: 11-27-2022 Influenza vaccination [facility] Start: 10-09-2022 ANNUAL PCP TEAM FOOD MIXER PIETRO DISEASE VISIT ANNUAL PCP TEAM CHRONIC DISEASE VISIT [facility] Start: 10-09-2022 BP CONTROLLED (<130/80) BP CONTROLLE D (<130/80) [facility] Start: 10-09-2022 HEMOGLOBIN/HEMATOCRIT HEMOGLOBIN/HEM ATOCRIT [facility] Start: 10-09-2022 SERUM CREATININE SERUM CREATININE Cl [facility] Start: 09-08-2022 ANNUAL PCP TEAM FOOD MIXER PIETRO DISEASE VISIT ANNUAL PCP TEAM CHRONIC DISEASE VISIT [facility] Start: 09-02-2022 SERUM CREATININE SERUM CREATININE Cl [facility] Start: 06-12-2022 SERUM CREATININE SERUM CREATININE Cl [facility] Start: 06-08-2022 Hemoglobin A1c measurement HbA1C [facility] Start: 06-08-2022 Hemoglobin A1c/Hemoglobin.total in Blood HBA1C [facility] Start: 06-06-2022 ANNUAL PCP TEAM FOOD MIXER PIETRO DISEASE VISIT ANNUAL PCP TEAM CHRONIC DISEASE VISIT [facility] Start: 05-23-2022 3 comp foot exam completed DIABETIC FOOT EXAM [facility] Start: 03-29-2022 ADVANCE DIRECTIVE DISCUSSION ADVANCE DIRECTIVE DISCUSSION [facility] Start: 03-29-2022 DEPRESSION ASSESSMENT DEPRESSION ASS ESSMENT [facility] Start: 03-10-2022 Glaucoma screening Dilated Retinal E xam [facility] Start: 03-10-2022 Hepatitis C antibody , confirmatory test DILATED RETINAL EXAM [facility] Start: 03-06-2022 HEMOGLOBIN/HEMATOCRIT HEMOGLOBIN/HEM ATOCRIT [facility] Start: 03-06-2022 Hepatitis B surface antibody level LDL CHOLESTEROL [facility] Start: 02-03-2022 Urine microalbumin profile DTAP,TDAP,TD (3 - Td or Tdap) [facility] Comment on above: Postponed from 10/02 (Declined at this time) Start: 01-21-2022 COVID-19 VACCINE (6 - Booster for Moderna series) COVID-19 VACCINE (6 - Booster for Moderna series) [facility] Start: 01-21-2022 Covid-19 Vaccine (6 - Moderna series) Covid-19 Vaccine (6 - Moderna series) [facility] Start: 12-09-2021 End: 02-08-2022 ALBUMIN/CREAT RATIO RND UR ALBUMIN/CREAT RATIO RND UR Lab Routine Type 2 diabetes mellitus without complication, without long-term current use of insulin (HCC) Expected: 12/09/2021, Expires: 02/08/2022 [facility] Work Phone: Comment on above: Expected: 12/09/2021 , Expires: 02/08/2022 Start: 12-09-2021 End: 02-08-2022 Comprehensive metabolic 2000 panel - Serum or Plasma COMP METABOLIC PANEL Lab Routine Type 2 diabetes mellitus without complication, without long-term current use of insulin (HCC) Expected: 12/09/2021, Expires: 02/08/2022 [facility] Work Phone: Comment on above: Expected: 12/09/2021 , Expires: 02/08/2022 Start: 12-09-2021 End: 02-08-2022 Hemoglobin A1c in Blood HGB A1C Lab Routine Type 2 diabetes mellitus without complication, without long-term current use of insulin (HCC) Expected: 12/09/2021, Expires: 02/08/2022 [facility] Work Phone: Comment on above: Expected: 12/09/2021 , Expires: 02/08/2022 Start: 12-03-2021 Hemoglobin A1c/Hemoglobin.total in Blood HBA1C [facility] Start: 11-27-2021 Influenza vaccination [facility] Start: 09-13-2021 End: 11-13-2021 Basic metabolic 2000 panel - Serum or Plasma BASIC METABOLIC PNL Lab Routine Stage 3b chronic kidney disease (HCC) Expected: 09/13/2021, Expires: 11/13/2021 [facility] Work Phone: Comment on above: Expected: 09/13/2021 , Expires: 11/13/2021 Start: 09-13-2021 End: 11-13-2021 Hemoglobin A1c/Hemoglobin.total in Blood HGB A1C Lab Routine Type 2 diabetes mellitus without complication, without long-term current use of insulin (HCC) Expected: 09/13/2021, Expires: 11/13/2021 [facility] Work Phone: Comment on above: Expected: 09/13/2021 , Expires: 11/13/2021 Start: 09-12-2021 Hemoglobin A1c/Hemoglobin.total in Blood HBA1C [facility] Start: 2021 RSV Vaccine (1 - 1-d ose 75+ series) RSV Vaccine (1 - 1-dose 75+ series) [facility] Start: 07-30-2021 COLORECTAL CANCER SCREENING COLORECTAL CANCER SCREENING [facility] Comment on above: Postponed from 08/24 (Current Illness) Start: 07-23-2021 Hepatitis B screening URINE AL BUMIN:CREATININE RATIO [facility] Start: 06-06-2021 Adult depression screening assessment DEPRESSION SCREENING [facility] Start: 03-29-2021 ADVANCE DIRECTIVE DISCUSSION ADVANCE DIRECTIVE DISCUSSION [facility] Start: 03-29-2021 DEPRESSION ASSESSMENT DEPRESSION ASS ESSMENT [facility] Start: 09-10-2020 BP CONTROLLED (<130/80) BP CONTROLLE D (<130/80) [facility] Start: 05-19-2020 Colonoscopy COLONOSCOPY [facility] Start: 05-19-2020 COLORECTAL CANCER SCREENING COLORECTAL CANCER SCREENING [facility] Start: 05-19-2020 Screening for malign ant neoplasm of colon Colonoscopy [facility] Start: 03-10-2020 FECAL OCCULT BLOOD FECAL OCCULT BLOO D [facility] Start: 10-03-2019 Urine microalbumin profile [facility] Start: 07-28-2011 Medicare Annual Well ness Visit Medicare Annual Wellness Visit [facility] Start: 2006 Hepatitis B Vaccine (1 of 3 - Risk 3-dose series) Hepatitis B Vaccine (1 of 3 - Risk 3-dose series) [facility] Start: 2006 RSV Vaccine (1 - 1-d ose 60+ series) RSV Vaccine (1 - 1-dose 60+ series) [facility] Start: 08-25-1991 COLOGUARD (FIT-DNA) COLOGUARD (FIT-D NA) [facility] Start: 08-25-[address] COLONOGRAPHY [facility] Start: 08-25-1991 SIGMOIDOSCOPY SIGMOIDOSCOPY [facility] Start: 1964 Anxiety Screening Anxiety Screening [facility] Start: 1963 Depression Screening Depression Scre ening [facility] Patient Education ED Flank Pain, Uncertain Cause ED Hematuria [facility] Work Phone: Patient referral [facility] Work Phone: Removal impacted cer umen instrumentation unilat REMOVAL OF IMPACTED CERUMEN - INSTRUMENTATION Procedures Routine Bilateral impacted cerumen Ordered: 12/16/2021 [facility] Work Phone: Comment on above: Ordered: 12/16/2021 [facility] Immunizations Immunization Date Immunization Notes Care Provider Fa sanderty 01-04-2024 influenza virus vacc ine, unspecified formulation Harry Wood Work Phone: [facility] 06-05-2020 COVID-19 vaccine, fu ll dose (MODERNA) Snyder Lorri RN [facility] 12-17-[address] Salty Choudhury Work Phone: [facility] 11-28-2019 influenza, high dose seasonal, preservative-free Snyder Lorri [facility] 11-28-2019 influenza virus vacc ine, unspecified formulation Harry Wood Work Phone: [facility] 05-16-2019 zoster vaccine recombinant Snyder Lorri [facility] 05-02-2019 COVID-19 vaccine, fu ll dose (MODERNA) Snyder Lorri [facility] 04-29-2019 zoster vaccine recombinant Snyder Lorri [facility] 03-13-2019 zoster vaccine recombinant Snyder Lorri [facility] 02-26-2019 zoster vaccine recombinant Snyder Lorri [facility] 12-28-2018 influenza, high dose seasonal, preservative-free Snyder Lorri [facility] 12-27-2017 influenza, high dose seasonal, preservative-free Snyder Lorri [facility] 03-16-2017 pneumococcal polysaccharide vaccine, 23 valent Snyder Lorri [facility] 01-11-2017 influenza, high dose seasonal, preservative-free Snyder Lorri RN [facility] 12-25-2016 influenza, high dose seasonal, preservative-free Snyder Lorri RN [facility] 12-27-2015 influenza, seasonal, injectable Snyder Lorri [facility] 03-27-2015 pneumococcal conjuga te vaccine, 13 valent Snyder Lorri [facility] 12-28-2014 influenza, seasonal, injectable Snyder Lorri [facility] 12-27-2013 influenza, seasonal, injectable Snyder Lorri RN [facility] 01-02-2013 influenza, injectabl e, quadrivalent, preservative free Snyder Lorri [facility] 12-21-2011 influenza virus vacc ine, whole virus Snyderjessie Greena RN [facility] 12-21-2011 zoster vaccine, live Claudio Blackmon RN [facility] 01-03-2010 influenza virus vacc ine, whole virus Claudio Blackmon RN [facility] 10-02-2009 pneumococcal polysaccharide vaccine, 23 valent Claudio Blackmon RN [facility] 10-02-2009 tetanus toxoid, redu karin diphtheria toxoid, and acellular pertussis vaccine, adsorbed Claudio Blackmon RN [facility] 01-18-2009 influenza virus vacc ine, whole virus Claudio Blackmon RN [facility] 01-21-2008 influenza virus vacc ine, whole virus Claudio Blackmon RN [facility] 01-25-2007 influenza virus vacc ine, whole virus Claudio Blackmon RN [facility] 11-18-1998 diphtheria and tetan us toxoids, adsorbed for pediatric use Claudio Blackmon RN [facility] Payers Date Payer Category Payer Self-pay [id number] 2013 Private Health Insurance [facility] AAR SUPPLEMENT [id number] 2013-Present [phone] [address] [place] [address] Indemnity [id number] 2013 Private Health Insurance [id number] 2013 Unknown [id number] 2011 Medicare MEDICARE MEDICAR E A AND B [id number] 2011-Present [phone] [address] [address] [place] [address] Medicare [id number] 2011 Medicare [id number] 2011 Medicare [id number] Self-pay SELF PAY INSURANCE [phone] [id number] Unknown [id number] Unknown [id number] Unknown [id number] Unknown [id number] Social History Date Type Detail Facility [facility]: [facility] Start: 06-06-2021 End: 09-26-2024 Alcohol intake Current non-drinker of alcohol (finding) [facility] Start: 1945 Sex Assigned At Not on file [facility] Start: 05-27-2021 End: 12-16-2021 Exposure to SARS-CoV-2 (event) Not sure [facility] History of tobacco use Current smoker [facility] Start: 08-21-2011 Tobacco use and exposure Smokeless tobacco non-user [facility] Start: 03-10-2022 End: 06-16-2023 Tobacco smoking status NHIS Unknown if ever smoked [facility] Start: 05-24-[address] [facility] Start: 05-24-[address] [facility] Start: 05-24-2020 Non-smoker [facility] Start: 1945 Sex Assigned At Male [facility] Start: 09-15-2022 End: 12-21-2022 History of Social function [facility] Start: 09-15-2022 End: 12-21-2022 Tobacco use panel [facility] Adult Depression Screening Assessment 2 [facility] Start: 06-16-2023 [facility]finding[facility] Functional Status Date Assessment Result Facility 01-31-2021 Are you deaf, or do you have serious difficulty hearing No 01/31/2021 10:29 AM Ashtyn Killian, JANESSA No [facility] 01-31-2021 Are you blind, or do you have serious difficulty seeing, even when wearing glasses No 01/31/2021 10:29 AM Ashtyn Killian, JANESSA No [facility] 01-31-2021 Do you have serious difficulty walking or climbing stairs No 01/31/2021 10:29 AM Ashtyn Killian, JANESSA No [facility] 01-31-2021 Do you have difficul ty dressing or bathing No 01/31/2021 10:29 AM Ashtyn Killian, JANESSA No [facility] 01-31-2021 Because of a physica l, mental, or emotional condition, do you have difficulty doing errands alone such as visiting a physician's office or shopping No 01/31/2021 10:29 AM Ashtyn Killian, JANESSA No [facility] Mental Status Date Assessment Result Facility 01-31-2021 Because of a physica l, mental, or emotional condition, do you have serious difficulty concentrating, remembering, or making decisions No 01/31/2021 10:29 AM Ashtyn Killian, JANESSA No [facility] Clinical Notes 04-29-2020 to 01-02-2025 Harry Wood - 09/26/2024 8:59 AM Zaria Fitzpatrick LPN - 09/26/2024 8:52 AM EDT Note Date & Type Note Facility 01-02-2025 Note HNO ID: [id number] Author: HARRY WOOD, ? Service: ? Author Type: Physician Type: Progress Notes Filed: 01/02/2025 10:37 Note Text: Last saw pcp: not in chart Subjective: Patient presents to clinic c/o painful toenails. They state that the nails are especially painful with shoe gear and pressure. Patient states that nails 1-5 b/l are painful. Patient admits to being diabetic. No other pedal complaints at this time. Patient states no change in medications or medical history since last visit. Objective: Patient presents to clinic ambulating [facility] Vasc: DP and PT pulses are palpable bilateral. CFT is less than 5 seconds bilateral. Skin temperature is warm to cool proximal to distal bilateral. There is mild edema or varicosities noted. Neuro: Protective sensation is absent to the foot and toes when tested with the 5.07 SWM bilateral. Vibratory sensation is absent at the hallux IPJ bilateral. The hallux is downgoing bilateral. Derm: Nails 1-5 b/l are painful, discolored-yellow, thick, crumbly, dystrophic and with subungal debris. Skin is of normal turgor, texture and hair growth is decreased bilateral. There are callus to b/l hallux and first metatarsal Ortho: Muscle strength is 5/5 for all pedal groups tested. Ankle joint DF is decreased with the knee extended with no pain or crepitus noted. 1st MPJ ROM is decreased bilateral. Bunion present to b/l feet Assessment: (B35.1) Onychomycosis (primary encounter diagnosis) (M79.675) Pain in toe of left foot (M79.674) Pain in toe of right foot (E08.42) 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 ([facility]) (L85.9) Hyperkeratosis Plan: Patient was seen and evaluated. Nails 1-5 bilateral were debrided in length and thickness. Callus of b/l 1st metatarsal reduced with dremmel Discussed bunion of b/l feet. No pain. Continue with wider shoes Patient was instructed on the continued importance of diabetic foot care along with proper diet and keeping their blood sugar under control to prevent complications. Patient is to RTC in 3-4 months. Harry Wood DPM [facility] 09-26-2024 Note HNO ID: [id number] Author: HARRY WOOD, ? Service: ? Author Type: Physician Type: Progress Notes Filed: 09/26/2024 09:11 Note Text: Last saw pcp: 09/02/23 Subjective: Patient presents to clinic c/o painful toenails. They state that the nails are especially painful with shoe gear and pressure. Patient states that nails 1-5 b/l are painful. Patient admits to being diabetic. No other pedal complaints at this time. Patient states no change in medications or medical history since last visit. Objective: Patient presents to clinic ambulating in nike Vasc: DP and PT pulses are palpable bilateral. CFT is less than 5 seconds bilateral. Skin temperature is warm to cool proximal to distal bilateral. There is no edema or varicosities noted. Neuro: Protective sensation is decreased to the foot and toes when tested with the 5.07 SWM bilateral. Vibratory sensation is decreased at the hallux IPJ bilateral. The hallux is downgoing bilateral. Derm: Nails 1-5 b/l are painful discolored-yellow, thick, crumbly, dystrophic and with subungal debris. Skin is of normal turgor, texture and hair growth is decreased bilateral. There are callus to b/l hallux and b/l 1st metatarsal Ortho: Muscle strength is 5/5 for all pedal groups tested. Ankle joint DF is decreased with the knee extended with no pain or crepitus noted. 1st MPJ ROM is decreased bilateral. Bunion deformity is noted to b/l feet. Assessment: (B35.1) Onychomycosis (primary encounter diagnosis) (M79.675) Pain in toe of left foot (M79.674) Pain in toe of right foot (E08.42) 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 (HCC) Hallux valgus (L85.9) Hyperkeratosis Plan: Patient was seen and evaluated. Nails 1-5 bilateral were debrided in length and thickness. Callus reduced to b/l feet with dremmel. Continue with wider shoes for bunion. Discussed diabetic shoes. Patient declined. Patient was instructed on the continued importance of diabetic foot care along with proper diet and keeping their blood sugar under control to prevent complications. I stressed the importance of avoiding barefoot walking, wearing good shoes and inspection of feet. Patient is to RTC in 3-4 months. Harry Wood DPM [facility] 09-26-2024 History of Present illness Narrative Last saw pcp: 09/02/23 Subjective: Patient presents to clinic c/o painful toenails. They state that the nails are especially painful with shoe gear and pressure. Patient states that nails 1-5 b/l are painful. Patient admits to being diabetic. No other pedal complaints at this time. Patient states no change in medications or medical history since last visit. Objective: Patient presents to clinic ambulating in [facility] Vasc: DP and PT pulses are palpable bilateral. CFT is less than 5 seconds bilateral. Skin temperature is warm to cool proximal to distal bilateral. There is no edema or varicosities noted. Neuro: Protective sensation is decreased to the foot and toes when tested with the 5.07 SWM bilateral. Vibratory sensation is decreased at the hallux IPJ bilateral. The hallux is downgoing bilateral. Derm: Nails 1-5 b/l are painful discolored-yellow, thick, crumbly, dystrophic and with subungal debris. Skin is of normal turgor, texture and hair growth is decreased bilateral. There are callus to b/l hallux and b/l 1st metatarsal Ortho: Muscle strength is 5/5 for all pedal groups tested. Ankle joint DF is decreased with the knee extended with no pain or crepitus noted. 1st MPJ ROM is decreased bilateral. Bunion deformity is noted to b/l feet. Assessment: (B35.1) Onychomycosis (primary encounter diagnosis) (M79.675) Pain in toe of left foot (M79.674) Pain in toe of right foot (E08.42) 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 ([facility]) Hallux valgus (L85.9) Hyperkeratosis Plan: Patient was seen and evaluated. Nails 1-5 bilateral were debrided in length and thickness. Callus reduced to b/l feet with dremmel. Continue with wider shoes for bunion. Discussed diabetic shoes. Patient declined. Patient was instructed on the continued importance of diabetic foot care along with proper diet and keeping their blood sugar under control to prevent complications. I stressed the importance of avoiding barefoot walking, wearing good shoes and inspection of feet. Patient is to RTC in 3-4 months. Harry Wood DPM AMB ROOMING INTAKE FLOWSHEET DATA Risk Screening Do you have concerns about personal safety or safety in the home?: No Patient presents with: Left Foot - Established Patient, Follow Up, Diabetic Foot Care Right Foot - Established Patient, Follow Up, Diabetic Foot Care Zaria Oakley LPN documented in this encounter [facility] 09-26-2024 Note HNO ID: [id number] Author: ZARIA OAKLEY LPN Service: ? Author Type: LICENSED NURSE Type: Progress Notes Filed: 09/26/2024 09:11 Note Text: AMB ROOMING INTAKE FLOWSHEET DATA Risk Screening Do you have concerns about personal safety or safety in the home?: No Patient presents with: Left Foot - Established Patient, Follow Up, Diabetic Foot Care Right Foot - Established Patient, Follow Up, Diabetic Foot Care Zaria Oakley LPN [facility] 08-01-2024 Evaluation note Diagnosis Onset Date Resolution History of pulmonary embolism acute August 01, 2024 10:17am Ascending aortic aneurysm chronic August 01, 2024 10:17am Atherosclerotic heart disease of [place] coronary artery without angina pectoris chronic August 01, 2024 10:17am Essential hypertension chronic Ma y 2024 10:17am Hyperlipidemia chronic August 01, 025 10:17am [facility] Work Phone: [phone] 549-854303-31-2025 Instructions* Patient Instructions* Harry Wood - 06/26/2024 9:32 AM EDT Diabetes Foot Care Instructions When you have diabetes, proper foot care is very important. Poor foot care may lead to amputation of a foot or leg. As a person with diabetes, you are more vulnerable to foot problems, because diabetes can damage your nerves and reduce blood flow to your feet. Here are some diabetes foot care tips to follow: Wash and Dry Your Feet Daily Use mild soaps Use warm water Pat your skin dry; do not rub. Thoroughly dry your feet. After washing, use lotion on your feet to prevent cracking. Do not put lotion between your toes. Examine Your Feet Each Day Check the tops and bottoms of your feet. Have someone else look at your feet if you cannot see them. Check for dry, cracked skin. Look for blisters, cuts, scratches, or other sores. Check for redness, increased warmth, or tenderness when touching any area of your feet. Check for ingrown toenails, corns, and calluses. If you get a blister or sore from your shoes, do not "pop" it. Apply a bandage and wear a differentpair of shoes. Take Care of Your Toenails Cut toenails after bathing, when they are soft. Cut toenails straight across and smooth with a nail file. Avoid cutting into the corners of toes. Do not cut cuticles. If you have neuropathy (or decreased sensation in your feet) a splicing supervisor should always cut your toenails. Be Careful When Exercising Walk and exercise in comfortable shoes. Do not exercise when you have open sores on your feet. Protect Your Feet With Shoes and Socks Never go barefoot. Always protect your feet by wearing shoes or hard-soled slippers or footwear. Avoid shoes with high heels and pointed toes. Avoid shoes that expose your toes or heels (such as open-toed shoes or sandals). These types of shoes increase your risk for injury and potential infections. Try on new footwear with the type of socks you usually wear. Do not wear new shoes for more than an hour at a time. Change your socks daily. Look and feel inside your shoes before putting them on to make sure there are no foreign objects orrough areas. Avoid tight socks. Wear natural-fiber socks (cotton, wool, or a cotton-wool blend). Wear special shoes if your health care provider recommends them. Wear shoes/boots that will protect your feet from various weather conditions (cold, moisture, etc.). Make sure your shoes fit properly. If you have neuropathy (nerve damage), you may not notice that your shoes are too tight. Perform the "footwear test" described below. Footwear Test Use this simple test to see if your shoes fit correctly: Stand on a piece of paper. (Make sure you are standing and not sitting, because your foot changes shape when you stand.) Trace the outline of your foot. Trace the outline of your shoe. Compare the tracings: Is the shoe too narrow? Is your foot crammed into the shoe? The shoe should be at least 1/2 inch longer than your longest toe and as wide as your foot. Proper Shoe Choices The following types of shoes are best for people with diabetes Closed toes and heels Leather uppers without a seam inside At least 1/2 inch extra space at the end of your longest toe Inside of shoe should be soft with no rough areas Outer sole should be made of stiff material Shoes should be at least as wide as your feet Tips for Foot Care in Diabetes Don't wait to treat a minor foot problem if you have diabetes. Follow your health care provider's guidelines and first aid guidelines. Report foot injuries and infections to your health care provider immediately. Check water temperature with your elbow, not your foot. Do not use a heating pad on your feet. Do not cross your legs. Do not self-treat your corns, calluses, or other foot problems. Go to your health care provider or splicing supervisor to treat these conditions. [facility] NoteHNO ID: [id number] Author: HARRY WOOD, ? Service: ? Author Type: Physician Type: Progress Notes Filed: 06/26/2024 09:48 Note Text: Last saw pcp: Not in chart Subjective: Patient presents to clinic c/o painful toenails. They state that the nails are especially painful with shoe gear and pressure. Patient complains of neuropathy. Patient admits to being diabetic. No other pedal complaints at this time. Patient states no change in medications or medical history since last visit. Objective: Patient presents to clinic ambulating in nike tennis shoes Vasc: DP and PT pulses are palpable bilateral. CFT is less than 5 seconds bilateral. Skin temperature is warm to cool proximal to distal bilateral. There is mild edema or varicosities noted. Neuro: Protective sensation is decreased to the foot and toes when tested with the 5.07 SWM bilateral. Vibratory sensation is absent at the hallux IPJ bilateral. The hallux is downgoing bilateral. Derm: Nails 1-5 left and 1,3,5 right are painful, discolored-yellow, thick, crumbly, dystrophic and with subungal debris. Skin is of normal turgor, texture and hair growth is present bilateral. There are callus to b/l 1st metatarsal. No underlying ulceration. Ortho: Muscle strength is 5/5 for all pedal groups tested. Ankle joint DF is decreased with the knee extended with no pain or crepitus noted. 1st MPJ ROM is decreased bilateral. Hallux valgus deformity is present to b/l feet. Assessment: (B35.1) Onychomycosis (primary encounter diagnosis) (M79.675) Pain in toe of left foot (M79.674) Pain in toe of right foot (E11.42) Diabetic polyneuropathy associated with type 2 diabetes mellitus (HCC) Hallux valgus callus Plan: Patient was seen and evaluated. Nails 1-5 left and 1,3,5 right were debrided in length and thickness. Callus reduced with dremmel. Discussed bunions of b/l feet. Discussed how these may lead to rubbing on 2nd toe. Already using toe spacer. Discussed bunion surgery. Patient is not interested. He will continue with padding. Discussed diabetic shoes. He has elected to continue with current shoes Patient was instructed on the continued importance of diabetic foot care along with proper diet and keeping their blood sugar under control to prevent complications. I stressed the importance of avoiding barefoot walking, wearing good shoes and inspection of feet. I discussed how this patient suffers from neuropathy and that it is important that she monitor for any open wounds. If she develops any issues, she is to contact our office immediately and we will have them seen. Patient is to RTC in 3-4 months. Harry Wood [facility]03-31-2025 History of Present illness Narrative* Harry Wood - 06/26/2024 9:31 AM EDT Last saw pcp: Not in chart Subjective: Patient presents to clinic c/o painful toenails. They state that the nails are especially painful with shoe gear and pressure. Patient complains of neuropathy. Patient admits to being diabetic. No other pedal complaints at this time. Patient states no change in medications or medical history since last visit. Objective: Patient presents to clinic ambulating in nike tennis shoes Vasc: DP and PT pulses are palpable bilateral. CFT is less than 5 seconds bilateral. Skin temperature is warm to cool proximal to distal bilateral. There is mild edema or varicosities noted. Neuro: Protective sensation is decreased to the foot and toes when tested with the 5.07 SWM bilateral. Vibratory sensation is absent at the hallux IPJ bilateral. The hallux is downgoing bilateral. Derm: Nails 1-5 left and 1,3,5 right are painful, discolored-yellow, thick, crumbly, dystrophic andwith subungal debris. Skin is of normal turgor, texture and hair growth is present bilateral. Thereare callus to b/l 1st metatarsal. No underlying ulceration. Ortho: Muscle strength is 5/5 for all pedal groups tested. Ankle joint DF is decreased with the knee extended with no pain or crepitus noted. 1st MPJ ROM is decreased bilateral. Hallux valgus deformity is present to b/l feet. Assessment: (B35.1) Onychomycosis (primary encounter diagnosis) (M79.675) Pain in toe of left foot (M79.674) Pain in toe of right foot (E11.42) Diabetic polyneuropathy associated with type 2 diabetes mellitus (HCC) Hallux valgus callus Plan: Patient was seen and evaluated. Nails 1-5 left and 1,3,5 right were debrided in length and thickness. Callus reduced with dremmel. Discussed bunions of b/l feet. Discussed how these may lead to rubbing on 2nd toe. Already using toe spacer. Discussed bunion surgery. Patient is not interested. He will continue with padding. Discussed diabetic shoes. He has elected to continue with current shoes Patient was instructed on the continued importance of diabetic foot care along with proper diet andkeeping their blood sugar under control to prevent complications. I stressed the importance of avoiding barefoot walking, wearing good shoes and inspection of feet. I discussed how this patient suffers from neuropathy and that it is important that she monitor for any open wounds. If she develops any issues, she is to contact our office immediately and we will have them seen. Patient is to RTC in 3-4 months. Harry Wood DPM * Zaria Oakley LPN - 06/26/2024 9:11 AM EDT AMB ROOMING INTAKE FLOWSHEET DATA Pain Pain Level: 5 Pain Location: Other: See Comment (bilateral feet) Description: Burning, Tingling Frequency: Continuous Intervention/Comfort measure: Reposition, Relaxation Patient presents with: Left Foot - Established Patient, Follow Up, Diabetic Foot Care Right Foot - Established Patient, Follow Up, Diabetic Foot Care Zaria Oakley LPN [facility] NoteHNO ID: [id number] Author: ZARIA OAKLEY LPN Service: ? Author Type: LICENSED NURSE Type: Progress Notes Filed: 06/26/2024 09:48 Note Text: AMB ROOMING INTAKE FLOWSHEET DATA Pain Pain Level: 5 Pain Location: Other: See Comment (bilateral feet) Description: Burning, Tingling Frequency: Continuous Intervention/Comfort measure: Reposition, Relaxation Patient presents with: Left Foot - Established Patient, Follow Up, Diabetic Foot Care Right Foot - Established Patient, Follow Up, Diabetic Foot [facility] NoteHNO ID: [id number] Author: HARRY WOOD, ? Service: ? Author Type: Physician Type: Progress Notes Filed: 04/29/2024 21:38 Note Text: Last saw pcp: 12/03/2023 Subjective: Patient presents to clinic c/o painful toenails. They state that the nails are especially painful with shoe gear and pressure. . Patient admits to being diabetic. No other pedal complaints at this time. Patient states no change in medications or medical history since last visit. Objective: Patient presents to clinic ambulating in [facility] Vasc: DP and PT pulses are palpable bilateral. CFT is less than 5 seconds bilateral. Skin temperature is warm to cool proximal to distal bilateral. There is mild edema or varicosities noted. Neuro: Protective sensation is absent to the foot and toes when tested with the 5.07 SWM bilateral. Vibratory sensation is absent at the hallux IPJ bilateral. The hallux is downgoing bilateral. Derm: Nails 1-5 left and 1-3,5 right are painful, discolored-yellow, thick, crumbly, dystrophic and with subungal debris. Skin is of normal turgor, texture and hair growth is present bilateral. There are callus to b/l hallux. no ulcerations, scars, verruca or other lesions noted. Ortho: Muscle strength is 5/5 for all pedal groups tested. Ankle joint DF is decreased with the knee extended with no pain or crepitus noted. 1st MPJ ROM is decreased bilateral. Large bunion is present to b/l feet. Assessment: (B35.1) Onychomycosis (primary encounter diagnosis) (M79.675) Pain in toe of left foot (M79.674) Pain in toe of right foot (E11.42) Diabetic polyneuropathy associated with type 2 diabetes mellitus (HCC) Plan: Patient was seen and evaluated. Nails 1-5 left and 1-3, 5 right were debrided in length and thickness. Small bleed to right 5th toe. Band aide applied Continue with wider shoes for bunion deformity. Patient was instructed on the continued importance of diabetic foot care along with proper diet and keeping their blood sugar under control to prevent complications. Stressed the importance of avoiding barefoot walking, wearing good shoes and inspection of feet. Patient is to RTC in 3-4 months. Harry Wood [facility]12-30-2024 History of Present illness Narrative* Harry Wood - 03/27/2024 8:59 AM EST Last saw pcp: 12/03/2023 Subjective: Patient presents to clinic c/o painful toenails. They state that the nails are especially painful with shoe gear and pressure. . Patient admits to being diabetic. No other pedal complaints at this time. Patient states no change in medications or medical history since last visit. Objective: Patient presents to clinic ambulating in [facility] Vasc: DP and PT pulses are palpable bilateral. CFT is less than 5 seconds bilateral. Skin temperature is warm to cool proximal to distal bilateral. There is mild edema or varicosities noted. Neuro: Protective sensation is absent to the foot and toes when tested with the 5.07 SWM bilateral.Vibratory sensation is absent at the hallux IPJ bilateral. The hallux is downgoing bilateral. Derm: Nails 1-5 left and 1-3,5 right are painful, discolored-yellow, thick, crumbly, dystrophic andwith subungal debris. Skin is of normal turgor, texture and hair growth is present bilateral. Thereare callus to b/l hallux. no ulcerations, scars, verruca or other lesions noted. Ortho: Muscle strength is 5/5 for all pedal groups tested. Ankle joint DF is decreased with the knee extended with no pain or crepitus noted. 1st MPJ ROM is decreased bilateral. Large bunion is present to b/l feet. Assessment: (B35.1) Onychomycosis (primary encounter diagnosis) (M79.675) Pain in toe of left foot (M79.674) Pain in toe of right foot (E08.42) 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 ([facility]) Plan: Patient was seen and evaluated. Nails 1-5 left and 1-3, 5 right were debrided in length and thickness. Small bleed to right 5th toe. Band aide applied Continue with wider shoes for bunion deformity. Patient was instructed on the continued importance of diabetic foot care along with proper diet andkeeping their blood sugar under control to prevent complications. Stressed the importance of avoiding barefoot walking, wearing good shoes and inspection of feet. Patient is to RTC in 3-4 months. Harry Wood DPM documented in this encounter[facility] Instructions* Patient Instructions* Harry Wood - 03/27/2024 8:59 AM EST Diabetes Foot Care Instructions When you have diabetes, proper foot care is very important. Poor foot care may lead to amputation of a foot or leg. As a person with diabetes, you are more vulnerable to foot problems, because diabetes can damage your nerves and reduce blood flow to your feet. Here are some diabetes foot care tips to follow: Wash and Dry Your Feet Daily Use mild soaps Use warm water Pat your skin dry; do not rub. Thoroughly dry your feet. After washing, use lotion on your feet to prevent cracking. Do not put lotion between your toes. Examine Your Feet Each Day Check the tops and bottoms of your feet. Have someone else look at your feet if you cannot see them. Check for dry, cracked skin. Look for blisters, cuts, scratches, or other sores. Check for redness, increased warmth, or tenderness when touching any area of your feet. Check for ingrown toenails, corns, and calluses. If you get a blister or sore from your shoes, do not "pop" it. Apply a bandage and wear a differentpair of shoes. Take Care of Your Toenails Cut toenails after bathing, when they are soft. Cut toenails straight across and smooth with a nail file. Avoid cutting into the corners of toes. Do not cut cuticles. If you have neuropathy (or decreased sensation in your feet) a splicing supervisor should always cut your toenails. Be Careful When Exercising Walk and exercise in comfortable shoes. Do not exercise when you have open sores on your feet. Protect Your Feet With Shoes and Socks Never go barefoot. Always protect your feet by wearing shoes or hard-soled slippers or footwear. Avoid shoes with high heels and pointed toes. Avoid shoes that expose your toes or heels (such as open-toed shoes or sandals). These types of shoes increase your risk for injury and potential infections. Try on new footwear with the type of socks you usually wear. Do not wear new shoes for more than an hour at a time. Change your socks daily. Look and feel inside your shoes before putting them on to make sure there are no foreign objects orrough areas. Avoid tight socks. Wear natural-fiber socks (cotton, wool, or a cotton-wool blend). Wear special shoes if your health care provider recommends them. Wear shoes/boots that will protect your feet from various weather conditions (cold, moisture, etc.). Make sure your shoes fit properly. If you have neuropathy (nerve damage), you may not notice that your shoes are too tight. Perform the "footwear test" described below. Footwear Test Use this simple test to see if your shoes fit correctly: Stand on a piece of paper. (Make sure you are standing and not sitting, because your foot changes shape when you stand.) Trace the outline of your foot. Trace the outline of your shoe. Compare the tracings: Is the shoe too narrow? Is your foot crammed into the shoe? The shoe should be at least 1/2 inch longer than your longest toe and as wide as your foot. Proper Shoe Choices The following types of shoes are best for people with diabetes Closed toes and heels Leather uppers without a seam inside At least 1/2 inch extra space at the end of your longest toe Inside of shoe should be soft with no rough areas Outer sole should be made of stiff material Shoes should be at least as wide as your feet Tips for Foot Care in Diabetes Don't wait to treat a minor foot problem if you have diabetes. Follow your health care provider's guidelines and first aid guidelines. Report foot injuries and infections to your health care provider immediately. Check water temperature with your elbow, not your foot. Do not use a heating pad on your feet. Do not cross your legs. Do not self-treat your corns, calluses, or other foot problems. Go to your health care provider or splicing supervisor to treat these conditions. documented in this encounterMer[facility]09[facility]30-[facility]24 History of Present illness Narrative* Harry Wood - 12/27/2023 8:58 AM EDT Last saw pcp: not in chart Subjective: Patient presents to clinic c/o painful toenails. They state that the nails are especially painful with shoe gear and pressure. Patient states that nails b/l hallux are painful. Patient admits to being diabetic. No other pedal complaints at this time. Patient states no change in medications or medical history since last visit. Objective: Patient presents to clinic ambulating in nike tennis shoes Vasc: DP and PT pulses are palpable bilateral. CFT is less than 5 seconds bilateral. Skin temperature is warm to cool proximal to distal bilateral. There is no edema or varicosities noted. Neuro: Protective sensation is decreased to the foot and toes when tested with the 5.07 SWM bilateral. Vibratory sensation is absent at the hallux IPJ bilateral. The hallux is downgoing bilateral. Derm: Nails 1-5 left and 1,3,4 right are painful, discolored-yellow, thick, crumbly, dystrophic andwith subungal debris. Skin is of normal turgor, texture and hair growth is present bilateral. Thereare callus to b/l hallux. no ulcerations, scars, verruca or other lesions noted. Ortho: Muscle strength is 5/5 for all pedal groups tested. Ankle joint DF is decreased with the knee extended with no pain or crepitus noted. 1st MPJ ROM is decreased bilateral. Hallux valgus is noted b/l. Assessment: (B35.1) Onychomycosis (primary encounter diagnosis) (M79.675) Pain in toe of left foot (M79.674) Pain in toe of right foot (E08.42) 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 (HCC) Hallux valgus Plan: Patient was seen and evaluated. Nails 1-5 left and 1,3,4 right were debrided in length and thickness. Callus reduced with dremmel to b/l hallux Continue with wider shoes for bunion/hammertoe. Patient was instructed on the continued importance of diabetic foot care along with proper diet andkeeping their blood sugar under control to prevent complications. Stressed the importance of avoiding barefoot walking, wearing good shoes and inspection of feet Patient is to RTC in 3-4 months. Harry Wood DPM * Gabby Hayes RN - 12/27/2023 8:43 AM EDT Patient presents with: Left Foot - Established Patient, Follow Up, Diabetic Foot Care Right Foot - Established Patient, Follow Up, Diabetic Foot Care Patient presents for follow up diabetic foot/nail care. BHUMI 09/21/23 documented in this encounterMer[facility]09-30-[facility]24 Instructions* Patient Instructions* Harry Wood - 12/27/2023 8:58 AM EDT Diabetes Foot Care Instructions When you have diabetes, proper foot care is very important. Poor foot care may lead to amputation of a foot or leg. As a person with diabetes, you are more vulnerable to foot problems, because diabetes can damage your nerves and reduce blood flow to your feet. Here are some diabetes foot care tips to follow: Wash and Dry Your Feet Daily Use mild soaps Use warm water Pat your skin dry; do not rub. Thoroughly dry your feet. After washing, use lotion on your feet to prevent cracking. Do not put lotion between your toes. Examine Your Feet Each Day Check the tops and bottoms of your feet. Have someone else look at your feet if you cannot see them. Check for dry, cracked skin. Look for blisters, cuts, scratches, or other sores. Check for redness, increased warmth, or tenderness when touching any area of your feet. Check for ingrown toenails, corns, and calluses. If you get a blister or sore from your shoes, do not "pop" it. Apply a bandage and wear a differentpair of shoes. Take Care of Your Toenails Cut toenails after bathing, when they are soft. Cut toenails straight across and smooth with a nail file. Avoid cutting into the corners of toes. Do not cut cuticles. If you have neuropathy (or decreased sensation in your feet) a splicing supervisor should always cut your toenails. Be Careful When Exercising Walk and exercise in comfortable shoes. Do not exercise when you have open sores on your feet. Protect Your Feet With Shoes and Socks Never go barefoot. Always protect your feet by wearing shoes or hard-soled slippers or footwear. Avoid shoes with high heels and pointed toes. Avoid shoes that expose your toes or heels (such as open-toed shoes or sandals). These types of shoes increase your risk for injury and potential infections. Try on new footwear with the type of socks you usually wear. Do not wear new shoes for more than an hour at a time. Change your socks daily. Look and feel inside your shoes before putting them on to make sure there are no foreign objects orrough areas. Avoid tight socks. Wear natural-fiber socks (cotton, wool, or a cotton-wool blend). Wear special shoes if your health care provider recommends them. Wear shoes/boots that will protect your feet from various weather conditions (cold, moisture, etc.). Make sure your shoes fit properly. If you have neuropathy (nerve damage), you may not notice that your shoes are too tight. Perform the "footwear test" described below. Footwear Test Use this simple test to see if your shoes fit correctly: Stand on a piece of paper. (Make sure you are standing and not sitting, because your foot changes shape when you stand.) Trace the outline of your foot. Trace the outline of your shoe. Compare the tracings: Is the shoe too narrow? Is your foot crammed into the shoe? The shoe should be at least 1/2 inch longer than your longest toe and as wide as your foot. Proper Shoe Choices The following types of shoes are best for people with diabetes Closed toes and heels Leather uppers without a seam inside At least 1/2 inch extra space at the end of your longest toe Inside of shoe should be soft with no rough areas Outer sole should be made of stiff material Shoes should be at least as wide as your feet Tips for Foot Care in Diabetes Don't wait to treat a minor foot problem if you have diabetes. Follow your health care provider's guidelines and first aid guidelines. Report foot injuries and infections to your health care provider immediately. Check water temperature with your elbow, not your foot. Do not use a heating pad on your feet. Do not cross your legs. Do not self-treat your corns, calluses, or other foot problems. Go to your health care provider or splicing supervisor to treat these conditions. documented in this encounterMer[facility]06-[facility]-2024 Instructions* Patient Instructions* Harry Wood - 09/21/2023 9:57 AM EDT Diabetes Foot Care Instructions When you have diabetes, proper foot care is very important. Poor foot care may lead to amputation of a foot or leg. As a person with diabetes, you are more vulnerable to foot problems, because diabetes can damage your nerves and reduce blood flow to your feet. Here are some diabetes foot care tips to follow: Wash and Dry Your Feet Daily Use mild soaps Use warm water Pat your skin dry; do not rub. Thoroughly dry your feet. After washing, use lotion on your feet to prevent cracking. Do not put lotion between your toes. Examine Your Feet Each Day Check the tops and bottoms of your feet. Have someone else look at your feet if you cannot see them. Check for dry, cracked skin. Look for blisters, cuts, scratches, or other sores. Check for redness, increased warmth, or tenderness when touching any area of your feet. Check for ingrown toenails, corns, and calluses. If you get a blister or sore from your shoes, do not "pop" it. Apply a bandage and wear a differentpair of shoes. Take Care of Your Toenails Cut toenails after bathing, when they are soft. Cut toenails straight across and smooth with a nail file. Avoid cutting into the corners of toes. Do not cut cuticles. If you have neuropathy (or decreased sensation in your feet) a splicing supervisor should always cut your toenails. Be Careful When Exercising Walk and exercise in comfortable shoes. Do not exercise when you have open sores on your feet. Protect Your Feet With Shoes and Socks Never go barefoot. Always protect your feet by wearing shoes or hard-soled slippers or footwear. Avoid shoes with high heels and pointed toes. Avoid shoes that expose your toes or heels (such as open-toed shoes or sandals). These types of shoes increase your risk for injury and potential infections. Try on new footwear with the type of socks you usually wear. Do not wear new shoes for more than an hour at a time. Change your socks daily. Look and feel inside your shoes before putting them on to make sure there are no foreign objects orrough areas. Avoid tight socks. Wear natural-fiber socks (cotton, wool, or a cotton-wool blend). Wear special shoes if your health care provider recommends them. Wear shoes/boots that will protect your feet from various weather conditions (cold, moisture, etc.). Make sure your shoes fit properly. If you have neuropathy (nerve damage), you may not notice that your shoes are too tight. Perform the "footwear test" described below. Footwear Test Use this simple test to see if your shoes fit correctly: Stand on a piece of paper. (Make sure you are standing and not sitting, because your foot changes shape when you stand.) Trace the outline of your foot. Trace the outline of your shoe. Compare the tracings: Is the shoe too narrow? Is your foot crammed into the shoe? The shoe should be at least 1/2 inch longer than your longest toe and as wide as your foot. Proper Shoe Choices The following types of shoes are best for people with diabetes Closed toes and heels Leather uppers without a seam inside At least 1/2 inch extra space at the end of your longest toe Inside of shoe should be soft with no rough areas Outer sole should be made of stiff material Shoes should be at least as wide as your feet Tips for Foot Care in Diabetes Don't wait to treat a minor foot problem if you have diabetes. Follow your health care provider's guidelines and first aid guidelines. Report foot injuries and infections to your health care provider immediately. Check water temperature with your elbow, not your foot. Do not use a heating pad on your feet. Do not cross your legs. Do not self-treat your corns, calluses, or other foot problems. Go to your health care provider or splicing supervisor to treat these conditions. documented in this encounterMer[facility]06-[facility] History of Present illness Narrative* Harry Wood - 09/21/2023 9:56 AM EDT Last time saw pcp: not in chart Subjective: Patient presents to clinic c/o painful toenails. They state that the nails are especially painful with shoe gear and pressure. Patient states that nails 1-5 b/l are painful. Patient admits to being diabetic. Does wear hammertoe pads which he is unsure if this helps. No other pedal complaints at this time. Patient states no change in medications or medical history since last visit. Objective: Patient presents to clinic ambulating in nike Vasc: DP and PT pulses are palpable bilateral. CFT is less than 5 seconds bilateral. Skin temperature is warm to cool proximal to distal bilateral. There is no edema or varicosities noted. Neuro: Protective sensation is decreased to the foot and toes when tested with the 5.07 SWM bilateral. Vibratory sensation is absent at the hallux IPJ bilateral. The hallux is downgoing bilateral. Derm: Nails 1-5 b/l are painful, discolored-yellow, thick, crumbly, dystrophic and with subungal debris. Skin is of normal turgor, texture and hair growth is present bilateral. There are callus of right 3rd toe and right hallux. No ulcerations, scars, verruca or other lesions noted. Ortho: Muscle strength is 5/5 for all pedal groups tested. Ankle joint DF is decreased with the knee extended with no pain or crepitus noted. 1st MPJ ROM is decreased bilateral. Hammertoes are present to b/l feet Assessment: (B35.1) Onychomycosis (primary encounter diagnosis) (M79.675) Pain in toe of left foot (M79.674) Pain in toe of right foot (E08.42) 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 ([facility]) (L84) Callus of foot (M20.41) Hammer toe of right foot Plan: Patient was seen and evaluated. Nails 1-5 bilateral were debrided in length and thickness. Callus to right 3rd toe reduced with dremmel. Etiology of callus is caused by hammertoe. Continue with well padded shoes and/or padding. Discussed hammertoe surgery. Patient is not interested. Callus of irght 1st metatarsal reduced with dremmel. Patient was instructed on the continued importance of diabetic foot care along with proper diet andkeeping their blood sugar under control to prevent complications. Discussed neuropathy of b/l feet.Continue to inspect feet daily. Avoid barefoot walking. Patient is to RTC in 3-4 months. Harry Wood DPM * Gabby Hayes RN - 09/21/2023 9:46 AM EDT Patient presents with: Left Foot - Established Patient, Follow Up, Diabetic Foot Care Right Foot - Established Patient, Follow Up, Diabetic Foot Care Patient presents for 3 month follow up diabetic foot care. BHUMI 06/17/23 documented in this encounterMer[facility]03-[facility] History of Present illness Narrative* Harry Wood - 06/17/2023 10:42 AM EDT Last time saw pcp: not in chart Subjective: Patient presents to clinic c/o painful toenails. They state that the nails are especially painful with shoe gear and pressure. Patient admits to being diabetic. No other pedal complaints at this time. Patient states no change in medications or medical history since last visit. Objective: Patient presents to clinic ambulating in [facility] Vasc: DP and PT pulses are palpable bilateral. CFT is less than 5 seconds bilateral. Skin temperature is warm to cool proximal to distal bilateral. There is mild edema or varicosities noted. Neuro: Protective sensation is absent to the foot and toes when tested with the 5.07 SWM bilateral.Vibratory sensation is absent at the hallux IPJ bilateral. The hallux is downgoing bilateral. Derm: Nails 1-5 left and 1,3,5 right are painful, discolored-yellow, thick, crumbly, dystrophic andwith subungal debris. Skin is of normal turgor, texture and hair growth is present bilateral. Thereare callus to right 4th toe. No ulcerations, scars, verruca or other lesions noted. Ortho: Muscle strength is 5/5 for all pedal groups tested. Ankle joint DF is decreased with the knee extended with no pain or crepitus noted. 1st MPJ ROM is decreased bilateral. Lesser toe contracture b/l. Hallux valgus b/l Assessment: (B35.1) Onychomycosis (primary encounter diagnosis) (M79.675) Pain in toe of left foot (M79.674) Pain in toe of right foot (E08.42) 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 (HCC) (L85.9) Hyperkeratosis (M20.41) Hammer toe of right foot Plan: Patient was seen and evaluated. Nails 1-5 left and 1,3,5 right were debrided in length and thickness. Small bleed to right 5th toe.Band aide applied Callus of right 4th toe reduced with tissue nipper. Small bleed encountered and treated with band aide. Recommend hammertoe crest pad vs hammertoe correction. He has elected to do hammertoe pad Patient was instructed on the continued importance of diabetic foot care along with proper diet andkeeping their blood sugar under control to prevent complications. Patient is to RTC in 3-4 months. Harry Wood DPM * Gabby Hayes RN - 06/17/2023 10:16 AM EDT AMB ROOMING INTAKE FLOWSHEET DATA Risk Screening Do you have concerns about personal safety or safety in the home?: No Pain Pain Location: Foot-Right Description: Tingling, Stabbing Frequency: Intermittent Intervention/Comfort measure: Reposition, Relaxation Comments: neuropathy pain Patient presents with: Left Foot - Established Patient, Follow Up, Diabetic Foot Check Right Foot - Established Patient, Follow Up, Diabetic Foot Check Patient presents for 3 month diabetic foot care/nail care. [facility] 03/16/23 documented in this encounterMer[facility]03-21-2024 Instructions* Patient Instructions* Harry Wood - 06/17/2023 10:42 AM EDT Diabetes Foot Care Instructions When you have diabetes, proper foot care is very important. Poor foot care may lead to amputation of a foot or leg. As a person with diabetes, you are more vulnerable to foot problems, because diabetes can damage your nerves and reduce blood flow to your feet. Here are some diabetes foot care tips to follow: Wash and Dry Your Feet Daily Use mild soaps Use warm water Pat your skin dry; do not rub. Thoroughly dry your feet. After washing, use lotion on your feet to prevent cracking. Do not put lotion between your toes. Examine Your Feet Each Day Check the tops and bottoms of your feet. Have someone else look at your feet if you cannot see them. Check for dry, cracked skin. Look for blisters, cuts, scratches, or other sores. Check for redness, increased warmth, or tenderness when touching any area of your feet. Check for ingrown toenails, corns, and calluses. If you get a blister or sore from your shoes, do not "pop" it. Apply a bandage and wear a differentpair of shoes. Take Care of Your Toenails Cut toenails after bathing, when they are soft. Cut toenails straight across and smooth with a nail file. Avoid cutting into the corners of toes. Do not cut cuticles. If you have neuropathy (or decreased sensation in your feet) a splicing supervisor should always cut your toenails. Be Careful When Exercising Walk and exercise in comfortable shoes. Do not exercise when you have open sores on your feet. Protect Your Feet With Shoes and Socks Never go barefoot. Always protect your feet by wearing shoes or hard-soled slippers or footwear. Avoid shoes with high heels and pointed toes. Avoid shoes that expose your toes or heels (such as open-toed shoes or sandals). These types of shoes increase your risk for injury and potential infections. Try on new footwear with the type of socks you usually wear. Do not wear new shoes for more than an hour at a time. Change your socks daily. Look and feel inside your shoes before putting them on to make sure there are no foreign objects orrough areas. Avoid tight socks. Wear natural-fiber socks (cotton, wool, or a cotton-wool blend). Wear special shoes if your health care provider recommends them. Wear shoes/boots that will protect your feet from various weather conditions (cold, moisture, etc.). Make sure your shoes fit properly. If you have neuropathy (nerve damage), you may not notice that your shoes are too tight. Perform the "footwear test" described below. Footwear Test Use this simple test to see if your shoes fit correctly: Stand on a piece of paper. (Make sure you are standing and not sitting, because your foot changes shape when you stand.) Trace the outline of your foot. Trace the outline of your shoe. Compare the tracings: Is the shoe too narrow? Is your foot crammed into the shoe? The shoe should be at least 1/2 inch longer than your longest toe and as wide as your foot. Proper Shoe Choices The following types of shoes are best for people with diabetes Closed toes and heels Leather uppers without a seam inside At least 1/2 inch extra space at the end of your longest toe Inside of shoe should be soft with no rough areas Outer sole should be made of stiff material Shoes should be at least as wide as your feet Tips for Foot Care in Diabetes Don't wait to treat a minor foot problem if you have diabetes. Follow your health care provider's guidelines and first aid guidelines. Report foot injuries and infections to your health care provider immediately. Check water temperature with your elbow, not your foot. Do not use a heating pad on your feet. Do not cross your legs. Do not self-treat your corns, calluses, or other foot problems. Go to your health care provider or splicing supervisor to treat these conditions. documented [facility] History of Present illness Narrative* Harry Wood - 12/21/2022 9:20 AM EDT Last time saw pcp: not on file Subjective: Patient presents to clinic c/o painful toenails. They state that the nails are especially painful with shoe gear and pressure. Patient states that nails are painful. Patient admits to being diabetic. No other pedal complaints at this time. Patient states no change in medications or medical history since last visit. Objective: Patient presents to clinic ambulating in nike tennis shoes Vasc: DP nonpalpable bilateral. Posterior tibial pulses palpable b/l.. CFT is less than 5 seconds bilateral. Skin temperature is warm to cool proximal to distal bilateral. There is mild edema or varicosities noted. Neuro: Protective sensation is decreased to the foot and toes when tested with the 5.07 SWM bilateral. Vibratory sensation is absent at the hallux IPJ bilateral. The hallux is downgoing bilateral. Derm: Nails 1-5 left and 1,3,5 right are painful, discolored-yellow, thick, crumbly, dystrophic andwith subungal debris. Skin is of normal turgor, texture and hair growth is absent bilateral. There are callus to b/l hallux. No ulcerations, scars, verruca or other lesions noted. Ortho: Muscle strength is 5/5 for all pedal groups tested. Ankle joint DF is decreased with the knee extended with no pain or crepitus noted. 1st MPJ ROM is decreased bilateral. Bunion is present b/l. 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 Nails 1-5 left and 1,3,5 right were debrided in length and thickness. Callus reduced to b/l hallux with dremmel. Offered diabetic shoes but he elected to continue with nike Patient was instructed on the continued importance of diabetic foot care along with proper diet andkeeping their blood sugar under control to prevent complications. Patient is to RTC in 3-4 months. Harry Wood DPM * Zaria Oakley LPN - 12/21/2022 9:00 AM EDT AMB ROOMING INTAKE FLOWSHEET DATA Patient presents with: Left Foot - Diabetic Foot Care, Established Patient Right Foot - Diabetic Foot Care, Established Patient Zaria Oakley LPN documented in this encounterMer[facility]23 Instructions* Patient Instructions* Harry Wood - 12/21/2022 9:20 AM EDT Diabetes Foot Care Instructions When you have diabetes, proper foot care is very important. Poor foot care may lead to amputation of a foot or leg. As a person with diabetes, you are more vulnerable to foot problems, because diabetes can damage your nerves and reduce blood flow to your feet. Here are some diabetes foot care tips to follow: Wash and Dry Your Feet Daily Use mild soaps Use warm water Pat your skin dry; do not rub. Thoroughly dry your feet. After washing, use lotion on your feet to prevent cracking. Do not put lotion between your toes. Examine Your Feet Each Day Check the tops and bottoms of your feet. Have someone else look at your feet if you cannot see them. Check for dry, cracked skin. Look for blisters, cuts, scratches, or other sores. Check for redness, increased warmth, or tenderness when touching any area of your feet. Check for ingrown toenails, corns, and calluses. If you get a blister or sore from your shoes, do not "pop" it. Apply a bandage and wear a differentpair of shoes. Take Care of Your Toenails Cut toenails after bathing, when they are soft. Cut toenails straight across and smooth with a nail file. Avoid cutting into the corners of toes. Do not cut cuticles. If you have neuropathy (or decreased sensation in your feet) a splicing supervisor should always cut your toenails. Be Careful When Exercising Walk and exercise in comfortable shoes. Do not exercise when you have open sores on your feet. Protect Your Feet With Shoes and Socks Never go barefoot. Always protect your feet by wearing shoes or hard-soled slippers or footwear. Avoid shoes with high heels and pointed toes. Avoid shoes that expose your toes or heels (such as open-toed shoes or sandals). These types of shoes increase your risk for injury and potential infections. Try on new footwear with the type of socks you usually wear. Do not wear new shoes for more than an hour at a time. Change your socks daily. Look and feel inside your shoes before putting them on to make sure there are no foreign objects orrough areas. Avoid tight socks. Wear natural-fiber socks (cotton, wool, or a cotton-wool blend). Wear special shoes if your health care provider recommends them. Wear shoes/boots that will protect your feet from various weather conditions (cold, moisture, etc.). Make sure your shoes fit properly. If you have neuropathy (nerve damage), you may not notice that your shoes are too tight. Perform the "footwear test" described below. Footwear Test Use this simple test to see if your shoes fit correctly: Stand on a piece of paper. (Make sure you are standing and not sitting, because your foot changes shape when you stand.) Trace the outline of your foot. Trace the outline of your shoe. Compare the tracings: Is the shoe too narrow? Is your foot crammed into the shoe? The shoe should be at least 1/2 inch longer than your longest toe and as wide as your foot. Proper Shoe Choices The following types of shoes are best for people with diabetes Closed toes and heels Leather uppers without a seam inside At least 1/2 inch extra space at the end of your longest toe Inside of shoe should be soft with no rough areas Outer sole should be made of stiff material Shoes should be at least as wide as your feet Tips for Foot Care in Diabetes Don't wait to treat a minor foot problem if you have diabetes. Follow your health care provider's guidelines and first aid guidelines. Report foot injuries and infections to your health care provider immediately. Check water temperature with your elbow, not your foot. Do not use a heating pad on your feet. Do not cross your legs. Do not self-treat your corns, calluses, or other foot problems. Go to your health care provider or splicing supervisor to treat these conditions. documented in this encounterMer[facility]06-[facility] History of Present illness Narrative* Harry Wood - 09/15/2022 10:06 AM EDT Last saw pcp: 09/02/22 Subjective: Patient presents to clinic c/o painful toenails. They state that the nails are especially painful with shoe gear and pressure. Patient states that nails are painful. Patient admits to being diabetic. No other pedal complaints at this time. Patient states no change in medications or medical history since last visit. Objective: Patient presents to clinic ambulating in nike tennis shoes Vasc: DP and PT pulses are palpable bilateral. CFT is less than 5 seconds bilateral. Skin temperature is warm to cool proximal to distal bilateral. There is mild edema or varicosities noted. Neuro: Protective sensation is decreased to the foot and toes when tested with the 5.07 SWM bilateral. Vibratory sensation is absent at the hallux IPJ bilateral. The hallux is downgoing bilateral. Derm: Nails 1-5 left and 1,2,4 are discolored-yellow, thick, crumbly, dystrophic and with subungal debris. Skin is thin, dry, pallor and hair growth is absent bilateral. There are callus to distal tip of right 4th toe and to b/l 1st metatarsal. no ulcerations, scars, verruca or other lesions noted. Ortho: Muscle strength is 5/5 for all pedal groups tested. Ankle joint DF is decreased with the knee extended with no pain or crepitus noted. 1st MPJ ROM is decreased bilateral. 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 Nails 1-5 left and 1,2, 4 left were debrided in length and thickness. Callus reduced to feet with dremmel. Offered hammertoe pad but he has tried in past and was not in favor of Discussed diabetic shoes. He is inclinded to continue with his nikes. Patient was instructed on the continued importance of diabetic foot care along with proper diet andkeeping their blood sugar under control to prevent complications. Patient is to RTC in 3-4 months. Harry Wood DPM * Gabby Hayes RN - 09/15/2022 9:54 AM EDT AMB ROOMING INTAKE FLOWSHEET DATA Pain Pain Level: 8 Pain Location: Other: See Comment (bilateral feet) Description: Sore Duration Units: Years Frequency: Continuous Intervention/Comfort measure: Relaxation, Reposition Patient presents with: Left Foot - Established Patient, Follow Up, Diabetic Foot Check Right Foot - Established Patient, Follow Up, Diabetic Foot Check Patient presents for 3 month nail care and diabetic foot check. Patient has a history of neuropathy, states that it is at baseline. documented in this encounterMer[facility]12-[facility] History of Present illness Narrative* Anna Marie Stein RN - 03/18/2022 9:11 AM EST [facility] Enrollment Provider Action/FYI: - ckd, dm, htn - per pt, he is switching providers outside of the [facility] and is not going to be a pt of the [facility] system any longer - he declined to provide new pcps name for a chart update Patient referred by: [facility] Dylan Contact made with patient: Yes - Patient identified by name and . Discussed care with patient Jose this is Anna Marie Stein RN and I am calling from Moiz Choudhury MD office at the [facility]. I am a RN Registered Dietician with our [facility] program. Moiz Choudhury MD wanted me to reach out to help you manage your health at home. Our goal is to keep you well at home. We want to help you manage your chronic disease by providing a safety net of resources around you, getting you the care you need in a timely manner, and hopefully keep you out of theED and hospital. I will send you a few questions once a week through your [employer] account. It will automatically show up for you to complete. There are simple questions that will help us identify if you have any concerns or symptoms and I will call you to help get what you need. We will be able to connect you, review your symptoms, do an on demand visit, or communicate with Moiz Choudhury MD if needed. I am going to sign you up for the program now. Enrollment Questions: Let's get you enrolled in the program. No, reason: Other: have left the [facility] Closing: Patient does not meet criteria. documented in this encounterMer[facility]12-21-2022 Evaluation note* Diagnosis Type 2 diabetes mellitus with stage 3a chronic kidney disease, without long-term current use of insulin (HCC)- Primary documented in this encounter [facility] History of Present illness Narrative* Roselia Messina APRN.VIOLET - 12/16/2021 9:24 AM EDT 12/16/2021 Patient presents with: Follow Up: 2 month SUBJECTIVE: This is a 76 year old that is here today for Above Complaints. DIABETES MELLITUS: Mr. Gomez was last seen 3 months ago. Since our last visit he denies excessivethirst or increased frequency of urination, chest pain or dyspnea , new or unusual visual symptoms,low sugar/hypoglycemic reactions, weight loss/gain, lightheadedness/dizziness, and bowel changes/loose stools. Follows a diabetic diet most of the time. He is compliant with medication(s) and is tolerating med(s) without any side effects. He reports checking his glucose on a twice a day schedule with sugars in the <200 and 30 day average 156 range. Patient's last HgA1C was Hemoglobin A1C (%) Date Value 12/09/2021 7.8 09/02/2021 8.4 03/06/2021 6.9 11/04/2020 7.3 ) Last Ophthalmology exam was within the past 12 months Last Podiatry exam was within the past 3 months CKD: Follows with entertainment manager, Dr. Ortiz. Has follow-up scheduled for next month. CAD: follows with packer Dr. Hernandez every six months. Next follow-up in February. No medication changes at lat appointment. HTN: Patient is compliant with meds Yes Monitors bp at home: Yes. 120-130/70-80 Denies side effects: Yes. Chest pain: No. Dyspnea: No. Edema: No. Palpitations: No. Syncope: No. Headache: No. Dizziness: No. HYPERLIPIDEMIA: Patient is taking medications: Yes. Patient is watching diet: Yes. Patient denies myalgias: Yes. 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 Herrera Stage 3a chronic kidney disease (HCC) Dr. Green Unspecified hypothyroidism Well controlled type 2 diabetes mellitus with neurological manifestations ([facility]) 08/27/2016 ALLERGIES Monipril [Other] MEDICATIONS Current Outpatient Medications Medication Sig atorvastatin (LIPITOR) 40 mg tablet Take 1 tablet by mouth once daily. For cholesterol. glimepiride (AMARYL) 4 mg tablet Take 2 tablets by mouth daily with breakfast. spironolactone (ALDACTONE) 25 mg tablet Take 0.5 tablets by mouth once daily. ELIQUIS 5 mg tab(s) Take 1 tablet by mouth twice daily. pioglitazone (ACTOS) 45 mg tablet Take 1 tablet by mouth once daily. levothyroxine (SYNTHROID) 175 mcg tablet Take on tablet six days a week on an empty stomach omeprazole (PRILOSEC) 40 mg capsule Take 1 capsule by mouth once daily. losartan (COZAAR) 100 mg tablet Take 1 tablet by mouth once daily. atenolol (TENORMIN) 50 mg tablet Take 1 tablet by mouth once daily. amLODIPine (NORVASC) 10 mg tablet Take 1 tablet by mouth once daily. aspirin, enteric coated (ASPIRIN, ENTERIC COATED) 81 mg EC tablet once daily. No current facility-administered medications for this visit. Medications and allergies reviewed by this provider. SOCIAL HISTORY Social History Tobacco Use Smoking status: Former Smokeless tobacco: Never Tobacco comments: quit approx. 1967 Vaping Use Vaping Use: Never used Substance Use Topics Alcohol use: No Drug use: No REVIEW OF SYSTEMS All other reviewed and negative other than HPI. OBJECTIVE: BP 130/74 Pulse 61 Resp 16 Wt 117.2 kg (258 lb 6.4 oz) SpO2 96% BMI 35.05 kg/m . Vital signs reviewed by this provider. APPEARANCE Well appearing, alert, in no acute distress, well-hydrated, well nourished. Ears: bilateral ears with impacted cerumen. After ear lavage Right ear canal and TM WNL. Left ear canal with persisting moderate cerumen EYES PERRLA, conjunctiva and sclera normal. HEART RRR with normal S1 and S2, no murmurs, no gallops, no JVD appreciated LUNG clear to auscultation. No wheezes, rhonchi, or rales EXTREMITIES Extremities normal, No deformities, No skin discoloration, and No edema Component Latest Ref Rng & Units 12/09/2021 Protein, Total 6.3 - 8.0 g/dL 7.2 Albumin 3.9 - 4.9 g/dL 4.2 Calcium 8.5 - 10.2 mg/dL 9.6 Bilirubin, Total 0.2 - 1.3 mg/dL 0.5 Alkaline Phosphatase 38 - 113 U/L 76 AST 14 - 40 U/L 20 ALT 10 - 54 U/L 12 Glucose 74 - 99 mg/dL 100 (H) BUN 9 - 24 mg/dL 18 Creatinine 0.73 - 1.22 mg/dL 1.47 (H) Sodium 136 - 144 mmol/L 139 Potassium 3.7 - 5.1 mmol/L 4.4 Chloride 97 - 105 mmol/L 102 CO2 22 - 30 mmol/L 25 Anion Gap 9 - 18 mmol/L 12 eGFR >=60 mL/min/1.73m 49 (L) Creatinine, Ur Random (UCRR) 20.0 - 300.0 mg/dL 98.3 Albumin, Urine Random mg/L <12.0 Albumin/Creat Ratio <30 mg/g <12 Hemoglobin A1C 4.3 - 5.6 % 7.8 (H) Estimated Average Glucose mg/dL 177 Component Latest Ref Rng & Units 03/06/2021 Cholesterol, Total <200 mg/dL 143 Triglyceride <150 mg/dL 185 (H) HDL Cholesterol >39 mg/dL 30 (L) LDL Cholesterol <100 mg/dL 76 Non HDL Cholesterol <130 mg/dL 113 Fasting Time hrs 12 VLDL Cholesterol <30 mg/dL 37 (H) TC:HDL Ratio <5.10 4.77 LDL:HDL Ratio <2.54 2.53 COLORECTAL CANCER SCREENING due on 05/19/2020 BP CONTROLLED (<130/80) due on 09/10/2020 ADVANCE DIRECTIVE DISCUSSION Never done DEPRESSION SCREENING due on 06/06/2021 INFLUENZA(1) due on 11/27/2021 DTAP,TDAP,TD(3 - Td or Tdap) due on 02/03/2022 LDL CHOLESTEROL due on 03/06/2022 DILATED RETINAL EXAM due on 03/10/2022 DIABETIC FOOT EXAM due on 05/23/2022 HBA1C due on 06/08/2022 HEMOGLOBIN/HEMATOCRIT due on 10/09/2022 URINE ALBUMIN:CREATININE RATIO due on 12/09/2022 SERUM CREATININE due on 12/09/2022 ANNUAL PCP TEAM CHRONIC DISEASE VISIT due on 12/16/2022 HEPATITIS C SCREENING Completed SHINGRIX VACCINE Completed COVID-19 VACCINE Completed PNEUMOCOCCAL: 65+ Completed ASSESSMENT/PLAN: 1. Type 2 diabetes mellitus without complication, without long-term current use of insulin (HCC) - ICD9: 250.00, ICD10: E11.9 (primary diagnosis) uncontrolled - Add farxiga - Blood glucose monitoring on a twice a day schedule - Follow up in 2 weeks with blood sugar readings, sooner should any other issues arise. - Discussed diabetic education issues of diet and importance of exercise with patient. - BP goal of <130/80 - LDL goal of <100 - DAPAGLIFLOZIN 5 MG TABLET 2. Bilateral impacted cerumen - ICD9: 380.4, ICD10: H61.23 - improved right ear - recommend debrox OTC as directed on packaging - REMOVAL OF IMPACTED CERUMEN - INSTRUMENTATION - follow-up as needed 3. Essential hypertension, benign - ICD9: 401.1, ICD10: I10 - good control - Continue current medication(s) - Encouraged dietary sodium restriction/DASH diet - Recommended regular aerobic exercise. - Recommend home blood pressure monitoring, to bring results in on next visit - Recheck in 3 months, sooner should new symptoms or problems arise. - Goal of BP <130/80 4. Hyperlipidemia with target LDL less than 100 - ICD9: 272.4, ICD10: E78.5 - good control - Continue current medication. - Encouraged following a low fat, low cholesterol diet. - Discussed the benefits of regular aerobic exercise and weight loss. - Follow up in 3 months. - Encouraged following a low carbohydrate, healthy oil intake diet. 5. Stage 3b chronic kidney disease (HCC) - ICD9: 585.3, ICD10: N18.32 - Following with nephrology: Yes - Counseled on avoiding regular use of NSAIDs, adequate hydration, potential risk of IV dye - Recommend maintaining blood pressure under 130/80 - follow-up with nephrology as scheduled 6. Coronary artery disease involving [place] heart without angina pectoris, unspecified vessel or lesion type - ICD9: 414.01, ICD10: I25.10 - stable on current regime - follow-up with cardiology as scheduled Roselia GarcialogSHJAI pacheco.BED LASTER Prescription instructions reviewed with patient as applicable. Patient advised if symptoms do not improve or if symptoms worsen sooner, to contact their primary care physician. Potential red flag symptoms discussed with the patient. Reviewed appropriate action plan to take if red flag symptoms occur. Patient agreeable to treatment plan. I spent a total of 30 minutes on the date of the service which included preparing to see the patient, [id number] patient care, completing clinical documentation, obtaining and/or reviewing separately obtained history, performing a medically appropriate examination, counseling and educating the pat ient/family/caregiver, and ordering medications, tests, or procedures. documented in this encounterMer[facility]09-09-2022 History of Present illness Narrative* Harry Wood - 12/05/2021 10:59 AM EDT Last saw Dr. Choudhury: 10/09/21 Subjective: Patient presents to clinic c/o painful toenails. They state that the nails are especially painful with shoe gear and pressure. Patient admits to being diabetic. No other pedal complaints at this time. Patient states no change in medications or medical history since last visit. Objective: Patient presents to clinic ambulating in sneakers Vasc: DP and PT pulses are palpable bilateral. CFT is less than 5 seconds bilateral. Skin temperature is warm to cool proximal to distal bilateral. There is mild edema or varicosities noted. Neuro: Protective sensation is absent to the foot and toes when tested with the 5.07 SWM bilateral.Vibratory sensation is absent at the hallux IPJ bilateral. The hallux is downgoing bilateral. Derm: Nails 1-5 left and 1-3,5 right are painful, discolored-yellow, thick, crumbly, dystrophic andwith subungal debris. Skin is of normal turgor, texture and hair growth is present bilateral. Thereare callus to b/l hallux. No ulcerations, scars, verruca or other lesions noted. Ortho: Muscle strength is 5/5 for all pedal groups tested. Ankle joint DF is decreased with the knee extended with no pain or crepitus noted. 1st MPJ ROM is decreased bilateral. 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 Nails 1-5 left and 1-3,5 were debrided in length and thickness. Callus reduced with dremmel. Discussed getting diabetic shoes as patient is neuropathyic, has bunion and callus. He has elected to continue with his sneakers. Patient was instructed on the continued importance of diabetic foot care along with proper diet andkeeping their blood sugar under control to prevent complications. Patient is to RTC in 3-4 months. Harry Wood DPM * Zaria Oakley LPN - 12/05/2021 10:47 AM EDT AMB ROOMING INTAKE FLOWSHEET DATA Risk Screening Do you have concerns about personal safety or safety in the home?: No Pain Pain Level: 8 Pain Location: Other: See Comment (bilateral) Description: Aching Duration Amount of Time: 3 Duration Units: Years Frequency: Continuous Intervention/Comfort measure: Reposition, Relaxation Patient presents with: Left Foot - Established Patient, Follow Up, Pain, Diabetic Foot Care Right Foot - Established Patient, Follow Up, Pain, Diabetic Foot Care Zaria Oakley LPN documented in this encounterMer[facility]09-[facility]-2022 Instructions* Patient Instructions* Harry Wood - 12/05/2021 10:59 AM EDT Diabetes Foot Care Instructions When you have diabetes, proper foot care is very important. Poor foot care may lead to amputation of a foot or leg. As a person with diabetes, you are more vulnerable to foot problems, because diabetes can damage your nerves and reduce blood flow to your feet. Here are some diabetes foot care tips to follow: Wash and Dry Your Feet Daily Use mild soaps Use warm water Pat your skin dry; do not rub. Thoroughly dry your feet. After washing, use lotion on your feet to prevent cracking. Do not put lotion between your toes. Examine Your Feet Each Day Check the tops and bottoms of your feet. Have someone else look at your feet if you cannot see them. Check for dry, cracked skin. Look for blisters, cuts, scratches, or other sores. Check for redness, increased warmth, or tenderness when touching any area of your feet. Check for ingrown toenails, corns, and calluses. If you get a blister or sore from your shoes, do not "pop" it. Apply a bandage and wear a differentpair of shoes. Take Care of Your Toenails Cut toenails after bathing, when they are soft. Cut toenails straight across and smooth with a nail file. Avoid cutting into the corners of toes. Do not cut cuticles. If you have neuropathy (or decreased sensation in your feet) a splicing supervisor should always cut your toenails. Be Careful When Exercising Walk and exercise in comfortable shoes. Do not exercise when you have open sores on your feet. Protect Your Feet With Shoes and Socks Never go barefoot. Always protect your feet by wearing shoes or hard-soled slippers or footwear. Avoid shoes with high heels and pointed toes. Avoid shoes that expose your toes or heels (such as open-toed shoes or sandals). These types of shoes increase your risk for injury and potential infections. Try on new footwear with the type of socks you usually wear. Do not wear new shoes for more than an hour at a time. Change your socks daily. Look and feel inside your shoes before putting them on to make sure there are no foreign objects orrough areas. Avoid tight socks. Wear natural-fiber socks (cotton, wool, or a cotton-wool blend). Wear special shoes if your health care provider recommends them. Wear shoes/boots that will protect your feet from various weather conditions (cold, moisture, etc.). Make sure your shoes fit properly. If you have neuropathy (nerve damage), you may not notice that your shoes are too tight. Perform the "footwear test" described below. Footwear Test Use this simple test to see if your shoes fit correctly: Stand on a piece of paper. (Make sure you are standing and not sitting, because your foot changes shape when you stand.) Trace the outline of your foot. Trace the outline of your shoe. Compare the tracings: Is the shoe too narrow? Is your foot crammed into the shoe? The shoe should be at least 1/2 inch longer than your longest toe and as wide as your foot. Proper Shoe Choices The following types of shoes are best for people with diabetes Closed toes and heels Leather uppers without a seam inside At least 1/2 inch extra space at the end of your longest toe Inside of shoe should be soft with no rough areas Outer sole should be made of stiff material Shoes should be at least as wide as your feet Tips for Foot Care in Diabetes Don't wait to treat a minor foot problem if you have diabetes. Follow your health care provider's guidelines and first aid guidelines. Report foot injuries and infections to your health care provider immediately. Check water temperature with your elbow, not your foot. Do not use a heating pad on your feet. Do not cross your legs. Do not self-treat your corns, calluses, or other foot problems. Go to your health care provider or splicing supervisor to treat these conditions. documented in this encounterMer[facility]07-28-[facility]22 Miscellaneous Notes* Telephone Encounter - Edwige Gutierrez Pss - 10/23/2021 12:11 PM EDT Patient has been identified by name and date of : Yes Pending Prescriptions Disp Refills ATORVASTATIN 40 MG TABLET 90 tablet 3 Sig: Take 1 tablet by mouth once daily. For cholesterol. TABITHA: No GLIMEPIRIDE 4 MG TABLET 180 tablet 3 Sig: Take 2 tablets by mouth daily with breakfast. TABITHA: No SPIRONOLACTONE 25 MG TABLET 45 tablet 3 Sig: Take 0.5 tablets by mouth once daily. TABITHA: No ELIQUIS 5 MG TABLET 180 tablet 3 Sig: Take 1 tablet by mouth twice daily. TABITHA: Yes RX INSTRUCTIONS: Per Patient - [facility] is telling him they do not have ANY OF these prescriptions;even though we show should have medication until November. He stated, just send these, this is interfering with his work and he wants them re-submitted and a phone call and message once completed. Patient aware RX escripted to mail away pharmacy. PER PATIENT LEAVE A MESSAGE ONCE SENT. Edwige Gutierrez Pss documented in this encounterMer[facility]07-25-2022 History of Present illness Narrative* Lorri Lopez RN - 10/20/2021 9:43 AM EDT ACM DYLAN RN Action/FYI: Attempt #2 Per chart review, Pt most recent PCP visit was 10/09/2021 and he has a follow up scheduled for 12/16/2021 Unable to reach. VM Left as below. [facility] order previously placed. Patient identified by name and date of . Patient Attributed To: QAE Payer: ACO ([facility]) Reason for review or outreach: Contract Priority Patient qualifies for ACO Ecosystem outreach Contact made with Patient: No IF NO- VM Left: This is Lorri Lopez RN , a registered nurse calling from the [facility]. I am sorry I missed you, your care is important to us. Please know that your PCP's office is available 19/10 to assess for and address your needs. They can help determine what care you need and can scheduleurgent appointments if necessary, and can be reached at [phone] . Please note that a Pharmacist, in collaboration with your Primary Care Provider, will be contacting you within the next 7 days to review your medications to help optimize your medication regimens, ensure that they are as affordable to you as possible, and make sure that there are no lapses in delivery of care to you. Thank you. Signature: Lorri Lopez RN October 20, 2021 9:45 AM documented in this encounterMercy Health [facility]07-20-2022 History of Present illness Narrative* Nury Mcdonough [facility] - 10/15/2021 3:32 PM EDT Neetu Gomez is a 76 year old male who was contacted for initial ACO patient outreach. ACO patient group: Other: CKD Location where consult was completed: [facility] at [phone] Patient encountered via: Patient refused service Estimated time spent on this encounter: <15 minutes Nury Mcdonough RPh October 15, 2021 3:33 PM documented in this encounterMercy Health [facility]07-15-2022 Miscellaneous Notes* Telephone Encounter - Katie Jones LPN - 10/10/2021 8:16 AM EDT Request came thru from our PSS that [facility] called and pt is there to have a CT done. Requested to havethe Renal Function lab faxed to [phone]. Done. Katie Jones LPN documented in this encounterMercy [facility]07-14-2022 History of Present illness Narrative* Moiz Choudhury MD - 10/09/2021 9:07 AM EDT Chief Complaint Patient presents with: Follow Up: DM HPI Neetu Gomez is a 76 year old male who presents here today for 4 week follow up on DM. At last OV, we increased patient's Actos from 15 mg daily to 30 mg daily and recommended he check his sugars twice daily and bring readings with him today. Patient states that his readings have improved on this regimen. Fasting readings look to be <150. Before bed, reading have been higher. Consistently >150 with several readings into the high 200's. 14 day average: 168. Not following DM t, but has booklets at home. No change in DM symptoms. Past medical history, appointments, medications, allergies reviewed. 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 Herrera Stage 3a chronic kidney disease (HCC) Dr. Green Unspecified hypothyroidism Well controlled type 2 diabetes mellitus with neurological manifestations (HCC) 08/27/2016 Previous Surgical History PAST SURGICAL HISTORY Procedure Laterality Date COLONOSCOPY FLX DX W/COLLJ SPEC WHEN PFRMD 05/19/2019 polyps, NEXT CSCOPE WITH MAC ESOPHAGOGASTRODUODENOSCOPY TRANSORAL DIAGNOSTIC 05/19/2019 EGD LEFT HEART CATH,PERCUTANEOUS 04/2020 JAQUAN to mid and distal LAD PAST SURGICAL HISTORY OF shot in [place] previously, had abdominal surgeries x 3 for "blockages" and thinks had bowel resected, mesh placed Family History FAMILY HISTORY Problem Relation Age of Onset Diabetes Mother Heart Mother Heart Father other (smoker) Father Heart Sister Stroke Sister Heart Brother Gout Brother No Known Problems Maternal Grandmother No Known Problems Maternal Grandfather No Known Problems Paternal Grandmother No Known Problems Paternal Grandfather Patient Allergies ALLERGIES Allergen Reactions Monipril [Other] Current Medications Current Outpatient Medications on File Prior to Visit Medication Sig pioglitazone (ACTOS) 30 mg tablet Take 1 tablet by mouth once daily. levothyroxine (SYNTHROID) 175 mcg tablet Take on tablet six days a week on an empty stomach omeprazole (PRILOSEC) 40 mg capsule Take 1 capsule by mouth once daily. losartan (COZAAR) 100 mg tablet Take 1 tablet by mouth once daily. atenolol (TENORMIN) 50 mg tablet Take 1 tablet by mouth once daily. amLODIPine (NORVASC) 10 mg tablet Take 1 tablet by mouth once daily. ELIQUIS 5 mg tab(s) Take 1 tablet by mouth twice daily. spironolactone (ALDACTONE) 25 mg tablet Take 0.5 tablets by mouth once daily. glimepiride (AMARYL) 4 mg tablet Take 2 tablets by mouth daily with breakfast. atorvastatin (LIPITOR) 40 mg tablet Take 1 tablet by mouth once daily. For cholesterol. aspirin, enteric coated (ASPIRIN, ENTERIC COATED) 81 mg EC tablet once daily. No current facility-administered medications on file prior to visit. Social History Social History Tobacco Use Smoking status: Former Smoker Smokeless tobacco: Never Used Tobacco comment: quit approx. 1967 Vaping Use Vaping Use: Never used Substance Use Topics Alcohol use: No Drug use: No Review of Symptoms REVIEW OF SYSTEMS GENERAL: No weight loss, malaise or fevers RESPIRATORY: Negative for cough, hemoptysis, wheezing, COPD, dyspnea or shortness of breath CARDIOVASCULAR: Negative for chest pain, leg swelling, hypertension, CHF or palpitations EXAM: BP 118/64 Pulse 61 Resp 16 Wt 115.7 kg (255 lb) SpO2 98% BMI 34.58 kg/m General Appearance: Well appearing, alert, in no acute distress, well-hydrated, well nourished.. Skin: Skin color, texture, turgor normal, no suspicious rashes or lesions. Lungs: Lungs clear to auscultation. No wheezing, rhonchi, rales.. Heart: RRR without murmur, gallop, or rubs. No ectopy. Abdomen: Normal abdominal exam, Abdomen soft, non-tender. Bowel sounds normal. No masses, organomegaly. Extremities: Edema: 1+ edema right above sock line. Wearing tight socks today. Health Maintenance List COLORECTAL CANCER SCREENING due on 05/19/2020 BP CONTROLLED (<130/80) due on 09/10/2020 ADVANCE DIRECTIVE DISCUSSION Never done DEPRESSION SCREENING due on 06/06/2021 URINE ALBUMIN:CREATININE RATIO due on 07/23/2021 DTAP,TDAP,TD(3 - Td or Tdap) due on 02/03/2022 INFLUENZA(1) due on 11/27/2021 HBA1C due on 12/03/2021 LDL CHOLESTEROL due on 03/06/2022 HEMOGLOBIN/HEMATOCRIT due on 03/06/2022 DILATED RETINAL EXAM due on 03/10/2022 DIABETIC FOOT EXAM due on 05/23/2022 SERUM CREATININE due on 09/02/2022 ANNUAL PCP TEAM CHRONIC DISEASE VISIT due on 09/08/2022 HEPATITIS C SCREENING Completed SHINGRIX VACCINE Completed COVID-19 VACCINE Completed PNEUMOCOCCAL: 65+ Completed Data reviewed Component Latest Ref Rng & Units 06/12/2021 08/08/2021 09/02/2021 Protein, Total 6.3 - 8.0 g/dL 7.2 Albumin 3.9 - 4.9 g/dL 4.2 Calcium 8.5 - 10.2 mg/dL 9.2 9.5 Bilirubin, Total 0.2 - 1.3 mg/dL 0.5 Alkaline Phosphatase 38 - 113 U/L 87 AST 14 - 40 U/L 18 ALT 10 - 54 U/L 14 Glucose 74 - 99 mg/dL 159 (H) 109 (H) BUN 9 - 24 mg/dL 26 (H) 24 Creatinine 0.73 - 1.22 mg/dL 1.48 (H) 1.43 (H) Sodium 136 - 144 mmol/L 137 139 Potassium 3.7 - 5.1 mmol/L 4.1 4.3 Chloride 97 - 105 mmol/L 103 103 CO2 22 - 30 mmol/L 21 (L) 23 Anion Gap 9 - 18 mmol/L 13 13 eGFR >=60 mL/min/1.73m 49 (L) 51 (L) Hemoglobin A1C 4.3 - 5.6 % 8.4 (H) 8.4 (H) Estimated Average Glucose mg/dL 194 194 TSH 0.270 - 4.200 mIU/L 0.190 (L) 1.170 ASSESSMENT/PLAN: 1. Type 2 diabetes mellitus without complication, without long-term current use of insulin (HCC) - ICD9: 250.00, ICD10: E11.9 (primary diagnosis) poorly controlled - Increase pioglitazone (Actos) - Blood glucose monitoring on a twice a day schedule - Encouraged regular aerobic exercise and weight loss - Follow up in 2 months, sooner should any other issues arise. - Discussed diabetic education issues of shelter diabetic complications, hypoglycemic symptoms, hyperglycemic symptoms, diet, medications- side effects and need for compliance, importance of exercise and importance of annual examinations with Opthalmology with patient. 2. Essential hypertension, benign - ICD9: 401.1, ICD10: I10 - good control - Continue current medication(s) - Encouraged dietary sodium restriction/DASH diet - Recommended regular aerobic exercise. - Goal of BP <140/90 Moiz Choudhury MD documented in this encounterMer[facility]06-30-2022 History of Present illness Narrative* Lorri Lopez RN - 09/25/2021 11:21 AM EDT ACM DYLAN RN Action/FYI: Per chart review, Pt has PCP appt scheduled for 10/09/2021 and was most recently seen by PCP 09/08/2021. Unable to reach. VM Left as below. [facility] order placed. Chart routed to PCP to inform. Patient identified by name and date of . Patient Attributed To: QAE Payer: ACO ([facility]) Reason for review or outreach: Contract Priority Patient qualifies for ACO Ecosystem outreach Contact made with Patient: No IF NO- VM Left: This is Lorri Lopez RN , a registered nurse calling from the [facility]. I am sorry I missed you, your care is important to us. Please know that your PCP's office is available 19/10 to assess for and address your needs. They can help determine what care you need and can scheduleurgent appointments if necessary, and can be reached at [phone] . Please note that a Pharmacist, in collaboration with your Primary Care Provider, will be contacting you within the next 7 days to review your medications to help optimize your medication regimens, ensure that they are as affordable to you as possible, and make sure that there are no lapses in delivery of care to you. Thank you. Signature: Lorri Lopez RN September 25, 2021 11:22 AM91 documented in this encounterMercy [facility]06-30-2022 Evaluation note* Diagnosis Type 2 diabetes mellitus with stage 3a chronic kidney disease, without long-term current use of insulin (HCC)- Primary documented in this encounter [facility]06[facility] History of Present illness Narrative* Moiz Choudhury MD - 09/08/2021 9:14 AM EDT Chief Complaint Patient presents with: Follow Up: 3 month HPI Neetu Gomez is a 76 year old male who presents here today for Above Complaints.. DIABETES MELLITUS: Mr. Gomez was last seen 3 months ago. Increased his Glimepiride and then addedon Tradjenta which he could not afford. Started on Actos on 08/11. Had been on metformin until his GFR was <45. Since our last visit he denies excessive thirst or increased frequency of urination, numbness, tingling or pain in extremities, new or unusual visual symptoms and low sugar/hypoglycemicreactions. Follows a diabetic diet most of the time. He is compliant with medication(s) and is tolerating med(s) without any side effects. He reports checking his glucose on a twice a day schedule with sugars in the fasting 120-170 range. Before dinner is running in the 250-300s. Did not bring readings with him today. Patient's last HgA1C was Hemoglobin A1C (%) Date Value 09/02/2021 8.4 06/12/2021 8.4 03/06/2021 6.9 11/04/2020 7.3 ) Last Ophthalmology exam was within the past 12 months Last Podiatry exam was within the past 12 months Metformin stopped previously due his CKD Stage III with GFR <45. Has appointment with Dr. Mcclure December. Has been watching his salt intake and avoiding NSAIDs. Past medical history, appointments, medications, allergies reviewed. 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 Herrera Stage 3a chronic kidney disease (HCC) Dr. Green Unspecified hypothyroidism Well controlled type 2 diabetes mellitus with neurological manifestations (HCC) 08/27/2016 Previous Surgical History PAST SURGICAL HISTORY Procedure Laterality Date COLONOSCOPY FLX DX W/COLLJ SPEC WHEN PFRMD 05/19/2019 polyps, NEXT CSCOPE WITH MAC ESOPHAGOGASTRODUODENOSCOPY TRANSORAL DIAGNOSTIC 05/19/2019 EGD LEFT HEART CATH,PERCUTANEOUS 04/2020 JAQUAN to mid and distal LAD PAST SURGICAL HISTORY OF shot in [place] previously, had abdominal surgeries x 3 for "blockages" and thinks had bowel resected, mesh placed Family History FAMILY HISTORY Problem Relation Age of Onset Diabetes Mother Heart Mother Heart Father other (smoker) Father Heart Sister Stroke Sister Heart Brother Gout Brother No Known Problems Maternal Grandmother No Known Problems Maternal Grandfather No Known Problems Paternal Grandmother No Known Problems Paternal Grandfather Patient Allergies ALLERGIES Allergen Reactions Monipril [Other] Current Medications Current Outpatient Medications on File Prior to Visit Medication Sig levothyroxine (SYNTHROID) 175 mcg tablet Take on tablet six days a week on an empty stomach pioglitazone (ACTOS) 15 mg tablet Take 1 tablet by mouth once daily. omeprazole (PRILOSEC) 40 mg capsule Take 1 capsule by mouth once daily. losartan (COZAAR) 100 mg tablet Take 1 tablet by mouth once daily. atenolol (TENORMIN) 50 mg tablet Take 1 tablet by mouth once daily. amLODIPine (NORVASC) 10 mg tablet Take 1 tablet by mouth once daily. ELIQUIS 5 mg tab(s) Take 1 tablet by mouth twice daily. spironolactone (ALDACTONE) 25 mg tablet Take 0.5 tablets by mouth once daily. glimepiride (AMARYL) 4 mg tablet Take 2 tablets by mouth daily with breakfast. atorvastatin (LIPITOR) 40 mg tablet Take 1 tablet by mouth once daily. For cholesterol. aspirin, enteric coated (ASPIRIN, ENTERIC COATED) 81 mg EC tablet twice daily. No current facility-administered medications on file prior to visit. Social History Social History Tobacco Use Smoking status: Former Smoker Smokeless tobacco: Never Used Tobacco comment: quit approx. 1967 Vaping Use Vaping Use: Never used Substance Use Topics Alcohol use: No Drug use: No Review of Symptoms REVIEW OF SYSTEMS GENERAL: No weight loss, malaise or fevers RESPIRATORY: Negative for cough, hemoptysis, wheezing, COPD, dyspnea or shortness of breath CARDIOVASCULAR: Negative for chest pain, leg swelling, hypertension, CHF or palpitations GI: No nausea, vomiting, or diarrhea SKIN: Negative for lesions, rash, and itching EXAM: BP 130/68 Pulse (!) 59 Resp 18 Wt 115.7 kg (255 lb) SpO2 93% BMI 34.58 kg/m General Appearance: Well appearing, alert, in no acute distress, well-hydrated, well nourished.. Skin: Skin color, texture, turgor normal, no suspicious rashes or lesions. Lungs: Lungs clear to auscultation. No wheezing, rhonchi, rales.. Heart: RRR without murmur, gallop, or rubs. No ectopy. Abdomen: Normal abdominal exam, Abdomen soft, non-tender. Bowel sounds normal. No masses, organomegaly. Extremities: No deformities, edema, skin discoloration, clubbing or cyanosis. Good capillary refill. . Health Maintenance List COLORECTAL CANCER SCREENING due on 05/19/2020 BP CONTROLLED (<130/80) due on 09/10/2020 ADVANCE DIRECTIVE DISCUSSION Never done DEPRESSION SCREENING due on 06/06/2021 URINE ALBUMIN:CREATININE RATIO due on 07/23/2021 DTAP,TDAP,TD(3 - Td or Tdap) due on 02/03/2022 INFLUENZA(Season Ended) due on 11/27/2021 HBA1C due on 12/03/2021 LDL CHOLESTEROL due on 03/06/2022 HEMOGLOBIN/HEMATOCRIT due on 03/06/2022 DILATED RETINAL EXAM due on 03/10/2022 DIABETIC FOOT EXAM due on 05/23/2022 ANNUAL PCP TEAM CHRONIC DISEASE VISIT due on 06/06/2022 SERUM CREATININE due on 09/02/2022 ABDOMINAL AORTIC ANEURYSM SCREENING Completed HEPATITIS C SCREENING Completed SHINGRIX VACCINE Completed COVID-19 VACCINE Completed PNEUMOCOCCAL: 65+ Completed Data reviewed Component Latest Ref Rng & Units 06/12/2021 08/08/2021 09/02/2021 Protein, Total 6.3 - 8.0 g/dL 7.2 Albumin 3.9 - 4.9 g/dL 4.2 Calcium 8.5 - 10.2 mg/dL 9.2 9.5 Bilirubin, Total 0.2 - 1.3 mg/dL 0.5 Alkaline Phosphatase 38 - 113 U/L 87 AST 14 - 40 U/L 18 ALT 10 - 54 U/L 14 Glucose 74 - 99 mg/dL 159 (H) 109 (H) BUN 9 - 24 mg/dL 26 (H) 24 Creatinine 0.73 - 1.22 mg/dL 1.48 (H) 1.43 (H) Sodium 136 - 144 mmol/L 137 139 Potassium 3.7 - 5.1 mmol/L 4.1 4.3 Chloride 97 - 105 mmol/L 103 103 CO2 22 - 30 mmol/L 21 (L) 23 Anion Gap 9 - 18 mmol/L 13 13 eGFR >=60 mL/min/1.73m 49 (L) 51 (L) Hemoglobin A1C 4.3 - 5.6 % 8.4 (H) 8.4 (H) Estimated Average Glucose mg/dL 194 194 TSH 0.270 - 4.200 mIU/L 0.190 (L) 1.170 ASSESSMENT/PLAN: 1. Type 2 diabetes mellitus without complication, without long-term current use of insulin (HCC) - ICD9: 250.00, ICD10: E11.9 (primary diagnosis) poorly controlled - Increase Actos to 30 mg daily - Blood glucose monitoring on a twice a day schedule - Encouraged regular aerobic exercise and weight loss - Follow up in 1 month, sooner should any other issues arise. - Discussed diabetic education issues of shelter diabetic complications, hypoglycemic symptoms, hyperglycemic symptoms, diet, medications- side effects and need for compliance, importance of exercise and importance of annual examinations with Opthalmology with patient. - HGB A1C - ALBUMIN/CREAT RATIO RND UR - COMP METABOLIC PANEL 2. Stage 3b chronic kidney disease (HCC) - ICD9: 585.3, ICD10: N18.32 Improved to stage IIIa on recent labs. Recommend low sodium diet, avoidance of NSAIDs, push PO fluids. Keep f/u with nephrology in December. 3. Essential hypertension, benign - ICD9: 401.1, ICD10: I10 - good control - Continue current medication(s) - Encouraged dietary sodium restriction/DASH diet - Recommended regular aerobic exercise. - Reviewed risks of HTN and principles of treatment - Goal of BP <140/90 4. Hyperlipidemia with target LDL less than 100 - ICD9: 272.4, ICD10: E78.5 - good control - Continue current medication. - Encouraged following a low fat, low cholesterol diet. - Discussed the benefits of regular aerobic exercise and weight loss. 5. Hypothyroidism, unspecified type - ICD9: 244.9, ICD10: E03.9 - Instructed patient on importance of taking on an empty stomach either first thing in the morning or at bedtime. - continue current dose of Synthroid 0.175 mg 6 days per week. - TSH in good range. Moiz Choudhury MD documented in this encounterMer[facility]05-16-2022 Miscellaneous Notes* Telephone Encounter - Gabby Olmos RN - 08/11/2021 3:43 PM EDT Pt called and is notified of providers message and instructions. Pt voices understanding. Gabby Olmos RN * Telephone Encounter - Roselia Messina APRN.VIOLET - 08/11/2021 2:57 PM EDT I have sent in prescription for pioglitazone one tablet daily. This medication has a higher chance of low blood sugars so he should continue to monitor his blood sugars closely. Roselia Messina APRN.CNP * Telephone Encounter - Silva Esqiuvel LPN - 08/11/2021 10:44 AM EDT Patient calling back after he spoke to his insurance company. Patient said these are covered medications, Farxiga, Glipizide, Pioglitazone. Patient uses [facility] for his mail away pharmacy. * Telephone Encounter - Lanie Kulkarni LPN - 08/11/2021 9:31 AM EDT Patient telephoned and made aware of message below. Voiced understanding. Patient states his Tradjenta is extremely expensive at $430 for 60 pills. Says he doesn't feel its working that great anyways. That his AM BS was 161 today and HS BS was 243. He is calling his insurance today, do you want to change this? Lanie Kulkarni LPN * Telephone Encounter - Roselia Messina APRN.CNP - 08/11/2021 8:00 AM EDT Repeat thyroid level in normal range. Continue taking synthroid one tablet six days a week on an empty stomach. Roselia Messina APRN.CNP documented in [facility] Miscellaneous Notes* Telephone Encounter - Ally Delgado LPN - 08/06/2021 4:24 PM EDT Pt notified to call insurance company & call back with covered medications, pt states understanding. Ally Delgado LPN * Telephone Encounter - Roselia Messina APRN.CNP - 08/06/2021 3:29 PM EDT Can patient check with his insurance to see what diabetic medications other than the metformin and glimepiride (since he is already on these) they cover. Thanks,, Roselia Messina APRN.CNP * Telephone Encounter - Silva Esquivel LPN - 08/06/2021 3:16 PM EDT Patient calling with his blood sugar averages. He tests twice daily. His 14 day average is 168 and his 30 day average is 178. Patient is asking for another medication, Tradjenta 5 mg rx cost him 430 dollars. He said he can not afford that. Patient uses [facility] for his pharmacy. If need to call patient, please call after 4 pm. Please advise documented in this encounterMer[facility]05-11-2022 Miscellaneous Notes* Telephone Encounter - Silva Esquivel LPN - 08/06/2021 3:13 PM EDT Patient has been identified by name and date of : Yes Patient phones for refill(s): Pending Prescriptions Disp Refills LEVOTHYROXINE 175 MCG TABLET 90 tablet 1 Sig: Take 1 tablet by mouth once daily. Take on empty stomach. For thyroid. TABITHA: No OMEPRAZOLE 40 MG CAPSULE,DELAYED RELEASE 90 capsule 1 Sig: Take 1 capsule by mouth once daily. TABITHA: No LOSARTAN 100 MG TABLET 90 tablet 1 Sig: Take 1 tablet by mouth once daily. TABITHA: No ATENOLOL 50 MG TABLET 90 tablet 1 Sig: Take 1 tablet by mouth once daily. TABITHA: No AMLODIPINE 10 MG TABLET 90 tablet 1 Sig: Take 1 tablet by mouth once daily. TABITHA: No Date of last office visit in primary care: 06/06/2021 Last 2 Encounter Wt Readings: Date: Wt: 06/06/2021 111 kg (244 lb 12.8 oz) 02/03/2021 106.6 kg (235 lb 0.6 oz) Previous labs/tests for medication: Thyroid: TSH Date Value 06/12/2021 0.190 mIU/L 07/23/2020 0.548 uU/mL Blood Pressure: BUN (mg/dL) Date Value 06/12/2021 26 03/20/2021 20 Sodium (mmol/L) Date Value 06/12/2021 137 03/20/2021 137 Last 1 Encounter BP Readings: Date: BP: 06/06/2021 130/64 Please advise. Thank you. Silva Esquivel LPN Patient said best time to call him if needed is after 4 pm. documented in this encounterMer[facility]04-07-2022 History of Present illness Narrative* Claudio Blackmon RN - 07/03/2021 1:17 PM EDT [facility] Enrollment Provider Action/FYI: Spk with Pt he appreciated call but declined, he follows closely with Providers, will reach out in the future if changes mind. Patient referred by: [facility] Dylan Contact made with patient: No - 2nd attempt to reach patient, left another message: Hi my name is Lorri Snyder RN and I am calling from the [facility] on behalf of your PCP, Moiz Hughes MD. We are excited to share with you a new program to help you manage your health. Please call me back at [phone]. I hope you can take the time to speak with me. (Keep encounter open for additional two business days in case patient calls back. Close encounter if no response by end of second business day) Closing: PATIENT DECLINES - Thank you for your time today. I understand you are not interested participatingin our program at this time. I will be sure to let your primary care doctor know we discussed your option to enroll in the program and that, for now, you have chosen to opt-out. If you decide at any time that you would like to be involved in the program, please let your primary care doctor know, and he/she can refer you back to our program. END OUTREACH Lorri Snyder RN July 03, 2021 1:17 PM documented in [place] encounterMel[place] [address]-06-2022 History of Present illness Narrative* Claudio Blackmon RN - 07/02/2021 3:00 PM EDT [facility] Enrollment Provider Action/FYI: Call to left a message related to CKD CDM Program. Patient referred by: [facility] Dylan Contact made with patient: No - 2nd attempt to reach patient, left another message: Hi my name is Lorri Snyder RN and I am calling [facility] the [facility] on behalf of your PCP, Moiz Hughes MD. We are excited to share with you a new program to help you manage your health. Please call me back at [phone]. I hope you can take the time to speak with me. (Keep encounter open for additional two business days in case patient calls back. Close encounter if no response by end of second business day) Closing: Could not reach the patient after two attempted outreaches. Registered Dietician to retry patient in one week. END OUTREACH Lorri Snyder RN July 02, 2021 3:00 PM * Claudio Blackmon RN - 07/01/2021 3:59 PM EDT [facility] Enrollment Provider Action/FYI: Call to left a message related to CKD CDM Program. Patient referred by: [facility] Dylan Contact made with patient: No - Left Message: Hi my name is Lorri Snyder RN and I am calling [facility] the [facility] on behalf of your PCP, Moiz Choudhury MD. We are excited to share with you a new program to help you manage your health. Please call me back at [phone] between the hours of 8am-5pm Wednesday-Wednesday. You will receive another phone call from me within the next two business days. I hope you can take the time to speak with me." (Keep encounter open and attempt 2nd outreach in two business days from today) END OUTREACH Lorri Snyder, JANESSA July 01, 2021 3:59 PM documented in this encounterMer[facility]03-18-2022 Miscellaneous Notes* Telephone Encounter - Roselia Messina APRN.CNP - 06/13/2021 2:00 PM EDT Medication sent to [facility]. Roselia Messina APRN.CNP * Telephone Encounter - Silva Esquivel LPN - 06/13/2021 1:26 PM EDT Patient returned call and went over results, notes from Roselia Messina MASTER CONTROL ENGINEER with understanding. Scheduled lab appt for 8 weeks and 3 months. Patient is asking for rx to be sent locally, to [facility] please. Reset rx to file. * Telephone Encounter - Isabel Jones LPN - 06/13/2021 10:37 AM EDT Phone call placed, brief message to contact a nurse (see prior provider encounter, results) Isabel Jones LPN * Telephone Encounter - Roselia Messina APRN.CNP - 06/13/2021 8:38 AM EDT Please call patient and let him know his A1c has increased to 8.4%. Recommend we add another diabetic medication called linagliptin. Recommend to continue checking blood sugars 1-2 times a day and update me in 2 weeks with reading. Thyroid level shows getting to much replacement. recommend taking his current synthroid dose 6 days a wee instead of 7 and recheck level in 6-8 weeks ( lab orders in place- please assist in scheduling.) Improved kidney function- continue to stay well hydrated, avoid NSAID products, and eat low salt diet. Recheck his A1 and kidney function in 3 months. Roselia Messina APRN.CNP documented in this encounterMer[facility]12-10-2021 Miscellaneous Notes* Telephone Encounter - Roselia Messina APRN.CNP - 03/07/2021 8:39 AM EST Please call patient and let him know his documented in this encounterMer[facility]11-04-2021 NoteHNO ID: [id number] Author: Sean Bean DO Service: General Surgery Author Type: Resident Type: Progress Notes Filed: 01/30/2021 8:16 AM Note Text: Attestation signed by Lauro Sharma MD at 02/14/2021 10:16 AM I personally saw and examined the patient on 01/30/21. I reviewed the resident's note. I agree with the resident's assessment and plan unless otherwise noted. Emergency General Surgery Progress Note SERVICE DATE: 01/30/2021 Emergency General Surgery Service Pager: For questions or concerns Mon-Fri 6a-5p please page [phone]. After 5pm and on Weekends and Holidays, please page [phone] if in ICU or [phone] if on RNF. SUBJECTIVE: NAEON. Slept well. Denies nausea or vomiting. Passing flatus but no BM. Denies fever, chills, CP, SOB, cough, muscle weakness, paresthesias, urinary difficulty, or any other complaints this AM. Tolerating diet DIET LIQUID. OBJECTIVE: Vitals: Temp (24hrs), Av.2 ?C (99 ?F), Min:36.8 ?C (98.2 ?F), Max:37.6 ?C (99.7 ?F) BP 139/71 Pulse 71 Temp 36.8 ?C (98.2 ?F) (Oral) Resp 18 Ht 188 cm (6' 2") Wt 111.4 kg (245 lb 9.5 oz) SpO2 93% BMI 31.53 kg/m? O2 Therapy: Room Air IANDO: Date 01/29/21 0700 - 01/30/21 0659 01/30/21 0700 - 01/31/21 0659 Shift 4833-5685 8190-9446 6856-9816 24 Hour Total 2106-2581 0852-2802 5272-4372 24 Hour Total INTAKE PO 360 360 PO 360 360 Shift Total 360 360 OUTPUT Urine Urine Not Saved. 1 x 1 x Shift Total Weight (kg) 111.4 111.4 111.4 111.4 111.4 111.4 111.4 111.4 MEDICATIONS Current Facility-Administered Medications Medication Dose Route Frequency - aspirin, enteric coated 81 mg tab(s) 81 mg ORAL BID - insulin lispro 0-15 Units pen (rapid acting) (HumaLOG KWIKPEN) 0-15 Units SUBCUTANEOUS w MEALS AND HS - NaCl 0.9% iv flush bag 20 mL INTRAVENOUS PRN - sodium chloride 0.9 % (flush) 3-5 mL (BD POSIFLUSH) 3-5 mL INTRAVENOUS q 12 H - ondansetron 4 mg tab(s) (ZOFRAN) 4 mg ORAL q 6 H PRN Or - ondansetron (PF) 4 mg injection (ZOFRAN) 4 mg INTRAVENOUS q 6 H PRN - acetaminophen 1,000 mg tab(s) (TYLENOL) 1,000 mg ORAL q 6 H - oxyCODONE IR 5-10 mg tab(s) (ROXICODONE) 5-10 mg ORAL q 6 H PRN - morphine 2 mg injection 2 mg INTRAVENOUS q 4 H PRN - atorvastatin 20 mg tab(s) (LIPITOR) 20 mg ORAL DAILY - atenolol 50 mg tab(s) (TENORMIN) 50 mg ORAL DAILY - levothyroxine (SYNTHROID) tab(s) 175 mcg 175 mcg ORAL DAILY (6 AM) - dextrose 40 % 15 g 15 g ORAL PRN Or - glucagon 1 mg injection 1 mg INTRAMUSCULAR PRN Or - dextrose 50% in water 25 mL syringe 12.5 g INTRAVENOUS PRN - pantoprazole DR 40 mg tab(s) (PROTONIX) 40 mg ORAL DAILY (6 AM) - heparin iv infusion (STANDARD NOMOGRAM) 25,000 units in NaCl 0.45% 250 mL PREMIX 0-3,000 Units/hr INTRAVENOUS CONTINUOUS And - heparin RATE CHANGE bolus 1,000-10,000 Units for subtherapeutic aptt results 1,000-10,000 Units INTRAVENOUS PRN Labs: Recent Labs 01/30/21 0417 01/29/21 0803 01/29/21 0459 01/28/21 1431 01/28/21 0450 01/28/21 0450 NA 132* 135* -- -- < > 134* K -- 3.8 -- -- -- -- CHLOR 100 100 -- -- < > 99 CO2 21* 20* -- -- < > 24 BUN 12 18 -- -- < > 32* CREAT 1.15 1.28* -- -- < > 1.64* GLUC 135* 122* -- -- < > 93 ANION 11 15 -- -- < > 11 CA 8.2* 8.5 -- -- < > 8.4* WBC 13.55* -- 12.96* -- < > 9.16 HB 10.2* -- 10.4* -- < > 10.9* HCT 31.2* -- 31.8* -- < > 33.4* PLT 238 -- 240 -- < > 208 LACT -- -- -- -- -- 1.2 INR -- -- -- 1.0 -- -- < > = values in this interval not displayed. Exam: GENERAL: Resting comfortably, seated in chair, in no acute distress NEURO: AANDOx3, CN II-XII grossly intact HEENT: normocephalic, atraumatic, EOMI NECK: trachea midline, no JVD LUNGS: Unlabored breathing, equal chest rise bilaterally CARDIAC: Regular rate and rhythm as above ABDOMEN: Soft, obese, mild distension, tympanic, no rebound or guarding, no masses or organomegaly. Well healed prior laparotomy incision EXTREMITIES: FREITAS, No deformities, No edema SKIN: Skin color, texture, turgor normal, No rashes or lesions PSYCH: Normal mood and affect ASSESSMENT AND PLAN: Active Hospital Problems Diagnosis Date Noted - Large bowel obstruction (HCC) 01/28/2021 75 year old male with CAD s/p NSTEMI, stent x2 May 19 on ASA Brilinta, c/b PE, multiple prior abdominal surgeries and imaging with a small bowel obstruction Hospital course 01/26 CT AP: SBO w transition point between jejunum and ileum 01/28 GG AM-> in colon. Epistaxis 01/29 NG d/c'd - Liquid diet, ADAT - Pain and nausea control - CAD s/p NSTEMI, stent x2 May 19, complicated by PE: on heparin drip, transition to home Liquids, resume brilinta - DM: ISS + glimepiride - HTN: home atenolol - HLD: statin - Encourage ambulation, IS - GI PPx: PPI - hypothyroid: home synthroid - home soon. Needs (more content not included)...[facility] 01-29-2021 NoteHNO ID: [id number] Author: Enrrique Sierra MD Service: General Surgery Author Type: Resident Type: Progress Notes Filed: 01/29/2021 9:37 AM Note Text: Attestation signed by Lauro Sharma MD at 02/14/2021 10:14 AM I personally saw and examined the patient on 01/29/21. I reviewed the resident's note. I agree with the resident's assessment and plan unless otherwise noted. Emergency General Surgery Progress Note SERVICE DATE: January 29, 2021 Emergency General Surgery Service Pager: For questions or concerns Mon-Wed 6a-5p please page [phone]. After 5pm and on Weekends and Holidays, please page [phone] if in ICU or [phone] if on RNF. SUBJECTIVE: NGT clamped Patient with bleeding from his nostrils. Heparin drip held and manual pressure applied with resolution of bleeding Tolerating diet DIET NPO Nausea No Emesis No Flatus No Bowel movement No Pain Controlled Yes Ambulating Yes OBJECTIVE: Vitals: Temp (24hrs), Av.9 ?C (98.4 ?F), Min:36.6 ?C (97.9 ?F), Max:37.4 ?C (99.3 ?F) BP 153/76 Pulse 90 Temp 36.7 ?C (98.1 ?F) (Oral) Resp 18 Ht 188 cm (6' 2") Wt 111.4 kg (245 lb 9.5 oz) SpO2 92% BMI 31.53 kg/m? O2 Therapy: Room Air IANDO: Date 01/28/21699 - 01/29/21 0659 01/29/21 07 - 01/30/21 0659 Shift [id number] 5727-4772 7911-0952 24 Hour Total 9875-2886 1234-3892 1950-5659 24 Hour Total INTAKE Shift Total OUTPUT Urine 208 962 3889 Void (ml) 430 480 4454 Shift Total 010 987 2749 Weight (kg) 111.4 111.4 111.4 111.4 111.4 111.4 111.4 111.4 MEDICATIONS Current Facility-Administered Medications Medication Dose Route Frequency - NaCl 0.9% iv flush bag 20 mL INTRAVENOUS PRN - sodium chloride 0.9 % (flush) 3-5 mL (BD POSIFLUSH) 3-5 mL INTRAVENOUS q 12 H - lactated ringers iv infusion 100 mL/hr INTRAVENOUS CONTINUOUS - ondansetron 4 mg tab(s) (ZOFRAN) 4 mg ORAL q 6 H PRN Or - ondansetron (PF) 4 mg injection (ZOFRAN) 4 mg INTRAVENOUS q 6 H PRN - acetaminophen 1,000 mg tab(s) (TYLENOL) 1,000 mg ORAL q 6 H - oxyCODONE IR 5-10 mg tab(s) (ROXICODONE) 5-10 mg ORAL q 6 H PRN - morphine 2 mg injection 2 mg INTRAVENOUS q 4 H PRN - atorvastatin 20 mg tab(s) (LIPITOR) 20 mg ORAL DAILY - atenolol 50 mg tab(s) (TENORMIN) 50 mg ORAL DAILY - levothyroxine (SYNTHROID) tab(s) 175 mcg 175 mcg ORAL DAILY (6 AM) - dextrose 40 % 15 g 15 g ORAL PRN Or - glucagon 1 mg injection 1 mg INTRAMUSCULAR PRN Or - dextrose 50% in water 25 mL syringe 12.5 g INTRAVENOUS PRN - insulin lispro pen (rapid acting) (HumaLOG KWIKPEN) SUBCUTANEOUS q 6 H - pantoprazole DR 40 mg tab(s) (PROTONIX) 40 mg ORAL DAILY (6 AM) - heparin iv infusion (STANDARD NOMOGRAM) 25,000 units in NaCl 0.45% 250 mL PREMIX 0-3,000 Units/hr INTRAVENOUS CONTINUOUS And - heparin RATE CHANGE bolus 1,000-10,000 Units for subtherapeutic aptt results 1,000-10,000 Units INTRAVENOUS PRN Labs: Recent Labs 01/29/21 0459 01/28/21 1431 01/28/21 0450 NA -- -- 134* CHLOR -- -- 99 CO2 -- -- 24 BUN -- -- 32* CREAT -- -- 1.64* GLUC -- -- 93 ANION -- -- 11 CA -- -- 8.4* WBC 12.96* -- 9.16 HB 10.4* -- 10.9* HCT 31.8* -- 33.4* PLT 240 -- 208 LACT -- -- 1.2 INR -- 1.0 -- Physical Exam: GENERAL: No distress, Alert NEURO: AANDOx3, CN II-XII grossly intact HEENT: normocephalic, atraumatic LUNGS: Unlabored breathing, equal chest rise bilaterally CARDIAC: Regular rate, warm and well perfused distal extremities ABDOMEN: Soft, non-tender, distended - improved from yesterday EXTREMITIES: FREITAS, No deformities, No edema SKIN: Skin color, texture, turgor normal, No rashes or lesions ASSESSMENT AND PLAN: Active Hospital Problems Diagnosis Date Noted - Large bowel obstruction (HCC) 01/28/2021 Assessment: 75 year old male with SBO Hospital course: 01/28 - transfer from [place] Plan: - NG tube clamped - KUB yesterday demonstrated small bowel dilatation with ingested contrast in colon - Advance to clears - Discontinue NG tube - Pain Control - Heparin drip held for nosebleeds - resume this AM - Serial exams - Strict I/Os - Daily Labs: CBC, BMP - Lactate wnl - Patient on chronic anti-platelets and anticoagulation will discuss resumption of anti-platelets this AM Follow up needs: TBD SIGNATURE: Enrrique Sierra MD PATIENT NAME: Neetu Gomez DATE: January 29, 2021 TIME: 0711 Pager: [phone] Emergency General Surgery Service Pager: For questions or concerns Mon-Fri 6a-5p please page [phone]. 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 Lal's esophagus [facility]* Diagnosis Type 2 diabetes mellitus without complication, without long-term current use of insulin (HCC)- Primary Hypothyroidism, unspecified type Stage 3b chronic kidney disease (HCC) [facility]* Diagnosis Type 2 diabetes mellitus without complication, without long-term current use of insulin (HCC)- Primary Stage 3b chronic kidney disease (HCC) Essential hypertension, benign Hyperlipidemia with target LDL less than 100 Other and unspecified hyperlipidemia Hypothyroidism, unspecified type [facility]* Diagnosis Type 2 diabetes mellitus without complication, without long-term current use of insulin (HCC)- Primary Essential hypertension, benign Hypothyroidism, adult- Primary Other specified acquired hypothyroidism Unspecified hypothyroidism [facility]* Diagnosis Onychomycosis- Primary Dermatophytosis of nail Pain in toe of left foot Pain in limb Pain in toe of right foot Pain in limb 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 ([facility]) Acquired hallux valgus, unspecified laterality Hyperkeratosis Acquired keratoderma Hypothyroidism, adult- Primary Other specified acquired hypothyroidism Unspecified hypothyroidism [facility]* Diagnosis NSTEMI (non-ST elevated myocardial infarction) ([facility]) Acute myocardial infarction, subendocardial infarction, episode of care unspecified Hyperlipidemia with target LDL less than 100 Other and unspecified hyperlipidemia Type 2 diabetes mellitus without complication, without long-term current use of insulin ([facility]) Essential hypertension, benign History of pulmonary embolism Personal history of pulmonary embolism Hypothyroidism, adult- Primary Other specified acquired hypothyroidism Unspecified hypothyroidism [facility]* Diagnosis Type 2 diabetes mellitus without complication, without long-term current use of insulin ([facility])- Primary Bilateral impacted cerumen Impacted cerumen Essential hypertension, benign Hyperlipidemia with target LDL less than 100 Other and unspecified hyperlipidemia Stage 3b chronic kidney disease ([facility]) Coronary artery disease involving [place] heart without angina pectoris, unspecified vessel or lesion type [facility]* Diagnosis Onset Date Resolution Status Saddle pulmonary embolus acu te [facility] Work Phone: Evaluation noteNo assessment information available [facility] Work Phone: Evaluation note* Diagnosis Onychomycosis- Primary Dermatophytosis of nail Pain in toe of left foot Pain in limb Pain in toe of right foot Pain in limb 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 ([facility]) Other acute pulmonary embolism without acute cor pulmonale ([facility]) [facility]* Diagnosis Onychomycosis- Primary Dermatophytosis of nail Pain in toe of left foot Pain in limb Pain in toe of right foot Pain in limb 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 ([facility]) [facility]* Diagnosis Onychomycosis- Primary Dermatophytosis of nail Pain in toe of left foot Pain in limb Pain in toe of right foot Pain in limb 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 (HCC) Hyperkeratosis Acquired keratoderma Hammer toe of right foot documented in this encounter [facility] note* Diagnosis Onset Date Resolution Status History of pulmonary embolism acute Ascending aortic aneurysm ch ronic Atherosclerotic heart diseas e of [place] coronary artery without angina pectoris chronic Hyperlipidemia [facility] Work Phone: Evaluation note* Diagnosis Onychomycosis- Primary Dermatophytosis of nail Pain in toe of left foot Pain in limb Pain in toe of right foot Pain in limb 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 (HCC) Callus of foot Corns and callosities Hammer toe of right foot [facility] [place]* Diagnosis Onychomycosis- Primary Dermatophytosis of nail Pain in toe of left foot Pain in limb Pain in toe of right foot Pain in limb 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 (HCC) documented in this encounter [facility] note* Diagnosis Onychomycosis- Primary Dermatophytosis of nail Pain in toe of left foot Pain in limb Pain in toe of right foot Pain in limb Diabetic polyneuropathy associated with type 2 diabetes mellitus (HCC) [facility] [place]* Diagnosis Onychomycosis- Primary Dermatophytosis of nail Pain in toe of left foot Pain in limb Pain in toe of right foot Pain in limb 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 (HCC) Hyperkeratosis Acquired keratoderma documented in this encounter [facility] for referral (narrative)No reason for referral information availableWKettering [facility] Work Phone: Summary Purpose Family History No Family History Records Found Relationship Condition Age at Onset Recorded Date/T darnell Unknown Family History?Diabe aziza, Heart Disease Unknown May 24, 2020 9:28pm Family History?Heart Disease Unknown May 24, 2020 9:28pm Relationship Condition Age at Onset Recorded Date/T darnell Unknown Family History?Diabe aziza, Heart Disease Unknown May 24, 2020 10:28pm Family History?Heart Disease Unknown May 24, 2020 10:28pm Advance Directives No Advanced Directives Records FoundDocuments on File Type Date Recorded Patient Edge Stainer Expl anation Advance Directive(s) 01/28/2021 9:42 AM Advance Directive(s) 01/27/2021 10:06 AM Advance Directive Response Recorded Date/ Time Living Will No March 10 8:45am Power of Coffee [employer] Aide No March 10, 2022 8:45am Advance Directive Response Recorded Date/ Time Living Will No March 10 9:45am Power of [employer] Aide No March 10, 2022 9:45am Chief Complaint and Reason for Visit Chief Complaint 1 Y FU hematuria Reason for Visit Saddle pulmonary emb olus Chief Complaint hematuria 6 M FU e orders Reason for Visit Ascending aortic ane urysm Bradycardia Essential hypertension Hyperlipidemia Presence of stent in coronary artery Chief Complaint INT LABS FOR DR AISSATOU Bettencourt EORDERS- 2 ORDERING DRS Chief Complaint INT LABS Chief Complaint INT LABS 6 M FU/PREV PFM Aneurysm of the ascending aorta, without rupture Reason for Visit History of pulmonary embolism Ascending aortic aneurysm Atherosclerotic heart disease of [place] coronary artery without angina pectoris Hyperlipidemia Chief Complaint Admit Date 1 Y FU August 01, 2024 10:17a m INT LABS September 14, 2024 7:58 am Reason for Visit Admit Date History of pulmonary embolism August 01 025 10:17am Ascending aortic aneurysm August 01, 2024 10:17am Atherosclerotic heart diseas e of [place] coronary artery without angina pectoris August 01, 2024 10:17am Essential hypertension August 01, 2024 10: 17am Hyperlipidemia August 01, 2024 10:17a m Additional Source Comments (unrecognized sect ion and content) No Status Records FoundNo Status Records FoundNo Status Records Found INFORMATION SOURCE (unrecogn ized section and content) DATE CREATED AUTHOR 02/16/2021 [facility] DATE CREATED AUTHOR AUTHOR'S ORGANIZ ATION 01/04/2025 [facility] DATE CREATED AUTHOR AUTHOR'S ORGANIZ ATION 01/23/2025 [facility] Source Comments (unrecognize d section and content) In the event this informatio n is protected by the Federal Confidentiality of Alcohol and Drug Abuse Patient Records regulations: The Federal rules restrict any use of the information to criminally investigate or prosecute any alcohol or drug abuse patient.[facility] the event this information is protected by the Federal Confidentiality of Alcohol and Drug Abuse Patient Records regulations: The Federal rules restrict any use of the information to criminally investigate or prosecute any alcohol or drug abuse patient.[facility] HospitalIn the event this information is protected by the Federal Confidentiality of Alcohol and Drug Abuse Patient Records regulations: The Federal rules restrict any use of the information to criminally investigate or prosecute any alcohol or drug abuse patient.[facility] HospitalIn the event this information is protected by the Federal Confidentiality of Alcohol and Drug Abuse Patient Records regulations: The Federal rules restrict any use of the information to criminally investigate or prosecute any alcohol or drug abuse patient.[facility] HospitalIn the event this information is protected by the Federal Confidentiality of Alcohol and Drug Abuse Patient Records regulations: The Federal rules restrict any use of the information to criminally investigate or prosecute any alcohol or drug abuse patient.[facility] HospitalIn the event this information is protected by the Federal Confidentiality of Alcohol and Drug Abuse Patient Records regulations: The Federal rules restrict any use of the information to criminally investigate or prosecute any alcohol or drug abuse patient.[facility] HospitalIn the event this information is protected by the Federal Confidentiality of Alcohol and Drug Abuse Patient Records regulations: The Federal rules restrict any use of the information to criminally investigate or prosecute any alcohol or drug abuse patient.[facility] HospitalIn the event this information is protected by the Federal Confidentiality of Alcohol and Drug Abuse Patient Records regulations: The Federal rules restrict any use of the information to criminally investigate or prosecute any alcohol or drug abuse patient.[facility] HospitalIn the event this information is protected by the Federal Confidentiality of Alcohol and Drug Abuse Patient Records regulations: The Federal rules restrict any use of the information to criminally investigate or prosecute any alcohol or drug abuse patient.[facility] HospitalIn the event this information is protected by the Federal Confidentiality of Alcohol and Drug Abuse Patient Records regulations: The Federal rules restrict any use of the information to criminally investigate or prosecute any alcohol or drug abuse patient.[facility] HospitalIn the event this information is protected by the Federal Confidentiality of Alcohol and Drug Abuse Patient Records regulations: The Federal rules restrict any use of the information to criminally investigate or prosecute any alcohol or drug abuse patient.[facility] HospitalIn the event this information is protected by the Federal Confidentiality of Alcohol and Drug Abuse Patient Records regulations: The Federal rules restrict any use of the information to criminally investigate or prosecute any alcohol or drug abuse patient.[facility] HospitalIn the event this information is protected by the Federal Confidentiality of Alcohol and Drug Abuse Patient Records regulations: The Federal rules restrict any use of the information to criminally investigate or prosecute any alcohol or drug abuse patient.[facility] HospitalIn the event this information is protected by the Federal Confidentiality of Alcohol and Drug Abuse Patient Records regulations: The Federal rules restrict any use of the information to criminally investigate or prosecute any alcohol or drug abuse patient.[facility] HospitalIn the event this information is protected by the Federal Confidentiality of Alcohol and Drug Abuse Patient Records regulations: The Federal rules restrict any use of the information to criminally investigate or prosecute any alcohol or drug abuse patient.[facility] HospitalIn the event this information is protected by the Federal Confidentiality of Alcohol and Drug Abuse Patient Records regulations: The Federal rules restrict any use of the information to criminally investigate or prosecute any alcohol or drug abuse patient.[facility] HospitalIn the event this information is protected by the Federal Confidentiality of Alcohol and Drug Abuse Patient Records regulations: The Federal rules restrict any use of the information to criminally investigate or prosecute any alcohol or drug abuse patient.[facility] HospitalIn the event this information is protected by the Federal Confidentiality of Alcohol and Drug Abuse Patient Records regulations: The Federal rules restrict any use of the information to criminally investigate or prosecute any alcohol or drug abuse patient.[facility] HospitalIn the event this information is protected by the Federal Confidentiality of Alcohol and Drug Abuse Patient Records regulations: The Federal rules restrict any use of the information to criminally investigate or prosecute any alcohol or drug abuse patient.[facility] HospitalIn the event this information is protected by the Federal Confidentiality of Alcohol and Drug Abuse Patient Records regulations: The Federal rules restrict any use of the information to criminally investigate or prosecute any alcohol or drug abuse patient.[facility] HospitalIn the event this information is protected by the Federal Confidentiality of Alcohol and Drug Abuse Patient Records regulations: The Federal rules restrict any use of the information to criminally investigate or prosecute any alcohol or drug abuse patient.[facility] HospitalIn the event this information is protected by the Federal Confidentiality of Alcohol and Drug Abuse Patient Records regulations: The Federal rules restrict any use of the information to criminally investigate or prosecute any alcohol or drug abuse patient.[facility] HospitalIn the event this information is protected by the Federal Confidentiality of Alcohol and Drug Abuse Patient Records regulations: The Federal rules restrict any use of the information to criminally investigate or prosecute any alcohol or drug abuse patient.[facility] HospitalIn the event this information is protected by the Federal Confidentiality of Alcohol and Drug Abuse Patient Records regulations: The Federal rules restrict any use of the information to criminally investigate or prosecute any alcohol or drug abuse patient.[facility] HospitalIn the event this information is protected by the Federal Confidentiality of Alcohol and Drug Abuse Patient Records regulations: The Federal rules restrict any use of the information to criminally investigate or prosecute any alcohol or drug abuse patient.[facility] Reason for Visit (unrecogniz ed section and content) Reason Onset Date Comments Community Monitoring Outreach 07/01/2021 [facility]M Enrollment Reason Onset Date Comments Community Monitoring Outreach 07/03/2021 [facility] D CDM Enrollment Reason Onset Date Comments Refill Request 08/06/2021 Reason Comments Results Returning Patient's Call Reason Comments Results Reason Comments Follow Up 3 month Reason Onset Date Comments [facility] DYLAN RN 09/25/2021 [facility] Reason Comments Follow Up DM Reason Comments result faxed to outside Reason Comments Medication Update [facility] CKD Outreach dec lined Reason Comments error Reason Onset Date Comments [facility] DYLAN RN 10/20/2021 [facility] Reason Comments blood sugar averages Reason Comments Established Patient Follow Up Pain Diabetic Foot Care Reason Onset Date Comments Refill Request 10/23/2021 SEE RX NOTES Reason Comments Follow Up 2 month Reason Onset Date Comments cdm 03/18/2022 enrollment Reason Comments Established Patient Follow Up Diabetic Foot Check Reason Comments Diabetic Foot Care Established Patient Reason Comments Established Patient Follow Up Diabetic Foot Care Care Teams (unrecognized sec tion and content) Drilling Fluids Specialist Relationship Specialty Start Date End Date Moiz Choudhury MD [address] [place] [address] PCP - General Family Practice 10/09/20 Drilling Fluids Specialist Relationship Specialty Start Date End Date Moiz Choudhury MD [address] [place] [address] PCP - General Family Practice 10/09/20 Drilling Fluids Specialist Relationship Specialty Start Date End Date Moiz Choudhury MD [address] [facility] [place] [address] PCP - General Family Practice 10/09/20 Drilling Fluids Specialist Relationship Specialty Start Date End Date Moiz Choudhury MD [address] [facility] [place] [address] PCP - General Family Practice 10/09/20 Drilling Fluids Specialist Relationship Specialty Start Date End Date Moiz Choudhury MD [address] [place] [place] [address] PCP - General Family Practice 10/09/20 Drilling Fluids Specialist Relationship Specialty Start Date End Date Moiz Choudhury MD [address] [place] [place] [address] PCP - General Family Practice 10/09/20 Drilling Fluids Specialist Relationship Specialty Start Date End Date Moiz Choudhury MD [address] [place] [address] PCP - General Family Practice 10/09/20 Drilling Fluids Specialist Relationship Specialty Start Date End Date Moiz Choudhury MD [address] [place] [place] [address] PCP - General Family Practice 10/09/20 Drilling Fluids Specialist Relationship Specialty Start Date End Date Moiz Choudhury MD [address] [place] [place] [address] PCP - General Family Practice 10/09/20 Drilling Fluids Specialist Relationship Specialty Start Date End Date Moiz Choudhury MD [address] [place] [address] PCP - General Family Practice 10/09/20 Drilling Fluids Specialist Relationship Specialty Start Date End Date Moiz Choudhury MD [address] [facility], [place] [address] PCP - General Family Practice 10/09/20 Drilling Fluids Specialist Relationship Specialty Start Date End Date Moiz Choudhury MD [address] [place] [address] PCP - General Family Practice 10/09/20 Drilling Fluids Specialist Relationship Specialty Start Date End Date Moiz Choudhury MD [address] [place] [address] PCP - General Family Medicine 10/09/20 Drilling Fluids Specialist Relationship Specialty Start Date End Date Moiz Choudhury MD [address] [facility], [place] [id number] PCP - General Family Medicine 10/09/20 Team Status: Active Member Role Status Dates Dr. Javier Oakley MD Primary Care Provider Active Team Status: Inactive Member Role Status Dates Dr. Salty Choudhury MD Primary Care Provider, Ref erring Provider Active Susan Michaels MASTER CONTROL ENGINEER, MASTER CONTROL ENGINEER-C Attending Provider Active Team Status: Inactive Member Role Status Dates Dr. Salty Choudhury MD Primary Care Provider Acti ve Paul Johnson MD Attending Provider, Emergency Provid er Active Team Status: Inactive Member Role Status Dates Dr. Salty Choudhury MD Primary Care Provider Acti ve Velma Doll , MASTER CONTROL ENGINEER-C Attending Provider, Referrin g Provider Active Dr. Rush Mora MD Other Provider Active Team Status: Inactive Member Role Status Dates Dr. Salty Choudhury MD Primary Care Provider Acti ve Susan Michaels MASTER CONTROL ENGINEER, MASTER CONTROL ENGINEER-C Attending Provider, Referring P rovider Active Team Status: Inactive Member Role Status Dates Dr. Javier Oakley MD Primary Care Provide r, Attending Provider, Referring Provider Active Team Status: Inactive Member Role Status Dates Dr. Javier Oakley MD Primary Care Provider, Attending P rovider Active Team Status: Inactive Member Role Status Dates Dr. Javier Oakley MD Primary Care Provider Active Yamel aRman NP-C Attending Provider, Referring Provider Active Drilling Fluids Specialist Relationship Specialty Start Date End Date Javier Oakley MD [address] [place], [place] [id number] PCP - General Family Medicine 09/15/22 Team Status: Inactive Member Role Status Dates Dr. Javier Oakley MD Primary Care Provide r, Attending Provider, Referring Provider Active Susan Michaels MASTER CONTROL ENGINEER, MASTER CONTROL ENGINEER-C Other Provider Active Drilling Fluids Specialist Relationship Specialty Start Date End Date Javier Oakley MD [address] [place] [address], [place] [address] PCP - General Family Medicine 09/15/22 Drilling Fluids Specialist Relationship Specialty Start Date End Date Javier Oakley MD [address] [place] [address], [place] [address] PCP - General Family Medicine 09/15/22 Team Status: Inactive Member Role Status Dates Dr. Javier Oakley MD Primary Care Provider, Referring P laureano Active Dr. Jose Roberto Mendoza MD Attending Provider Active Team Status: Inactive Member Role Status Dates Dr. Javier Oakley MD Primary Care Provider Active Dr. Jose Roberto Mendoza MD Attending Provider, Referring Provider Active Drilling Fluids Specialist Relationship Specialty Start Date End Date Javier Oakley MD [address] [place] [address] PCP - General Family Medicine 09/15/22 Drilling Fluids Specialist Relationship Specialty Start Date End Date Javier Oakley MD [address] [place] [address], [place] [id number] PCP - General Family Medicine 09/15/22 Team Status: Inactive Member Role Status Dates Dr. Javier Oakley MD Primary Care Provider Active Start: August 01, 2024 End: August 01, 2024 Dr. Javier Oakley MD Referring Provider Active St art: August 01, 2024 End: August 01, 2024 Dr. Jose Roberto Mendoza MD Attending Provider Active Start: August 01, 2024 End: August 01, 2024 Team Status: Inactive Member Role Status Dates Dr. Javier Oakley MD Primary Care Provider Active Start: September 14, 2024 End: September 14, 2024 Dr. Javier Oakley MD Attending Provider Active St art: September 14, 2024 End: September 14, 2024 Dr. Javier Oakley MD Referring Provider Active St art: September 14, 2024 End: September 14, 2024 Dr. Reuben Green MD Other Provider Active Start: September 14, 2024 End: September 14, 2024 Dr. Jose Roberto Mendoza MD Other Provider Active St art: September 14, 2024 End: September 14, 2024 Goals (unrecognized section and content) Goals may be documented in a n alternate sectionGoals may be documented in an alternate sectionGoals may be documented in an alternate sectionGoals may be documented in an alternate sectionGoals may be documented in an alternate sectionGoals may be documented in an alternate sectionGoals may be documented in an alternate sectionGoals may be documented in an alternate sectionGoals may be documented in an alternate sectionGoals may be documented in an alternate section FOR RECORDS PERTAINING TO PATIENTS WHO ARE OR HAVE BEEN ENROLLED IN A CHEMICAL DEPENDENCY/SUBSTANCEABUSE PROGRAM, SOME INFORMATION MAY BE OMITTED. This clinical summary was aggregated from multiple sources. Caution should be exercised in using it in the provision of clinical care. This summary normalizes information from multiple sources, and as a consequence, information in this document may materially change the coding, format and clinical context of patient data. In addition, data may be omitted in some cases. CLINICAL DECISIONS SHOULD BE BASED ON THE PRIMARY CLINICAL RECORDS. [facility] [employer] provides no warranty or guarantee of the accuracy or completeness of information in this document.
[2025-03-26 02:09] VITALS: BP 131/81; PULSE 69; RESP 29; O2SAT 97
[2025-03-26 03:02] VITALS: PULSE 68; RESP 21; O2SAT 100
[2025-03-26 03:21] LABS: Troponin T High Sens 2 HR 18 ng/L (<=22)
--- NOTE | 2025-03-26 03:33 | EDS_ITS ---
HPI History of Present Illness Chief Complaint: Chest Pain Informant: patient and family Narrative Narrative: Patient is a 79-year-old male with history of coronary artery disease with 2 stents placed in 2019. He also has hypertension and hyperlipidemia and non-i nsulin-dependent diabetes. He states he was sitting in his chair a few hours prior to arrival when he felt a flushing sensation and discomfort in the midsternal portion of his chest. He states that there was no associated nausea vomiting diaphoresis or shortness of breath. He states he initially felt it was indigestion but then the pain radiated slightly towards the left chest/shoulder and with his history of previous stent placement was concerned this could be cardiac and therefore comes in for evaluation Of note upon arrival to the ER he does report improvement of symptoms [facility] Medical History Ascending aortic aneurysm Essential hypertension Hypothyroidism HLD (hyperlipidemia) HTN (hypertension) History of non-ST elevation myocardial infarction (NSTEMI) Presence of stent in coronary artery (~05/25/20) Atherosclerotic heart disease of [place] coronary artery without angina pectoris Home Medications Medication Instructions Recorded Last Taken Type amlodipine 10 mg tablet 10 mg PO DAILY bp 05/24/20 0 05/24/20 History levothyroxine 175 mcg tablet 175 mcg PO DAILY thyroid 05/24/20 05/24/20 History losartan 100 mg tablet 100 mg PO DAILY bp 05/24/20 05/24/20 History omeprazole 40 mg capsule,delayed 40 mg PO DAILY gerd 0 05/24/20 05/23/20 History release aspirin 81 mg tablet,delayed 81 mg PO DAILY heart 12/29 04/18 Unknown History release spironolactone 25 mg tablet 12.5 mg PO DAILY water pil l 01/26/21 Unknown History atorvastatin 40 mg tablet 40 mg PO DAILY cholesterol 0 09/30/21 Unknown History atenolol 25 mg tablet 25 mg PO DAILY heart #30 tab s 03/18/22 Unknown Rx selenium 200 mcg capsule 200 mcg PO DAILY 06/16/23 Un known History glipizide 10 mg tablet 10 mg PO BID 08/01/24 Unknow n History liothyronine 5 mcg tablet mcg PO 2XW 08/01/24 Unknown History multivitamin 1 tab PO QDAY 08/01/24 Unkno wn History rivaroxaban 2.5 mg tablet (Xarelto) 2.5 mg PO QDAY 09/20 Unknown History semaglutide 2 mg/dose (8 mg/3 mL) 2 mg subcut QWEEK Unknown History subcutaneous pen injector (Ozempic) Allergy/AdvReac Type Severity Reaction Status Date / Time fosinopril (From Monopril) AdvReac Unknown Unknown Verified 03/26/25 00:59 Surgical History Presence of coronary angioplasty implant and graft (~05/25/20) Social History Smoking Status: Former smoker ROS ROS ED Constitutional Constitutional ED: Denies chills or fever(s) Eyes Eyes: Denies change in vision ENT ENT ED: Denies sore throat Cardiovascular Cardiovascular: Reports chest pain; Denies palpitations or racing heartbeat Respiratory/Chest Respiratory/Chest: Denies cough or dyspnea Gastrointestinal Gastrointestinal: Denies abdominal pain, diarrhea, nausea or vomiting Musculoskeletal Musculoskeletal: Denies back pain Integumentary Denies rash Neurologic Neurologic: Denies headache(s) Hematologic/Lymphatic Hematologic/Lymphatic: Reports easy bleeding and easy bruising EXAM Physical Exam Const Vital Signs: 03/26/25 00:56 03/26/25 01:00 03/26/25 02:09 Temperature 97.6 F L Temperature Source Oral Pulse Rate 76 69 Respiratory Rate 19 H 29 H Respiratory Effort Normal Non-Labored Blood Pressure 131/81 H Blood Pressure Mean 97 Pulse Ox 97 97 Oxygen Delivery Method Room Air Room Air 03/26/25 03:02 03/26/25 03:40 Temperature 98 F Temperature Source Pulse Rate 68 71 Respiratory Rate 21 H 16 Respiratory Effort Blood Pressure 138/81 H Blood Pressure Mean 100 Pulse Ox 100 97 Oxygen Delivery Method Positive well nourished and well developed General Appearance ED: well developed; Negative for pallor HEENT HEENT Narrative: Normocephalic atraumatic Eyes PERRL and EOMs intact bilaterally General Eye ED: Negative for scleral icterus Neck supple and no JVD Chest Wall palpation of chest normal Chest Narrative: No bony deformity or subcutaneous emphysema noted Resp normal respiratory effort and clear to auscultation bilaterally Resp Narrative: Breath sounds are slight diminished throughout but overall clear to auscultation without signs of respiratory distress Cardio regular rate and regular rhythm Rate: other Other Details: Radial and carotid pulses are equal and symmetric GI normal to inspection, nondistended, normoactive bowel sounds, non-tender, non- distended and no masses Auscultation: normoactive bowel sounds Palpation: soft Extremity normal to inspection Extremity Narrative: No asymmetric edema no pitting edema negative Homans' sign bilaterally Neuro oriented x3, CN's II-XII intact bilaterally and no sensory deficits noted Sensorium / Orientation: alert Motor Exam: strength 5/5 throughout Psych mental status grossly normal Skin no rashes or lesions noted General Skin Exam: Negative for jaundice or pallor MDM MDM MDM Narrative Medical decision making narrative: Patient arrived to the ER slightly hypertensive but has a past medical history of this. He reported chest discomfort in the midsternal region with slight radiation towards the left chest but no associated nausea vomiting or diaphoresis or shortness of breath. However because of his multiple risk factors for coronary artery disease there is concern that this is atypical presentation for ACS. Therefore an EKG was obtained as well as delta troponin. EKG revealed no sign of STEMI or cardiac dysrhythmia. Initial troponin was 18 and 2-hour delta remained flat at a value of 18 going against acute coronary syndrome. His chest x-ray revealed no obvious lung pathology such as pneumonia or pneumothorax. There was no widening the mediastinum going against dissection. The remainder the patient's labs revealed no sign of acute kidney injury as his creatinine is at baseline nor other findings for electrolyte abnormality. Patient does have a history of pulmonary embolus but takes Xarelto and states he has been taking it as directed without missing dosages and therefore my concern for pulmonary embolus is low especially as the patient is not tachycardic or hypoxic or complaining of pleuritic chest pain. Chart review was performed and I did review the CTA from 2023 indicating a thoracic aortic aneurysm but as the patient is not having radiation of the pain and his pulses are equal and symmetric and he also reports that his pain is completely resolved during his ER stay without any medication given I have low concern that he is having a dissection at this time do not feel the need for a CTA. Therefore as his workup at this time reveals no acute lung pathology EKG and laboratory studies reveal no signs of acute coronary syndrome his vitals have remained stable and he is pain-free without intervention in the ER do not feel the need for further workup and he is otherwise safe for discharge History & Record Review Discussion w/independent historian: Patient and Family Lab Data Attestation: I reviewed the patient's lab results. Labs: Laboratory Results - last 24 hr 03/26/25 03/26/25 00:03 03:00 WBC 12.3 H RBC 5.28 Hgb 15.6 Hct 47.3 MCV 89.6 MCH 29.5 MCHC 33.0 RDW Std Deviation 46.0 H RDW Coeff of Oliverio 14.1 Plt Count 225 MPV 10.8 Immature Gran % (Auto) 0.300 Neut % (Auto) 56.4 Lymph % (Auto) 30.8 [place] % (Auto) 9.4 Eos % (Auto) 2.3 Baso % (Auto) 0.8 Absolute Neuts (auto) 7.0 Absolute Lymphs (auto) 3.80 Nucleated RBC % 0 Sodium 140 Potassium 3.9 Chloride 105 Carbon Dioxide 23.2 Anion Gap 11 BUN 16 Creatinine 1.23 H Estim Creat Clear Calc 63.96 Est GFR (MDRD) Non-Af 60 BUN/Creatinine Ratio 13.2 Glucose 188 H Calcium 9.1 Magnesium 2.3 H Troponin T High Sens 18 Troponin T Hi Sens 2 Hr 18 Radiography Diagnostic Testing: Clinical Impression(s) from Imaging Studies Chest X-Ray 03/26/25 01:15 IMPRESSION: Mild bilateral basilar atelectatic pulmonary changes. 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 Instructions: ED Chest Pain, Uncertain Cause, ED Hypertension, Established Prescriptions: No Action atorvastatin 40 mg tablet 40 mg PO DAILY atenolol 25 mg tablet 25 mg PO DAILY Qty: 30 11RF selenium 200 mcg capsule 200 mcg PO DAILY liothyronine 5 mcg tablet PO 2XW multivitamin Tablet 1 tab PO QDAY glipizide 10 mg tablet 10 mg PO BID Xarelto 2.5 mg tablet 2.5 mg PO QDAY Ozempic 2 mg/dose (8 mg/3 mL) pen injector 2 mg subcut QWEEK levothyroxine 175 MCG tablet 175 mcg PO DAILY omeprazole 40 MG capsule,delayed release(DR/EC) 40 mg PO DAILY amlodipine 10 MG tablet 10 mg PO DAILY losartan 100 MG tablet 100 mg PO DAILY aspirin [Aspir-81] 81 mg Tablet,Delayed Release (Dr/Ec) 81 mg PO DAILY spironolactone 25 mg tablet 12.5 mg PO DAILY Primary Care Provider: Vito Oakley Referrals: Vito Oakley MD [Primary Care Provider, Family Practice] Activity Restrictions/Additional Instructions: Your workup today revealed no sign of active heart damage. Please continue all of your home medications as directed by your doctor and return to the ER should you have any further concern or worsening of symptoms Print Language: [place] Disposition Disposition: Home, Self Care Discharge Date/Time: 03/26/25 03:40
[2025-03-26 03:40] VITALS: BP 138/81; PULSE 71; RESP 16; TEMP 36.6; O2SAT 97
== END 2025-03-26 03:40 | disposition home or self-care (01) ==
PROVIDERS: Emergency Provider Emergency Medicine; PCP Family Medicine; Visit Provider Emergency Medicine
DX: R07.9 Chest pain, unspecified (principal); I24.9 Acute ischemic heart disease, unspecified; E11.9 Type 2 diabetes mellitus without complications; E78.5 Hyperlipidemia, unspecified; I10 Essential (primary) hypertension; I25.10 Atherosclerotic heart disease of native coronary artery without angina pectoris; Z87.891 Personal history of nicotine dependence; Z79.01 Long term (current) use of anticoagulants; Z79.84 Long term (current) use of oral hypoglycemic drugs; Z86.711 Personal history of pulmonary embolism
CPT/HCPCS: 71046; 80048; 83735; 84484; 85025; 93005; 99283; A4216